=== PATIENT | male | born 1945 | race Caucasian/White ===

== ENCOUNTER 2016-06-10 21:25 | Emergency (ER) | payer OTHER, MEDICARE, MEDICAID ==
--- NOTE | 2016-06-10 22:02 | EKG REPORT ---
SEVERITY:- ABNORMAL ECG - SINUS RHYTHM FIRST DEGREE AV BLOCK LEFT BUNDLE BRANCH BLOCK : Confirmed by: Jerald Franklin 10-Jun-2016 22:01:14
--- NOTE | 2016-06-10 22:28 | ER Document Report ---
ED General - General Chief Complaint: Chest Pain Stated Complaint: CHEST PAIN Notes: Patient is a 70-year-old obese male who presents with complaint of pain with coughing or taking a deep breath. Pain is over the lower chest. No nausea. No vomiting. No trauma to the chest. Patient said he had similar pain many years ago after fall due to rib injury. He says he's had no trauma no reason to think that he has a rib injury this time. No fevers. No recent leg pain or leg swelling that is new. No history of DVT or PE. Patient unsure if he has a history of left bundle branch block and prior EKGs. Patient says pain is been ongoing since . TRAVEL OUTSIDE OF THE [place] IN LAST 30 DAYS: No - Related Data Allergies/Adverse Reactions: No Known Allergies Allergy (Verified 05/03/12 16:25) Past Medical History - General Information source: Patient - Social History Smoking Status: Unknown if Ever Smoked Frequency of alcohol use: None Drug Abuse: None Family History: Reviewed & Not Pertinent Patient has suicidal ideation: No Patient has homicidal ideation: No - Past Medical History Cardiac Medical History: Reports: Hx Hypercholesterolemia, Hx Hypertension Denies: Hx Coronary Artery Disease Pulmonary Medical History: Reports: Hx Pneumonia Neurological Medical History: Reports: Hx Migraine Endocrine Medical History: Reports: Hx Diabetes Mellitus Type 1, Hx Diabetes Mellitus Type 2 GI Medical History: Reports: Hx Diverticulitis Musculoskeltal Medical History: Reports Hx Arthritis Psychiatric Medical History: Reports: Hx Depression Past Surgical History: Reports: Hx Orthopedic Surgery - left leg, Hx Tonsillectomy - Immunizations Immunizations up to date: Yes Hx Diphtheria, Pertussis, Tetanus Vaccination: Yes Review of Systems - Review of Systems Notes: My Normal Review Basic REVIEW OF SYSTEMS: CONSTITUTIONAL : Denies fever, chills, or sweats. Denies recent illness. CARDIOVASCULAR: Pleuritic chest pain RESPIRATORY: Denies cough, cold, or chest congestion. Denies shortness of breath, difficulty breathing, or wheezing. GASTROINTESTINAL: Denies abdominal pain. Denies nausea, vomiting, or diarrhea. Denies constipation. Last BM: MUSCULOSKELETAL: Denies neck or back pain or joint pain or swelling. SKIN: Denies rash or skin lesions. NEUROLOGICAL: Denies altered mental status or loss of consciousness. Denies headache. Denies weakness or paralysis or loss of use of either side. Denies problems with gait or speech. Denies sensory or motor loss. ALL OTHER SYSTEMS REVIEWED AND NEGATIVE. Physical Exam - Vital signs Vitals: Temp Pulse Resp BP Pulse Ox 97.8 F 61 28 H 168/87 H 100 06/10/16 21:52 06/10/16 21:52 06/10/16 21:52 06/10/16 21:52 06/10/16 21:52 - Notes Notes: General Appearance: Well nourished, alert, cooperative, no acute distress, moderate obvious discomfort. Vitals: reviewed, See vital signs table. Head: no swelling or tenderness to the head Eyes: PERRL, EOMI, Conjuctiva clear Mouth: No decreasd moisture Throat: No tonsillar inflammation, No airway obstruction, No lymphadenopathy Neck: Supple, no neck tenderness, No thyromegaly Lungs: No wheezing, No rales, No rhonci, No accessory muscle use, good air exchange bilaterally. Chest wall: No reproducible tenderness to palpation of the chest wall. Heart: Normal rate, Regular rythm, No murmur, no rub Abdomen: Normal BS, soft, No rigidity, No abdominal tenderness, No guarding, no rebound, no abdominal masses, no organomegaly Extremities: strength 5/5 in all extremities, good pulses in all extremities, no swelling or tenderness in the extremities, no edema. Skin: warm, dry, appropriate color, no rash Neuro: speech clear, oriented x 3, normal affect, responds appropriately to questions. Course - Vital Signs Vital signs: Temp Pulse Resp BP Pulse Ox 98.1 F 61 21 H 155/82 H 94 06/11/16 03:01 06/10/16 21:52 06/11/16 03:01 06/11/16 03:01 06/11/16 03:01 - Laboratory Result Diagrams: 06/10/16 23:10 06/10/16 23:10 Laboratory results interpreted by me: 06/10/16 06/10/16 23:10 23:10 RBC 4.33 L Hgb 12.8 L Lymphocytes % 10.2 L Glucose 137 H - EKG Interpretation by Me Additional EKG results interpreted by me: 06/10/16 22:28 EKG is reviewed and interpreted by me. EKG shows sinus rhythm with rate of 61 bpm. She does have a left bundle branch block. No concerning ST segment changes in lieu of having a left bundle branch block. WI interval is prolonged. QRS duration is prolonged. QTc interval is within normal range. Old EKG available for comparison. - Transfer of Care Notes: 06/11/16 05:31 Patient has what appears be pleurisy. He does have some pleural effusions. This is not surprising being that he is very obese. I do not suspect cord ER disease being that the pain is only pleuritic. Also the patient's pain has been ongoing for almost 6 days constantly and he has a normal troponin. His EKG does show a left bundle branch block. It's unclear if this is old. At this time do not think this represents underlying NV. Being the pain since pain was replaced with palpation and was very pleuritic I did obtain a CT into the chest. Does not show evidence of PE. Patient used to be on Lasix in the past. He says he was [facility]. He says he is unsure why he was taken off of it. We'll place him baked back on Lasix. Hopefully this will help with pleural effusions. We'll have him follow closely with [facility]. Encouraged return to ER medially if his pain becomes constant and not pleuritic, he has fevers, worsening pain, difficulty breathing, or feels unwell. Patient currently has no tachypnea and no signs of any respiratory distress. He looks well. I feel he is safe to be discharged home. Patient agrees with plan and will be discharged home. Discharge - Discharge Clinical Impression: Pleurisy, Pleural effusion Condition: Good Disposition: HOME, SELF-CARE Additional Instructions: Please follow up within a week with your doctor at the [facility] for close reevaluation. Please return to the ER immediately if you have worsening pain, fevers, difficulty breathing, or feel unwell. Please inform your doctor we have started you back on furosemide (water pill). Please have them recheck your kidney function and potassium to make sure it is staying normal. Prescriptions: Furosemide [Lasix 40 mg Tablet] 40 mg PO QAM #30 tablet Ondansetron [Zofran Odt 4 mg Tablet] 1 tab PO Q4H PRN #15 tab.rapdis PRN Reason: For Nausea/Vomiting
[2016-06-10 23:27] LABS: ABSOLUTE EOSINOPHILS # (AUTO) 0.1 10^3/uL (0.0-0.6); ABSOLUTE LYMPHOCYTES (AUTO) 1.1 10^3/uL (0.5-4.7); ABSOLUTE MONOCYTES (AUTO) 1.1 10^3/uL (0.1-1.4); BASOPHILS % (AUTO) 0.3 % (0-2); HEMATOCRIT 38.3 % (37.9-51.0); HEMOGLOBIN 12.8 g/dL (13.5-17.0); HGB HCT DIFFERENCE 0.1; LYMPHOCYTES % (AUTO) 10.2 % (13-45); MEAN CORPUSCULAR HEMOGLOBIN 29.5 pg (27.0-33.4); MEAN CORPUSCULAR HGB CONC 33.4 g/dL (32.0-36.0); MEAN CORPUSCULAR VOLUME 88 fl (80-97); MONOCYTES % (AUTO) 10.6 % (3-13); RED BLOOD COUNT 4.33 10^6/uL (4.35-5.55); RED CELL DISTRIBUTION WIDTH 13.5 % (11.5-14.0); SEGMENTED NEUTROPHILS % (AUTO) 77.9 % (42-78); WHITE BLOOD COUNT 10.3 10^3/uL (4.0-10.5)
[2016-06-10 23:37] LABS: ALANINE AMINOTRANSFERASE 32 U/L (21-72); ALBUMIN 3.9 g/dL (3.5-5.0); ALKALINE PHOSPHATASE 63 U/L (38-126); ANION GAP 12 (5-19); ASPARTATE AMINO TRANSFERASE 22 U/L (17-59); BILIRUBIN,TOTAL 0.4 mg/dL (0.2-1.3); BLOOD UREA NITROGEN 13 mg/dL (7-20); CALCIUM 9.1 mg/dL (8.4-10.2); CARBON DIOXIDE 25 mmol/L (22-30); CHLORIDE 107 mmol/L (98-107); CREATINE KINASE 102 U/L (55-170); CREATININE RESULT 0.67 mg/dL (0.52-1.25); GLUCOSE 137 mg/dL (75-110); POTASSIUM 4.1 mmol/L (3.6-5.0); SODIUM 143.5 mmol/L (137-145); TOTAL PROTEIN 6.8 g/dL (6.3-8.2)
[2016-06-10 23:49] LABS: CREATINE KINASE MB 1.72 ng/mL (<4.55); TROPONIN I 0.03 ng/mL
[2016-06-11] MEDS ORDERED: ONDANSETRON HCL INJ/PF 4 MG/2 ML SDV IV ONE (01:10)
[2016-06-11] MEDS ORDERED: FUROSEMIDE INJ/PF 20 MG/2 ML SDV IV ONE (02:37)
[2016-06-11] MEDS ORDERED: ONDANSETRON ODT 4 MG TAB (6 TAB/DSPK) PO PRN (02:41)
[2016-06-11 03:07] VITALS: BP 155/82
== END 2016-06-11 03:14 | disposition home or self-care (01) ==
LOC: ER 21:25
DX: R09.1 Pleurisy (principal); J90 Pleural effusion, not elsewhere classified; R05 Cough; R07.9 Chest pain, unspecified
CPT/HCPCS: 93005; 99285; 96374; 96375; 36415; 82553; 82550; 85025; 80053; 84484; 71020; 71275; 93010; J1940; J2405

== ENCOUNTER 2016-06-18 12:24 | Emergency (ER) | payer OTHER, MEDICARE ==
--- NOTE | 2016-06-18 12:56 | ER Document Report ---
ED Medical Screen (RME) - General Stated Complaint: FOLLOWUP FROM CHEST PAIN Time seen by provider: 12:55 Mode of Arrival: Wheelchair Information source: Patient Notes: 70-year-old male complaining of right upper quadrant abdominal pain that radiates into the right thoracic back. Seen 06-10-16 recently [facility] ER and evaluated for chest pain. Does have nausea. CTA was negative. TRAVEL OUTSIDE OF THE [place] IN LAST 30 DAYS: No - Related Data Allergies/Adverse Reactions: No Known Allergies Allergy (Verified 06/18/16 12:52) Past Medical History - Past Medical History Cardiac Medical History: Reports: Hx Hypercholesterolemia, Hx Hypertension Denies: Hx Coronary Artery Disease Pulmonary Medical History: Reports: Hx Pneumonia Neurological Medical History: Reports: Hx Migraine Endocrine Medical History: Reports: Hx Diabetes Mellitus Type 1, Hx Diabetes Mellitus Type 2 GI Medical History: Reports: Hx Diverticulitis Musculoskeltal Medical History: Reports Hx Arthritis Psychiatric Medical History: Reports: Hx Depression Past Surgical History: Reports: Hx Orthopedic Surgery - left leg, Hx Tonsillectomy - Immunizations Immunizations up to date: Yes Hx Diphtheria, Pertussis, Tetanus Vaccination: Yes Physical Exam - Vital signs Vitals: Temp Pulse Resp BP Pulse Ox 97.4 F 63 22 H 162/85 H 100 06/18/16 12:29 06/18/16 12:29 06/18/16 12:29 06/18/16 12:29 06/18/16 12:29 Course - Vital Signs Vital signs: Temp Pulse Resp BP Pulse Ox 97.4 F 63 22 H 162/85 H 100 06/18/16 12:29 06/18/16 12:29 06/18/16 12:29 06/18/16 12:29 06/18/16 12:29
[2016-06-18 13:42] LABS: ABSOLUTE EOSINOPHILS # (AUTO) 0.1 10^3/uL (0.0-0.6); ABSOLUTE LYMPHOCYTES (AUTO) 1.1 10^3/uL (0.5-4.7); ABSOLUTE MONOCYTES (AUTO) 0.6 10^3/uL (0.1-1.4); ABSOLUTE NEUT (AUTO) 5.8 10^3/uL (1.7-8.2); BASOPHILS % (AUTO) 0.6 % (0-2); EOSINOPHILS % (AUTO) 0.8 % (0-6); HEMATOCRIT 41.7 % (37.9-51.0); HEMOGLOBIN 13.9 g/dL (13.5-17.0); LYMPHOCYTES % (AUTO) 14.8 % (13-45); MEAN CORPUSCULAR HEMOGLOBIN 29.3 pg (27.0-33.4); MEAN CORPUSCULAR HGB CONC 33.4 g/dL (32.0-36.0); MEAN CORPUSCULAR VOLUME 88 fl (80-97); MONOCYTES % (AUTO) 8.1 % (3-13); RED BLOOD COUNT 4.76 10^6/uL (4.35-5.55); RED CELL DISTRIBUTION WIDTH 13.5 % (11.5-14.0); SEGMENTED NEUTROPHILS % (AUTO) 75.7 % (42-78); WHITE BLOOD COUNT 7.6 10^3/uL (4.0-10.5)
[2016-06-18 14:02] LABS: ALANINE AMINOTRANSFERASE 20 U/L (21-72); ALBUMIN 4.4 g/dL (3.5-5.0); ALKALINE PHOSPHATASE 63 U/L (38-126); ANION GAP 14 (5-19); ASPARTATE AMINO TRANSFERASE 29 U/L (17-59); BILIRUBIN,TOTAL 0.6 mg/dL (0.2-1.3); BLOOD UREA NITROGEN 18 mg/dL (7-20); CALCIUM 9.8 mg/dL (8.4-10.2); CARBON DIOXIDE 28 mmol/L (22-30); CHLORIDE 99 mmol/L (98-107); CREATININE RESULT 0.77 mg/dL (0.52-1.25); GLUCOSE 196 mg/dL (75-110); LIPASE 15.2 U/L (23-300); POTASSIUM 4.2 mmol/L (3.6-5.0); SODIUM 141.3 mmol/L (137-145); TOTAL PROTEIN 7.2 g/dL (6.3-8.2)
--- NOTE | 2016-06-18 14:12 | ER Document Report ---
ED GI/ - General Chief Complaint: Upper Abdominal Pain Stated Complaint: FOLLOWUP FROM CHEST PAIN Mode of Arrival: Wheelchair Notes: The patient is a 70-year-old male who presents with 2 days of worsening right and left lower quadrant abdominal pain. He feels like the pain is stabbing and worse with movement. He is also having some nausea and a small amount of loose stools. He was seen in the emergency room last week with shortness of breath and chest pain and had a negative CTA. He denies fevers, urinary symptoms, vomiting, chest pain, shortness of breath, constipation or blood in stool. TRAVEL OUTSIDE OF THE [place] IN LAST 30 DAYS: No - Related Data Allergies/Adverse Reactions: No Known Allergies Allergy (Verified 06/18/16 12:52) Past Medical History - General Information source: Patient - Social History Smoking Status: Never Smoker Chew tobacco use (# tins/day): No Frequency of alcohol use: None Drug Abuse: None Family History: Reviewed & Not Pertinent Patient has suicidal ideation: No Patient has homicidal ideation: No - Past Medical History Cardiac Medical History: Reports: Hx Hypercholesterolemia, Hx Hypertension Denies: Hx Coronary Artery Disease Pulmonary Medical History: Reports: Hx Pneumonia Neurological Medical History: Reports: Hx Migraine Endocrine Medical History: Reports: Hx Diabetes Mellitus Type 1, Hx Diabetes Mellitus Type 2 GI Medical History: Reports: Hx Diverticulitis Musculoskeltal Medical History: Reports Hx Arthritis Psychiatric Medical History: Reports: Hx Depression Past Surgical History: Reports: Hx Orthopedic Surgery - left leg, Hx Tonsillectomy - Immunizations Immunizations up to date: Yes Hx Diphtheria, Pertussis, Tetanus Vaccination: Yes Review of Systems - Review of Systems Notes: REVIEW OF SYSTEMS: CONSTITUTIONAL: -fevers, -chills EENT: -eye pain, -difficulty swallowing, -nasal congestion CARDIOVASCULAR:-chest pain, -syncope. RESPIRATORY: -cough, -SOB GASTROINTESTINAL: +abdominal pain, +nausea, -vomiting, +diarrhea GENITOURINARY: -dysuria, -hematuria MUSCULOSKELETAL: -back pain, -neck pain SKIN: -rash or skin lesions. HEMATOLOGIC: -easy bruising or bleeding. LYMPHATIC: -swollen, enlarged glands. NEUROLOGICAL: -altered mental status or loss of consciousness, -headache, - neurologic symptoms PSYCHIATRIC: -anxiety, -depression. ALL OTHER SYSTEMS REVIEWED AND NEGATIVE. Physical Exam - Vital signs Vitals: Temp Pulse Resp BP Pulse Ox 97.4 F 63 22 H 162/85 H 100 06/18/16 12:29 06/18/16 12:29 06/18/16 12:29 06/18/16 12:29 06/18/16 12:29 - Notes Notes: PHYSICAL EXAMINATION: GENERAL: Well-appearing, well-nourished and in no acute distress. HEAD: Atraumatic, normocephalic. EYES: Pupils equal round and reactive to light, extraocular movements intact, sclera anicteric, conjunctiva are normal. ENT: nares patent, oropharynx clear without exudates. Moist mucous membranes. NECK: Normal range of motion, supple without lymphadenopathy LUNGS: Breath sounds clear to auscultation bilaterally and equal. No wheezes rales or rhonchi. HEART: Regular rate and rhythm without murmurs ABDOMEN: Mild tenderness over right lower quadrant and left lower quadrant. No rebound. Positive bowel sounds. EXTREMITIES: Normal range of motion, no pitting or edema. No cyanosis. NEUROLOGICAL: Cranial nerves grossly intact. Normal speech, normal gait. Normal sensory, motor, and reflex exams. PSYCH: Normal mood, normal affect. SKIN: Warm, Dry, normal turgor, no rashes or lesions noted. Course - Re-evaluation Re-evalutation: Patient has lower abdominal tenderness. Will check labs, urine and obtain CT abdomen and pelvis to assess for emergent causes of his abdominal pain. 06/18/16 15:05 CT does not show any acute findings. Labs are unremarkable. Patient said lower abdominal pain went away, but the pain returned to his right upper quadrant. Will obtain ultrasound to assess for stones not seen on CAT scan. 06/18/16 16:07 Ultrasound shows concern for cirrhosis. Do not suspect SBP at this time without fever or leukocytosis. Instructed patient to follow up with GI for further evaluation and treatment. Patient comfortable with plan and understands. - Vital Signs Vital signs: Temp Pulse Resp BP Pulse Ox 97.4 F 63 22 H 162/85 H 100 06/18/16 12:29 06/18/16 12:29 06/18/16 12:29 06/18/16 12:29 06/18/16 12:29 - Laboratory Result Diagrams: 06/18/16 13:17 06/18/16 13:17 Laboratory results interpreted by me: 01/10/17 13:17 Glucose 196 H ALT 20 L Lipase 15.2 L Discharge - Discharge Clinical Impression: Abdominal pain Qualifiers: Abdominal location: generalized Qualified Code(s): R10.84 - Generalized abdominal pain Cirrhosis Qualifiers: Hepatic cirrhosis type: unspecified hepatic cirrhosis Ascites presence: with ascites Qualified Code(s): K74.60 - Unspecified cirrhosis of liver Condition: Good Disposition: HOME, SELF-CARE Additional Instructions: Your CAT scan and labs do not show any evidence of emergent conditions that are causing your abdominal pain. However, your ultrasound shows concern for cirrhosis. You must follow-up with your primary care physician and a GI doctor for further evaluation and treatment. You may take your home Zofran to help with any nausea. Cirrhosis You may have cirrhosis of the liver. The liver tissue is replaced by scar tissue. Most often, this is caused by alcoholism or chronic hepatitis. There may be no symptoms in early cirrhosis. Later, patients develop jaundice, swelling, and fluid in the abdomen. There is no cure for cirrhosis. Only the symptoms can be treated. Edema and fluid in the abdomen can be treated with diuretics (water pills). If cirrhosis is severe, you'll be restricted to a low-protein diet. Don't drink any alcohol. When medicines are prescribed for you, be sure the doctor understands you have cirrhosis. Call the doctor if you become increasingly yellow, vomit repeatedly, begin to bruise or bleed easily, or have worsening abdominal pain or increasing abdominal size. ABDOMINAL PAIN: There are many causes of abdominal pain. Pain can mean a serious problem requiring surgery (such as appendicitis). It can also be an innocent problem that goes away on its own (such as a viral infection). Often, time must pass to determine the cause of pain. The physician does not feel that hospitalization is necessary, at present. Things may change within the next 24 hours. Call the doctor or come back for re- examination if any problems occur, such as: (1) Pain that becomes more severe, steady, or becomes concentrated in one specific area. Also, pain that is more severe with movement or coughing. (2) Vomiting that persists or becomes more frequent. (3) Blood in the vomitus, urine, or bowel movements. Blood in the stool may have a tarry or black appearance. (4) Shaking chills or fever greater than 100 degrees F. (5) The abdomen becomes more distended or swollen. (6) Bowel movements cease. (7) Failure to improve as expected. NORMAL EXAM AND WORKUP: At this time, your examination and workup show no significant abnormality. No significant abnormal physical findings are noted. All laboratory, EKG, and imaging (x-ray, CT scans, ultrasound) studies that were ordered show no significant abnormality. Although your examination and all studies that were ordered showed no significant abnormal finding, there are no examinations and no studies that are 100% accurate. There is always the possibility that some abnormality could exist and not be detected with physical examination or within the limits and capabilities of laboratory and other studies. You should return or follow up as you were instructed on your visit today for further evaluation if your symptoms do not resolve. PAIN MEDICATION INJECTION: You have received an injection of a pain medication. You should experience significant pain relief within 45 minutes. This drug is a narcotic - - it will impair your judgement, slow your reaction time and make you sleepy ( as well as relieve your pain). Narcotics also can cause nausea. You should not drive, work with machinery, or perform any task requiring mental alertness until all effects of the medication are gone -- six to eight hours. Do not take any alcohol, or sedatives, and do not take any other medication without checking with your physician. ANTINAUSEA MEDICATION: You have been given a medication to suppress nausea and vomiting. This type of medication can be given as a shot, pill, or suppository. It will usually last for many hours. Pills and shots usually last six to eight hours, suppositories last about 12 hours. For the typical illness, only one or two doses of the medication may be necessary. Mild lightheadedness may occur. This type of medicine can cause drowsiness. Do not drive or operate dangerous machinery while under its influence. Do not mix with alcohol. See your doctor at once if you have muscle spasms or tightness, or uncontrollable motions (particularly of the neck, mouth, or jaw). Persistent vomiting or severe lightheadedness should also be evaluated by the physician. FOLLOW-UP CARE: If you have been referred to a physician for follow-up care, call the physician s office for an appointment as you were instructed or within the next two days. If you experience worsening or a significant change in your symptoms, notify the physician immediately or return to the Emergency Department at any time for re-evaluation. FOLLOW-UP CARE: You should return for re-evaluation in 12 hours. This follow-up visit is important. If you are unable to return, or feel that the return visit is unnecessary, please call us. Prescriptions: Hydrocodone/Acetaminophen [[place] 5-325 mg Tablet] 1 tab PO Q6H PRN #10 tablet PRN Reason: Forms: Elevated Blood Pressure Referrals: JUDAH MELGAR MD [ACTIVE STAFF] - Follow up as needed
[2016-06-18] MEDS ORDERED: MORPHINE SULFATE 10 MG/ML INJ IV ONE (14:14)
[2016-06-18] MEDS ORDERED: ONDANSETRON HCL INJ/PF 4 MG/2 ML SDV IV ONE (14:14)
[2016-06-18 16:32] VITALS: BP 136/77
== END 2016-06-18 16:31 | disposition home or self-care (01) ==
LOC: ER 12:24
DX: K74.60 Unspecified cirrhosis of liver (principal); R18.8 Other ascites; R10.84 Generalized abdominal pain; R11.0 Nausea; I10 Essential (primary) hypertension; E11.9 Type 2 diabetes mellitus without complications
CPT/HCPCS: 99284; 96374; 96375; 36415; 83690; 85025; 80053; 76705; 74177; J2270; J2405

== ENCOUNTER 2017-07-25 19:53 | Inpatient (IN) | payer OTHER, MEDICARE ==
[2017-07-25] MEDS ORDERED: OXYCODONE-ACETAMINOPHEN 5-325 MG TABLET PO ONE (20:07)
--- NOTE | 2017-07-25 20:09 | ER Document Report ---
ED Extremity Problem, Lower - General Chief Complaint: Fall Stated Complaint: FALL,GROIN PAIN Time Seen by Provider: 07/25/17 20:02 Notes: Patient is a 71-year-old male comes emergency department for chief complaint of fall at home, he states he tripped on a shoe, went down on his left knee, reports pain in the left knee and also up in the left groin area. He denies back pain, he denies hitting his head, he denies any other locations of pain. He is not on a blood thinner. He does have neuropathy in the distal part of his legs. He takes hydrocodone for pain from pain management. TRAVEL OUTSIDE OF THE [place] IN LAST 30 DAYS: No - Related Data Allergies/Adverse Reactions: No Known Allergies Allergy (Verified 07/25/17 20:07) Past Medical History - General Information source: Patient - Social History Smoking Status: Former Smoker Drug Abuse: None Lives with: Family Family History: Reviewed & Not Pertinent - Past Medical History Cardiac Medical History: Reports: Hx Hypercholesterolemia, Hx Hypertension Denies: Hx Coronary Artery Disease Pulmonary Medical History: Reports: Hx Pneumonia Neurological Medical History: Reports: Hx Migraine Endocrine Medical History: Reports: Hx Diabetes Mellitus Type 2 GI Medical History: Reports: Hx Diverticulitis Musculoskeltal Medical History: Reports Hx Arthritis Psychiatric Medical History: Reports: Hx Depression Past Surgical History: Reports: Hx Orthopedic Surgery - left leg, Hx Tonsillectomy - Immunizations Immunizations up to date: Yes Hx Diphtheria, Pertussis, Tetanus Vaccination: Yes Review of Systems - Review of Systems Constitutional: No symptoms reported EENT: No symptoms reported Cardiovascular: No symptoms reported Respiratory: No symptoms reported Gastrointestinal: No symptoms reported Genitourinary: No symptoms reported Male Genitourinary: No symptoms reported Musculoskeletal: See HPI Skin: No symptoms reported Hematologic/Lymphatic: No symptoms reported Neurological/Psychological: No symptoms reported Physical Exam - Vital signs Vitals: Temp Pulse Resp BP Pulse Ox 98.0 F 56 L 20 134/58 H 95 07/25/17 20:04 07/25/17 20:04 07/25/17 20:04 07/25/17 20:04 07/25/17 20:04 Interpretation: Normal - General General appearance: Appears well, Alert - HEENT Head: Normocephalic, Atraumatic Eyes: Normal Pupils: PERRL - Respiratory Respiratory status: No respiratory distress Chest status: Nontender Breath sounds: Normal. No: Decreased air movement, Wheezing Chest palpation: Normal - Cardiovascular Rhythm: Regular Heart sounds: Normal auscultation Murmur: No - Abdominal Inspection: Normal Distension: No distension Bowel sounds: Normal Tenderness: Nontender Organomegaly: No organomegaly - Back Back: Normal, Nontender - Extremities General upper extremity: Normal inspection, Nontender, Normal color, Normal ROM , Normal temperature General lower extremity: Other - Patient is tender in the left groin is area, minimally along the left proximal femur, also tender generally over the left knee, range of motion the knee is intact, normal distal neurovascular exam, unremarkable extremity exam otherwise. - Neurological Neuro grossly intact: Yes Cognition: Normal Orientation: AAOx4 Mansi Coma Scale Eye Opening: Spontaneous Davilla Coma Scale Verbal: Oriented Davilla Coma Scale Motor: Obeys Commands Davilla Coma Scale Total: 15 Speech: Normal Motor strength normal: LUE, RUE, LLE, RLE Sensory: Normal - Psychological Associated symptoms: Normal affect, Normal mood - Skin Skin Temperature: Warm Skin Moisture: Dry Skin Color: Normal Course - Re-evaluation Re-evalutation: Patient with tenderness in the left groin and over the left knee after fall, no head injury, no neurological deficits, no other concerns. Vital signs unremarkable. 07/25/17 21:45 Patient with a left femoral neck intertrochanteric fracture, will require surgery. I called and spoke with Dr. Lozano, orthopedics retinal surgeon, he states that he will consult on the patient, to speak to hospitalist for admission based on his age and comorbidities. Preop workup completed, urinalysis unremarkable, chest x-ray unremarkable, patient does have leukocytosis but I am unsure of the cause of this as there is no apparent infectious source. Pepe was placed, patient provided with pain medication. Discussed with Dr. Aquino, internal medicine, patient will be admitted to telemetry full admission. Family and patient state understanding and agreement. - Vital Signs Vital signs: Temp Pulse Resp BP Pulse Ox 98.6 F 56 L 14 118/76 97 07/26/17 04:00 07/25/17 20:04 07/26/17 07:00 07/26/17 07:01 07/26/17 07:00 - Laboratory Result Diagrams: 07/25/17 21:58 07/26/17 01:36 Laboratory results interpreted by me: 02/16/18 02/16/18 02/16/18 21:58 21:58 22:58 WBC 18.1 H RBC 4.23 L Hgb 12.6 L Seg Neuts % (Manual) 87 H Lymphocytes % (Manual) 7 L Abs Neuts (Manual) 15.7 H BUN 27 H Glucose 199 H Urine Protein 30 H Urine Glucose (UA) 150 H Discharge - Discharge Clinical Impression: Fracture of femoral neck, left Qualifiers: Encounter type: initial encounter Fracture type: closed Qualified Code(s): S72.002A - Fracture of unspecified part of neck of left femur, initial encounter for closed fracture Fall Qualifiers: Encounter type: initial encounter Qualified Code(s): W19.XXXA - Unspecified fall, initial encounter Left knee pain Qualifiers: Chronicity: acute Qualified Code(s): M25.562 - Pain in left knee Condition: Stable Disposition: ADMITTED INPATIENT Admitting Provider: Hospitalist Unit Admitted: Telemetry
--- NOTE | 2017-07-25 21:00 | RADIOLOGY REPORT (SQ) ---
EXAM DESCRIPTION: HIP LEFT AP/LATERAL COMPLETED DATE/TIME: 07/25/2017 8:40 pm REASON FOR STUDY: fall, pain COMPARISON: None. NUMBER OF VIEWS: Two views. TECHNIQUE: AP pelvis and additional frog-leg view of the left hip. LIMITATIONS: None. FINDINGS: MINERALIZATION: Normal. LEFT HIP: Mildly displaced intertrochanteric femoral neck fracture. RIGHT HIP: No fracture or dislocation. No worrisome bone lesions. PUBIS AND ISCHIUM: No fracture. PELVIS: No fracture. SACRUM: No fracture or dislocation. No worrisome bone lesions. LOWER LUMBAR SPINE: No fracture or dislocation. No worrisome bone lesions. No significant disc disea se. SOFT TISSUES: No findings. OTHER: No other significant finding. IMPRESSION: LEFT INTERTROCHANTERIC FEMORAL NECK FRACTURE. TECHNICAL DOCUMENTATION: JOB ID: [id number] [employer]- All Rights Reserved
--- NOTE | 2017-07-25 21:01 | RADIOLOGY REPORT (SQ) ---
EXAM DESCRIPTION: KNEE LEFT 2 VIEWS COMPLETED DATE/TIME: 07/25/2017 8:40 pm REASON FOR STUDY: fall on knee, pain COMPARISON: None. NUMBER OF VIEWS: Two views. TECHNIQUE: AP and lateral radiographic images acquired of the left knee. LIMITATIONS: None. FINDINGS: MINERALIZATION: Normal. BONES: No acute fracture or dislocation. No worrisome bone lesions. JOINT: Moderate tricompartmental osteoarthritis most severely affecting the patellofemoral compartmen t. Small joint effusion. SOFT TISSUES: No soft tissue swelling. No radio-opaque foreign body. OTHER: No other significant finding. IMPRESSION: TRICOMPARTMENTAL OSTEOARTHRITIS WITH SMALL JOINT EFFUSION. NO ACUTE OSSEOUS ABNORMALITY . TECHNICAL DOCUMENTATION: JOB ID: [id number] [employer]- All Rights Reserved
[2017-07-25] MEDS ORDERED: ONDANSETRON HCL INJ/PF 4 MG/2 ML SDV IV ONE (21:45)
[2017-07-25] MEDS ORDERED: HYDROMORPHONE HCL INJ/PF 2 MG/ML AMPULE IV ONE ×2 (21:45→23:57)
[2017-07-25 22:38] LABS: HEMATOCRIT 38.3 % (37.9-51.0); HEMOGLOBIN 12.6 g/dL (13.5-17.0); INTERNATIONAL RATION (INR) 0.95; MEAN CORPUSCULAR HEMOGLOBIN 29.7 pg (27.0-33.4); MEAN CORPUSCULAR HGB CONC 32.8 g/dL (32.0-36.0); MEAN CORPUSCULAR VOLUME 91 fl (80-97); PLATELET COUNT 301 10^3/uL (150-450); PROTHROMBIN TIME 13.4 SEC (11.4-15.4); RED BLOOD COUNT 4.23 10^6/uL (4.35-5.55); RED CELL DISTRIBUTION WIDTH 13.1 % (11.5-14.0); WHITE BLOOD COUNT 18.1 10^3/uL (4.0-10.5)
[2017-07-25 22:44] LABS: ALANINE AMINOTRANSFERASE 24 U/L (21-72); ALBUMIN 4.5 g/dL (3.5-5.0); ALKALINE PHOSPHATASE 61 U/L (38-126); ANION GAP 11 (5-19); ASPARTATE AMINO TRANSFERASE 33 U/L (17-59); BILIRUBIN,DIRECT 0.2 mg/dL (0.0-0.4); BILIRUBIN,TOTAL 0.3 mg/dL (0.2-1.3); BLOOD UREA NITROGEN 27 mg/dL (7-20); CALCIUM 9.7 mg/dL (8.4-10.2); CARBON DIOXIDE 27 mmol/L (22-30); CHLORIDE 100 mmol/L (98-107); GLUCOSE 199 mg/dL (75-110); POTASSIUM 4.4 mmol/L (3.6-5.0); SODIUM 138.4 mmol/L (137-145); TOTAL PROTEIN 7.6 g/dL (6.3-8.2)
[2017-07-25 22:57] LABS: ABSOLUTE LYMPHOCYTES# (MANUAL) 1.3 10^3/uL (0.5-4.7); ABSOLUTE MONOCYTES # (MANUAL) 1.1 10^3/uL (0.1-1.4); ABSOLUTE NEUTROPHILS# (MANUAL) 15.7 10^3/uL (1.7-8.2); BASOPHILS % (MANUAL) 0 % (0-2); EOSINOPHILS % (MANUAL) 0 % (0-6); LYMPHOCYTES % (MANUAL) 7 % (13-45); MONOCYTES % (MANUAL) 6 % (3-13); SEGMENTED NEUTROPHILS % (MAN) 87 % (42-78); TOTAL CELLS COUNTED 100
[2017-07-25 22:58] LABS: PLATELET COMMENT ADEQUATE; RBC MORPHOLOGY COMMENT NORMO-CYTIC/CHROMIC
[2017-07-25 23:16] LABS: APPEARANCE,URINE CLEAR; BILIRUBIN,URINE NEGATIVE (NEGATIVE); COLOR,URINE YELLOW; GLUCOSE, URINE 150 mg/dL (NEGATIVE); KETONES,URINE NEGATIVE (NEGATIVE); LEUKOCYTE ESTERASE,URINE NEGATIVE (NEGATIVE); NITRITE,URINE NEGATIVE (NEGATIVE); PROTEIN,URINE 30 mg/dL (NEGATIVE); URINE SPECIFIC GRAVITY 1.023; UROBILINOGEN,URINE NEGATIVE mg/dL (<2.0)
--- NOTE | 2017-07-26 00:13 | RADIOLOGY REPORT (SQ) ---
EXAM DESCRIPTION: CHEST SINGLE VIEW CLINICAL HISTORY: 71 years Male, pre-op COMPARISON: 06-10-17 NUMBER OF VIEWS/TECHNIQUE: 1/AP LIMITATIONS: None. FINDINGS: Moderate lung volume. Clear parenchyma. Normal cardiac silhouette. No pneumothorax. No acute bone defect. IMPRESSION: No acute cardiopulmonary findings.
[2017-07-26] MEDS ORDERED: ONDANSETRON HCL INJ/PF 4 MG/2 ML SDV IV ONE (00:32)
[2017-07-26] MEDS ORDERED: IPRATROPIUM/ALBUTEROL 0.5-2.5 MG/3 ML AMPUL NEB PRN (00:54)
[2017-07-26] MEDS ORDERED: MAG HYDROX/AL HYDROX/SIMETH SUSP 30 ML UDCUP PO PRN (00:54)
[2017-07-26] MEDS ORDERED: HYDRALAZINE HCL INJ/PF 20 MG/1 ML SDV IV PRN (00:54)
[2017-07-26] MEDS ORDERED: DEXTROSE 40% GEL 15 GM TUBE PO PRN ×2 (00:54)
[2017-07-26] MEDS ORDERED: DEXTROSE 50%-WATER 25 GM/50 ML DISP.SYRIN IV PRN ×2 (00:54)
[2017-07-26] MEDS ORDERED: GLUCAGON,HUMAN RECOMB 1 MG INJ IM PRN (00:54)
[2017-07-26] MEDS ORDERED: MORPHINE SULFATE 10 MG/ML INJ IV PRN ×2 (00:54→14:09)
[2017-07-26] MEDS ORDERED: METOPROLOL SUCCINATE 50 MG TAB.SR.24H PO ONE (01:15)
[2017-07-26 02:05] LABS: ANION GAP 12 (5-19); BLOOD UREA NITROGEN 28 mg/dL (7-20); CALCIUM 9.7 mg/dL (8.4-10.2); CARBON DIOXIDE 22 mmol/L (22-30); CHLORIDE 103 mmol/L (98-107); GLUCOSE 201 mg/dL (75-110); POTASSIUM 4.7 mmol/L (3.6-5.0); SODIUM 136.8 mmol/L (137-145)
--- NOTE | 2017-07-26 05:03 | PDOC H&P ---
History of Present Illness Admission Date/PCP: 07/26/17 00:55 RADHA WHITE MD Patient complains of: Left-sided hip pain History of Present Illness: CATALINO MARTINEZ JR is a 71 year old male with a past medical history of diabetes, hypertension, irritable bowel syndrome, migraine headache, depression, neuropathy and old left bundle branch block. Patient presents after tripping on his slippers resulting in a fall to the floor resulting in excruciating pain to left hip. He denies striking his head or prior symptoms such as chest pain, palpitations, lightheadedness. He does admit to several falls in the past describing left knee sometimes gives out. He denies recent change in medications and is otherwise felt well. In the emergency room is found to have a left lower extremity shortened and externally rotated. Imaging of the hip reveals intertrochanteric femoral neck fracture. He receives symptomatic treatment and refer to the hospitalist for admission. Patient admits negative cardiac stress test 3 months ago. He denies recent fracture, complication with surgery. Past Medical History Cardiac Medical History: Reports: Hyperlipidema, Hypertension Denies: Coronary Artery Disease Pulmonary Medical History: Reports: Pneumonia Neurological Medical History: Reports: Migraine Endocrine Medical History: Reports: Diabetes Mellitus Type 1, Diabetes Mellitus Type 2 GI Medical History: Reports: Diverticulitis, Gastroesophageal Reflux Disease Musculoskeltal Medical History: Reports: Arthritis Psychiatric Medical History: Reports: Depression Past Surgical History Past Surgical History: Reports: Orthopedic Surgery - left leg, Tonsillectomy Social History Information Source: Patient Lives with: Alone Smoking Status: Never Smoker Frequency of Alcohol Use: None Drugs: None - Advance Directive Resuscitation Status: Full Code Family History Family History: CAD Parental Family History Reviewed: Yes Children Family History Reviewed: Yes Sibling(s) Family History Reviewed.: Yes Medication/Allergy Home Medications: Insulin Aspart Protam & Aspart [Novolog Mix 70-30 Vial] unit SQ 05/03/12 Insulin Glargine,Hum.rec.anlog [Lantus Insulin 100 Unit/mL] 70 unit SUBCUT QHS 05/03/12 Aspirin [Aspirin 325 mg Tablet] 325 mg PO DAILY 08/17/12 Hydrocodone Bit/Acetaminophen [Vicodin 5-500 mg Tablet] 1 - 2 tab PO ASDIR PRN # 15 tablet 08/17/12 Metformin HCl [Glucophage 1000 mg Tablet] 1,000 mg PO BID 08/17/12 Metoprolol Succinate [Toprol Xl 50 mg Tab.sr] 25 mg PO BID 08/17/12 Oxycodone HCl/Acetaminophen [Percocet 5-325 mg Tablet] 1 tab PO QID #30 tablet 05/08/13 Promethazine HCl [Phenergan 25 mg Tablet] 25 mg PO ASDIR PRN #20 tablet Furosemide [Lasix 40 mg Tablet] 40 mg PO QAM #30 tablet 06/11/16 Ondansetron [Zofran Odt 4 mg Tablet] 1 tab PO Q4H PRN #15 tab.rapdis 06/11/16 Hydrocodone/Acetaminophen [[place] 5-325 mg Tablet] 1 tab PO Q6H PRN #10 tablet Allergies/Adverse Reactions: No Known Allergies Allergy (Verified 07/25/17 20:07) Review of Systems Constitutional: ABSENT: chills, fever(s), headache(s), weight gain, weight loss Eyes: ABSENT: visual disturbances Ears: ABSENT: hearing changes Cardiovascular: ABSENT: chest pain, dyspnea on exertion, edema, orthropnea, palpitations Respiratory: ABSENT: cough, hemoptysis Gastrointestinal: ABSENT: abdominal pain, constipation, diarrhea, hematemesis, hematochezia, nausea, vomiting Genitourinary: ABSENT: dysuria, hematuria Musculoskeletal: ABSENT: joint swelling Integumentary: ABSENT: rash, wounds Neurological: ABSENT: abnormal gait, abnormal speech, confusion, dizziness, focal weakness, syncope Psychiatric: ABSENT: anxiety, depression, homidical ideation, suicidal ideation Endocrine: ABSENT: cold intolerance, heat intolerance, polydipsia, polyuria Hematologic/Lymphatic: ABSENT: easy bleeding, easy bruising Physical Exam Vital Signs: Temp Pulse Resp BP Pulse Ox 98.0 F 56 L 13 94/50 L 94 07/26/17 00:30 07/25/17 20:04 07/26/17 04:19 07/26/17 04:19 07/26/17 04:19 General appearance: PRESENT: cooperative, mild distress, morbidly obese Head exam: PRESENT: atraumatic, normocephalic Eye exam: PRESENT: conjunctiva pink, EOMI, PERRLA. ABSENT: scleral icterus Ear exam: PRESENT: normal external ear exam Mouth exam: PRESENT: moist, tongue midline Neck exam: ABSENT: carotid bruit, JVD, lymphadenopathy, thyromegaly Respiratory exam: PRESENT: clear to auscultation reynold. ABSENT: rales, rhonchi, wheezes Cardiovascular exam: PRESENT: RRR. ABSENT: diastolic murmur, rubs, systolic murmur Pulses: PRESENT: normal dorsalis pedis pul Vascular exam: PRESENT: normal capillary refill GI/Abdominal exam: PRESENT: normal bowel sounds, soft. ABSENT: distended, guarding, mass, organolmegaly, rebound, tenderness Rectal exam: PRESENT: deferred Extremities exam: PRESENT: other - Left leg shortened and externally rotated. Neurological exam: PRESENT: alert, awake, oriented to person, oriented to place , oriented to time, oriented to situation, CN II-XII grossly intact. ABSENT: motor sensory deficit Psychiatric exam: PRESENT: appropriate affect, normal mood. ABSENT: homicidal ideation, suicidal ideation Skin exam: PRESENT: dry, intact, warm. ABSENT: cyanosis, rash Results Laboratory Results: 07/26/17 01:36 07/26/17 01:36 Sodium 136.8 L Potassium 4.7 Chloride 103 Carbon Dioxide 22 Anion Gap 12 BUN 28 H Creatinine 0.86 Est GFR ( Amer) > 60 Est GFR (Non-Af Amer) > 60 Glucose 201 H Calcium 9.7 Impressions: Hip X-Ray 07/25/17 20:07 IMPRESSION: LEFT INTERTROCHANTERIC FEMORAL NECK FRACTURE. Knee X-Ray 07/25/17 20:07 IMPRESSION: TRICOMPARTMENTAL OSTEOARTHRITIS WITH SMALL JOINT EFFUSION. NO ACUTE OSSEOUS ABNORMALITY. Chest X-Ray 07/25/17 21:37 IMPRESSION: No acute cardiopulmonary findings. Assessment & Plan - Diagnosis (1) Fracture of femoral neck, left Qualifiers: Encounter type: initial encounter Fracture type: closed Qualified Code(s) : S72.002A - Fracture of unspecified part of neck of left femur, initial encounter for closed fracture Is this a current diagnosis for this admission?: Yes Plan: Mechanical fall, patient is cleared for surgery from my standpoint as he has had negative Cardiolite stress testing 3 months ago with a known old left bundle branch block. Orthopedic surgery consulted, symptomatic management. (2) Hypertension Is this a current diagnosis for this admission?: Yes Plan: Pain management and continuation of outpatient beta-sam. (3) Fall Qualifiers: Encounter type: initial encounter Qualified Code(s): W19.XXXA - Unspecified fall, initial encounter Is this a current diagnosis for this admission?: Yes Plan: Patient has had recurrent falls despite instructions to use a walker all complicated by diabetic neuropathy, deconditioning and muscular atrophy. Discharge planning consulted as he will likely require rehab. (4) Diabetes Is this a current diagnosis for this admission?: Yes Plan: Discontinuation of metformin, reduction of Lantus by half until eating, otherwise continue Humalog sliding scale. - Time Time Spent: 50 to 70 Minutes
[2017-07-26] MEDS ORDERED: FENTANYL CITRATE INJ/PF 100 MCG/2 ML AMPUL IV PRN ×4 (05:17→14:09)
[2017-07-26] MEDS: HEPARIN SOD (PORCINE) 5,000 UNIT/ML 1 ML SYRINGE SUBCUT SCH ×3 (05:42→21:39)
[2017-07-26 07:40] LABS: ANION GAP 10 (5-19); BLOOD UREA NITROGEN 29 mg/dL (7-20); CALCIUM 9.8 mg/dL (8.4-10.2); CARBON DIOXIDE 27 mmol/L (22-30); CHLORIDE 101 mmol/L (98-107); GLUCOSE 134 mg/dL (75-110); POTASSIUM 4.4 mmol/L (3.6-5.0); SODIUM 137.8 mmol/L (137-145)
[2017-07-26] MEDS ORDERED: SUCCINYLCHOLINE CHLORIDE INJ 200 MG/10 ML VIAL ONE (08:57)
[2017-07-26] MEDS ORDERED: ONDANSETRON HCL INJ/PF 4 MG/2 ML SDV ONE (08:57)
[2017-07-26] MEDS ORDERED: DEXAMETHASONE SOD PHOSPHATE INJ 4 MG/1 ML VIAL ONE (08:57)
[2017-07-26] MEDS ORDERED: GLYCOPYRROLATE INJ 0.4 MG/2 ML VIAL ONE (08:57)
[2017-07-26] MEDS: FUROSEMIDE 40 MG TABLET PO SCH (09:26)
[2017-07-26] MEDS: ASPIRIN 325 MG TABLET PO SCH (09:27)
[2017-07-26] MEDS: DOCUSATE SODIUM 100 MG CAPSULE PO SCH ×2 (09:27→18:58)
[2017-07-26 09:44] LABS: HEMATOCRIT 35.4 % (37.9-51.0); HEMOGLOBIN 11.6 g/dL (13.5-17.0); MEAN CORPUSCULAR HEMOGLOBIN 29.8 pg (27.0-33.4); MEAN CORPUSCULAR HGB CONC 32.8 g/dL (32.0-36.0); MEAN CORPUSCULAR VOLUME 91 fl (80-97); PLATELET COUNT 270 10^3/uL (150-450); RED CELL DISTRIBUTION WIDTH 13.1 % (11.5-14.0); WHITE BLOOD COUNT 11.1 10^3/uL (4.0-10.5)
--- NOTE | 2017-07-26 09:49 | EKG REPORT ---
SEVERITY:- ABNORMAL ECG - SINUS RHYTHM FIRST DEGREE AV BLOCK LEFT BUNDLE BRANCH BLOCK : Confirmed by: Jerald Franklin 26-Jul-2017 09:48:43
[2017-07-26] MEDS: OXYCODONE-ACETAMINOPHEN 5-325 MG TABLET PO PRN ×2 (10:43→15:00)
[2017-07-26] MEDS: METOPROLOL SUCCINATE 50 MG TAB.SR.24H PO SCH ×2 (10:44→19:03)
--- NOTE | 2017-07-26 11:11 | XCELERA REPORT ---
[address] [address] Transthoracic Echocardiogram Report Name: JUAN CATALINO Mir JR Age: 71 yrs Gender: Male : 1945 Patient Status: Inpatient Patient Location: [place] [address]^A Study Date: 07/26/2017 10:32 AM Height: 73 in Weight: 295 lb BSA: 2.5 m2 Procedure: A complete two-dimensional transthoracic echocardiogram was performed (2D, M-mode, spectral and color flow Doppler). The study was technically difficult with many images being suboptimal in quality. Reason For Study: LBBB, Preop, Heart murmur Ordering Physician: JERALD LAZCANO Performed By: Ginny Galarza Interpretation Summary LV EF is 55% Left ventricular systolic function is low normal. There is mild concentric left ventricular hypertrophy. The left ventricle is borderline dilated. Doppler measurements suggest pseudonormalized left ventricular relaxation, which is associated with grade II/IV or mild to moderate diastolic dysfunction Wall motion cannot be accurately commented on, but no definite regional wall motion abnormalities noted. The right ventricle is borderline dilated. Right ventricular function cannot be assessed due to poor image quality. The left atrium is mildly dilated. The right atrium is normal in size There is a trace amount of mitral regurgitation There is no mitral valve stenosis. There is no aortic valve stenosis No aortic regurgitation is present. There is a trace to mild amount of tricuspid regurgitation There is mild to moderate pulmonary hypertension by echo Right ventricular systolic pressure is estimated to be elevated at 40- 50mmHg. The aortic root is not well visualized. The inferior vena cava was not well visualized There is no pericardial effusion. MMode/2D Measurements & Calculations RVDd: 3.0 cm LVIDd: 5.8 cm FS: 29.3 % Ao root diam: 3.1 cm IVSd: 1.2 cm LVIDs: 4.1 cm EDV(Teich): 164.3 ml LVPWd: 1.2 cm ESV(Teich): 73.3 ml Ao root area: 7.4 cm2 EF(Teich): 55.4 % LA dimension: 4.0 cm Doppler Measurements & Calculations MV E max adrienne: MV P1/2t max adrienne: Ao V2 max: LV V1 max P.4 cm/sec 81.4 cm/sec 162.9 cm/sec 4.5 mmHg MV A max adrienne: MV P1/2t: 69.3 msec Ao max PG: LV V1 max: 59.2 cm/sec 10.6 mmHg 106.6 cm/sec MV E/A: 1.4 MVA(P1/2t): 3.2 cm2 MV dec slope: 344.0 cm/sec2 PA V2 max: TR max adrienne: 104.1 cm/sec 319.0 cm/sec PA max PG: TR max P.7 mmHg 4.3 mmHg Left Ventricle The left ventricle is borderline dilated. There is mild concentric left ventricular hypertrophy. Left ventricular systolic function is low normal. LV EF is 55%. Doppler measurements suggest pseudonormalized left ventricular relaxation, which is associated with grade II/IV or mild to moderate diastolic dysfunction. Wall motion cannot be accurately commented on, but no definite regional wall motion abnormalities noted. Right Ventricle The right ventricle is borderline dilated. There is normal right ventricular wall thickness. Right ventricular function cannot be assessed due to poor image quality. Atria The right atrium is normal in size. The left atrium is mildly dilated. Interarterial septum not well visualized and not well dopplered. Cannot comment on ASD/PFO presence. Mitral Valve The mitral valve is grossly normal. There is no mitral valve stenosis. There is a trace amount of mitral regurgitation. Aortic Valve The aortic valve is not well visualized secondary to technical limitations. The aortic valve opens well. There is no aortic valve stenosis. No aortic regurgitation is present. Tricuspid Valve The tricuspid valve is not well visualized, but is grossly normal. There is no tricuspid stenosis. There is a trace to mild amount of tricuspid regurgitation. There is mild to moderate pulmonary hypertension by echo. Right ventricular systolic pressure is estimated to be elevated at 40- 50mmHg. Pulmonic Valve The pulmonic valve is not well visualized. Great Vessels The aortic root is not well visualized. The inferior vena cava was not well visualized. Effusions There is no pericardial effusion. : JERALD LAZCANO > Jerald Lazcano
--- NOTE | 2017-07-26 11:21 | PDOC CONSULTATION ---
Consultation Consult Date: 07/26/17 Attending physician:: KELVIN ADKINS Consult reason:: Preop clearance History of Present Illness Admission Date/PCP: 07/26/17 00:55 RADHA WHITE MD Patient complains of: Left hip pain History of Present Illness: CATALINO MARTINEZ JR is a 71 year old male with a past medical history of diabetes, hypertension, irritable bowel syndrome, migraine headache, depression, neuropathy and old left bundle branch block. Patient presents after tripping on his slippers resulting in a fall to the floor resulting in excruciating pain to left hip. He denies striking his head or prior symptoms such as chest pain, palpitations, lightheadedness. He does admit to several falls in the past describing left knee sometimes gives out. He denies recent change in medications and is otherwise felt well. In the emergency room is found to have a left lower extremity shortened and externally rotated. Imaging of the hip reveals intertrochanteric femoral neck fracture. He receives symptomatic treatment and refer to the hospitalist for admission. This history was reviewed and confirmed. Patient denied any loss of consciousness. Patient claims some cardiac workup 3 months ago but these results are not known to him. Patient tells me that he was subsequently cleared for knee surgery after the stress test but he was told to lose 75 more pounds before they could attempt knee surgery. Past Medical History Cardiac Medical History: Reports: Hyperlipidema, Hypertension Denies: Coronary Artery Disease Pulmonary Medical History: Reports: Pneumonia Neurological Medical History: Reports: Migraine Endocrine Medical History: Reports: Diabetes Mellitus Type 1, Diabetes Mellitus Type 2 GI Medical History: Reports: Diverticulitis, Gastroesophageal Reflux Disease Musculoskeltal Medical History: Reports: Arthritis Psychiatric Medical History: Reports: Depression Past Surgical History Past Surgical History: Reports: Orthopedic Surgery - left leg, Tonsillectomy Social History Information Source: Patient Lives with: Family Smoking Status: Former Smoker Frequency of Alcohol Use: None Drugs: None - Advance Directive Resuscitation Status: Full Code Surrogate healthcare decision maker:: Patient sons at the surrogate decision-maker Family History Family History: Hypertension Parental Family History Reviewed: Yes Children Family History Reviewed: Yes Sibling(s) Family History Reviewed.: Yes Medication/Allergy Allergies/Adverse Reactions: No Known Allergies Allergy (Verified 07/25/17 20:07) Review of Systems Review of Systems: Please see history of present illness and past medical history as wall. Constitutional: No fever or chills reported. Head : No recent chronic headaches, recent head injury. Eyes: No recent eye pain, diplopia, redness, discharge, acute visual changes. Ears: No recent chronic ear pain, acute hearing loss, ear discharge. Oral cavity: No recent ulcerations, bleeding, oral cavity discomfort. Neck: No recent acute neck pain reported. Hematologic: No recent easy bruising or bleeding or hematologic malignancy reported. Lymphatic: No recent lymphatic malignancy, chronic lymphadenopathy reported yet Cardiovascular system review: See history of present illness. Respiratory system review: No recent chronic cough, hemoptysis, blood clots in the lungs reported. Shortness of breath on exertion Gastrointestinal system review: Negative for any recent acute or chronic abdominal pain, hematemesis, melena, recent change in bowel habits. Genitourinary system review: No recent acute or chronic hematuria, flank pain, UTI etc. reported. Skin system review: Negative for any recent abnormal bruising, no rash, no pruritus reported. Neurologic: No prior history of strokes, mini strokes, seizure disorder. Psychologic: No history of major psychosis or major depression reported. Musculoskeletal: Minor aches and pains reported. No acute joint swelling reported. Admitted with hip fracture. Endocrine: No recent polyuria, polydipsia, recent heat or cold intolerance. Physical Exam Vital Signs: Temp Pulse Resp BP Pulse Ox 97.6 F 56 L 19 142/78 H 95 07/26/17 10:30 07/25/17 20:04 07/26/17 10:04 07/26/17 10:04 07/26/17 10:04 Intake & Output 07/25/17 07/26/17 07/27/17 06:59 06:59 06:59 Output Total 100 Balance -100 Exam: GENERAL: well-nourished and in no acute distress. Alert and oriented x3 HEAD: Atraumatic, normocephalic. EYES: Pupils equal round and reactive to light, extraocular movements intact, sclera anicteric, conjunctiva are normal. ENT: TMs normal, nares patent, oropharynx clear without exudates. Moist mucous membranes. No oral ulcerations or bleeding gums noted NECK: supple without lymphadenopathy. Trachea is central. No cervical or axillary lymphadenopathy noted. Carotids are 2+, JVD WNL LUNGS: Respiration seems nonlabored, no significant accessory muscle action noted. Breath sounds clear to auscultation bilaterally and equal noted. No wheezes rales or rhonchi noted. No significant dullness noted on percussion. CHEST: Palpation of the chest wall shows no significant chest wall tenderness. No other significant abnormalities noted. 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 ABDOMEN: Soft, no significant tenderness appreciated, normoactive bowel sounds. No guarding, no rebound. No rigidity noted . No masses appreciated. EXTREMITIES: Pedal pulses are 1-2+, no calf tenderness noted. No clubbing or cyanosis.trace to 1+ pedal edema noted NEUROLOGICAL: Focused neurological exam showed no significant neurologic deficit. Normal speech, no focal weakness appreciated. PSYCH: Normal mood, normal affect. Judgment and insight within normal limits. SKIN: No significant ecchymosis, rash, ulcerations or signs of pruritus noted. MUSCULOSKELETAL EXAM: No significant joint swelling noted. Findings indicative of left hip fracture. Results Laboratory Results: 07/26/17 06:54 07/26/17 06:54 07/26/17 07/26/17 07/26/17 01:36 06:54 06:54 WBC 11.1 H RBC 3.90 L Hgb 11.6 L Hct 35.4 L MCV 91 MCH 29.8 MCHC 32.8 RDW 13.1 Plt Count 270 Sodium 136.8 L 137.8 Potassium 4.7 4.4 Chloride 103 101 Carbon Dioxide 22 27 Anion Gap 12 10 BUN 28 H 29 H Creatinine 0.86 0.97 Est GFR ( Amer) > 60 > 60 Est GFR (Non-Af Amer) > 60 > 60 Glucose 201 H 134 H Calcium 9.7 9.8 EKG Comments: Sinus rhythm with left bundle branch block pattern. Impressions: Hip X-Ray 07/25/17 20:07 IMPRESSION: LEFT INTERTROCHANTERIC FEMORAL NECK FRACTURE. Knee X-Ray 07/25/17 20:07 IMPRESSION: TRICOMPARTMENTAL OSTEOARTHRITIS WITH SMALL JOINT EFFUSION. NO ACUTE OSSEOUS ABNORMALITY. Chest X-Ray 07/25/17 21:37 IMPRESSION: No acute cardiopulmonary findings. Assessment & Plan - Diagnosis (1) Left bundle branch block Is this a current diagnosis for this admission?: Yes (2) Heart murmur Is this a current diagnosis for this admission?: Yes (3) Diabetes Qualifiers: Diabetes mellitus type: type 2 Diabetes mellitus complication status: with unspecified complications Diabetes mellitus jail insulin use: unspecified jail insulin use status Qualified Code(s): E11.8 - Type 2 diabetes mellitus with unspecified complications Is this a current diagnosis for this admission?: Yes (4) Fall Qualifiers: Encounter type: initial encounter Qualified Code(s): W19.XXXA - Unspecified fall, initial encounter Is this a current diagnosis for this admission?: Yes (5) Fracture of femoral neck, left Qualifiers: Encounter type: initial encounter Fracture type: closed Qualified Code(s) : S72.002A - Fracture of unspecified part of neck of left femur, initial encounter for closed fracture Is this a current diagnosis for this admission?: Yes (6) Hypertension Qualifiers: Hypertension type: essential hypertension Qualified Code(s): I10 - Essential (primary) hypertension Is this a current diagnosis for this admission?: Yes (7) Preoperative cardiovascular examination Is this a current diagnosis for this admission?: Yes - Notes Notes: Fall : patient's present with fall resulting in left hip fracture. Patient is noted to have left bundle branch block pattern. Recommend cardiac monitoring for the duration of hospitalization or at least the initial 48 hours for any cardiac dysrhythmia causing fall. Heart murmur: Patient noted to have ejection heart murmur. Will obtain a 2D echo in view of left bundle branch block pattern ejection murmur just to rule out any significant stenotic heart disease. 2D echo was in fact obtained and was negative for any significant aortic stenosis. Diabetes: Recommend good control of blood sugar. However should avoid any hypoglycemia and hyperglycemia. Patient being expertly managed by primary care M.D/hospitalist Hypertension: Blood pressure goal in this patient is 140/90 or less. This was discussed with the patient. Currently blood pressure under reasonable control. Better medication for this patient are CURT inhibitor/ARB/beta sam etc. Preop cardiovascular examination: Patient currently maintaining sinus rhythm. No ongoing angina, no clinical CHF. Patient therefore cleared with no contraindication for surgery being noted. Recommend DVT prophylaxis, pulmonary toilet, adequate pain control etc. - Time Time Spent: 30 to 50 Minutes - CODE STATUS was discussed, patient remains full code. Surrogate decision-maker unchanged. Multiple medical problems were addressed. More than 50% of the time spent coordinating care, discussing management plans with involved caregivers. Management plans discussed with involved personnels. Medical decision making was of moderate to high complexity , patient's has multiple comorbidities. Medications reviewed and adjusted accordingly: Yes
[2017-07-26 12:05] LABS: ANION GAP 10 (5-19); BLOOD UREA NITROGEN 27 mg/dL (7-20); CALCIUM 9.8 mg/dL (8.4-10.2); CARBON DIOXIDE 27 mmol/L (22-30); CHLORIDE 100 mmol/L (98-107); GLUCOSE 114 mg/dL (75-110); SODIUM 137.4 mmol/L (137-145)
[2017-07-26] MEDS ORDERED: FENTANYL CITRATE INJ/PF 100 MCG/2 ML AMPUL ONE (12:38)
[2017-07-26] MEDS ORDERED: PROPOFOL INJ 200 MG/20 ML VIAL IV ONE (12:39)
[2017-07-26] MEDS ORDERED: ACETAMINOPHEN 100 ML IV ONE ×2 (12:39→20:58)
[2017-07-26] MEDS ORDERED: MIDAZOLAM 2 MG/2 ML INJ ONE (12:39)
[2017-07-26] MEDS ORDERED: CEFAZOLIN INJ 1 GM VIAL ONE (12:47)
--- NOTE | 2017-07-26 13:10 | PDOC CONSULTATION ---
History of Present Illness Admission Date/PCP: 07/26/17 00:55 RADHA WHITE MD Patient complains of: Left Hip Pain History of Present Illness: CATALINO MARTINEZ JR is a 71 year old male who ambulates with a walker after sustaining injury to his left leg in the past. Also history of sciatica on the right which limits his ambulation without an assistive device. He was at home when he inadvertently sustained a fall in the bathroom onto his left hip. He was unable to get to a phone for 2 hours and was unable to ambulate. Patient had significant pain with motion. Denies numbness or tingling. Pain 5/10. Improved with fentanyl. Past Medical History Cardiac Medical History: Reports: Hyperlipidema, Hypertension Denies: Coronary Artery Disease Pulmonary Medical History: Reports: Pneumonia Neurological Medical History: Reports: Migraine Endocrine Medical History: Reports: Diabetes Mellitus Type 1, Diabetes Mellitus Type 2 GI Medical History: Reports: Diverticulitis, Gastroesophageal Reflux Disease Musculoskeltal Medical History: Reports: Arthritis Psychiatric Medical History: Reports: Depression Past Surgical History Past Surgical History: Reports: Orthopedic Surgery - left leg, Tonsillectomy Social History Lives with: Family Smoking Status: Former Smoker Frequency of Alcohol Use: None Drugs: None - Advance Directive Resuscitation Status: Full Code Family History Family History: Hypertension Parental Family History Reviewed: No Children Family History Reviewed: No Sibling(s) Family History Reviewed.: No Medication/Allergy Allergies/Adverse Reactions: No Known Allergies Allergy (Verified 07/25/17 20:07) Review of Systems Constitutional: ABSENT: chills, fever(s), headache(s), weight gain, weight loss Eyes: ABSENT: visual disturbances Ears: ABSENT: hearing changes Cardiovascular: ABSENT: chest pain, dyspnea on exertion, edema, orthropnea, palpitations Respiratory: ABSENT: cough, hemoptysis Gastrointestinal: ABSENT: abdominal pain, constipation, diarrhea, hematemesis, hematochezia, nausea, vomiting Genitourinary: ABSENT: dysuria, hematuria Musculoskeletal: PRESENT: as per HPI, joint swelling, other - Sciatica Integumentary: ABSENT: rash, wounds Neurological: PRESENT: frequent falls. ABSENT: abnormal gait, abnormal speech, confusion, dizziness, focal weakness, syncope Psychiatric: ABSENT: anxiety, depression, homidical ideation, suicidal ideation Endocrine: ABSENT: cold intolerance, heat intolerance, menstrual abnormalities, polydipsia, polyuria Hematologic/Lymphatic: ABSENT: easy bleeding, easy bruising, lymphadenopathy Physical Exam Vital Signs: Temp Pulse Resp BP Pulse Ox 97.6 F 56 L 19 142/78 H 95 07/26/17 10:30 07/25/17 20:04 07/26/17 10:04 07/26/17 10:04 07/26/17 10:04 Intake & Output 07/25/17 07/26/17 07/27/17 06:59 06:59 06:59 Output Total 100 Balance -100 General appearance: PRESENT: no acute distress, obese, well-developed, well- nourished Head exam: PRESENT: atraumatic, normocephalic Eye exam: PRESENT: conjunctiva pink, EOMI, PERRLA. ABSENT: scleral icterus Ear exam: PRESENT: normal external ear exam Mouth exam: PRESENT: moist, tongue midline Neck exam: PRESENT: full ROM. ABSENT: carotid bruit, JVD, lymphadenopathy, thyromegaly Respiratory exam: PRESENT: unlabored Cardiovascular exam: PRESENT: RRR. ABSENT: diastolic murmur, rubs, systolic murmur Pulses: PRESENT: normal dorsalis pedis pul, +2 pedal pulses bilateral Vascular exam: PRESENT: normal capillary refill GI/Abdominal exam: PRESENT: normal bowel sounds, soft. ABSENT: distended, guarding, mass, organolmegaly, rebound, tenderness Rectal exam: PRESENT: deferred Musculoskeletal exam: PRESENT: other - Left hip: Short/external rotated. Positive logroll. Intact plantar flexion/dorsiflexion. No calf tenderness. Neurological exam: PRESENT: alert, awake, oriented to person, oriented to place , oriented to time, oriented to situation, CN II-XII grossly intact. ABSENT: motor sensory deficit Psychiatric exam: PRESENT: appropriate affect, normal mood. ABSENT: homicidal ideation, suicidal ideation Skin exam: PRESENT: dry, intact, warm. ABSENT: cyanosis, rash Results Laboratory Results: 07/26/17 06:54 07/26/17 11:05 07/26/17 07/26/17 07/26/17 01:36 06:54 06:54 WBC 11.1 H RBC 3.90 L Hgb 11.6 L Hct 35.4 L MCV 91 MCH 29.8 MCHC 32.8 RDW 13.1 Plt Count 270 Sodium 136.8 L 137.8 Potassium 4.7 4.4 Chloride 103 101 Carbon Dioxide 22 27 Anion Gap 12 10 BUN 28 H 29 H Creatinine 0.86 0.97 Est GFR ( Amer) > 60 > 60 Est GFR (Non-Af Amer) > 60 > 60 Glucose 201 H 134 H Calcium 9.7 9.8 07/26/17 11:05 WBC RBC Hgb Hct MCV MCH MCHC RDW Plt Count Sodium 137.4 Potassium 4.0 Chloride 100 Carbon Dioxide 27 Anion Gap 10 BUN 27 H Creatinine 0.91 Est GFR ( Amer) > 60 Est GFR (Non-Af Amer) > 60 Glucose 114 H Calcium 9.8 Impressions: Hip X-Ray 07/25/17 20:07 IMPRESSION: LEFT INTERTROCHANTERIC FEMORAL NECK FRACTURE. Knee X-Ray 07/25/17 20:07 IMPRESSION: TRICOMPARTMENTAL OSTEOARTHRITIS WITH SMALL JOINT EFFUSION. NO ACUTE OSSEOUS ABNORMALITY. Chest X-Ray 07/25/17 21:37 IMPRESSION: No acute cardiopulmonary findings. Status: Image reviewed by me - I have reviewed patient's radiographs which demonstrate intertrochanteric left hip fracture. Assessment & Plan - Diagnosis (1) Fracture, intertrochanteric, left femur Qualifiers: Encounter type: initial encounter Fracture type: closed Fracture alignment: displaced Qualified Code(s): S72.142A - Displaced intertrochanteric fracture of left femur, initial encounter for closed fracture Is this a current diagnosis for this admission?: Yes Plan: Patient sustained a left intertrochanteric fracture. We discussed treatment options including operative versus nonoperative intervention. Given patient's age and amatory status decision was made to proceed with operative treatment. Patient was seen and evaluated by cardiology anesthesia and has found to be medically optimized for operative intervention. Risks and benefits of left cephalo-medullary nail had been explained to the patient he has verbalized understanding and consented for the procedure. All questions were answered. Risks include anesthetic complications, excessive bleeding, infection, injury to surrounding nerves, vessels and tendons, bruising, healing difficulties, scar formation, posttraumatic arthritis and any unforseen complication.
[2017-07-26] MEDS ORDERED: MEPERIDINE HCL/PF INJ 25 MG/1 ML DISP.SYRIN IV PRN (14:09)
[2017-07-26] MEDS ORDERED: PROMETHAZINE HCL INJ 25 MG/1 ML VIAL IV PRN ×2 (14:09)
[2017-07-26] MEDS ORDERED: DIPHENHYDRAMINE HCL 50 MG/ML VIAL IV PRN ×2 (14:09→14:58)
[2017-07-26] MEDS ORDERED: RINGERS SOLUTION,LACTATED 1,000 ML IV PRN (14:18)
--- NOTE | 2017-07-26 14:21 | Operative Report ---
Operative Report DATE OF SURGERY: 07/26/17 PREOPERATIVE DIAGNOSIS: Left intertrochanteric hip fracture POSTOPERATIVE DIAGNOSIS: Same OPERATION: Left cephalo-medullary nail intertrochanteric hip fracture SURGEON: GRETA HOWARD ANESTHESIA: GA COMPLICATIONS: None ESTIMATED BLOOD LOSS: 75 cc PROCEDURE: Indication for above procedure: 71-year-old male who sustained a fall at home he was unable to ambulate. Patient was down for 2 hours until he was able to reach communication. Patient was seen at the emergency room x-rays demonstrated intertrochanteric fracture. Patient was medically optimized for operative intervention at that point we discussed treatment options including operative versus nonoperative treatment. Risks and benefits were explained patient verbalized understanding consented for the procedure. Patient was seen and evaluated in the preoperative holding area. The LEFT lower extremity was initialized and marked. Patient received 2 g Ancef IV for bacterial prophylaxis. Patient was taken back to the operative room where transferred operative table. Patient was placed under spinal anesthesia. Once adequate anesthetized he was carefully placed onto the hip positioner the nonoperative lower extremity and bilateral upper extremities were carefully padded and the peroneal nerve was padded and on the nonoperative extremity. The operative extremity was placed in a traction along with adduction and internal rotation. A surgical team debriefing was performed ensuring all instrumentation was available, the surgical procedure was discussed with possible concerns reviewed. A timeout was done identifying correct patient, procedure and extremity everyone in attendance agree with this and verbalized no concerns. Reduction maneuver with the use of the hip traction table were done and C-arm fluoroscopy was used to confirm optimal reduction of the intertrochanteric fracture. Once this was confirmed the lower extremity was prepped with chlor prep and draped in a sterile fashion. At this point a small skin incision was made proximal to the greater trochanter. The guidewire was placed onto the tip of the trochanter advanced down to the level of the lesser trochanter. AP and lateral fluoroscopy was used to confirm appropriate placement of the guidewire. The skin incision was then extended and the underlying fascia opened up carefully to the tip of the greater trochanter. The entry reamer was then used and advanced to the level of the lesser trochanter. At this point Phuong short gamma nail was opened up and placed onto the aiming arm and advanced down the shaft of the femur. AP and lateral fluoroscopy was then used to confirm appropriate placement of the nail. Then turned my attention to the compression screw fixation in the femoral head. The trochars were advanced to the skin, a skin incision was made, careful dissection down to the fascia to the lateral femoral cortex was then partaken. The guidewire was then used and placed in the center center position with the tip apex distance less than 25 mm. Once this position was obtained the size of the compression screw was measured. AP and lateral fluoroscopy used to confirm appropriate placement of our guide wire. The step reamer was used to drill up through the femoral neck and head. I then carefully advanced the compression screw into position. AP and lateral fluoroscopy was done to confirm appropriate placement of the compression screw this was then locked into position proximally. The compression screw was then disengaged from its mounting device and the guidewire was removed. Lastly proceeded with locking of the nail distally. Using the aiming arm the trochars were advanced to the skin, a skin incision was made. Careful dissection done with a hemostat to the lateral cortex of the femur. I then drilled the near and far cortices. Measured the appropriate sized distal locking screw and secured it into position. At this point AP/lateral and oblique views of the proximal and distal aspect of the nail were taken confirming appropriate placement of the compression screw, distal locking screw and intramedullary nail. Once this was confirmed I proceeded with copious irrigation of the proximal and distal wounds. The deep tissues were closed with 0 Vicryl suture, subcutaneous tissues were closed with 3-0 Monocryl suture. The skin was closed a running 3-0 subcuticular Monocryl suture and reinforced with Dermabond & Steri-Strips. A dressing was placed. Sponge counts, instrument counts and needle counts were correct. Patient was then transferred from the operating room table to the operating room stretcher. The was no intraoperative complications patient tolerated procedure well was stable to PACU. Implants used: Phuong 11 x 180 mm 125 Short Gamma Nail with a 110 mm compression screw Postoperative plan: Patient will begin physical therapy on postop day #1 patient to receive heparin subcu daily for DVT prophylaxis
[2017-07-26] MEDS ORDERED: HYDROMORPHONE HCL INJ/PF 2 MG/ML AMPULE INJ ONE (14:40)
[2017-07-26] MEDS ORDERED: HYDROMORPHONE HCL INJ/PF 2 MG/ML AMPULE ONE (14:48)
[2017-07-26] MEDS ORDERED: OXYCODONE-ACETAMINOPHEN 5-325 MG TABLET ONE (14:48)
[2017-07-26] MEDS ORDERED: KETOROLAC TROMETHAMINE INJ/PF 30 MG/1 ML SDV ONE ×2 (14:48→15:13)
--- NOTE | 2017-07-26 14:53 | RADIOLOGY REPORT (SQ) ---
EXAM DESCRIPTION: HIP IN OPERATING RM; NO CHG FLUORO COMPLETED DATE/TIME: 07/26/2017 2:45 pm; 07/26/2017 2:47 pm REASON FOR STUDY: LEFT HIP NAILING COMPARISON: None. FLUOROSCOPY TIME: 2.3 minutes 5 images saved to PACS. TECHNIQUE: Intra-operative images acquired during surgical procedure to evaluate progress. NUMBER OF IMAGES: 5 images LIMITATIONS: None. FINDINGS: Fluoroscopic imaging demonstrates ORIF left femoral neck fracture without gross complicati on. IMPRESSION: IMAGE(S) OBTAINED DURING PROCEDURE. COMMENT: Quality ID 145: Final reports for procedures using fluoroscopy that document radiation exp osure indices, or exposure time and number of fluorographic images (if radiation exposure indices are not available) Please consult full operative report of the attending physician for description of the procedure. TECHNICAL DOCUMENTATION: JOB ID: [id number] [employer]- All Rights Reserved
--- NOTE | 2017-07-26 14:53 | RADIOLOGY REPORT (SQ) ---
EXAM DESCRIPTION: HIP IN OPERATING RM; NO CHG FLUORO COMPLETED DATE/TIME: 07/26/2017 2:45 pm; 07/26/2017 2:47 pm REASON FOR STUDY: LEFT HIP NAILING COMPARISON: None. FLUOROSCOPY TIME: 2.3 minutes 5 images saved to PACS. TECHNIQUE: Intra-operative images acquired during surgical procedure to evaluate progress. NUMBER OF IMAGES: 5 images LIMITATIONS: None. FINDINGS: Fluoroscopic imaging demonstrates ORIF left femoral neck fracture without gross complicati on. IMPRESSION: IMAGE(S) OBTAINED DURING PROCEDURE. COMMENT: Quality ID 145: Final reports for procedures using fluoroscopy that document radiation exp osure indices, or exposure time and number of fluorographic images (if radiation exposure indices are not available) Please consult full operative report of the attending physician for description of the procedure. TECHNICAL DOCUMENTATION: JOB ID: [id number] [employer]- All Rights Reserved
[2017-07-26] MEDS ORDERED: ONDANSETRON 4 MG TAB.RAPDIS PO PRN (14:58)
[2017-07-26] MEDS ORDERED: PROMETHAZINE HCL INJ 25 MG/1 ML VIAL ONE (15:13)
[2017-07-26] MEDS: CEFAZOLIN 2 GM/D5W RTU 2 GM/50 ML RTUPB IV SCH (18:56)
[2017-07-26] MEDS: PREGABALIN 75 MG CAPSULE PO SCH (19:02)
[2017-07-26] MEDS: OXYCODONE HCL IR 5 MG TABLET PO PRN (19:04)
--- NOTE | 2017-07-26 19:49 | Progress Note ---
Provider Note Provider Note: Mr. Zuluaga is a 71-year-old man with hypertension and diabetes along with obesity. He fell at home and fractured his left hip. He was admitted to the hospitalist service after midnight today. He has been seen by the orthopedic surgeon anesthesiologist and personnel arbitrator. The personnel arbitrator has made recommendations for perioperative care. I have continued the patient's metoprolol. Blood pressure is under reasonable control now. Patient has gone to the OR and had a left hip fracture repair, he has done well. I have spoken with his nurse postoperatively. Hospitalist will continue to manage patient's medical problems and appreciate the assistance of cardiology and orthopedic surgery. Patient is hemodynamically stable postoperatively.
[2017-07-26] MEDS: INSULIN GLARGINE,HUM.REC.ANLOG 300 UNIT/3 ML INSULN.PEN SUBCUT SCH (21:32)
[2017-07-26] MEDS: OXYCODONE HCL SR 10 MG TABLET PO SCH (21:32)
--- NOTE | 2017-07-26 22:04 | EKG REPORT ---
SEVERITY:- ABNORMAL ECG - SINUS RHYTHM ATRIAL PREMATURE COMPLEX FIRST DEGREE AV BLOCK LEFT BUNDLE BRANCH BLOCK : Confirmed by: Jerald Franklin 26-Jul-2017 22:04:08
[2017-07-27] MEDS: CEFAZOLIN 2 GM/D5W RTU 2 GM/50 ML RTUPB IV SCH ×4 (00:20→17:53)
[2017-07-27 01:10] LABS: ANION GAP 9 (5-19); BLOOD UREA NITROGEN 31 mg/dL (7-20); CALCIUM 8.9 mg/dL (8.4-10.2); CARBON DIOXIDE 27 mmol/L (22-30); CHLORIDE 99 mmol/L (98-107); GLUCOSE 218 mg/dL (75-110); POTASSIUM 4.7 mmol/L (3.6-5.0); SODIUM 135.4 mmol/L (137-145)
[2017-07-27] MEDS: HEPARIN SOD (PORCINE) 5,000 UNIT/ML 1 ML SYRINGE SUBCUT SCH ×3 (05:23→21:40)
[2017-07-27] MEDS: LANSOPRAZOLE 30 MG TAB.RAP.DR PO SCH (05:23)
[2017-07-27] MEDS: PREGABALIN 75 MG CAPSULE PO SCH ×2 (05:23→17:52)
[2017-07-27 06:02] LABS: ABSOLUTE EOSINOPHILS # (AUTO) 0.4 10^3/uL (0.0-0.6); ABSOLUTE MONOCYTES (AUTO) 1.2 10^3/uL (0.1-1.4); ABSOLUTE NEUT (AUTO) 6.7 10^3/uL (1.7-8.2); BASOPHILS % (AUTO) 0.5 % (0-2); EOSINOPHILS % (AUTO) 3.9 % (0-6); HEMATOCRIT 31.2 % (37.9-51.0); HEMOGLOBIN 10.5 g/dL (13.5-17.0); LYMPHOCYTES % (AUTO) 10.5 % (13-45); MEAN CORPUSCULAR HEMOGLOBIN 30.2 pg (27.0-33.4); MEAN CORPUSCULAR HGB CONC 33.5 g/dL (32.0-36.0); MEAN CORPUSCULAR VOLUME 90 fl (80-97); MONOCYTES % (AUTO) 12.8 % (3-13); PLATELET COUNT 213 10^3/uL (150-450); RED BLOOD COUNT 3.46 10^6/uL (4.35-5.55); RED CELL DISTRIBUTION WIDTH 12.8 % (11.5-14.0); SEGMENTED NEUTROPHILS % (AUTO) 72.3 % (42-78); TOTAL CELLS COUNTED % (AUTO) 100 %; WHITE BLOOD COUNT 9.3 10^3/uL (4.0-10.5)
[2017-07-27 06:33] LABS: ANION GAP 6 (5-19); BLOOD UREA NITROGEN 30 mg/dL (7-20); CALCIUM 9.2 mg/dL (8.4-10.2); CARBON DIOXIDE 29 mmol/L (22-30); CHLORIDE 101 mmol/L (98-107); GLUCOSE 133 mg/dL (75-110); POTASSIUM 4.8 mmol/L (3.6-5.0); SODIUM 135.8 mmol/L (137-145)
[2017-07-27] MEDS: FUROSEMIDE 40 MG TABLET PO SCH (08:34)
[2017-07-27] MEDS: DOCUSATE SODIUM 100 MG CAPSULE PO SCH ×2 (09:08→17:52)
[2017-07-27] MEDS: ASPIRIN 325 MG TABLET PO SCH (09:08)
[2017-07-27] MEDS: OXYCODONE HCL SR 10 MG TABLET PO SCH ×2 (09:09→21:40)
--- NOTE | 2017-07-27 09:32 | EKG REPORT ---
SEVERITY:- ABNORMAL ECG - SINUS RHYTHM FIRST DEGREE AV BLOCK LEFT BUNDLE BRANCH BLOCK : Confirmed by: Jerald Franklin 27-Jul-2017 09:31:36
[2017-07-27 10:24] LABS: ANION GAP 9 (5-19); BLOOD UREA NITROGEN 28 mg/dL (7-20); CALCIUM 9.3 mg/dL (8.4-10.2); CARBON DIOXIDE 29 mmol/L (22-30); CHLORIDE 100 mmol/L (98-107); GLUCOSE 124 mg/dL (75-110); POTASSIUM 4.3 mmol/L (3.6-5.0); SODIUM 137.9 mmol/L (137-145)
--- NOTE | 2017-07-27 11:48 | PDOC PROGRESS REPORT ---
Subjective Progress Note for:: 07/27/17 Subjective:: Patient had hip surgery yesterday. He has done well. Twelve-lead EKG shows no new changes. Reason For Visit: HIP FRACTURE,DIABETES Physical Exam Vital Signs: Temp Pulse Resp BP Pulse Ox 98.4 F 61 18 127/55 H 97 07/27/17 07:47 07/27/17 09:25 07/27/17 09:25 07/27/17 07:47 07/27/17 09:25 Intake & Output 07/26/17 07/27/17 07/28/17 06:59 06:59 06:59 Intake Total 4255 Output Total 100 2200 Balance -100 2055 Weight 152.9 kg Exam: GENERAL: well-nourished and in no acute distress. Alert and oriented x3 HEAD: Atraumatic, normocephalic. EYES: Pupils equal round and reactive to light, extraocular movements intact, sclera anicteric, conjunctiva are normal. ENT: TMs normal, nares patent, oropharynx clear without exudates. Moist mucous membranes. No oral ulcerations or bleeding gums noted NECK: supple without lymphadenopathy. Trachea is central. No cervical or axillary lymphadenopathy noted. Carotids are 2+, JVD WNL LUNGS: Respiration seems nonlabored, no significant accessory muscle action noted. Breath sounds clear to auscultation bilaterally and equal noted. No wheezes rales or rhonchi noted. No significant dullness noted on percussion. CHEST: Palpation of the chest wall shows no significant chest wall tenderness. No other significant abnormalities noted. 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 ABDOMEN: Soft, no significant tenderness appreciated, normoactive bowel sounds. No guarding, no rebound. No rigidity noted . No masses appreciated. EXTREMITIES: Pedal pulses are 1-2+, no calf tenderness noted. No clubbing or cyanosis.trace to 1+ pedal edema noted NEUROLOGICAL: Focused neurological exam showed no significant neurologic deficit. Normal speech, no focal weakness appreciated. PSYCH: Normal mood, normal affect. Judgment and insight within normal limits. SKIN: No significant ecchymosis, rash, ulcerations or signs of pruritus noted. MUSCULOSKELETAL EXAM: No significant joint swelling noted. Postsurgical changes noted left hip. Results Laboratory Results: 07/27/17 05:23 07/27/17 09:50 07/26/17 07/27/17 07/27/17 11:05 00:45 05:23 WBC 9.3 RBC 3.46 L Hgb 10.5 L Hct 31.2 L MCV 90 MCH 30.2 MCHC 33.5 RDW 12.8 Plt Count 213 Seg Neutrophils % 72.3 Lymphocytes % 10.5 L Monocytes % 12.8 Eosinophils % 3.9 Basophils % 0.5 Absolute Neutrophils 6.7 Absolute Lymphocytes 1.0 Absolute Monocytes 1.2 Absolute Eosinophils 0.4 Absolute Basophils 0.0 Sodium 137.4 135.4 L Potassium 4.0 4.7 Chloride 100 99 Carbon Dioxide 27 27 Anion Gap 10 9 BUN 27 H 31 H Creatinine 0.91 1.04 Est GFR ( Amer) > 60 > 60 Est GFR (Non-Af Amer) > 60 > 60 Glucose 114 H 218 H Calcium 9.8 8.9 07/27/17 07/27/17 05:23 09:50 WBC RBC Hgb Hct MCV MCH MCHC RDW Plt Count Seg Neutrophils % Lymphocytes % Monocytes % Eosinophils % Basophils % Absolute Neutrophils Absolute Lymphocytes Absolute Monocytes Absolute Eosinophils Absolute Basophils Sodium 135.8 L 137.9 Potassium 4.8 4.3 Chloride 101 100 Carbon Dioxide 29 29 Anion Gap 6 9 BUN 30 H 28 H Creatinine 1.00 0.94 Est GFR ( Amer) > 60 > 60 Est GFR (Non-Af Amer) > 60 > 60 Glucose 133 H 124 H Calcium 9.2 9.3 EKG Comments: Sinus rhythm with left bundle branch block pattern. Relatively unchanged from yesterday. Telemetry strips shows no significant cardiac dysrhythmias. Impressions: Knee X-Ray 07/25/17 20:07 IMPRESSION: TRICOMPARTMENTAL OSTEOARTHRITIS WITH SMALL JOINT EFFUSION. NO ACUTE OSSEOUS ABNORMALITY. Chest X-Ray 07/25/17 21:37 IMPRESSION: No acute cardiopulmonary findings. Fluoroscopy 07/26/17 00:00 IMPRESSION: IMAGE(S) OBTAINED DURING PROCEDURE. Hip X-Ray 07/26/17 00:00 IMPRESSION: IMAGE(S) OBTAINED DURING PROCEDURE. Assessment & Plan - Diagnosis (1) Left bundle branch block Is this a current diagnosis for this admission?: Yes (2) Heart murmur Is this a current diagnosis for this admission?: Yes (3) Diabetes Qualifiers: Diabetes mellitus type: type 2 Diabetes mellitus complication status: with unspecified complications Diabetes mellitus termination clerk insulin use: unspecified snf insulin use status Qualified Code(s): E11.8 - Type 2 diabetes mellitus with unspecified complications Is this a current diagnosis for this admission?: Yes (4) Fall Qualifiers: Encounter type: initial encounter Qualified Code(s): W19.XXXA - Unspecified fall, initial encounter Is this a current diagnosis for this admission?: Yes (5) Fracture of femoral neck, left Qualifiers: Encounter type: initial encounter Fracture type: closed Qualified Code(s) : S72.002A - Fracture of unspecified part of neck of left femur, initial encounter for closed fracture Is this a current diagnosis for this admission?: Yes (6) Hypertension Qualifiers: Hypertension type: essential hypertension Qualified Code(s): I10 - Essential (primary) hypertension Is this a current diagnosis for this admission?: Yes (7) Preoperative cardiovascular examination Is this a current diagnosis for this admission?: Yes - Notes Notes: Patient has done well postop. Twelve-lead EKG shows no significant changes. Will follow one more day and then sign off if patient continues to do well. 2D echocardiogram findings were reviewed. No significant valvular abnormalities noted. LVEF at lower limit of normal. - Time Time with patient: 15-25 minutes - CODE STATUS was discussed, patient remains full code. Surrogate decision-maker patient's son. Multiple medical problems were addressed. More than 50% of the time spent coordinating care, discussing management plans with involved caregivers. Management plans discussed with involved personnels. Medical decision making was of moderate to high complexity , patient's has multiple comorbidities. Medications reviewed and adjusted accordingly: Yes
[2017-07-27] MEDS: METOPROLOL SUCCINATE 50 MG TAB.SR.24H PO SCH ×2 (12:04→17:52)
[2017-07-27] MEDS: OXYCODONE HCL IR 5 MG TABLET PO PRN (13:07)
--- NOTE | 2017-07-27 14:01 | PDOC PROGRESS REPORT ---
Subjective Progress Note for:: 07/27/17 Subjective:: Patient lying in bed company. States pain has improved since surgery although he still continues to have very denies chest pain or shortness of breath. Reason For Visit: HIP FRACTURE,DIABETES Physical Exam Vital Signs: Temp Pulse Resp BP Pulse Ox 98.8 F 104 H 18 135/95 H 91 L 07/27/17 11:52 07/27/17 11:52 07/27/17 11:52 07/27/17 11:52 07/27/17 11:52 Intake & Output 07/26/17 07/27/17 07/28/17 06:59 06:59 06:59 Intake Total 4255 Output Total 100 2200 Balance -100 2055 Weight 152.9 kg Musculoskeletal exam: PRESENT: other - Left Hip: Dressing clean/dry/intact no erythema or drainage. Moderate thigh swelling no sign of compartment syndrome, no calf tenderness. Intact plantar flexion/dorsiflexion. No sensory deficits. Results Laboratory Results: 07/27/17 05:23 07/27/17 09:50 07/27/17 07/27/17 07/27/17 00:45 05:23 05:23 WBC 9.3 RBC 3.46 L Hgb 10.5 L Hct 31.2 L MCV 90 MCH 30.2 MCHC 33.5 RDW 12.8 Plt Count 213 Seg Neutrophils % 72.3 Lymphocytes % 10.5 L Monocytes % 12.8 Eosinophils % 3.9 Basophils % 0.5 Absolute Neutrophils 6.7 Absolute Lymphocytes 1.0 Absolute Monocytes 1.2 Absolute Eosinophils 0.4 Absolute Basophils 0.0 Sodium 135.4 L 135.8 L Potassium 4.7 4.8 Chloride 99 101 Carbon Dioxide 27 29 Anion Gap 9 6 BUN 31 H 30 H Creatinine 1.04 1.00 Est GFR ( Amer) > 60 > 60 Est GFR (Non-Af Amer) > 60 > 60 Glucose 218 H 133 H Calcium 8.9 9.2 07/27/17 09:50 WBC RBC Hgb Hct MCV MCH MCHC RDW Plt Count Seg Neutrophils % Lymphocytes % Monocytes % Eosinophils % Basophils % Absolute Neutrophils Absolute Lymphocytes Absolute Monocytes Absolute Eosinophils Absolute Basophils Sodium 137.9 Potassium 4.3 Chloride 100 Carbon Dioxide 29 Anion Gap 9 BUN 28 H Creatinine 0.94 Est GFR ( Amer) > 60 Est GFR (Non-Af Amer) > 60 Glucose 124 H Calcium 9.3 Impressions: Knee X-Ray 07/25/17 20:07 IMPRESSION: TRICOMPARTMENTAL OSTEOARTHRITIS WITH SMALL JOINT EFFUSION. NO ACUTE OSSEOUS ABNORMALITY. Chest X-Ray 07/25/17 21:37 IMPRESSION: No acute cardiopulmonary findings. Fluoroscopy 07/26/17 00:00 IMPRESSION: IMAGE(S) OBTAINED DURING PROCEDURE. Hip X-Ray 07/26/17 00:00 IMPRESSION: IMAGE(S) OBTAINED DURING PROCEDURE. Assessment & Plan - Diagnosis (1) Fracture, intertrochanteric, left femur Qualifiers: Encounter type: initial encounter Fracture type: closed Fracture alignment: displaced Qualified Code(s): S72.142A - Displaced intertrochanteric fracture of left femur, initial encounter for closed fracture Is this a current diagnosis for this admission?: Yes Plan: Status post cephalo-medullary nail left intertrochanteric fracture #1 physical therapy weightbearing as tolerated #2 pain control #3 heparin for DVT prophylaxis #4 discharge planning patient will require [facility] facility once bed available
[2017-07-27] MEDS: KETOROLAC TROMETHAMINE INJ/PF 30 MG/1 ML SDV IV PRN ×2 (14:31→21:39)
[2017-07-27 15:14] LABS: ANION GAP 10 (5-19); BLOOD UREA NITROGEN 28 mg/dL (7-20); CALCIUM 9.2 mg/dL (8.4-10.2); CARBON DIOXIDE 25 mmol/L (22-30); CHLORIDE 101 mmol/L (98-107); GLUCOSE 248 mg/dL (75-110); POTASSIUM 4.2 mmol/L (3.6-5.0); SODIUM 135.7 mmol/L (137-145)
--- NOTE | 2017-07-27 17:08 | PDOC PROGRESS REPORT ---
Subjective Progress Note for:: 07/27/17 Subjective:: Patient was able to work with physical therapy today. He is having significant pain after his hip fracture surgery but the pain meds he is using he states are sufficient. His appetite is improving. He is trying to drink water to stay hydrated. No chest pain or difficulty breathing. When he coughs hard he has some tightness bandlike around the lower part of his chest that resolves quickly. He will keep track of this and is continuing to use his incentive spirometer. No nausea or vomiting. Reason For Visit: HIP FRACTURE,DIABETES Physical Exam Vital Signs: Temp Pulse Resp BP Pulse Ox 97.5 F 88 18 118/68 92 07/27/17 15:40 07/27/17 15:40 07/27/17 15:40 07/27/17 15:40 07/27/17 15:40 Intake & Output 07/26/17 07/27/17 07/28/17 06:59 06:59 06:59 Intake Total 4255 Output Total 100 2200 Balance -100 2055 Weight 152.9 kg General appearance: PRESENT: no acute distress, cooperative Head exam: PRESENT: atraumatic, normocephalic Eye exam: PRESENT: EOMI Ear exam: PRESENT: normal external ear exam Respiratory exam: PRESENT: clear to auscultation reynold. ABSENT: rales, rhonchi, wheezes Cardiovascular exam: PRESENT: RRR Pulses: PRESENT: normal radial pulses GI/Abdominal exam: PRESENT: normal bowel sounds, soft. ABSENT: distended, guarding, tenderness Rectal exam: PRESENT: deferred Extremities exam: PRESENT: other - post left hip fracture repair without complication Musculoskeletal exam: PRESENT: other - see above Neurological exam: PRESENT: alert, awake, oriented to person, oriented to place , oriented to situation, CN II-XII grossly intact Psychiatric exam: PRESENT: appropriate affect. ABSENT: anxious Skin exam: PRESENT: dry, warm Results Laboratory Results: 07/27/17 05:23 07/27/17 14:22 07/27/17 07/27/17 07/27/17 00:45 05:23 05:23 WBC 9.3 RBC 3.46 L Hgb 10.5 L Hct 31.2 L MCV 90 MCH 30.2 MCHC 33.5 RDW 12.8 Plt Count 213 Seg Neutrophils % 72.3 Lymphocytes % 10.5 L Monocytes % 12.8 Eosinophils % 3.9 Basophils % 0.5 Absolute Neutrophils 6.7 Absolute Lymphocytes 1.0 Absolute Monocytes 1.2 Absolute Eosinophils 0.4 Absolute Basophils 0.0 Sodium 135.4 L 135.8 L Potassium 4.7 4.8 Chloride 99 101 Carbon Dioxide 27 29 Anion Gap 9 6 BUN 31 H 30 H Creatinine 1.04 1.00 Est GFR ( Amer) > 60 > 60 Est GFR (Non-Af Amer) > 60 > 60 Glucose 218 H 133 H Calcium 8.9 9.2 07/27/17 07/27/17 09:50 14:22 WBC RBC Hgb Hct MCV MCH MCHC RDW Plt Count Seg Neutrophils % Lymphocytes % Monocytes % Eosinophils % Basophils % Absolute Neutrophils Absolute Lymphocytes Absolute Monocytes Absolute Eosinophils Absolute Basophils Sodium 137.9 135.7 L Potassium 4.3 4.2 Chloride 100 101 Carbon Dioxide 29 25 Anion Gap 9 10 BUN 28 H 28 H Creatinine 0.94 0.93 Est GFR ( Amer) > 60 > 60 Est GFR (Non-Af Amer) > 60 > 60 Glucose 124 H 248 H Calcium 9.3 9.2 Impressions: Knee X-Ray 07/25/17 20:07 IMPRESSION: TRICOMPARTMENTAL OSTEOARTHRITIS WITH SMALL JOINT EFFUSION. NO ACUTE OSSEOUS ABNORMALITY. Chest X-Ray 07/25/17 21:37 IMPRESSION: No acute cardiopulmonary findings. Fluoroscopy 07/26/17 00:00 IMPRESSION: IMAGE(S) OBTAINED DURING PROCEDURE. Hip X-Ray 07/26/17 00:00 IMPRESSION: IMAGE(S) OBTAINED DURING PROCEDURE. 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 insulin use: unspecified chcf insulin use status Qualified Code(s): E11.8 - Type 2 diabetes mellitus with unspecified complications Is this a current diagnosis for this admission?: Yes Plan: COnt current diabaetes regimen and diabetic diet, titrate meds as needed (2) Fall Qualifiers: Encounter type: initial encounter Qualified Code(s): W19.XXXA - Unspecified fall, initial encounter Is this a current diagnosis for this admission?: Yes (3) Fracture of femoral neck, left Qualifiers: Encounter type: initial encounter Fracture type: closed Qualified Code(s) : S72.002A - Fracture of unspecified part of neck of left femur, initial encounter for closed fracture Is this a current diagnosis for this admission?: Yes Plan: Doing well postoperatively, has adequate pain control ordered, orthopedic surgery to continue care. (4) Hypertension Qualifiers: Hypertension type: essential hypertension Qualified Code(s): I10 - Essential (primary) hypertension Is this a current diagnosis for this admission?: Yes Plan: Fairly well-controlled, spikes with pain secondary to hip fracture, continue current hypertension medication regimen. - Time Time Spent with patient: 25-34 minutes Medications reviewed and adjusted accordingly: Yes Anticipated discharge: Acute Rehab - Inpatient Certification Medical Necessity: Significant Comorbidiites Make Outpatient Treatment Too Risky
[2017-07-27] MEDS: INSULIN LISPRO 100 UNIT/ML 3 ML VIAL SUBCUT PRN ×2 (17:58→21:39)
[2017-07-27 18:09] LABS: ANION GAP 9 (5-19); BLOOD UREA NITROGEN 30 mg/dL (7-20); CALCIUM 9.1 mg/dL (8.4-10.2); CARBON DIOXIDE 26 mmol/L (22-30); CHLORIDE 99 mmol/L (98-107); GLUCOSE 351 mg/dL (75-110); POTASSIUM 4.6 mmol/L (3.6-5.0)
[2017-07-27] MEDS: INSULIN GLARGINE,HUM.REC.ANLOG 300 UNIT/3 ML INSULN.PEN SUBCUT SCH (21:40)
[2017-07-27 22:16] LABS: ANION GAP 10 (5-19); BLOOD UREA NITROGEN 31 mg/dL (7-20); CALCIUM 8.9 mg/dL (8.4-10.2); CARBON DIOXIDE 24 mmol/L (22-30); CHLORIDE 101 mmol/L (98-107); GLUCOSE 212 mg/dL (75-110); POTASSIUM 4.3 mmol/L (3.6-5.0); SODIUM 134.8 mmol/L (137-145)
[2017-07-28] MEDS: CEFAZOLIN 2 GM/D5W RTU 2 GM/50 ML RTUPB IV SCH ×5 (00:27→23:54)
[2017-07-28 02:04] LABS: ANION GAP 8 (5-19); BLOOD UREA NITROGEN 34 mg/dL (7-20); CARBON DIOXIDE 27 mmol/L (22-30); CHLORIDE 102 mmol/L (98-107); GLUCOSE 143 mg/dL (75-110); POTASSIUM 4.3 mmol/L (3.6-5.0); SODIUM 137.1 mmol/L (137-145)
[2017-07-28] MEDS: LANSOPRAZOLE 30 MG TAB.RAP.DR PO SCH (05:45)
[2017-07-28] MEDS: PREGABALIN 75 MG CAPSULE PO SCH ×2 (05:45→17:06)
[2017-07-28] MEDS: HEPARIN SOD (PORCINE) 5,000 UNIT/ML 1 ML SYRINGE SUBCUT SCH ×3 (05:45→23:53)
[2017-07-28 06:53] LABS: ABSOLUTE BASOPHILS # (AUTO) 0.1 10^3/uL (0.0-0.2); ABSOLUTE EOSINOPHILS # (AUTO) 0.6 10^3/uL (0.0-0.6); ABSOLUTE LYMPHOCYTES (AUTO) 1.6 10^3/uL (0.5-4.7); ABSOLUTE MONOCYTES (AUTO) 1.3 10^3/uL (0.1-1.4); ABSOLUTE NEUT (AUTO) 5.3 10^3/uL (1.7-8.2); BASOPHILS % (AUTO) 0.7 % (0-2); HEMATOCRIT 31.3 % (37.9-51.0); HEMOGLOBIN 10.6 g/dL (13.5-17.0); LYMPHOCYTES % (AUTO) 17.7 % (13-45); MEAN CORPUSCULAR HEMOGLOBIN 30.4 pg (27.0-33.4); MEAN CORPUSCULAR VOLUME 90 fl (80-97); MONOCYTES % (AUTO) 14.9 % (3-13); PLATELET COUNT 211 10^3/uL (150-450); RED CELL DISTRIBUTION WIDTH 13.1 % (11.5-14.0); SEGMENTED NEUTROPHILS % (AUTO) 59.7 % (42-78); TOTAL CELLS COUNTED % (AUTO) 100 %; WHITE BLOOD COUNT 8.8 10^3/uL (4.0-10.5)
[2017-07-28 07:21] LABS: ANION GAP 8 (5-19); BLOOD UREA NITROGEN 33 mg/dL (7-20); CALCIUM 9.2 mg/dL (8.4-10.2); CARBON DIOXIDE 27 mmol/L (22-30); CHLORIDE 102 mmol/L (98-107); GLUCOSE 126 mg/dL (75-110); POTASSIUM 4.3 mmol/L (3.6-5.0); SODIUM 136.9 mmol/L (137-145)
--- NOTE | 2017-07-28 07:53 | PDOC PROGRESS REPORT ---
Subjective Progress Note for:: 07/28/17 Subjective:: Patient lying in bed comfortably. States pain has improved since surgery although he still continues to have pain especially with physical therapy. Denies chest pain or shortness of breath. Reason For Visit: HIP FRACTURE,DIABETES Physical Exam Vital Signs: Temp Pulse Resp BP Pulse Ox 98.7 F 67 20 125/62 95 07/28/17 00:07 07/28/17 07:00 07/28/17 00:07 07/28/17 00:07 07/28/17 00:07 Intake & Output 07/27/17 07/28/17 07/29/17 06:59 06:59 06:59 Intake Total 4255 3010 Output Total 2200 1925 Balance 2054 1085 Weight 152.9 kg 153.8 kg Musculoskeletal exam: PRESENT: other - Left hip: Dressing clean/dry/intact no erythema or drainage. Minimal thigh swelling. No calf tenderness. Intact plantar flexion/dorsiflexion Results Laboratory Results: 07/28/17 05:39 07/28/17 05:39 07/27/17 07/27/17 07/27/17 09:50 14:22 17:40 WBC RBC Hgb Hct MCV MCH MCHC RDW Plt Count Seg Neutrophils % Lymphocytes % Monocytes % Eosinophils % Basophils % Absolute Neutrophils Absolute Lymphocytes Absolute Monocytes Absolute Eosinophils Absolute Basophils Sodium 137.9 135.7 L 134.0 L Potassium 4.3 4.2 4.6 Chloride 100 101 99 Carbon Dioxide 29 25 26 Anion Gap 9 10 9 BUN 28 H 28 H 30 H Creatinine 0.94 0.93 1.08 Est GFR ( Amer) > 60 > 60 > 60 Est GFR (Non-Af Amer) > 60 > 60 > 60 Glucose 124 H 248 H 351 H Calcium 9.3 9.2 9.1 07/27/17 07/28/17 07/28/17 21:45 01:38 05:39 WBC 8.8 RBC 3.50 L Hgb 10.6 L Hct 31.3 L MCV 90 MCH 30.4 MCHC 34.0 RDW 13.1 Plt Count 211 Seg Neutrophils % 59.7 Lymphocytes % 17.7 Monocytes % 14.9 H Eosinophils % 7.0 H Basophils % 0.7 Absolute Neutrophils 5.3 Absolute Lymphocytes 1.6 Absolute Monocytes 1.3 Absolute Eosinophils 0.6 Absolute Basophils 0.1 Sodium 134.8 L 137.1 Potassium 4.3 4.3 Chloride 101 102 Carbon Dioxide 24 27 Anion Gap 10 8 BUN 31 H 34 H Creatinine 1.05 1.04 Est GFR ( Amer) > 60 > 60 Est GFR (Non-Af Amer) > 60 > 60 Glucose 212 H 143 H Calcium 8.9 9.0 07/28/17 05:39 WBC RBC Hgb Hct MCV MCH MCHC RDW Plt Count Seg Neutrophils % Lymphocytes % Monocytes % Eosinophils % Basophils % Absolute Neutrophils Absolute Lymphocytes Absolute Monocytes Absolute Eosinophils Absolute Basophils Sodium 136.9 L Potassium 4.3 Chloride 102 Carbon Dioxide 27 Anion Gap 8 BUN 33 H Creatinine 0.97 Est GFR ( Amer) > 60 Est GFR (Non-Af Amer) > 60 Glucose 126 H Calcium 9.2 Impressions: Knee X-Ray 07/25/17 20:07 IMPRESSION: TRICOMPARTMENTAL OSTEOARTHRITIS WITH SMALL JOINT EFFUSION. NO ACUTE OSSEOUS ABNORMALITY. Chest X-Ray 07/25/17 21:37 IMPRESSION: No acute cardiopulmonary findings. Fluoroscopy 07/26/17 00:00 IMPRESSION: IMAGE(S) OBTAINED DURING PROCEDURE. Hip X-Ray 07/26/17 00:00 IMPRESSION: IMAGE(S) OBTAINED DURING PROCEDURE. Assessment & Plan - Diagnosis (1) Fracture, intertrochanteric, left femur Qualifiers: Encounter type: initial encounter Fracture type: closed Fracture alignment: displaced Qualified Code(s): S72.142A - Displaced intertrochanteric fracture of left femur, initial encounter for closed fracture Is this a current diagnosis for this admission?: Yes Plan: Status post cephalo-medullary nail left intertrochanteric fracture #1 physical therapy weightbearing as tolerated #2 pain control #3 heparin for DVT prophylaxis #4 discharge planning patient will require half-way facility once bed available
[2017-07-28] MEDS: FUROSEMIDE 40 MG TABLET PO SCH (08:01)
[2017-07-28] MEDS: ASPIRIN 325 MG TABLET PO SCH (09:07)
[2017-07-28] MEDS: METOPROLOL SUCCINATE 50 MG TAB.SR.24H PO SCH (09:07)
[2017-07-28] MEDS: OXYCODONE HCL SR 10 MG TABLET PO SCH (09:07)
[2017-07-28] MEDS: DOCUSATE SODIUM 100 MG CAPSULE PO SCH ×2 (09:07→17:07)
[2017-07-28 10:44] LABS: ANION GAP 9 (5-19); BLOOD UREA NITROGEN 31 mg/dL (7-20); CALCIUM 9.4 mg/dL (8.4-10.2); CARBON DIOXIDE 27 mmol/L (22-30); CHLORIDE 102 mmol/L (98-107); GLUCOSE 150 mg/dL (75-110); POTASSIUM 4.4 mmol/L (3.6-5.0); SODIUM 137.7 mmol/L (137-145)
--- NOTE | 2017-07-28 12:17 | PDOC PROGRESS REPORT ---
Subjective Progress Note for:: 07/28/17 Subjective:: Patient had hip surgery day before yesterday. He has done well. Yesterday's twelve-lead EKG shows no new changes. Patient currently without any cardiac related symptoms Reason For Visit: HIP FRACTURE,DIABETES Physical Exam Vital Signs: Temp Pulse Resp BP Pulse Ox 98.0 F 73 18 137/70 H 97 07/28/17 07:48 07/28/17 07:48 07/28/17 07:48 07/28/17 07:48 07/28/17 07:48 Intake & Output 07/27/17 07/28/17 07/29/17 06:59 06:59 06:59 Intake Total 4255 3010 Output Total 2200 1925 Balance 2054 1085 Weight 152.9 kg 153.8 kg Exam: GENERAL: well-nourished and in no acute distress. Alert and oriented x3 HEAD: Atraumatic, normocephalic. EYES: Pupils equal round and reactive to light, extraocular movements intact, sclera anicteric, conjunctiva are normal. ENT: TMs normal, nares patent, oropharynx clear without exudates. Moist mucous membranes. No oral ulcerations or bleeding gums noted NECK: supple without lymphadenopathy. Trachea is central. No cervical or axillary lymphadenopathy noted. Carotids are 2+, JVD WNL LUNGS: Respiration seems nonlabored, no significant accessory muscle action noted. Breath sounds clear to auscultation bilaterally and equal noted. No wheezes rales or rhonchi noted. No significant dullness noted on percussion. CHEST: Palpation of the chest wall shows no significant chest wall tenderness. No other significant abnormalities noted. 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 ABDOMEN: Soft, no significant tenderness appreciated, normoactive bowel sounds. No guarding, no rebound. No rigidity noted . No masses appreciated. EXTREMITIES: Pedal pulses are 1-2+, no calf tenderness noted. No clubbing or cyanosis.trace to 1+ pedal edema noted NEUROLOGICAL: Focused neurological exam showed no significant neurologic deficit. Normal speech, no focal weakness appreciated. PSYCH: Normal mood, normal affect. Judgment and insight within normal limits. SKIN: No significant ecchymosis, rash, ulcerations or signs of pruritus noted. MUSCULOSKELETAL EXAM: No significant joint swelling noted. Postsurgical changes left hip noted Results Laboratory Results: 07/28/17 05:39 07/28/17 09:40 07/27/17 07/27/17 07/27/17 14:22 17:40 21:45 WBC RBC Hgb Hct MCV MCH MCHC RDW Plt Count Seg Neutrophils % Lymphocytes % Monocytes % Eosinophils % Basophils % Absolute Neutrophils Absolute Lymphocytes Absolute Monocytes Absolute Eosinophils Absolute Basophils Sodium 135.7 L 134.0 L 134.8 L Potassium 4.2 4.6 4.3 Chloride 101 99 101 Carbon Dioxide 25 26 24 Anion Gap 10 9 10 BUN 28 H 30 H 31 H Creatinine 0.93 1.08 1.05 Est GFR ( Amer) > 60 > 60 > 60 Est GFR (Non-Af Amer) > 60 > 60 > 60 Glucose 248 H 351 H 212 H Calcium 9.2 9.1 8.9 07/28/17 07/28/17 07/28/17 01:38 05:39 05:39 WBC 8.8 RBC 3.50 L Hgb 10.6 L Hct 31.3 L MCV 90 MCH 30.4 MCHC 34.0 RDW 13.1 Plt Count 211 Seg Neutrophils % 59.7 Lymphocytes % 17.7 Monocytes % 14.9 H Eosinophils % 7.0 H Basophils % 0.7 Absolute Neutrophils 5.3 Absolute Lymphocytes 1.6 Absolute Monocytes 1.3 Absolute Eosinophils 0.6 Absolute Basophils 0.1 Sodium 137.1 136.9 L Potassium 4.3 4.3 Chloride 102 102 Carbon Dioxide 27 27 Anion Gap 8 8 BUN 34 H 33 H Creatinine 1.04 0.97 Est GFR ( Amer) > 60 > 60 Est GFR (Non-Af Amer) > 60 > 60 Glucose 143 H 126 H Calcium 9.0 9.2 07/28/17 09:40 WBC RBC Hgb Hct MCV MCH MCHC RDW Plt Count Seg Neutrophils % Lymphocytes % Monocytes % Eosinophils % Basophils % Absolute Neutrophils Absolute Lymphocytes Absolute Monocytes Absolute Eosinophils Absolute Basophils Sodium 137.7 Potassium 4.4 Chloride 102 Carbon Dioxide 27 Anion Gap 9 BUN 31 H Creatinine 0.87 Est GFR ( Amer) > 60 Est GFR (Non-Af Amer) > 60 Glucose 150 H Calcium 9.4 Impressions: Knee X-Ray 07/25/17 20:07 IMPRESSION: TRICOMPARTMENTAL OSTEOARTHRITIS WITH SMALL JOINT EFFUSION. NO ACUTE OSSEOUS ABNORMALITY. Chest X-Ray 07/25/17 21:37 IMPRESSION: No acute cardiopulmonary findings. Fluoroscopy 07/26/17 00:00 IMPRESSION: IMAGE(S) OBTAINED DURING PROCEDURE. Hip X-Ray 07/26/17 00:00 IMPRESSION: IMAGE(S) OBTAINED DURING PROCEDURE. 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 contact center engineer insulin use status Qualified Code(s): E11.8 - Type 2 diabetes mellitus with unspecified complications Is this a current diagnosis for this admission?: Yes (4) Fall Qualifiers: Encounter type: initial encounter Qualified Code(s): W19.XXXA - Unspecified fall, initial encounter Is this a current diagnosis for this admission?: Yes (5) Fracture of femoral neck, left Qualifiers: Encounter type: initial encounter Fracture type: closed Qualified Code(s) : S72.002A - Fracture of unspecified part of neck of left femur, initial encounter for closed fracture Is this a current diagnosis for this admission?: Yes (6) Hypertension Qualifiers: Hypertension type: essential hypertension Qualified Code(s): I10 - Essential (primary) hypertension Is this a current diagnosis for this admission?: Yes (7) Preoperative cardiovascular examination Is this a current diagnosis for this admission?: Yes - Notes Notes: Patient has remained well from cardiac standpoint without any significant complaints of chest pain. Rhythm strips had been noted to be stable. EKG noted to be stable. At this point will sign off. Please reconsult if needed. - Time Time with patient: 15-25 minutes Medications reviewed and adjusted accordingly: Yes
[2017-07-28] MEDS ORDERED: MAG HYDROX/AL HYDROX/SIMETH SUSP 30 ML UDCUP PO PRN (12:30)
[2017-07-28] MEDS ORDERED: ONDANSETRON 4 MG TAB.RAPDIS PO PRN (12:30)
[2017-07-28] MEDS: OXYCODONE HCL IR 5 MG TABLET PO PRN (16:24)
[2017-07-28] MEDS: INSULIN LISPRO 100 UNIT/ML 3 ML VIAL SUBCUT PRN ×2 (17:11→23:53)
--- NOTE | 2017-07-28 18:20 | PDOC PROGRESS REPORT ---
Subjective Progress Note for:: 07/28/17 Subjective:: This is a follow-up visit for left hip fracture. The patient states that he followed up with close therapy and walked with him today. He is not excited about going to pulmonary. Reason For Visit: HIP FRACTURE,DIABETES Physical Exam Vital Signs: Temp Pulse Resp BP Pulse Ox 98.8 F 69 16 106/65 97 07/28/17 15:41 07/28/17 15:41 07/28/17 15:41 07/28/17 15:41 07/28/17 15:41 Intake & Output 07/27/17 07/28/17 07/29/17 06:59 06:59 06:59 Intake Total 4255 3010 562 Output Total 2200 1925 Balance 2054 1085 562 Weight 152.9 kg 153.8 kg GENERAL: This is a well-developed and nourished appearing white male resting in bed currently in no acute distress. HEART: Regular rate and rhythm. No murmurs, rubs or gallops. LUNGS: Clear to auscultation bilaterally with equal rise and fall of the chest. ABDOMEN: Soft, nontender, nondistended with normoactive bowel sounds EXTREMETIES: No clubbing, cyanosis or edema. 2+ peripheral pulses bilaterally. NEURO: Awake, alert and oriented 3. Cranial nerves II through XII are grossly intact. Results Laboratory Results: 07/28/17 05:39 07/28/17 09:40 07/27/17 07/27/17 07/28/17 17:40 21:45 01:38 WBC RBC Hgb Hct MCV MCH MCHC RDW Plt Count Seg Neutrophils % Lymphocytes % Monocytes % Eosinophils % Basophils % Absolute Neutrophils Absolute Lymphocytes Absolute Monocytes Absolute Eosinophils Absolute Basophils Sodium 134.0 L 134.8 L 137.1 Potassium 4.6 4.3 4.3 Chloride 99 101 102 Carbon Dioxide 26 24 27 Anion Gap 9 10 8 BUN 30 H 31 H 34 H Creatinine 1.08 1.05 1.04 Est GFR ( Amer) > 60 > 60 > 60 Est GFR (Non-Af Amer) > 60 > 60 > 60 Glucose 351 H 212 H 143 H Calcium 9.1 8.9 9.0 07/28/17 07/28/17 07/28/17 05:39 05:39 09:40 WBC 8.8 RBC 3.50 L Hgb 10.6 L Hct 31.3 L MCV 90 MCH 30.4 MCHC 34.0 RDW 13.1 Plt Count 211 Seg Neutrophils % 59.7 Lymphocytes % 17.7 Monocytes % 14.9 H Eosinophils % 7.0 H Basophils % 0.7 Absolute Neutrophils 5.3 Absolute Lymphocytes 1.6 Absolute Monocytes 1.3 Absolute Eosinophils 0.6 Absolute Basophils 0.1 Sodium 136.9 L 137.7 Potassium 4.3 4.4 Chloride 102 102 Carbon Dioxide 27 27 Anion Gap 8 9 BUN 33 H 31 H Creatinine 0.97 0.87 Est GFR ( Amer) > 60 > 60 Est GFR (Non-Af Amer) > 60 > 60 Glucose 126 H 150 H Calcium 9.2 9.4 Impressions: Knee X-Ray 07/25/17 20:07 IMPRESSION: TRICOMPARTMENTAL OSTEOARTHRITIS WITH SMALL JOINT EFFUSION. NO ACUTE OSSEOUS ABNORMALITY. Chest X-Ray 07/25/17 21:37 IMPRESSION: No acute cardiopulmonary findings. Fluoroscopy 07/26/17 00:00 IMPRESSION: IMAGE(S) OBTAINED DURING PROCEDURE. Hip X-Ray 07/26/17 00:00 IMPRESSION: IMAGE(S) OBTAINED DURING PROCEDURE. Assessment & Plan - Diagnosis (1) Diabetes Qualifiers: Diabetes mellitus type: type 2 Diabetes mellitus complication status: with unspecified complications Diabetes mellitus intermediate designer insulin use: unspecified retirement insulin use status Qualified Code(s): E11.8 - Type 2 diabetes mellitus with unspecified complications Is this a current diagnosis for this admission?: Yes Plan: Continue sliding-scale insulin. (2) Fracture of femoral neck, left Qualifiers: Encounter type: initial encounter Fracture type: closed Qualified Code(s) : S72.002A - Fracture of unspecified part of neck of left femur, initial encounter for closed fracture Is this a current diagnosis for this admission?: Yes Plan: Status post surgery (3) Hypertension Qualifiers: Hypertension type: essential hypertension Qualified Code(s): I10 - Essential (primary) hypertension Is this a current diagnosis for this admission?: Yes Plan: Will begin metoprolol 25 mg p.o. twice daily. Continue amlodipine. Continue as needed hydralazine. - Time Time Spent with patient: 15-24 minutes
[2017-07-28] MEDS ORDERED: ACETAMINOPHEN 325 MG TABLET PO PRN (18:21)
[2017-07-28] MEDS: INSULIN GLARGINE,HUM.REC.ANLOG 300 UNIT/3 ML INSULN.PEN SUBCUT SCH (23:53)
[2017-07-28] MEDS: METOPROLOL SUCCINATE 25 MG TAB.SR.24H PO SCH (23:53)
[2017-07-29] MEDS: KETOROLAC TROMETHAMINE INJ/PF 30 MG/1 ML SDV IV PRN (03:43)
[2017-07-29 05:29] LABS: ABSOLUTE BASOPHILS # (AUTO) 0.1 10^3/uL (0.0-0.2); ABSOLUTE EOSINOPHILS # (AUTO) 0.5 10^3/uL (0.0-0.6); ABSOLUTE MONOCYTES (AUTO) 1.1 10^3/uL (0.1-1.4); ABSOLUTE NEUT (AUTO) 5.2 10^3/uL (1.7-8.2); BASOPHILS % (AUTO) 0.7 % (0-2); EOSINOPHILS % (AUTO) 6.8 % (0-6); HEMATOCRIT 31.5 % (37.9-51.0); HEMOGLOBIN 10.5 g/dL (13.5-17.0); MEAN CORPUSCULAR HEMOGLOBIN 30.3 pg (27.0-33.4); MEAN CORPUSCULAR HGB CONC 33.4 g/dL (32.0-36.0); MEAN CORPUSCULAR VOLUME 91 fl (80-97); MONOCYTES % (AUTO) 14.2 % (3-13); PLATELET COUNT 204 10^3/uL (150-450); RED BLOOD COUNT 3.47 10^6/uL (4.35-5.55); RED CELL DISTRIBUTION WIDTH 13.4 % (11.5-14.0); SEGMENTED NEUTROPHILS % (AUTO) 65.3 % (42-78); TOTAL CELLS COUNTED % (AUTO) 100 %; WHITE BLOOD COUNT 7.9 10^3/uL (4.0-10.5)
[2017-07-29 05:50] LABS: ANION GAP 9 (5-19); BLOOD UREA NITROGEN 29 mg/dL (7-20); CALCIUM 8.7 mg/dL (8.4-10.2); CARBON DIOXIDE 29 mmol/L (22-30); CHLORIDE 100 mmol/L (98-107); GLUCOSE 188 mg/dL (75-110); POTASSIUM 4.3 mmol/L (3.6-5.0); SODIUM 137.8 mmol/L (137-145)
[2017-07-29] MEDS: LANSOPRAZOLE 30 MG TAB.RAP.DR PO SCH (06:42)
[2017-07-29] MEDS: HEPARIN SOD (PORCINE) 5,000 UNIT/ML 1 ML SYRINGE SUBCUT SCH ×3 (06:42→22:57)
[2017-07-29] MEDS: CEFAZOLIN 2 GM/D5W RTU 2 GM/50 ML RTUPB IV SCH ×3 (06:42→17:29)
[2017-07-29] MEDS: PREGABALIN 75 MG CAPSULE PO SCH ×2 (06:42→17:29)
[2017-07-29] MEDS: INSULIN LISPRO 100 UNIT/ML 3 ML VIAL SUBCUT PRN ×4 (07:55→22:57)
[2017-07-29] MEDS: FUROSEMIDE 40 MG TABLET PO SCH (07:55)
--- NOTE | 2017-07-29 09:19 | PDOC PROGRESS REPORT ---
Subjective Progress Note for:: 07/29/17 Subjective:: Patient lying in bed comfortably. States pain has improved since surgery although he still continues to have pain especially with physical therapy. Denies chest pain or shortness of breath. Reason For Visit: HIP FRACTURE,DIABETES Physical Exam Vital Signs: Temp Pulse Resp BP Pulse Ox 98.0 F 66 18 128/73 H 97 07/29/17 04:00 07/29/17 04:00 07/29/17 04:00 07/29/17 04:00 07/29/17 04:00 Intake & Output 07/28/17 07/29/17 07/30/17 06:59 06:59 06:59 Intake Total 3010 1402 Output Total 1925 650 Balance 1085 752 Weight 153.8 kg 151.2 kg Musculoskeletal exam: PRESENT: other - Left hip: Dressing clean/dry/intact. Moderate thigh swelling. No calf tenderness. No evidence of limb length inequality. Intact plantar flexion/dorsiflexion. Results Laboratory Results: 07/29/17 04:24 07/29/17 04:24 07/28/17 07/29/17 07/29/17 09:40 04:24 04:24 WBC 7.9 RBC 3.47 L Hgb 10.5 L Hct 31.5 L MCV 91 MCH 30.3 MCHC 33.4 RDW 13.4 Plt Count 204 Seg Neutrophils % 65.3 Lymphocytes % 13.0 Monocytes % 14.2 H Eosinophils % 6.8 H Basophils % 0.7 Absolute Neutrophils 5.2 Absolute Lymphocytes 1.0 Absolute Monocytes 1.1 Absolute Eosinophils 0.5 Absolute Basophils 0.1 Sodium 137.7 137.8 Potassium 4.4 4.3 Chloride 102 100 Carbon Dioxide 27 29 Anion Gap 9 9 BUN 31 H 29 H Creatinine 0.87 0.83 Est GFR ( Amer) > 60 > 60 Est GFR (Non-Af Amer) > 60 > 60 Glucose 150 H 188 H Calcium 9.4 8.7 Magnesium 2.1 Impressions: Knee X-Ray 07/25/17 20:07 IMPRESSION: TRICOMPARTMENTAL OSTEOARTHRITIS WITH SMALL JOINT EFFUSION. NO ACUTE OSSEOUS ABNORMALITY. Chest X-Ray 07/25/17 21:37 IMPRESSION: No acute cardiopulmonary findings. Fluoroscopy 07/26/17 00:00 IMPRESSION: IMAGE(S) OBTAINED DURING PROCEDURE. Hip X-Ray 07/26/17 00:00 IMPRESSION: IMAGE(S) OBTAINED DURING PROCEDURE. Assessment & Plan - Diagnosis (1) Fracture, intertrochanteric, left femur Qualifiers: Encounter type: initial encounter Fracture type: closed Fracture alignment: displaced Qualified Code(s): S72.142A - Displaced intertrochanteric fracture of left femur, initial encounter for closed fracture Is this a current diagnosis for this admission?: Yes Plan: Status post cephalo-medullary nail left intertrochanteric fracture #1 physical therapy weightbearing as tolerated #2 pain control #3 heparin for DVT prophylaxis #4 discharge planning patient will require snf facility once bed available
[2017-07-29] MEDS: DOCUSATE SODIUM 100 MG CAPSULE PO SCH ×2 (10:40→17:29)
[2017-07-29] MEDS: ASPIRIN 325 MG TABLET PO SCH (10:40)
[2017-07-29] MEDS: METOPROLOL SUCCINATE 25 MG TAB.SR.24H PO SCH ×2 (10:41→22:58)
[2017-07-29] MEDS: OXYCODONE HCL IR 5 MG TABLET PO PRN ×2 (14:52→22:58)
--- NOTE | 2017-07-29 15:41 | PDOC PROGRESS REPORT ---
Subjective Progress Note for:: 07/29/17 Subjective:: Pt states that he is doing ok. Reason For Visit: HIP FRACTURE,DIABETES Physical Exam Vital Signs: Temp Pulse Resp BP Pulse Ox 98.2 F 63 18 138/58 H 96 07/29/17 07:35 07/29/17 07:35 07/29/17 07:35 07/29/17 07:35 07/29/17 07:35 Intake & Output 07/28/17 07/29/17 07/30/17 06:59 06:59 06:59 Intake Total 3010 1402 Output Total 1925 650 Balance 1085 752 Weight 153.8 kg 151.2 kg General appearance: PRESENT: no acute distress, well-developed, well-nourished Head exam: PRESENT: atraumatic, normocephalic Eye exam: PRESENT: conjunctiva pink, EOMI. ABSENT: scleral icterus Ear exam: PRESENT: normal external ear exam Mouth exam: PRESENT: moist, tongue midline Neck exam: ABSENT: carotid bruit, JVD, lymphadenopathy, thyromegaly Respiratory exam: PRESENT: clear to auscultation reynold. ABSENT: rales, rhonchi, wheezes Cardiovascular exam: PRESENT: RRR. ABSENT: diastolic murmur, rubs, systolic murmur Pulses: PRESENT: normal dorsalis pedis pul Vascular exam: PRESENT: normal capillary refill GI/Abdominal exam: PRESENT: normal bowel sounds, soft. ABSENT: distended, guarding, mass, organolmegaly, rebound, tenderness Rectal exam: PRESENT: deferred Extremities exam: PRESENT: other - left hip with dressing in place.. ABSENT: calf tenderness, clubbing, pedal edema Neurological exam: PRESENT: alert, awake, oriented to person, oriented to place , oriented to time, oriented to situation, CN II-XII grossly intact. ABSENT: motor sensory deficit Psychiatric exam: PRESENT: appropriate affect, normal mood. ABSENT: homicidal ideation, suicidal ideation Skin exam: PRESENT: other - Left hip with dressing in place. Results Laboratory Results: 07/29/17 04:24 07/29/17 04:24 07/29/17 07/29/17 04:24 04:24 WBC 7.9 RBC 3.47 L Hgb 10.5 L Hct 31.5 L MCV 91 MCH 30.3 MCHC 33.4 RDW 13.4 Plt Count 204 Seg Neutrophils % 65.3 Lymphocytes % 13.0 Monocytes % 14.2 H Eosinophils % 6.8 H Basophils % 0.7 Absolute Neutrophils 5.2 Absolute Lymphocytes 1.0 Absolute Monocytes 1.1 Absolute Eosinophils 0.5 Absolute Basophils 0.1 Sodium 137.8 Potassium 4.3 Chloride 100 Carbon Dioxide 29 Anion Gap 9 BUN 29 H Creatinine 0.83 Est GFR ( Amer) > 60 Est GFR (Non-Af Amer) > 60 Glucose 188 H Calcium 8.7 Magnesium 2.1 Impressions: Knee X-Ray 07/25/17 20:07 IMPRESSION: TRICOMPARTMENTAL OSTEOARTHRITIS WITH SMALL JOINT EFFUSION. NO ACUTE OSSEOUS ABNORMALITY. Chest X-Ray 07/25/17 21:37 IMPRESSION: No acute cardiopulmonary findings. Fluoroscopy 07/26/17 00:00 IMPRESSION: IMAGE(S) OBTAINED DURING PROCEDURE. Hip X-Ray 07/26/17 00:00 IMPRESSION: IMAGE(S) OBTAINED DURING PROCEDURE. Assessment & Plan - Diagnosis (1) Diabetes Qualifiers: Diabetes mellitus type: type 2 Diabetes mellitus complication status: with unspecified complications Diabetes mellitus animal behaviorist insulin use: unspecified halfway insulin use status Qualified Code(s): E11.8 - Type 2 diabetes mellitus with unspecified complications Is this a current diagnosis for this admission?: Yes Plan: Will continue current treatment. (2) Fall Qualifiers: Encounter type: initial encounter Qualified Code(s): W19.XXXA - Unspecified fall, initial encounter Is this a current diagnosis for this admission?: Yes Plan: PT/OT evaluation and treatment. (3) Fracture, intertrochanteric, left femur Qualifiers: Encounter type: initial encounter Fracture type: closed Fracture alignment: displaced Qualified Code(s): S72.142A - Displaced intertrochanteric fracture of left femur, initial encounter for closed fracture Is this a current diagnosis for this admission?: Yes (4) Hypertension Qualifiers: Hypertension type: essential hypertension Qualified Code(s): I10 - Essential (primary) hypertension Is this a current diagnosis for this admission?: Yes Plan: Will continue home medications. (5) Leukocytosis Is this a current diagnosis for this admission?: Yes Plan: Secondary to Stress response: Resolved. - Time Time Spent with patient: 15-24 minutes
[2017-07-29] MEDS: INSULIN GLARGINE,HUM.REC.ANLOG 300 UNIT/3 ML INSULN.PEN SUBCUT SCH (22:57)
[2017-07-30] MEDS: CEFAZOLIN 2 GM/D5W RTU 2 GM/50 ML RTUPB IV SCH ×3 (03:16→14:06)
[2017-07-30] MEDS: PREGABALIN 75 MG CAPSULE PO SCH ×2 (06:10→17:14)
[2017-07-30] MEDS: LANSOPRAZOLE 30 MG TAB.RAP.DR PO SCH (06:10)
[2017-07-30] MEDS: HEPARIN SOD (PORCINE) 5,000 UNIT/ML 1 ML SYRINGE SUBCUT SCH ×2 (06:10→14:06)
[2017-07-30] MEDS: INSULIN LISPRO 100 UNIT/ML 3 ML VIAL SUBCUT PRN ×2 (08:35→17:13)
[2017-07-30] MEDS: FUROSEMIDE 40 MG TABLET PO SCH (08:35)
[2017-07-30] MEDS: DOCUSATE SODIUM 100 MG CAPSULE PO SCH ×2 (09:07→17:14)
[2017-07-30] MEDS: OXYCODONE HCL IR 5 MG TABLET PO PRN ×2 (09:07→17:13)
[2017-07-30] MEDS: METOPROLOL SUCCINATE 25 MG TAB.SR.24H PO SCH (09:07)
[2017-07-30] MEDS: ASPIRIN 325 MG TABLET PO SCH (09:07)
--- NOTE | 2017-07-30 12:24 | PDOC DISCHARGE SUMMARY ---
General - Admit/Disc Date/PCP Admission Date/Primary Care Provider: 07/26/17 00:55 RADHA WHITE MD Discharge Date: 07/30/17 - Discharge Diagnosis (1) Fracture, intertrochanteric, left femur Is this a current diagnosis for this admission?: Yes Summary: Patient was admitted after falling at home resulting in left hip fracture. Patient status post repair. (2) Diabetes Is this a current diagnosis for this admission?: Yes Summary: Continue patient on current insulin regimen. (3) Fall Is this a current diagnosis for this admission?: Yes Summary: Patient will go to rehab and work with physical therapy. (4) Hypertension Is this a current diagnosis for this admission?: Yes Summary: We will continue current treatment plan. (5) Leukocytosis Is this a current diagnosis for this admission?: Yes Summary: Secondary to stress response. - Additional Information Resuscitation Status: Full Code Discharge Diet: Cardiac Discharge Activity: Supervised Activity Prescriptions: Butalb/Acetaminophen/Caffeine [Fioricet (50-325-40 mg) Tablet] 2 tab PO DAILYP PRN #5 each MDD 6 TABS/DAY PRN Reason: For Headache Dicyclomine HCl [Bentyl 20 mg Tablet] 20 mg PO QID #5 tablet Oxycodone HCl [Oxy-Ir 5 mg Tablet] 5 mg PO Q6HP PRN #5 tablet PRN Reason: Home Medications: Acidoph/L.bulg/Bif.b/S.thermop [Bacid Caplet] 1 each PO BID 07/28/17 Diclofenac Sodium [Voltaren] 75 mg PO BIDP PRN 07/28/17 Finasteride [Proscar 5 mg Tablet] 5 mg PO DAILY 07/28/17 Gabapentin [Neurontin] 900 mg PO Q12 07/28/17 Lisinopril [Prinivil 40 mg Tablet] 40 mg PO DAILY 07/28/17 Multivitamin [Multiple Vitamins] 1 each PO DAILY 07/28/17 Omeprazole 40 mg PO Q6AM 07/28/17 Sertraline HCl [Zoloft] 200 mg PO QHS 07/28/17 Simvastatin [Zocor 40 mg Tablet] 40 mg PO QHS 07/28/17 Acetaminophen [Tylenol 325 mg Tablet] 650 mg PO Q4HP PRN tablet 07/30/17 Aspirin [Aspirin 325 mg Tablet] 325 mg PO DAILY tablet 07/30/17 Butalb/Acetaminophen/Caffeine [Fioricet (50-325-40 mg) Tablet] 2 tab PO DAILYP PRN #5 each MDD 6 TABS/DAY 07/30/17 Dicyclomine HCl [Bentyl 20 mg Tablet] 20 mg PO QID #5 tablet 07/30/17 Furosemide [Lasix 40 mg Tablet] 40 mg PO QAM tablet 07/30/17 Insulin Glargine,Hum.rec.anlog [Lantus Insulin 100 Unit/mL] 35 unit SUBCUT QHS insuln.pen 07/30/17 Insulin Lispro [Humalog Insulin (Lispro) 100 unit/mL] 0 - 12 unit SUBCUT Q6HP PRN unit 07/30/17 Ipratropium/Albuterol Sulfate [Duoneb 3 ml Ampul] 3 ml NEB RTQ6HP PRN vial.neb 07/30/17 Metoprolol Succinate [Toprol Xl 25 mg Tab.sr] 25 mg PO Q12 tab.sr.24h 07/30/17 Ondansetron [Zofran Odt 4 mg Tablet] 4 mg PO Q6HP PRN tab.rapdis 07/30/17 Oxycodone HCl [Oxy-Ir 5 mg Tablet] 5 mg PO Q6HP PRN #5 tablet 07/30/17 History of Present Illness Patient complains of: Fall History of Present Illness: CATALINO MARTINEZ JR is a 71 year old male resents after falling at home. Patient was found to have a left femoral fracture. Hospital Course Hospital Course: Patient is 71-year-old gentleman that presented from home after falling. Patient was found to have a left femoral fracture. Patient underwent repair. Patient has had issues with pain since surgery and therefore requiring pain medication. Patient is going to rehab to help with strengthening. Patient's blood sugars have been under better control with current regimen. Patient's blood pressure medicines were adjusted and patient's blood pressure has been within acceptable range. Physical Exam Vital Signs: Temp Pulse Resp BP Pulse Ox 98.0 F 70 21 H 139/59 H 96 07/30/17 07:51 07/30/17 07:51 07/30/17 07:51 07/30/17 07:51 07/30/17 09:48 Intake & Output 07/29/17 07/30/17 07/31/17 06:59 06:59 06:59 Intake Total 1402 2022 Output Total 650 1550 Balance 752 472 Weight 151.2 kg 154.6 kg General appearance: PRESENT: no acute distress, well-developed, well-nourished Head exam: PRESENT: atraumatic, normocephalic Eye exam: PRESENT: conjunctiva pink, EOMI. ABSENT: scleral icterus Ear exam: PRESENT: normal external ear exam Mouth exam: PRESENT: moist, tongue midline Neck exam: ABSENT: carotid bruit, JVD, lymphadenopathy, thyromegaly Respiratory exam: PRESENT: clear to auscultation reynold. ABSENT: rales, rhonchi, wheezes Pulses: PRESENT: normal dorsalis pedis pul Vascular exam: PRESENT: normal capillary refill GI/Abdominal exam: PRESENT: normal bowel sounds, soft. ABSENT: distended, guarding, mass, organolmegaly, rebound, tenderness Rectal exam: PRESENT: deferred Extremities exam: PRESENT: other - Left hip dressing in place. Musculoskeletal exam: PRESENT: other - left hip dressing in place Neurological exam: PRESENT: alert, awake, oriented to person, oriented to place , oriented to time, oriented to situation, CN II-XII grossly intact. ABSENT: motor sensory deficit Psychiatric exam: PRESENT: appropriate affect, normal mood. ABSENT: homicidal ideation, suicidal ideation Skin exam: PRESENT: dry, intact, warm, other - left hip dressing in place. ABSENT: cyanosis, rash Results Laboratory Results: 07/29/17 04:24 07/29/17 04:24 Impressions: Knee X-Ray 07/25/17 20:07 IMPRESSION: TRICOMPARTMENTAL OSTEOARTHRITIS WITH SMALL JOINT EFFUSION. NO ACUTE OSSEOUS ABNORMALITY. Chest X-Ray 07/25/17 21:37 IMPRESSION: No acute cardiopulmonary findings. Fluoroscopy 07/26/17 00:00 IMPRESSION: IMAGE(S) OBTAINED DURING PROCEDURE. Hip X-Ray 07/26/17 00:00 IMPRESSION: IMAGE(S) OBTAINED DURING PROCEDURE. Qualifiers - * PATEINT BEING DISCHARGED WITH ANY OF THE FOLLOWING DIAGNOSIS?: No Plan Time Spent: Greater than 30 Minutes
[2017-07-30 16:44] VITALS: BP 132/67
== END 2017-07-30 18:40 | DRG 481 ==
LOC: ER 19:53 → EH 07-26 00:55 → 4N 07-26 16:22
PROVIDERS: ADMIT Internal Medicine; ATTEND Internal Medicine
PROC: 0QS736Z Reposition Left Upper Femur with Intramedullary Internal Fixation Device, Percutaneous Approach (ICD-10-PCS; principal; 2017-07-26 13:00)
DX: S72.142A Displaced intertrochanteric fracture of left femur, initial encounter for closed fracture (principal); Z68.42 Body mass index [BMI] 45.0-49.9, adult; I10 Essential (primary) hypertension; E11.40 Type 2 diabetes mellitus with diabetic neuropathy, unspecified; E66.01 Morbid (severe) obesity due to excess calories; I44.7 Left bundle-branch block, unspecified; R01.1 Cardiac murmur, unspecified; Z79.84 Long term (current) use of oral hypoglycemic drugs; E78.00 Pure hypercholesterolemia, unspecified; G43.909 Migraine, unspecified, not intractable, without status migrainosus; Z87.891 Personal history of nicotine dependence; D72.829 Elevated white blood cell count, unspecified; Z79.4 Long term (current) use of insulin; Z79.899 Other long term (current) drug therapy; M54.31 Sciatica, right side; W01.0XXA Fall on same level from slipping, tripping and stumbling without subsequent striking against object, initial encounter; Y92.002 Bathroom of unspecified non-institutional (private) residence as the place of occurrence of the external cause; K21.9 Gastro-esophageal reflux disease without esophagitis; M19.90 Unspecified osteoarthritis, unspecified site; F32.9 Major depressive disorder, single episode, unspecified
CPT/HCPCS: 01230; 36415; 51702; 71045; 80048; 80053; 81001; 82962; 83735; 85025; 85027; 85610; 85730; 93005; 93010; 93306; 94799; 96374; 96375; 96376; 99285; C1713; G8978-GP; G8979-GP; G8987-GO; G8988-GO; J0131; J0330; J0690; J1100; J1170; J1644; J1815; J1885; J2250; J2405; J2550; J2704; J3010; J3490; J7120

== ENCOUNTER → 2018-01-13 | Outpatient (CLI) | payer OTHER ==
--- NOTE | 2018-01-14 10:08 | RADIOLOGY REPORT (SQ) ---
EXAM DESCRIPTION: MRI LT LOWER JOINT WITHOUT COMPLETED DATE/TIME: 01/13/2018 8:17 pm REASON FOR STUDY: LEFT KNEE PAIN M25.562 PAIN IN LEFT KNEE COMPARISON: None. TECHNIQUE: Leftknee images acquired and stored on PACS. Multiplanar images include fat sensitive se quences as T1, water sensitive sequences as FST2 or STIR, cartilage sensitive sequences as FSPD, and gradient echo sequences. LIMITATIONS: None. FINDINGS: JOINT AND BURSAE: No effusion. No significant Hirsch's cyst. BONE CORTEX AND MARROW: No alteration of signal to suggest marrow replacement. No worrisome bone lesi ons. No occult fracture. ACL: Torn, best shown on sagittal T1 images 14 through 17. PCL: Intact. MCL: Intact. No periligamentous edema or fluid. LCL: Intact. No periligamentous edema or fluid. MEDIAL MENISCUS: Diffuse horizontal tear throughout the mid body and posterior horn medial meniscus. No parameniscal cyst. LATERAL MENISCUS: No tears. No abnormal signal. MEDIAL COMPARTMENT: Mild chondromalacia. No bone bruises or reactive marrow edema. No osteophytes. LATERAL COMPARTMENT: Cartilage preserved. No bone bruises or reactive marrow edema. No osteophytes. PATELLA: High-grade medial patellar facet, moderate lateral patellar facet chondromalacia. No subchon dral cysts. Medial and lateral retinacula intact. EXTENSOR MECHANISM: Intact. Quadriceps and patella tendons normal. SOFT TISSUES: Adjacent muscles and subcutaneous tissues normal. Normal flow void in popliteal artery and vein. OTHER: No other significant finding. IMPRESSION: Torn ACL, diffuse horizontal tear medial meniscus. Significant chondromalacia patella TECHNICAL DOCUMENTATION: JOB ID: [id number] [employer] All Rights Reserved Reading location - IP/workstation name: [email or web address]
== END ==
LOC: RAD 18:35
PROVIDERS: ATTEND Family Medicine
DX: M25.562 Pain in left knee (principal); M22.42 Chondromalacia patellae, left knee; S83.242A Other tear of medial meniscus, current injury, left knee, initial encounter; X58.XXXA Exposure to other specified factors, initial encounter

== ENCOUNTER 2018-04-02 13:04 | Emergency (ER) | payer OTHER, MEDICARE ==
[2018-04-02] MEDS ORDERED: NORMAL SALINE 1000 ML 1,000 ML IV ONE (14:11)
--- NOTE | 2018-04-02 14:19 | ER Document Report ---
ED Medical Screen (RME) - General Chief Complaint: Hip Pain Stated Complaint: LEFT HIP PAIN Time Seen by Provider: 04/02/18 14:09 TRAVEL OUTSIDE OF THE [place] IN LAST 30 DAYS: No - HPI Notes: 04/02/18 14:17 Patient coming in with concerns of left hip pain left knee pain has a history of hip replacement. Patient found to be hypotensive upon triage made yellow however is currently now only being evaluated. Patient states his not having any symptoms no lightheadedness no dizziness no chest pain no abdominal pain no bleeding no dark stools. Patient states he is on blood pressure medication to take 2 of the blood pressure medications this morning and is supposed to take another blood pressure medication this afternoon. Patient again is otherwise asymptomatic from his hypotension - Related Data Allergies/Adverse Reactions: No Known Allergies Allergy (Verified 07/25/17 20:07) Past Medical History - Social History Frequency of alcohol use: None Drug Abuse: None - Past Medical History Cardiac Medical History: Reports: Hx Hypercholesterolemia, Hx Hypertension Denies: Hx Coronary Artery Disease Pulmonary Medical History: Reports: Hx Pneumonia Neurological Medical History: Reports: Hx Migraine Endocrine Medical History: Reports: Hx Diabetes Mellitus Type 1, Hx Diabetes Mellitus Type 2 Renal/ Medical History: Denies: Hx Peritoneal Dialysis GI Medical History: Reports: Hx Diverticulitis, Hx Gastroesophageal Reflux Disease Musculoskeltal Medical History: Reports Hx Arthritis Psychiatric Medical History: Reports: Hx Depression Past Surgical History: Reports: Hx Orthopedic Surgery - left leg, Hx Tonsillectomy - Immunizations Immunizations up to date: Yes Hx Diphtheria, Pertussis, Tetanus Vaccination: Yes History of Influenza Vaccine for 03/2017 - 08/2017 Season: Yes Review of Systems - Review of Systems Constitutional: Other - Hip pain hypotension Physical Exam - Vital signs Vitals: Temp Pulse Resp BP Pulse Ox 98.3 F 50 L 16 83/42 L 92 04/02/18 13:33 04/02/18 13:33 04/02/18 13:33 04/02/18 13:33 04/02/18 13:33 Interpretation: Hypotensive - General General appearance: Appears well In distress: None - Respiratory Respiratory status: No respiratory distress Chest status: Nontender Breath sounds: Normal Chest palpation: Normal - Cardiovascular Rhythm: Regular Heart sounds: Normal auscultation Course - Re-evaluation Re-evalutation: 04/02/18 14:18 Notified charge nurse the patient's vital signs currently cleaning her room laboratory studies will be drawn for the patient's unexplained hypotension at this time a bag of fluid will be also obtained. We will get x-rays for further evaluation the patient's hip pain. - Vital Signs Vital signs: Temp Pulse Resp BP Pulse Ox 98.3 F 50 L 16 83/42 L 92 04/02/18 13:33 04/02/18 13:33 04/02/18 13:33 04/02/18 13:33 04/02/18 13:33 Doctor's Discharge - Discharge Referrals: KAISER HARRISON MD [Primary Care Provider] - Follow up as needed
[2018-04-02 15:04] LABS: VENOUS BLOOD BASE EXCESS 1.4 mmol/L; VENOUS BLOOD HCO3 28.4 mmol/L (20-32); VENOUS BLOOD PCO2 54.4 mmHg (35-63); VENOUS BLOOD PH 7.34 (7.30-7.42)
--- NOTE | 2018-04-02 15:08 | ER Document Report ---
ED Hip Pain/Injury - General Chief Complaint: Hip Pain Stated Complaint: LEFT HIP PAIN Time Seen by Provider: 04/02/18 14:09 Mode of Arrival: Wheelchair Information source: Patient Notes: Patient states that one week ago he slipped getting out of his vehicle and fell on his left hip. Patient states since that fall he has had persistent left hip and left knee pain. Patient states he feels as though his knee is going to give out on him. Patient does ambulate for short distances in his home with a walker and otherwise uses a wheelchair to get around at home. Patient denies any recent illness cough cold symptoms, chest pain or nausea or vomiting. Patient did present hypotensive in triage although denies having any symptoms with his low blood pressure. Patient denies any changes in his medications and has been compliant with taking his antihypertensive medications. TRAVEL OUTSIDE OF THE [place] IN LAST 30 DAYS: No - HPI Patient complains to provider of: Hip Occurred: Last week Quality of pain: Achy Pain Level: 3 Skin Color: Normal - Related Data Allergies/Adverse Reactions: No Known Allergies Allergy (Verified 07/25/17 20:07) Past Medical History - General Information source: Patient - Social History Smoking Status: Never Smoker Frequency of alcohol use: None Drug Abuse: None Occupation: None Lives with: Alone Family History: Hypertension Patient has suicidal ideation: No Patient has homicidal ideation: No - Past Medical History Cardiac Medical History: Reports: Hx Hypercholesterolemia, Hx Hypertension Denies: Hx Coronary Artery Disease Pulmonary Medical History: Reports: Hx Pneumonia Neurological Medical History: Reports: Hx Migraine Endocrine Medical History: Reports: Hx Diabetes Mellitus Type 1, Hx Diabetes Mellitus Type 2 Renal/ Medical History: Denies: Hx Peritoneal Dialysis GI Medical History: Reports: Hx Diverticulitis, Hx Gastroesophageal Reflux Disease Musculoskeletal Medical History: Reports Hx Arthritis Psychiatric Medical History: Reports: Hx Depression Past Surgical History: Reports: Hx Orthopedic Surgery - left leg, Hx Tonsillectomy - Immunizations Immunizations up to date: Yes Hx Diphtheria, Pertussis, Tetanus Vaccination: Yes Review of Systems - Review of Systems Constitutional: No symptoms reported. denies: Chills, Fever, Recent illness EENT: No symptoms reported Cardiovascular: No symptoms reported. denies: Chest pain, Palpitations, Syncope , Dizziness, Lightheaded Respiratory: No symptoms reported. denies: Cough, Short of breath Gastrointestinal: No symptoms reported. denies: Abdominal pain, Nausea, Vomiting Genitourinary: No symptoms reported Male Genitourinary: No symptoms reported Musculoskeletal: Joint pain - Left hip, left knee. denies: Back pain Skin: No symptoms reported Hematologic/Lymphatic: No symptoms reported Neurological/Psychological: No symptoms reported. denies: Weakness, Lost consciousness, Headaches Physical Exam - Vital signs Vitals: Temp Pulse Resp BP Pulse Ox 98.3 F 50 L 16 83/42 L 92 04/02/18 13:33 04/02/18 13:33 04/02/18 13:33 04/02/18 13:33 04/02/18 13:33 - General General appearance: Appears well, Alert In distress: None - HEENT Head: Normocephalic, Atraumatic Eyes: Normal Conjunctiva: Normal Nasal: Normal Mouth/Lips: Normal Mucous membranes: Normal Neck: Normal, Supple. No: Lymphadenopathy - Respiratory Respiratory status: No respiratory distress Chest status: Nontender Breath sounds: Normal. No: Rales, Rhonchi, Stridor, Wheezing Chest palpation: Normal - Cardiovascular Rhythm: Bradycardia Heart sounds: S1 appreciated, S2 appreciated - Abdominal Inspection: Morbidly Obese Distension: No distension Bowel sounds: Normal Tenderness: Nontender - Back Back: Normal, Nontender. No: CVA tenderness - Extremities General upper extremity: Normal inspection, Normal ROM General lower extremity: Tender - left hip tenderness over lateral aspect of left hip, Normal color. No: Edema Hip: Tender - Left lateral hip tenderness, Pain with ROM. No: Abrasion, Dislocation, Instability, Laceration Thigh: Normal, Nontender Knee: Tender - Generalized left knee joint tenderness, no obvious effusion, Pain with ROM. No: Deformity, Dislocation, Joint effusion, Laxity with valgus stress, Laxity with varus stress - Neurological Neuro grossly intact: Yes Cognition: Normal Mansi Coma Scale Eye Opening: Spontaneous Mansi Coma Scale Verbal: Oriented Mansi Coma Scale Motor: Obeys Commands Mansi Coma Scale Total: 15 - Psychological Associated symptoms: Normal affect, Normal mood - Skin Skin Temperature: Warm Skin Moisture: Dry Skin Color: Normal Course - Re-evaluation Re-evalutation: 04/02/18 18:10 Patient's laboratory tests reviewed, no concern for sepsis at this time. Patient primary complaint for coming to the emergency department was knee pain after a fall. X-rays were reviewed and no acute fracture was identified. Patient's left knee will be immobilized and patient will be encouraged to follow -up with his orthopedic doctor for further evaluation. Manual blood pressure reviewed, patient without any hypotension. Patient states that he has difficulty ambulating because he is fearful that his left knee will give out on him. Patient does have a walker at home and states that he is able to use the walker for short distances and also has a wheelchair at home. Offered patient a knee immobilizer. Consulted with Dr. Camejo regarding patient disposition. Recommends having patient not take any of his blood pressure medications tonight as his blood pressure has been slightly hypotensive, and having patient call his primary doctor tomorrow to address which medications to resume and at what dose. Dr. Camejo to bedside for examination. Agrees with discharge plan of care at this time. - Vital Signs Vital signs: Temp Pulse Resp BP Pulse Ox 97.9 F 54 L 18 117/80 99 04/02/18 19:41 04/02/18 19:41 04/02/18 19:41 04/02/18 19:41 04/02/18 19:41 - Laboratory Result Diagrams: 04/02/18 14:42 04/02/18 14:42 Laboratory results interpreted by me: 04/02/18 04/02/18 14:42 14:42 RBC 4.28 L Hgb 13.1 L Potassium 5.2 H BUN 28 H Creatinine 1.74 H Est GFR ( Amer) 47 L Est GFR (Non-Af Amer) 39 L Glucose 115 H ALT 15 L Labs- Entire Visit 04/02/18 04/02/18 04/02/18 14:42 14:42 14:42 WBC 9.1 RBC 4.28 L Hgb 13.1 L Hct 39.0 MCV 91 MCH 30.5 MCHC 33.5 RDW 12.7 Plt Count 330 Seg Neutrophils % 65.2 Lymphocytes % 21.0 Monocytes % 11.3 Eosinophils % 2.1 Basophils % 0.4 Absolute Neutrophils 5.9 Absolute Lymphocytes 1.9 Absolute Monocytes 1.0 Absolute Eosinophils 0.2 Absolute Basophils 0.0 VBG pH 7.34 VBG pCO2 54.4 VBG HCO3 28.4 VBG Base Excess 1.4 Sodium Potassium Chloride Carbon Dioxide Anion Gap BUN Creatinine Est GFR ( Amer) Est GFR (Non-Af Amer) Glucose Lactic Acid Calcium Total Bilirubin Direct Bilirubin Neonat Total Bilirubin Neonat Direct Bilirubin Neonat Indirect Bili AST ALT Alkaline Phosphatase Troponin I < 0.012 Total Protein Albumin Blood Type Antibody Screen 04/02/18 04/02/18 04/02/18 14:42 14:42 14:42 WBC RBC Hgb Hct MCV MCH MCHC RDW Plt Count Seg Neutrophils % Lymphocytes % Monocytes % Eosinophils % Basophils % Absolute Neutrophils Absolute Lymphocytes Absolute Monocytes Absolute Eosinophils Absolute Basophils VBG pH VBG pCO2 VBG HCO3 VBG Base Excess Sodium 143.4 Potassium 5.2 H Chloride 102 Carbon Dioxide 29 Anion Gap 12 BUN 28 H Creatinine 1.74 H Est GFR ( Amer) 47 L Est GFR (Non-Af Amer) 39 L Glucose 115 H Lactic Acid 2.1 Calcium 9.7 Total Bilirubin 0.4 Direct Bilirubin 0.2 Neonat Total Bilirubin Not Reportable Neonat Direct Bilirubin Not Reportable Neonat Indirect Bili Not Reportable AST 26 ALT 15 L Alkaline Phosphatase 79 Troponin I Total Protein 8.2 Albumin 4.3 Blood Type A POSITIVE Antibody Screen NEGATIVE 04/02/18 18:30 WBC RBC Hgb Hct MCV MCH MCHC RDW Plt Count Seg Neutrophils % Lymphocytes % Monocytes % Eosinophils % Basophils % Absolute Neutrophils Absolute Lymphocytes Absolute Monocytes Absolute Eosinophils Absolute Basophils VBG pH VBG pCO2 VBG HCO3 VBG Base Excess Sodium Potassium Chloride Carbon Dioxide Anion Gap BUN Creatinine Est GFR ( Amer) Est GFR (Non-Af Amer) Glucose Lactic Acid 0.7 Calcium Total Bilirubin Direct Bilirubin Neonat Total Bilirubin Neonat Direct Bilirubin Neonat Indirect Bili AST ALT Alkaline Phosphatase Troponin I Total Protein Albumin Blood Type Antibody Screen - Diagnostic Test Radiology reviewed: Image reviewed, Reports reviewed Procedures - Immobilization Left Knee Pre-Proc Neuro Vasc Exam: Normal Immobilizer type: Knee immobilizer Performed by: PCT Post-Proc Neuro Vasc Exam: Normal Alignment checked and good: Yes Discharge - Discharge Clinical Impression: Abnormal renal function test, Blood pressure decreased, Left hip pain Left knee pain Qualifiers: Chronicity: unspecified Qualified Code(s): M25.562 - Pain in left knee Condition: Stable Disposition: HOME, SELF-CARE Instructions: Kidney Function Abnormality ([facility]), Knee Immobilizing Splint ([facility]) Additional Instructions: Return immediately for any new or worsening symptoms, lightheadedness, dizziness , chest pain, or any concerning symptoms Your blood pressure was low today. You should not take your blood pressure medication tonight. Call your primary doctor first thing in the morning to discuss your blood pressure medication regimen, so that they can tell you what medications you should continue and at what dose you should continue them. Your renal function test was abnormal today. It is important that you stay well -hydrated and drink plenty of fluids at home. Your primary doctor will need to recheck your renal function test in the next two days. Discussed this with them tomorrow when you call them about your blood pressure medications. Always check your blood pressure before you take your medicine. Follow-up with your orthopedic surgeon for recheck for your persistent left hip and left knee pain. Use your walker that you have at home to help with ambulation and to prevent any falls in the future. Referrals: KAISER HARRISON MD [Primary Care Provider] - Follow up tomorrow GRETA HOWARD DO [ACTIVE STAFF] - Follow up in 3-5 days
[2018-04-02 15:09] LABS: ABSOLUTE EOSINOPHILS # (AUTO) 0.2 10^3/uL (0.0-0.6); ABSOLUTE LYMPHOCYTES (AUTO) 1.9 10^3/uL (0.5-4.7); ABSOLUTE NEUT (AUTO) 5.9 10^3/uL (1.7-8.2); BASOPHILS % (AUTO) 0.4 % (0-2); EOSINOPHILS % (AUTO) 2.1 % (0-6); HEMOGLOBIN 13.1 g/dL (13.5-17.0); MEAN CORPUSCULAR HEMOGLOBIN 30.5 pg (27.0-33.4); MEAN CORPUSCULAR HGB CONC 33.5 g/dL (32.0-36.0); MEAN CORPUSCULAR VOLUME 91 fl (80-97); MONOCYTES % (AUTO) 11.3 % (3-13); PLATELET COUNT 330 10^3/uL (150-450); RED BLOOD COUNT 4.28 10^6/uL (4.35-5.55); RED CELL DISTRIBUTION WIDTH 12.7 % (11.5-14.0); SEGMENTED NEUTROPHILS % (AUTO) 65.2 % (42-78); TOTAL CELLS COUNTED % (AUTO) 100 %; WHITE BLOOD COUNT 9.1 10^3/uL (4.0-10.5)
[2018-04-02 15:49] LABS: ALANINE AMINOTRANSFERASE 15 U/L (21-72); ALBUMIN 4.3 g/dL (3.5-5.0); ALKALINE PHOSPHATASE 79 U/L (38-126); ANION GAP 12 (5-19); ASPARTATE AMINO TRANSFERASE 26 U/L (17-59); BILIRUBIN,DIRECT 0.2 mg/dL (0.0-0.4); BILIRUBIN,TOTAL 0.4 mg/dL (0.2-1.3); BLOOD UREA NITROGEN 28 mg/dL (7-20); CALCIUM 9.7 mg/dL (8.4-10.2); CARBON DIOXIDE 29 mmol/L (22-30); CHLORIDE 102 mmol/L (98-107); GLUCOSE 115 mg/dL (75-110); POTASSIUM 5.2 mmol/L (3.6-5.0); SODIUM 143.4 mmol/L (137-145); TOTAL PROTEIN 8.2 g/dL (6.3-8.2)
--- NOTE | 2018-04-02 16:08 | RADIOLOGY REPORT (SQ) ---
EXAM DESCRIPTION: CHEST SINGLE VIEW COMPLETED DATE/TIME: 04/02/2018 3:49 pm REASON FOR STUDY: hypotension COMPARISON: June 2016 EXAM PARAMETERS: NUMBER OF VIEWS: One view. TECHNIQUE: Single frontal radiographic view of the chest acquired. RADIATION DOSE: NA LIMITATIONS: Study is limited somewhat due to the patient's body habitus. Patient has made a shallow inspiration. FINDINGS: LUNGS AND PLEURA: No opacities, masses or pneumothorax. No pleural effusion. MEDIASTINUM AND HILAR STRUCTURES: No masses. Contour normal. HEART AND VASCULAR STRUCTURES: Cardiac silhouette is enlarged. BONES: No acute findings. HARDWARE: Overlying monitoring electrodes are identified. OTHER: No other significant finding. IMPRESSION: NO ACUTE RADIOGRAPHIC FINDING IN THE CHEST. TECHNICAL DOCUMENTATION: JOB ID: [id number] [employer]- All Rights Reserved Reading location - IP/workstation name: [email or web address]
--- NOTE | 2018-04-02 16:08 | RADIOLOGY REPORT (SQ) ---
EXAM DESCRIPTION: KNEE LEFT 3 VIEWS COMPLETED DATE/TIME: 04/02/2018 3:49 pm REASON FOR STUDY: fall pain COMPARISON: None. NUMBER OF VIEWS: Three views. TECHNIQUE: AP, lateral, and sunrise patella radiographic images acquired of the left knee. LIMITATIONS: None. FINDINGS: MINERALIZATION: Osteopenic BONES: No acute fracture or dislocation. No worrisome bone lesions. JOINT: No joint effusion. Moderate patellofemoral and medial compartment joint space narrowing. SOFT TISSUES: No soft tissue swelling. No radio-opaque foreign body. OTHER: No other significant finding. IMPRESSION: No acute fracture or malalignment TECHNICAL DOCUMENTATION: JOB ID: [id number] [employer]- All Rights Reserved Reading location - IP/workstation name: [email or web address]
--- NOTE | 2018-04-02 16:10 | RADIOLOGY REPORT (SQ) ---
EXAM DESCRIPTION: HIP LEFT AP/LATERAL COMPLETED DATE/TIME: 04/02/2018 3:49 pm REASON FOR STUDY: fall pain injury, left hip pain COMPARISON: 07/25/2017, 07/26/2017 NUMBER OF VIEWS: Two views. TECHNIQUE: AP pelvis and additional frog-leg view of the left hip. LIMITATIONS: Large patient FINDINGS: MINERALIZATION: Osteopenic LEFT HIP: No fracture or dislocation. No worrisome bone lesions. Old left proximal femoral intramed ullary nail and lag screw. Old healed intertrochanteric left hip fracture. Minimal heterotopic ossi fication along the posterior aspect of the femoral neck. RIGHT HIP: No fracture or dislocation. No worrisome bone lesions. PUBIS AND ISCHIUM: No fracture. PELVIS: No fracture. SACRUM: No fracture or dislocation. No worrisome bone lesions. LOWER LUMBAR SPINE: No fracture or dislocation. No worrisome bone lesions. No significant disc disea se. SOFT TISSUES: No findings. OTHER: No other significant finding. IMPRESSION: Old left proximal femoral intramedullary nail and lag screw. Old healed intertrochanter ic left hip fracture. No acute findings. TECHNICAL DOCUMENTATION: JOB ID: [id number] [employer]- All Rights Reserved Reading location - IP/workstation name: [email or web address]
[2018-04-02] MEDS ORDERED: NORMAL SALINE 1000 ML 1,000 ML IV PRN (16:26)
[2018-04-02] MEDS ORDERED: NORMAL SALINE 500 ML IV ONE (16:37)
[2018-04-02 19:42] VITALS: BP 117/80
--- NOTE | 2018-04-02 21:49 | EKG REPORT ---
SEVERITY:- ABNORMAL ECG - SINUS RHYTHM CAN NOT R/O A FIB, REC REPEAT EKG FIRST DEGREE AV BLOCK LEFT BUNDLE BRANCH BLOCK INFERIOR Q WAVES, POSSIBLY DUE TO LBBB : Confirmed by: Jerald Franklin 02-Apr-2018 21:49:28
== END 2018-04-02 19:41 | disposition home or self-care (01) ==
LOC: ER 13:04
DX: M25.552 Pain in left hip (principal); I10 Essential (primary) hypertension; E78.00 Pure hypercholesterolemia, unspecified; E11.9 Type 2 diabetes mellitus without complications; K21.9 Gastro-esophageal reflux disease without esophagitis; M19.90 Unspecified osteoarthritis, unspecified site; F32.9 Major depressive disorder, single episode, unspecified; I95.9 Hypotension, unspecified; Z87.19 Personal history of other diseases of the digestive system
CPT/HCPCS: 93005; 99284; 96360; 96361; 86900; 86901; 36415; 86850; 85025; 80053; 84484; 82803; 83605; 71045; 73502; 73562; 93010; L1830; J7030; J7040

== ENCOUNTER 2019-02-18 23:17 | Inpatient (IN) | payer OTHER, MEDICARE, MEDICAID ==
--- NOTE | 2019-02-18 23:54 | RADIOLOGY REPORT (SQ) ---
EXAM DESCRIPTION: XR CHEST 1 VIEW COMPLETED DATE/TME: 02/18/2019 23:23 CLINICAL HISTORY: 73 years, Male, sepsis COMPARISON: Prior study from 06/10/2016 NUMBER OF VIEWS: One TECHNIQUE: Single frontal view of the chest was obtained. LIMITATIONS: None. FINDINGS: Cardiopericardial silhouette is enlarged. Mediastinal contours are stable, with tortuosity of the thoracic aorta. Mild bilateral perihilar opacity with vascular indistinctness is noted. No pleural effusion or pneumothorax. IMPRESSION: Findings suggest mild pulmonary edema. Stable cardiomegaly. copyright 2010 [employer]- All Rights Reserved
[2019-02-19] MEDS ORDERED: NORMAL SALINE 1000 ML 1,000 ML IV ONE ×2 (00:11→15:00)
[2019-02-19 00:13] LABS: ABSOLUTE LYMPHOCYTES (AUTO) 0.7 10^3/uL (0.5-4.7); ABSOLUTE MONOCYTES (AUTO) 1.4 10^3/uL (0.1-1.4); ABSOLUTE NEUT (AUTO) 10.5 10^3/uL (1.7-8.2); BASOPHILS % (AUTO) 0.3 % (0-2); HEMATOCRIT 38.8 % (37.9-51.0); HEMOGLOBIN 12.7 g/dL (13.5-17.0); LYMPHOCYTES % (AUTO) 5.5 % (13-45); MEAN CORPUSCULAR HEMOGLOBIN 29.3 pg (27.0-33.4); MEAN CORPUSCULAR HGB CONC 32.6 g/dL (32.0-36.0); MEAN CORPUSCULAR VOLUME 90 fl (80-97); MONOCYTES % (AUTO) 11.3 % (3-13); PLATELET COUNT 276 10^3/uL (150-450); RED BLOOD COUNT 4.31 10^6/uL (4.35-5.55); RED CELL DISTRIBUTION WIDTH 13.7 % (11.5-14.0); SEGMENTED NEUTROPHILS % (AUTO) 82.9 % (42-78); TOTAL CELLS COUNTED % (AUTO) 100 %; WHITE BLOOD COUNT 12.6 10^3/uL (4.0-10.5)
[2019-02-19 00:16] LABS: VENOUS BLOOD BASE EXCESS -1.5 mmol/L; VENOUS BLOOD HCO3 21.9 mmol/L (20-32); VENOUS BLOOD PCO2 33.4 mmHg (35-63); VENOUS BLOOD PH 7.43 (7.30-7.42)
[2019-02-19 00:20] LABS: INTERNATIONAL RATION (INR) 1.19; PROTHROMBIN TIME 15.2 SEC (11.4-15.4)
--- NOTE | 2019-02-19 00:21 | ER Document Report ---
ED General - General Chief Complaint: Low Blood Sugar Stated Complaint: SICK Time Seen by Provider: 02/19/19 00:09 Primary Care Provider: KAISER HARRISON MD [Primary Care Provider] - Follow up as needed TRAVEL OUTSIDE OF THE [place] IN LAST 30 DAYS: No - HPI Notes: Patient is a 73-year-old male presents emergency department for evaluation. He currently lives alone. Evidently he fell out of bed at some point. It is estimated that he was on the ground for approximately 15 hours. His 85-year-old friend found him, and was unable to get him back into the bed. Family members were called, then EMS. A lift assist was given, but the patient declined transport to the hospital. Patient's son found him to be continually confused, unable to recognize his sons, and convinced him to present to the emergency department for further evaluation. The patient has a long history of medication noncompliance. The patient states he believes he fell out of bed, but does not remember the details around it. He is unsure as to whether or not he lost consciousness. He states he was laying on his right side for some time. He denies any fevers. No current pain at this time. Evidently he was found to be hypoglycemic. He was given dextrose. His blood sugar improved, but then worsen ed again. He was given more dextrose by EMS. - Related Data Allergies/Adverse Reactions: No Known Allergies Allergy (Verified 07/25/17 20:07) Past Medical History - General Information source: Patient, Relative - Social History Smoking Status: Never Smoker Lives with: Alone Family History: Reviewed & Not Pertinent, Hypertension - Past Medical History Cardiac Medical History: Reports: Hx Congestive Heart Failure - Mildly diminished LVEF, mild to moderate diastolic dysfunction, Hx Hypercholesterolemia, Hx Hypertension Denies: Hx Coronary Artery Disease Pulmonary Medical History: Reports: Hx Pneumonia Neurological Medical History: Reports: Hx Migraine Endocrine Medical History: Reports: Hx Diabetes Mellitus Type 2 Renal/ Medical History: Denies: Hx Peritoneal Dialysis GI Medical History: Reports: Hx Diverticulitis, Hx Gastroesophageal Reflux Disease Musculoskeletal Medical History: Reports Hx Arthritis Psychiatric Medical History: Reports: Hx Depression Past Surgical History: Reports: Hx Orthopedic Surgery - left leg, Hx Tonsillectomy - Immunizations Immunizations up to date: Yes Hx Diphtheria, Pertussis, Tetanus Vaccination: Yes Review of Systems - Review of Systems Constitutional: See HPI EENT: No symptoms reported Cardiovascular: No symptoms reported Respiratory: No symptoms reported Gastrointestinal: No symptoms reported Genitourinary: No symptoms reported Physical Exam - Vital signs Vitals: Temp Resp BP Pulse Ox 98.3 F 22 H 154/120 H 96 02/18/19 23:25 02/18/19 23:25 02/18/19 23:25 02/18/19 23:25 - Notes Notes: Vital signs reviewed, please refer to chart. Head is normocephalic. He does have a small abrasion over the left zygoma consistent with trauma from a fall. Pupils equal round, reactive to light. Neck is supple without meningismus. Heart is regular rate and rhythm. Lungs are clear to auscultation bilaterally. Abdomen is soft, nontender, normoactive bowel sounds throughout. Extremities without cyanosis, clubbing. Posterior calves are nontender. Peripheral pulses are equal. Skin is warm and dry. Patient is awake, alert, disoriented to time. He is oriented to person and place. Cranial nerves II - XII are grossly intact without focal neurological deficits. Strength is plus 4 out of 5 bilateral upper and lower extremities. Sensation is intact. Reflexes symmetrical. Intact [id number], rapid alternating movements, [id number]. Course - Re-evaluation Re-evalutation: 02/19/19 03:06 Patient presented to the emergency department for evaluation. Evidently he was on the ground for some time. He was acting confused per family members. EMS found him to be hypoglycemic. He did require 2 A of dextrose for resolution. Patient was tachycardic here. Based on this I ordered IV fluids and a septic work-up. Laboratory investigations revealed a leukocytosis as well as continued tachycardia. His urinalysis failed to reveal any signs of infection. Chest x- ray in fact showed some pulmonary edema but no focal infiltrate. Blood cultures still pending. I am concerned about the possibility of an underlying sepsis in the 73-year-old gentleman with multiple medical issues. Given this information I did cover him with IV cefepime. He had been given IV fluids initially, but he does have a history of congestive heart failure with mildly diminished LVEF and mild to moderate diastolic dysfunction. Given that as well as the presence of pulmonary edema, decision was made to withhold any further fluids. My suspicion is that the pulmonary edema secondary to increased heart rate. The patient fell last night before bed, before taking his medications. He is supposed to be on metoprolol 50 mg daily. He did not take that medicine. He was administered 1 dose of that here. Initial troponin came back at 0.18. The patient denied any chest pain in the last 48 hours, but states he may have had pain "a few days ago." He cannot describe it for me in any way. He cannot describe the circumstances surrounding this pain in any way. Repeat troponin is ordered and pending at this time, will continue to monitor. 02/19/19 03:30 Repeat troponin is coming down at this time. My suspicion is that this patient's abnormalities are secondary to being on the floor for several hours, not taking his regular medications. He is not a reliable historian, I am unsure as to when and what insulins he took. He was repeatedly hypoglycemic earlier. His heart rate is still in the 130s. His cultures are still pending. His troponin is coming down. He is being treated for possible sepsis. My suspicion is that control of his heart rate will improve his pulmonary edema. Awaiting contact from medicine for admission. 02/19/19 03:[address] Aquino, he will admit the patient for further care. - Vital Signs Vital signs: Temp Pulse Resp BP Pulse Ox 98.3 F 19 123/107 H 96 02/18/19 23:25 02/19/19 02:00 02/19/19 02:00 02/19/19 02:00 - Laboratory Result Diagrams: 02/19/19 00:00 02/19/19 00:00 Laboratory results interpreted by me: 02/19/19 02/19/19 02/19/19 00:00 00:00 00:00 WBC 12.6 H RBC 4.31 L Hgb 12.7 L Lymph % (Auto) 5.5 L Absolute Neuts (auto) 10.5 H Seg Neutrophils % 82.9 H VBG pH 7.43 H VBG pCO2 33.4 L BUN 29 H Creatine Kinase Urine Protein Urine Ketones Urine Ascorbic Acid 02/19/19 02/19/19 00:00 01:55 WBC RBC Hgb Lymph % (Auto) Absolute Neuts (auto) Seg Neutrophils % VBG pH VBG pCO2 BUN Creatine Kinase 364 H Urine Protein 100 H Urine Ketones 80 H Urine Ascorbic Acid 20 H - Diagnostic Test Radiology reviewed: Reports reviewed - EKG Interpretation by Me Additional EKG results interpreted by me: 02/19/19 00:25 Sinus tachycardia with a rate of 132 bpm. Left axis deviation, left bundle branch block. With the exception of rate, no significant change in compared to prior study Discharge - Discharge Clinical Impression: Hypoglycemia, SIRS (systemic inflammatory response syndrome), Tachycardia Condition: Stable Disposition: ADMITTED INPATIENT Admitting Provider: Miles (Hospitalist) Unit Admitted: Telemetry Referrals: KAISER HARRISON MD [Primary Care Provider] - Follow up as needed
[2019-02-19 00:25] LABS: ALBUMIN 4.1 g/dL (3.5-5.0); ALKALINE PHOSPHATASE 75 U/L (38-126); ANION GAP 11 (5-19); ASPARTATE AMINO TRANSFERASE 39 U/L (17-59); BILIRUBIN,DIRECT 0.1 mg/dL (0.0-0.4); BILIRUBIN,TOTAL 0.5 mg/dL (0.2-1.3); BLOOD UREA NITROGEN 29 mg/dL (7-20); CALCIUM 9.9 mg/dL (8.4-10.2); CARBON DIOXIDE 25 mmol/L (22-30); CHLORIDE 105 mmol/L (98-107); GLUCOSE 91 mg/dL (75-110); TOTAL PROTEIN 7.4 g/dL (6.3-8.2)
[2019-02-19 00:43] LABS: CREATINE KINASE MB 3.17 ng/mL (<4.55)
[2019-02-19 00:51] LABS: TROPONIN I 0.18 ng/mL
--- NOTE | 2019-02-19 01:04 | RADIOLOGY REPORT (SQ) ---
CLINICAL HISTORY: fall out of bed, altered mental status COMPARISON: None. TECHNIQUE: CT MAXILLOFACIAL WITHOUT IV CONTRAST on 02/19/2019 12:12 AM CDT This exam was performed according to our departmental dose-optimization program, which includes automated exposure control, adjustment of the mA and/or kV according to patient size and/or use of iterative reconstruction technique. FINDINGS: There is no acute fracture. Left maxillary sinus is opacified. There is mild thickening of the left frontal sinus. Orbits and globes are unremarkable. Mastoid air cells are clear. Temporomandibular joints are intact. There are no significant soft tissue abnormalities. IMPRESSION: No post-traumatic findings.
--- NOTE | 2019-02-19 01:04 | RADIOLOGY REPORT (SQ) ---
CLINICAL HISTORY: fall out of bed, altered mental status COMPARISON: None. TECHNIQUE: CT HEAD WITHOUT IV CONTRAST on 02/19/2019 12:13 AM CDT This exam was performed according to our departmental dose-optimization program, which includes automated exposure control, adjustment of the mA and/or kV according to patient size and/or use of iterative reconstruction technique. FINDINGS: There is no acute hemorrhage, mass effect or midline shift. Cuenca-white differentiation is preserved. There is no hydrocephalus. There is no significant volume loss for age. There are mild patchy hypodensities within the periventricular and subcortical white matter, consistent with microangiopathic ischemic changes. The calvarium is intact. Orbits and globes are unremarkable. The left maxillary sinus is opacified. There is mild thickening of the left frontal sinus. Mastoid air cells are clear. IMPRESSION: No acute intracranial findings.
--- NOTE | 2019-02-19 01:06 | RADIOLOGY REPORT (SQ) ---
CLINICAL HISTORY: fall out of bed, altered mental status COMPARISON: None. TECHNIQUE: CT CERVICAL SPINE WITHOUT IV CONTRAST on 02/19/2019 12:12 AM CDT This exam was performed according to our departmental dose-optimization program, which includes automated exposure control, adjustment of the mA and/or kV according to patient size and/or use of iterative reconstruction technique. FINDINGS: There is no acute fracture. There is mild leftward curvature of the cervical spine. Disc spaces are maintained. Vertebral body heights are preserved. Soft tissues are unremarkable. IMPRESSION: No acute fracture or subluxation.
[2019-02-19 02:34] LABS: APPEARANCE,URINE CLEAR; BILIRUBIN,URINE NEGATIVE (NEGATIVE); GLUCOSE, URINE NEGATIVE (NEGATIVE); KETONES,URINE 80 mg/dL (NEGATIVE); LEUKOCYTE ESTERASE,URINE NEGATIVE (NEGATIVE); NITRITE,URINE NEGATIVE (NEGATIVE); PROTEIN,URINE 100 mg/dL (NEGATIVE); URINE SPECIFIC GRAVITY 1.029; UROBILINOGEN,URINE NEGATIVE mg/dL (<2.0)
[2019-02-19 02:41] LABS: ADD MANUAL MICROSCOPIC YES; COLOR,URINE YELLOW
[2019-02-19 02:42] LABS: AMORPHOUS SEDIMENT,UR TRACE; BACTERIA,URINE TRACE /HPF; WBC,URINE 0-1 /HPF
[2019-02-19] MEDS ORDERED: CEFEPIME 1 GM/D5W RTU 1 GM/50 ML RTUPB IV ONE (02:46)
[2019-02-19] MEDS ORDERED: METOPROLOL SUCCINATE 50 MG TAB.SR.24H PO ONE (02:59)
[2019-02-19] MEDS ORDERED: DEXTROSE 50%-WATER 25 GM/50 ML DISP.SYRIN IV PRN ×2 (03:53)
[2019-02-19] MEDS ORDERED: GLUCAGON,HUMAN RECOMB 1 MG INJ IM PRN (03:53)
[2019-02-19] MEDS ORDERED: DEXTROSE 40% GEL 15 GM TUBE PO PRN ×2 (03:53)
[2019-02-19] MEDS ORDERED: DEXTROSE 5%-1/2 NORMAL SALINE 1,000 ML IV ONE (03:54)
[2019-02-19] MEDS ORDERED: MAGNESIUM HYDROXIDE SUSP 30 ML UDCUP PO PRN (03:55)
[2019-02-19] MEDS ORDERED: MAG HYDROX/AL HYDROX/SIMETH SUSP 30 ML UDCUP PO PRN (03:55)
[2019-02-19] MEDS ORDERED: ACETAMINOPHEN 325 MG TABLET PO PRN (03:55)
[2019-02-19] MEDS ORDERED: IPRATROPIUM/ALBUTEROL 0.5-2.5 MG/3 ML AMPUL NEB PRN (03:55)
[2019-02-19 04:25] LABS: ANION GAP 10 (5-19); BLOOD UREA NITROGEN 30 mg/dL (7-20); CALCIUM 8.8 mg/dL (8.4-10.2); CARBON DIOXIDE 24 mmol/L (22-30); CHLORIDE 108 mmol/L (98-107); CREATINE KINASE 318 U/L (55-170); GLUCOSE 82 mg/dL (75-110)
[2019-02-19 04:26] LABS: PHOSPHORUS 3.1 mg/dL (2.5-4.5)
[2019-02-19 04:32] LABS: URINE AMPHETAMINES SCREEN NEGATIVE; URINE BARBITURATES SCREEN UNCONFIRMED POSITIVE; URINE BENZODIAZEPINES SCREEN NEGATIVE; URINE COCAINE SCREEN NEGATIVE; URINE MARIJUANA (THC) SCREEN NEGATIVE; URINE METHADONE SCREEN NEGATIVE; URINE PHENCYCLIDINE SCREEN NEGATIVE
--- NOTE | 2019-02-19 06:18 | PDOC H&P ---
History of Present Illness Admission Date/PCP: 02/19/19 04:06 KAISER HARRISON MD Patient complains of: Altered mental status History of Present Illness: CATALINO MARTINEZ JR is a 73 year old male with a past medical history of diabetes, hypertension, irritable bowel syndrome, migraine headache, depression, neuropathy, moderate diastolic heart failure, old left bundle branch block, generalized debility and falls. He presents after an estimated 15 hours of falling out of bed. He was discovered altered with multiple complaints. EMS was called where he was assisted to the bed and initially refused hospital evaluation. Patient was unable to identify family members at which point he is found to have hypoglycemia. He receives dextrose and transferred to the emerg ency department for evaluation where he again has hypoglycemia and is placed on dextrose IV. He is also found to have elevated troponin and complaints of pain to his left hip and right knee. He is referred to the hospitalist for admission. His mental status is returned to baseline and he denies recent change in medication regiment but is unclear of his recent diet or access to food given his debilitated state. Past Medical History Cardiac Medical History: Reports: Congestive Heart Failure - Mildly diminished LVEF, mild to moderate diastolic dysfunction, Hyperlipidema, Hypertension Denies: Coronary Artery Disease Pulmonary Medical History: Reports: Pneumonia Neurological Medical History: Reports: Migraine Endocrine Medical History: Reports: Diabetes Mellitus Type 2 GI Medical History: Reports: Diverticulitis, Gastroesophageal Reflux Disease Musculoskeltal Medical History: Reports: Arthritis Psychiatric Medical History: Reports: Depression Past Surgical History Past Surgical History: Reports: Orthopedic Surgery - left leg, Tonsillectomy Social History Lives with: Alone Smoking Status: Never Smoker Frequency of Alcohol Use: None Drugs: None - Advance Directive Resuscitation Status: Full Code Family History Family History: Hypertension Parental Family History Reviewed: Yes Children Family History Reviewed: Yes Sibling(s) Family History Reviewed.: Yes Medication/Allergy Home Medications: Acidoph/L.bulg/Bif.b/S.thermop [Bacid Caplet] 1 each PO BID 07/28/17 Diclofenac Sodium [Voltaren] 75 mg PO BIDP PRN 07/28/17 Finasteride [Proscar 5 mg Tablet] 5 mg PO DAILY 07/28/17 Gabapentin [Neurontin] 900 mg PO Q12 07/28/17 Lisinopril [Prinivil 40 mg Tablet] 40 mg PO DAILY 07/28/17 Multivitamin [Multiple Vitamins] 1 each PO DAILY 07/28/17 Omeprazole 40 mg PO Q6AM 07/28/17 Sertraline HCl [Zoloft] 200 mg PO QHS 07/28/17 Simvastatin [Zocor 40 mg Tablet] 40 mg PO QHS 07/28/17 Acetaminophen [Tylenol 325 mg Tablet] 650 mg PO Q4HP PRN tablet 07/30/17 Aspirin [Aspirin 325 mg Tablet] 325 mg PO BID #1 pkg 07/30/17 Aspirin [Aspirin 325 mg Tablet] 325 mg PO DAILY tablet 07/30/17 Butalb/Acetaminophen/Caffeine [Fioricet (50-325-40 mg) Tablet] 2 tab PO DAILYP PRN #5 each MDD 6 TABS/DAY 07/30/17 Dicyclomine HCl [Bentyl 20 mg Tablet] 20 mg PO QID #5 tablet 07/30/17 Furosemide [Lasix 40 mg Tablet] 40 mg PO QAM tablet 07/30/17 Insulin Glargine,Hum.rec.anlog [Lantus Insulin 100 Unit/mL Insulin Pen] 35 unit SUBCUT QHS insuln.pen 07/30/17 Insulin Lispro [Humalog Insulin (Lispro) 100 unit/mL] 0 - 12 unit SUBCUT Q6HP PRN unit 07/30/17 Ipratropium/Albuterol Sulfate [Duoneb 3 ml Ampul] 3 ml NEB RTQ6HP PRN vial.neb 07/30/17 Metoprolol Succinate [Toprol Xl 25 mg Tab.sr] 25 mg PO Q12 tab.sr.24h 07/30/17 Ondansetron [Zofran Odt 4 mg Tablet] 4 mg PO Q6HP PRN tab.rapdis 07/30/17 Oxycodone HCl [Oxy-Ir 5 mg Tablet] 5 mg PO Q6HP PRN #5 tablet 07/30/17 Allergies/Adverse Reactions: No Known Allergies Allergy (Verified 07/25/17 20:07) Review of Systems Constitutional: PRESENT: as per HPI, fatigue, weakness. ABSENT: chills, fever(s), headache(s), weight gain, weight loss Eyes: ABSENT: visual disturbances Ears: ABSENT: hearing changes Cardiovascular: ABSENT: chest pain, dyspnea on exertion, edema, orthropnea, palpitations Respiratory: ABSENT: cough, hemoptysis Gastrointestinal: ABSENT: abdominal pain, constipation, diarrhea, hematemesis, hematochezia, nausea, vomiting Genitourinary: ABSENT: dysuria, hematuria Musculoskeletal: PRESENT: as per HPI, muscle weakness. ABSENT: joint swelling Integumentary: ABSENT: rash, wounds Neurological: ABSENT: abnormal gait, abnormal speech, confusion, dizziness, focal weakness, syncope Psychiatric: ABSENT: anxiety, depression, homidical ideation, suicidal ideation Endocrine: ABSENT: cold intolerance, heat intolerance, polydipsia, polyuria Hematologic/Lymphatic: ABSENT: easy bleeding, easy bruising Physical Exam Vital Signs: Temp Pulse Resp BP Pulse Ox 98.8 F 115 H 16 145/97 H 94 02/19/19 04:00 02/19/19 05:12 02/19/19 05:12 02/19/19 04:00 02/19/19 05:12 Intake & Output 02/17/19 02/18/19 02/19/19 11:59 11:59 11:59 Intake Total 1050 Balance 1050 General appearance: PRESENT: cooperative, disheveled, mild distress, morbidly obese, well-developed Head exam: PRESENT: atraumatic, normocephalic Eye exam: PRESENT: conjunctiva pink, EOMI, PERRLA. ABSENT: scleral icterus Ear exam: PRESENT: normal external ear exam Mouth exam: PRESENT: dry mucosa, tongue midline Neck exam: ABSENT: carotid bruit, JVD, lymphadenopathy, thyromegaly Respiratory exam: PRESENT: clear to auscultation reynold, crackles, prolonged expiratory phas. ABSENT: rales, rhonchi, wheezes Cardiovascular exam: PRESENT: tachycardia. ABSENT: diastolic murmur, rubs, systolic murmur Pulses: PRESENT: normal dorsalis pedis pul Vascular exam: PRESENT: normal capillary refill GI/Abdominal exam: PRESENT: normal bowel sounds, soft. ABSENT: distended, guarding, mass, organolmegaly, rebound, tenderness Rectal exam: PRESENT: deferred Extremities exam: PRESENT: tenderness - Right knee and left hip pain. ABSENT: full ROM Neurological exam: PRESENT: alert, awake, oriented to person, oriented to place, oriented to time, oriented to situation, CN II-XII grossly intact. ABSENT: pb r sensory deficit Psychiatric exam: PRESENT: appropriate affect, normal mood. ABSENT: homicidal ideation, suicidal ideation Skin exam: PRESENT: dry, intact, warm. ABSENT: cyanosis, rash Results Laboratory Results: 02/19/19 00:00 02/19/19 02:39 02/19/19 02/19/19 02/19/19 00:00 00:00 00:00 WBC 12.6 H RBC 4.31 L Hgb 12.7 L Hct 38.8 MCV 90 MCH 29.3 MCHC 32.6 RDW 13.7 Plt Count 276 Seg Neutrophils % 82.9 H VBG pH VBG pCO2 VBG HCO3 VBG Base Excess Sodium 140.9 Potassium 4.0 Chloride 105 Carbon Dioxide 25 Anion Gap 11 BUN 29 H Creatinine 0.79 Est GFR ( Amer) > 60 Glucose 91 Lactic Acid 1.1 Calcium 9.9 Phosphorus Magnesium Total Bilirubin 0.5 AST 39 Alkaline Phosphatase 75 Total Protein 7.4 Albumin 4.1 TSH Urine Color Urine Appearance Urine pH Ur Specific [place] Urine Protein Urine Glucose (UA) Urine Ketones Urine Blood Urine Nitrite Ur Leukocyte Esterase 02/19/19 02/19/19 02/19/19 00:00 01:55 02:39 WBC RBC Hgb Hct MCV MCH MCHC RDW Plt Count Seg Neutrophils % VBG pH 7.43 H VBG pCO2 33.4 L VBG HCO3 21.9 VBG Base Excess -1.5 Sodium Potassium Chloride Carbon Dioxide Anion Gap BUN Creatinine Est GFR ( Amer) Glucose Lactic Acid Calcium Phosphorus Magnesium Total Bilirubin AST Alkaline Phosphatase Total Protein Albumin TSH 1.29 Urine Color YELLOW Urine Appearance CLEAR Urine pH 6.0 Ur Specific [place] 1.029 Urine Protein 100 H Urine Glucose (UA) NEGATIVE Urine Ketones 80 H Urine Blood NEGATIVE Urine Nitrite NEGATIVE Ur Leukocyte Esterase NEGATIVE 02/19/19 02/19/19 02/19/19 02:39 02:39 02:39 WBC RBC Hgb Hct MCV MCH MCHC RDW Plt Count Seg Neutrophils % VBG pH VBG pCO2 VBG HCO3 VBG Base Excess Sodium 141.6 Potassium 4.0 Chloride 108 H Carbon Dioxide 24 Anion Gap 10 BUN 30 H Creatinine 0.73 Est GFR ( Amer) > 60 Glucose 82 Lactic Acid Calcium 8.8 Phosphorus 3.1 Magnesium 2.0 Total Bilirubin AST Alkaline Phosphatase Total Protein Albumin TSH Cancelled Urine Color Urine Appearance Urine pH Ur Specific [place] Urine Protein Urine Glucose (UA) Urine Ketones Urine Blood Urine Nitrite Ur Leukocyte Esterase 02/19/19 02/19/19 02/19/19 00:00 00:00 02:39 Creatine Kinase 364 H CK-MB (CK-2) 3.17 Troponin I 0.180 0.165 NT-Pro-B Natriuret Pep 02/19/19 02/19/19 02:39 04:40 Creatine Kinase 318 H CK-MB (CK-2) Troponin I NT-Pro-B Natriuret Pep 7590 H Impressions: Chest X-Ray 02/18/19 23:23 IMPRESSION: Findings suggest mild pulmonary edema. Stable cardiomegaly. copyright 2010 [employer]- All Rights Reserved Cervical Spine CT 02/19/19 00:12 IMPRESSION: No acute fracture or subluxation. Facial Bones CT 02/19/19 00:12 IMPRESSION: No post-traumatic findings. Head CT 02/19/19 00:13 IMPRESSION: No acute intracranial findings. Assessment and Plan - Diagnosis (1) Elevated troponin Is this a current diagnosis for this admission?: Yes Plan: Likely troponin leak secondary to hypoglycemia. Follow-up serial cardiac enzymes (2) Hypoglycemia Is this a current diagnosis for this admission?: Yes Plan: Complicated by polypharmacy and poor access to food. D5 saline ordered, Accu- Cheks and hypoglycemic protocol. Follow-up A1c, hold hypoglycemics mechanical planner consult for home health (3) Left hip pain Is this a current diagnosis for this admission?: Yes Plan: Short and externally rotated follow-up imaging. Symptom medic management (4) Right knee pain Is this a current diagnosis for this admission?: Yes Plan: Follow-up imaging, symptomatic management (5) Tachycardia Is this a current diagnosis for this admission?: Yes Plan: Secondary to #1. Observe on telemetry. Serial cardiac enzymes (6) Diabetes Qualifiers: Diabetes mellitus type: type 2 Diabetes mellitus traffic rate computer insulin use: unspecified traffic rate computer insulin use status Diabetes mellitus complication status: with unspecified complications Is this a current diagnosis for this admission?: Yes Plan: Follow-up A1c, hypoglycemic protocol initiated. Hopefully will no longer justify hypoglycemics (7) Fall Qualifiers: Encounter type: initial encounter Qualified Code(s): W19.XXXA - Unspecified fall, initial encounter Is this a current diagnosis for this admission?: Yes Plan: Physical therapy evaluation
[2019-02-19] MEDS: HEPARIN SOD (PORCINE) 5,000 UNIT/ML 1 ML VIAL SUBCUT SCH ×3 (06:22→22:01)
--- NOTE | 2019-02-19 07:58 | RADIOLOGY REPORT (SQ) ---
EXAM DESCRIPTION: XR HIP 2 OR MORE VIEWS COMPLETED DATE/TME: 02/19/2019 00:00 CLINICAL HISTORY: 73 years Male, left hip pain COMPARISON: 07/25/17, 07/26/17. Findings: Intramedullary jose and screw fixation of the left proximal femur. No evidence of metal fracture or loosening. Fracture/fragmentation at the left femoral neck partially imaged consistent with radiographs from July 2017. Comparison with more recent prior radiographs can increase sensitivity specificity for possibility of reinjury. Bones, joints, and soft tissues of the LEFT XR HIP 2 OR MORE VIEWS appear otherwise unremarkable. IMPRESSION: No acute findings.
--- NOTE | 2019-02-19 08:02 | RADIOLOGY REPORT (SQ) ---
EXAM DESCRIPTION: XR KNEE 3 VIEWS COMPLETED DATE/TME: 02/19/2019 00:00 CLINICAL HISTORY: 73 years, Male, right knee pain COMPARISON: 07/25/2017 NUMBER OF VIEWS: Three TECHNIQUE: Two views of the left knee. LIMITATIONS: None. FINDINGS: No acute fracture or dislocation. There is tricompartmental joint space narrowing, worse along the patellofemoral joint. There is subchondral sclerosis along the medial compartment. The bones are demineralized. No significant joint effusion. IMPRESSION: No acute fracture or dislocation. copyright 2010 [employer]- All Rights Reserved
[2019-02-19] MEDS: IPRATROPIUM/ALBUTEROL 0.5-2.5 MG/3 ML AMPUL NEB SCH ×2 (08:06→20:21)
[2019-02-19 10:39] LABS: CREATINE KINASE MB 2.7 ng/mL (<4.55); TROPONIN I 0.159 ng/mL
[2019-02-19] MEDS ORDERED: FUROSEMIDE 40 MG TABLET PO ONE (11:00)
[2019-02-19] MEDS ORDERED: (PENDING PHARMACY ID) (Alendronate Sodium [Alendronate Sodium] 70 MG) PO SCH (13:30)
[2019-02-19 15:29] LABS: CREATINE KINASE MB 2.85 ng/mL (<4.55); TROPONIN I 0.15 ng/mL
[2019-02-19] MEDS: CITALOPRAM HYDROBROMIDE 20 MG TABLET PO SCH (15:42)
[2019-02-19] MEDS: LEVOTHYROXINE SODIUM 0.025 MG TABLET PO SCH (15:43)
[2019-02-19] MEDS: PANTOPRAZOLE SODIUM 40 MG TABLET.DR PO SCH (15:43)
[2019-02-19] MEDS: ASPIRIN 81 MG TABLET, ENT COATED PO SCH (15:43)
[2019-02-19] MEDS: METOPROLOL SUCCINATE 25 MG TAB.SR.24H PO SCH ×2 (15:48→21:57)
--- NOTE | 2019-02-19 18:17 | PDOC PROGRESS REPORT ---
Subjective Progress Note for:: 02/19/19 Subjective:: CATALINO MARTINEZ JR is a 73 year old male with a past medical history of diabetes, hypertension, irritable bowel syndrome, migraine headache, depression, neuropathy, moderate diastolic heart failure, old left bundle branch block, generalized debility and falls who was admitted early this morning by the cloth dyeing range tender for elevated troponin, hypoglycemia, and multiple falls. The patient was seen on afternoon rounds while still in the emergency department. He was found resting in bed comfortably on room air. The patient is noted to be A&Ox4, though with frequent odd statements. It is unclear whether or not the patient is attempting to make jokes over is slightly confused and confabulating as when you ask him direct questions he does respond appropriately. The patient states that he continues to feel fatigue and weakness. He is concerned about his home medications been reconciled appropriately and continued. He denies fever, chills, chest pain, palpitations, dyspnea, cough, abdominal pain, nausea vomiting or diarrhea at this time. He denies bed. He has no other questions or concerns at this time. Nursing reports persistent hypertension and continued tachycardia; HR 110-130 while at rest Reason For Visit: AMS,NSTEMI,HYPOGLYCEMIA Physical Exam Vital Signs: Temp Pulse Resp BP Pulse Ox 98.3 F 114 H 18 172/75 H 97 02/19/19 17:01 02/19/19 08:06 02/19/19 17:01 02/19/19 17:01 02/19/19 17:01 Intake & Output 02/18/19 02/19/19 02/20/19 06:59 06:59 06:59 Intake Total 1050 1999 Balance 1050 1999 Weight 142.8 kg General appearance: PRESENT: no acute distress, cooperative, disheveled, morbidly obese, well-developed, well-nourished Head exam: PRESENT: atraumatic, normocephalic Eye exam: PRESENT: conjunctiva pink, EOMI, PERRLA. ABSENT: scleral icterus Ear exam: PRESENT: normal external ear exam Mouth exam: PRESENT: moist, tongue midline Neck exam: ABSENT: carotid bruit, JVD, lymphadenopathy, thyromegaly Respiratory exam: PRESENT: clear to auscultation reynold, symmetrical, unlabored. ABSENT: rales, rhonchi, wheezes Cardiovascular exam: PRESENT: RRR, +S1, +S2, tachycardia. ABSENT: diastolic murmur, rubs, systolic murmur Pulses: PRESENT: normal dorsalis pedis pul Vascular exam: PRESENT: normal capillary refill GI/Abdominal exam: PRESENT: normal bowel sounds, soft. ABSENT: distended, guarding, mass, organolmegaly, rebound, tenderness Rectal exam: PRESENT: deferred Extremities exam: PRESENT: full ROM. ABSENT: calf tenderness, clubbing, pedal edema Neurological exam: PRESENT: alert, awake, oriented to person, oriented to place, oriented to time, oriented to situation, CN II-XII grossly intact. ABSENT: motor sensory deficit Psychiatric exam: PRESENT: appropriate affect, normal mood. ABSENT: homicidal ideation, suicidal ideation Skin exam: PRESENT: dry, intact, warm. ABSENT: cyanosis, rash Results Laboratory Results: 02/19/19 00:00 02/19/19 02:39 02/19/19 02/19/19 02/19/19 00:00 00:00 00:00 WBC 12.6 H RBC 4.31 L Hgb 12.7 L Hct 38.8 MCV 90 MCH 29.3 MCHC 32.6 RDW 13.7 Plt Count 276 Seg Neutrophils % 82.9 H VBG pH VBG pCO2 VBG HCO3 VBG Base Excess Sodium 140.9 Potassium 4.0 Chloride 105 Carbon Dioxide 25 Anion Gap 11 BUN 29 H Creatinine 0.79 Est GFR ( Amer) > 60 Glucose 91 Lactic Acid 1.1 Calcium 9.9 Phosphorus Magnesium Total Bilirubin 0.5 AST 39 Alkaline Phosphatase 75 Total Protein 7.4 Albumin 4.1 TSH Urine Color Urine Appearance Urine pH Ur Specific [place] Urine Protein Urine Glucose (UA) Urine Ketones Urine Blood Urine Nitrite Ur Leukocyte Esterase 02/19/19 02/19/19 02/19/19 00:00 01:55 02:39 WBC RBC Hgb Hct MCV MCH MCHC RDW Plt Count Seg Neutrophils % VBG pH 7.43 H VBG pCO2 33.4 L VBG HCO3 21.9 VBG Base Excess -1.5 Sodium Potassium Chloride Carbon Dioxide Anion Gap BUN Creatinine Est GFR ( Amer) Glucose Lactic Acid Calcium Phosphorus Magnesium Total Bilirubin AST Alkaline Phosphatase Total Protein Albumin TSH 1.29 Urine Color YELLOW Urine Appearance CLEAR Urine pH 6.0 Ur Specific [place] 1.029 Urine Protein 100 H Urine Glucose (UA) NEGATIVE Urine Ketones 80 H Urine Blood NEGATIVE Urine Nitrite NEGATIVE Ur Leukocyte Esterase NEGATIVE 02/19/19 02/19/19 02/19/19 02:39 02:39 02:39 WBC RBC Hgb Hct MCV MCH MCHC RDW Plt Count Seg Neutrophils % VBG pH VBG pCO2 VBG HCO3 VBG Base Excess Sodium 141.6 Potassium 4.0 Chloride 108 H Carbon Dioxide 24 Anion Gap 10 BUN 30 H Creatinine 0.73 Est GFR ( Amer) > 60 Glucose 82 Lactic Acid Calcium 8.8 Phosphorus 3.1 Magnesium 2.0 Total Bilirubin AST Alkaline Phosphatase Total Protein Albumin TSH Cancelled Urine Color Urine Appearance Urine pH Ur Specific [place] Urine Protein Urine Glucose (UA) Urine Ketones Urine Blood Urine Nitrite Ur Leukocyte Esterase 02/19/19 02/19/19 02/19/19 00:00 00:00 02:39 Creatine Kinase 364 H CK-MB (CK-2) 3.17 Troponin I 0.180 0.165 NT-Pro-B Natriuret Pep 02/19/19 02/19/19 02/19/19 02:39 04:40 09:07 Creatine Kinase 318 H CK-MB (CK-2) 2.70 Troponin I 0.159 NT-Pro-B Natriuret Pep 7590 H 02/19/19 02/19/19 14:26 14:26 Creatine Kinase 254 H CK-MB (CK-2) 2.85 Troponin I 0.150 NT-Pro-B Natriuret Pep Impressions: Chest X-Ray 02/18/19 23:23 IMPRESSION: Findings suggest mild pulmonary edema. Stable cardiomegaly. copyright 2010 [employer]- All Rights Reserved Hip X-Ray 02/19/19 00:00 IMPRESSION: No acute findings. Knee X-Ray 02/19/19 00:00 IMPRESSION: No acute fracture or dislocation. copyright 2010 [employer]- All Rights Reserved Cervical Spine CT 02/19/19 00:12 IMPRESSION: No acute fracture or subluxation. Facial Bones CT 02/19/19 00:12 IMPRESSION: No post-traumatic findings. Head CT 02/19/19 00:13 IMPRESSION: No acute intracranial findings. Assessment and Plan - Diagnosis (1) Elevated troponin Is this a current diagnosis for this admission?: Yes Plan: Likely troponin leak secondary to hypoglycemia. Troponin has trended down; 0.180-> 0.150 Continues to have tachycardia on telemetry. Patient denies chest pain. The patient will be admitted to the medical floor on continuous cardiac telemetry. We will continue daily aspirin and statin therapy. Antihypertensives as below. (2) Hypoglycemia Is this a current diagnosis for this admission?: Yes Plan: Resolved; blood sugars now consistently trending up. Complicated by polypharmacy and poor access to food. A1c is 5.8% Patient was initially treated with D5NS IVF. Currently holding home dose metformin. We will continue Accu-Cheks before meals and at bedtime with Humalog for sliding scale insulin and hypoglycemia protocol in place. quill fixer is consulted. (3) Tachycardia Is this a current diagnosis for this admission?: Yes Plan: Secondary to #1; may also be related to medication noncompliance Troponins are trending down. EKG pending. TSH is nml. Start Toprol XL 25 mg BID; will adjust as BP allows. Continue IVF. Continue to monitor on telemetry. (4) Left hip pain Is this a current diagnosis for this admission?: Yes Plan: Imaging is benign Analgesics as needed. Physical therapy consulted. (5) Right knee pain Is this a current diagnosis for this admission?: Yes Plan: Imaging is benign Analgesics as needed. Physical therapy consulted. (6) Diabetes Qualifiers: Diabetes mellitus type: type 2 Diabetes mellitus retirement insulin use: unspecified retirement insulin use status Diabetes mellitus complication status: with unspecified complications Is this a current diagnosis for this admission?: Yes Plan: A1C 5.8% Holding metformin. Accu-Cheks before meals and at bedtime with Humalog for sliding scale coverage. Hypoglycemia protocol in place. Consistent carb/cardiac diet. Registered dietitian consulted. (7) Fall Qualifiers: Encounter type: initial encounter Qualified Code(s): W19.XXXA - Unspecified fall, initial encounter Is this a current diagnosis for this admission?: Yes Plan: PT/OT consultations. Fall precautions. Discharge planning consulted. - Time Time Spent with patient: 25-34 minutes Medications reviewed and adjusted accordingly: Yes Anticipated discharge: Home with Homehealth - vs SNF Within: within 48 hours
[2019-02-19] MEDS: DICYCLOMINE HCL 20 MG TABLET PO SCH ×2 (19:32→22:01)
[2019-02-19] MEDS: LACTOBACILLUS ACIDOPHILUS 250 MG TAB PO SCH (19:32)
[2019-02-19] MEDS: GABAPENTIN 300 MG CAPSULE PO SCH (21:58)
[2019-02-19] MEDS: INSULIN LISPRO 100 UNIT/ML 3 ML VIAL SUBCUT SCH (21:58)
[2019-02-19] MEDS: ATORVASTATIN CALCIUM 40 MG TABLET PO SCH (21:58)
--- NOTE | 2019-02-19 23:03 | EKG REPORT ---
SEVERITY:- ABNORMAL ECG - ATRIAL FIBRILLATION LEFT BUNDLE BRANCH BLOCK : Confirmed by: Mirela Dave MD 19-Feb-2019 23:02:53
[2019-02-19 23:08] LABS: CREATINE KINASE MB 2.25 ng/mL (<4.55)
[2019-02-19 23:17] LABS: TROPONIN I 0.146 ng/mL
[2019-02-20] MEDS: LEVOTHYROXINE SODIUM 0.025 MG TABLET PO SCH (05:19)
[2019-02-20] MEDS: PANTOPRAZOLE SODIUM 40 MG TABLET.DR PO SCH (05:19)
[2019-02-20] MEDS: HEPARIN SOD (PORCINE) 5,000 UNIT/ML 1 ML VIAL SUBCUT SCH ×3 (05:20→22:39)
[2019-02-20] MEDS: GABAPENTIN 300 MG CAPSULE PO SCH ×3 (05:20→22:36)
[2019-02-20 05:56] LABS: ABSOLUTE EOSINOPHILS # (AUTO) 0.2 10^3/uL (0.0-0.6); ABSOLUTE LYMPHOCYTES (AUTO) 1.5 10^3/uL (0.5-4.7); ABSOLUTE MONOCYTES (AUTO) 1.2 10^3/uL (0.1-1.4); ABSOLUTE NEUT (AUTO) 5.3 10^3/uL (1.7-8.2); BASOPHILS % (AUTO) 0.5 % (0-2); EOSINOPHILS % (AUTO) 2.1 % (0-6); HEMATOCRIT 36.6 % (37.9-51.0); HEMOGLOBIN 12.2 g/dL (13.5-17.0); LYMPHOCYTES % (AUTO) 18.2 % (13-45); MEAN CORPUSCULAR HEMOGLOBIN 29.7 pg (27.0-33.4); MEAN CORPUSCULAR HGB CONC 33.4 g/dL (32.0-36.0); MEAN CORPUSCULAR VOLUME 89 fl (80-97); PLATELET COUNT 224 10^3/uL (150-450); RED BLOOD COUNT 4.11 10^6/uL (4.35-5.55); RED CELL DISTRIBUTION WIDTH 13.7 % (11.5-14.0); SEGMENTED NEUTROPHILS % (AUTO) 64.2 % (42-78); TOTAL CELLS COUNTED % (AUTO) 100 %; WHITE BLOOD COUNT 8.3 10^3/uL (4.0-10.5)
[2019-02-20 05:59] LABS: ANION GAP 7 (5-19); BLOOD UREA NITROGEN 27 mg/dL (7-20); CALCIUM 8.7 mg/dL (8.4-10.2); CARBON DIOXIDE 26 mmol/L (22-30); CHLORIDE 105 mmol/L (98-107); GLUCOSE 138 mg/dL (75-110); POTASSIUM 3.9 mmol/L (3.6-5.0)
[2019-02-20] MEDS: INSULIN LISPRO 100 UNIT/ML 3 ML VIAL SUBCUT SCH ×4 (08:07→22:38)
[2019-02-20] MEDS: IPRATROPIUM/ALBUTEROL 0.5-2.5 MG/3 ML AMPUL NEB SCH ×2 (08:13→21:43)
[2019-02-20] MEDS: ASPIRIN 81 MG TABLET, ENT COATED PO SCH (09:55)
[2019-02-20] MEDS: FINASTERIDE 5 MG TABLET PO SCH (09:55)
[2019-02-20] MEDS: CITALOPRAM HYDROBROMIDE 20 MG TABLET PO SCH (09:55)
[2019-02-20] MEDS: CHOLECALCIFEROL (D3) 400 UNIT TABLET PO SCH (09:55)
[2019-02-20] MEDS: MULTIVITAMIN TABLET PO SCH (09:55)
[2019-02-20] MEDS: METOPROLOL SUCCINATE 25 MG TAB.SR.24H PO SCH ×2 (09:55→22:37)
[2019-02-20] MEDS: LACTOBACILLUS ACIDOPHILUS 250 MG TAB PO SCH ×2 (09:56→17:15)
[2019-02-20] MEDS ORDERED: (PENDING PHARMACY ID) (Citalopram Hydrobromide [Celexa 40 Mg Tablet] 1 TAB) PO SCH (10:00)
[2019-02-20] MEDS: FLUTICASONE NASAL SPRAY 50 MCG/SPRY 120 SPRAY/16 GM NASL SCH (10:35)
[2019-02-20] MEDS: DICYCLOMINE HCL 20 MG TABLET PO SCH ×4 (12:02→22:40)
[2019-02-20] MEDS: NORMAL SALINE 1000 ML 1,000 ML IV PRN ×2 (14:38→22:47)
--- NOTE | 2019-02-20 19:03 | PDOC PROGRESS REPORT ---
Subjective Progress Note for:: 02/20/19 Subjective:: CATALINO MARTINEZ JR is a 73 year old male with a past medical history of diabetes, hypertension, irritable bowel syndrome, migraine headache, depression, neuropathy, moderate diastolic heart failure, old left bundle branch block, generalized debility and falls who was admitted early this morning by the sales and leasing consultant for elevated troponin, hypoglycemia, and multiple falls. The patient was seen on morning rounds. He was found resting in bed comfortably on room air. The patient is noted to be A&Ox4, conversational and socially appropriate. Per nursing, he does continue to make odd statements/jokes; believe this to be a personality quirk and not confusion. Patient reports he is feeling well today. He was pleased to stand with physical therapy today; however, has noted increased right knee pain since. He believes that his right knee gave out on him at home causing his initial fall. He denies fever, chills, chest pain, palpitations, dyspnea, cough, abdominal pain, nausea vomiting or diarrhea at this time. He denies bed. He has no other questions or concerns at this time. Nursing has no concerns. Reason For Visit: AMS,NSTEMI,HYPOGLYCEMIA Physical Exam Vital Signs: Temp Pulse Resp BP Pulse Ox 97.7 F 77 20 120/76 99 02/20/19 12:21 02/20/19 14:00 02/20/19 12:21 02/20/19 12:21 02/20/19 12:21 Intake & Output 02/19/19 02/20/19 02/21/19 06:59 06:59 06:59 Intake Total 1050 2700 236 Output Total 620 Balance 1050 2080 236 Weight 139.7 kg General appearance: PRESENT: no acute distress, cooperative, disheveled, morbidly obese, well-developed, well-nourished Head exam: PRESENT: atraumatic, normocephalic Eye exam: PRESENT: conjunctiva pink, EOMI, PERRLA. ABSENT: scleral icterus Ear exam: PRESENT: normal external ear exam Mouth exam: PRESENT: moist, tongue midline Neck exam: ABSENT: carotid bruit, JVD, lymphadenopathy, thyromegaly Respiratory exam: PRESENT: clear to auscultation reynold, symmetrical, unlabored. ABSENT: rales, rhonchi, wheezes Cardiovascular exam: PRESENT: RRR, +S1, +S2. ABSENT: diastolic murmur, rubs, systolic murmur Pulses: PRESENT: normal dorsalis pedis pul Vascular exam: PRESENT: normal capillary refill GI/Abdominal exam: PRESENT: normal bowel sounds, soft. ABSENT: distended, guarding, mass, organolmegaly, rebound, tenderness Rectal exam: PRESENT: deferred Extremities exam: PRESENT: full ROM. ABSENT: calf tenderness, clubbing, pedal edema Neurological exam: PRESENT: alert, awake, oriented to person, oriented to place, oriented to time, oriented to situation, CN II-XII grossly intact. ABSENT: motor sensory deficit Psychiatric exam: PRESENT: appropriate affect, normal mood. ABSENT: homicidal ideation, suicidal ideation Skin exam: PRESENT: dry, intact, warm. ABSENT: cyanosis, rash Results Laboratory Results: 02/20/19 05:31 02/20/19 05:31 02/20/19 02/20/19 05:31 05:31 WBC 8.3 RBC 4.11 L Hgb 12.2 L Hct 36.6 L MCV 89 MCH 29.7 MCHC 33.4 RDW 13.7 Plt Count 224 Seg Neutrophils % 64.2 Sodium 138.3 Potassium 3.9 Chloride 105 Carbon Dioxide 26 Anion Gap 7 BUN 27 H Creatinine 0.91 Est GFR ( Amer) > 60 Glucose 138 H Calcium 8.7 02/19/19 02/19/19 02/19/19 00:00 00:00 02:39 Creatine Kinase 364 H CK-MB (CK-2) 3.17 Troponin I 0.180 0.165 NT-Pro-B Natriuret Pep 02/19/19 02/19/19 02/19/19 02:39 04:40 09:07 Creatine Kinase 318 H CK-MB (CK-2) 2.70 Troponin I 0.159 NT-Pro-B Natriuret Pep 7590 H 02/19/19 02/19/19 02/19/19 14:26 14:26 22:28 Creatine Kinase 254 H 218 H CK-MB (CK-2) 2.85 Troponin I 0.150 NT-Pro-B Natriuret Pep 02/19/19 22:28 Creatine Kinase CK-MB (CK-2) 2.25 Troponin I 0.146 NT-Pro-B Natriuret Pep Impressions: Chest X-Ray 02/18/19 23:23 IMPRESSION: Findings suggest mild pulmonary edema. Stable cardiomegaly. copyright 2010 [employer]- All Rights Reserved Hip X-Ray 02/19/19 00:00 IMPRESSION: No acute findings. Knee X-Ray 02/19/19 00:00 IMPRESSION: No acute fracture or dislocation. copyright 2010 [employer]- All Rights Reserved Cervical Spine CT 02/19/19 00:12 IMPRESSION: No acute fracture or subluxation. Facial Bones CT 02/19/19 00:12 IMPRESSION: No post-traumatic findings. Head CT 02/19/19 00:13 IMPRESSION: No acute intracranial findings. Assessment and Plan - Diagnosis (1) Elevated troponin Is this a current diagnosis for this admission?: Yes Plan: Likely troponin leak secondary to hypoglycemia. Troponin has trended down; 0.180-> 0.146 Continues to have tachycardia on telemetry. Patient denies chest pain. The patient will be admitted to the medical floor on continuous cardiac telemetry. We will continue daily aspirin and statin therapy. Will obtain echocardiogram and discuss with cardiology possible stress testing Friday Antihypertensives as below. (2) Hypoglycemia Is this a current diagnosis for this admission?: Yes Plan: Resolved; blood sugars now consistently trending up. Complicated by polypharmacy and poor access to food. A1c is 5.8% Patient was initially treated with D5NS IVF. Currently holding home dose metformin. We will continue Accu-Cheks before meals and at bedtime with Humalog for sliding scale insulin and hypoglycemia protocol in place. pharmaceutical plant operator is consulted. Recommend discontinuing home metformin at discharge; patient his age can be allowed goal A1C of <8.5% when at risk for hypoglycemia. (3) Tachycardia Is this a current diagnosis for this admission?: Yes Plan: Resolved. Secondary to #1; may also be related to medication noncompliance Troponins are trending down. EKG shows LBBB (chronic) TSH is nml. Continue Toprol XL 25 mg BID; will adjust as BP allows. Continue IVF. Continue to monitor on telemetry. (4) Left hip pain Is this a current diagnosis for this admission?: Yes Plan: Imaging is benign Analgesics as needed. Physical therapy consulted. (5) Right knee pain Is this a current diagnosis for this admission?: Yes Plan: Imaging benign Analgesics as needed. Physical therapy consulted. (6) Diabetes Qualifiers: Diabetes mellitus type: type 2 Diabetes mellitus halfway insulin use: unspecified halfway insulin use status Diabetes mellitus complication status: with unspecified complications Is this a current diagnosis for this admission?: Yes Plan: A1C 5.8% Holding metformin; recommend discontinuing at discharge. Patient his age can be allowed goal A1C of <8.5% when at risk for hypoglycemia. Accu-Cheks before meals and at bedtime with Humalog for sliding scale coverage. Hypoglycemia protocol in place. Consistent carb/cardiac diet. Registered dietitian consulted. (7) Fall Qualifiers: Encounter type: initial encounter Qualified Code(s): W19.XXXA - Unspecified fall, initial encounter Is this a current diagnosis for this admission?: Yes Plan: PT/OT consultations. Fall precautions. Discharge planning consulted. - Time Time Spent with patient: 25-34 minutes Medications reviewed and adjusted accordingly: Yes Anticipated discharge: SNF
[2019-02-20] MEDS: ATORVASTATIN CALCIUM 40 MG TABLET PO SCH (22:36)
[2019-02-21] MEDS: GABAPENTIN 300 MG CAPSULE PO SCH ×3 (05:57→22:07)
[2019-02-21] MEDS: HEPARIN SOD (PORCINE) 5,000 UNIT/ML 1 ML VIAL SUBCUT SCH ×3 (05:57→22:04)
[2019-02-21] MEDS: LEVOTHYROXINE SODIUM 0.025 MG TABLET PO SCH (05:58)
[2019-02-21] MEDS: PANTOPRAZOLE SODIUM 40 MG TABLET.DR PO SCH (05:58)
[2019-02-21 06:11] LABS: ANION GAP 7 (5-19); BLOOD UREA NITROGEN 23 mg/dL (7-20); CALCIUM 8.4 mg/dL (8.4-10.2); CARBON DIOXIDE 25 mmol/L (22-30); CHLORIDE 106 mmol/L (98-107); GLUCOSE 155 mg/dL (75-110); POTASSIUM 3.8 mmol/L (3.6-5.0)
[2019-02-21] MEDS: NORMAL SALINE 1000 ML 1,000 ML IV PRN ×2 (07:57→08:47)
[2019-02-21] MEDS: IPRATROPIUM/ALBUTEROL 0.5-2.5 MG/3 ML AMPUL NEB SCH ×2 (08:19→19:52)
[2019-02-21] MEDS: INSULIN LISPRO 100 UNIT/ML 3 ML VIAL SUBCUT SCH ×4 (08:46→22:07)
[2019-02-21] MEDS: DICYCLOMINE HCL 20 MG TABLET PO SCH ×4 (11:16→22:06)
[2019-02-21] MEDS: LACTOBACILLUS ACIDOPHILUS 250 MG TAB PO SCH ×2 (11:16→17:16)
[2019-02-21] MEDS: CHOLECALCIFEROL (D3) 400 UNIT TABLET PO SCH (11:16)
[2019-02-21] MEDS: CITALOPRAM HYDROBROMIDE 20 MG TABLET PO SCH (11:16)
[2019-02-21] MEDS: ASPIRIN 81 MG TABLET, ENT COATED PO SCH (11:16)
[2019-02-21] MEDS: MULTIVITAMIN TABLET PO SCH (11:16)
[2019-02-21] MEDS: FLUTICASONE NASAL SPRAY 50 MCG/SPRY 120 SPRAY/16 GM NASL SCH (11:17)
[2019-02-21] MEDS: FINASTERIDE 5 MG TABLET PO SCH (11:17)
[2019-02-21] MEDS: METOPROLOL SUCCINATE 25 MG TAB.SR.24H PO SCH ×2 (11:17→22:05)
--- NOTE | 2019-02-21 15:09 | PDOC PROGRESS REPORT ---
Subjective Progress Note for:: 02/21/19 Subjective:: CATALINO MARTINEZ JR is a 73 year old male with a past medical history of diabetes, hypertension, irritable bowel syndrome, migraine headache, depression, neuropathy, moderate diastolic heart failure, old left bundle branch block, generalized debility and falls who was admitted early this morning by the airport electrician for elevated troponin, hypoglycemia, and multiple falls. The patient was seen on morning rounds. He was found resting in bed comfortably on room air. He is sleeping soundly and does not wake when I say his name or gently shake his shoulder. Per nursing, was awake earlier during nebulizer treatment. He appears comfortable and is not noted to be in any acute distress. He has no other questions or concerns at this time. Nursing has no concerns. Reason For Visit: AMS,NSTEMI,HYPOGLYCEMIA Physical Exam Vital Signs: Temp Pulse Resp BP Pulse Ox 97.9 F 63 22 H 135/97 H 96 02/21/19 11:00 02/21/19 11:00 02/21/19 11:00 02/21/19 11:00 02/21/19 11:00 Intake & Output 02/20/19 02/21/19 02/22/19 06:59 06:59 06:59 Intake Total 2700 2476 104 Output Total 620 700 Balance 2080 1776 104 Weight 139.7 kg 134.3 kg General appearance: PRESENT: no acute distress, obese, well-developed, well- nourished Head exam: PRESENT: atraumatic, normocephalic Ear exam: PRESENT: normal external ear exam Mouth exam: PRESENT: moist, tongue midline Respiratory exam: PRESENT: clear to auscultation reynold, symmetrical, unlabored. ABSENT: rales, rhonchi, wheezes Cardiovascular exam: PRESENT: RRR, +S1, +S2. ABSENT: diastolic murmur, rubs, systolic murmur Pulses: PRESENT: normal dorsalis pedis pul Vascular exam: PRESENT: normal capillary refill GI/Abdominal exam: PRESENT: normal bowel sounds, other - rotund Rectal exam: PRESENT: deferred Extremities exam: PRESENT: full ROM. ABSENT: calf tenderness, clubbing, pedal edema Neurological exam: PRESENT: CN II-XII grossly intact, other - Sleeping soundly Skin exam: PRESENT: dry, intact, warm. ABSENT: cyanosis, rash Results Laboratory Results: 02/20/19 05:31 02/21/19 04:55 02/21/19 04:55 Sodium 137.5 Potassium 3.8 Chloride 106 Carbon Dioxide 25 Anion Gap 7 BUN 23 H Creatinine 0.74 Est GFR ( Amer) > 60 Glucose 155 H Calcium 8.4 02/19/19 01:55 Clean Catch Midstream Urine Culture - Final Mixed Urogenital Swati 02/19/19 02/19/19 02/19/19 00:00 00:00 02:39 Creatine Kinase 364 H CK-MB (CK-2) 3.17 Troponin I 0.180 0.165 NT-Pro-B Natriuret Pep 02/19/19 02/19/19 02/19/19 02:39 04:40 09:07 Creatine Kinase 318 H CK-MB (CK-2) 2.70 Troponin I 0.159 NT-Pro-B Natriuret Pep 7590 H 02/19/19 02/19/19 02/19/19 14:26 14:26 22:28 Creatine Kinase 254 H 218 H CK-MB (CK-2) 2.85 Troponin I 0.150 NT-Pro-B Natriuret Pep 02/19/19 22:28 Creatine Kinase CK-MB (CK-2) 2.25 Troponin I 0.146 NT-Pro-B Natriuret Pep Impressions: Chest X-Ray 02/18/19 23:23 IMPRESSION: Findings suggest mild pulmonary edema. Stable cardiomegaly. copyright 2010 [employer]- All Rights Reserved Hip X-Ray 02/19/19 00:00 IMPRESSION: No acute findings. Knee X-Ray 02/19/19 00:00 IMPRESSION: No acute fracture or dislocation. copyright 2010 [employer]- All Rights Reserved Cervical Spine CT 02/19/19 00:12 IMPRESSION: No acute fracture or subluxation. Facial Bones CT 02/19/19 00:12 IMPRESSION: No post-traumatic findings. Head CT 02/19/19 00:13 IMPRESSION: No acute intracranial findings. Assessment and Plan - Diagnosis (1) Elevated troponin Is this a current diagnosis for this admission?: Yes Plan: Likely troponin leak secondary to hypoglycemia. Troponin has trended down; 0.180-> 0.146 Continues to have tachycardia on telemetry. Patient denies chest pain. The patient will be admitted to the medical floor on continuous cardiac telemetry. We will continue daily aspirin and statin therapy. Will obtain echocardiogram Stress test. Antihypertensives as below. (2) Hypoglycemia Is this a current diagnosis for this admission?: Yes Plan: Resolved; blood sugars now consistently trending up. Complicated by polypharmacy and poor access to food. A1c is 5.8% Patient was initially treated with D5NS IVF. Currently holding home dose metformin. We will continue Accu-Cheks before meals and at bedtime with Humalog for sliding scale insulin and hypoglycemia protocol in place. bilingual teacher aide is consulted. Recommend discontinuing home metformin at discharge; patient his age can be allowed goal A1C of <8.5% when at risk for hypoglycemia. (3) Tachycardia Is this a current diagnosis for this admission?: Yes Plan: Resolved. Secondary to #1; may also be related to medication noncompliance Troponins are trending down. EKG shows LBBB (chronic) TSH is nml. Continue Toprol XL 25 mg BID; will adjust as BP allows. Continue IVF. Continue to monitor on telemetry. (4) Left hip pain Is this a current diagnosis for this admission?: Yes Plan: Imaging is benign Analgesics as needed. Physical therapy consulted. (5) Right knee pain Is this a current diagnosis for this admission?: Yes Plan: Imaging benign Analgesics as needed. Physical therapy consulted. (6) Diabetes Qualifiers: Diabetes mellitus type: type 2 Diabetes mellitus rodent exterminator insulin use: unspecified nursing home insulin use status Diabetes mellitus complication status: with unspecified complications Is this a current diagnosis for this admission?: Yes Plan: A1C 5.8% Holding metformin; recommend discontinuing at discharge. Patient his age can be allowed goal A1C of <8.5% when at risk for hypoglycemia. Accu-Cheks before meals and at bedtime with Humalog for sliding scale coverage. Hypoglycemia protocol in place. Consistent carb/cardiac diet. Registered dietitian consulted. (7) Fall Qualifiers: Encounter type: initial encounter Qualified Code(s): W19.XXXA - Unspecified fall, initial encounter Is this a current diagnosis for this admission?: Yes Plan: PT/OT consultations. Fall precautions. Discharge planning consulted. (8) ELIANA (obstructive sleep apnea) Is this a current diagnosis for this admission?: Yes Plan: Breathing pattern while sleeping today reveals likely ELIANA. Patient does not have home O2 or CPAP. Will obtain overnight pulse oximetry. - Time Time Spent with patient: 15-24 minutes Medications reviewed and adjusted accordingly: Yes Anticipated discharge: SNF Within: within 24 hours - Possible discharge tomorrow if stress test is negative and placement can be arranged.
[2019-02-21] MEDS: ATORVASTATIN CALCIUM 40 MG TABLET PO SCH (22:05)
[2019-02-22 05:10] LABS: ANION GAP 6 (5-19); BLOOD UREA NITROGEN 18 mg/dL (7-20); CALCIUM 8.5 mg/dL (8.4-10.2); CARBON DIOXIDE 26 mmol/L (22-30); CHLORIDE 106 mmol/L (98-107); GLUCOSE 153 mg/dL (75-110); POTASSIUM 3.9 mmol/L (3.6-5.0)
[2019-02-22] MEDS: LEVOTHYROXINE SODIUM 0.025 MG TABLET PO SCH (06:02)
[2019-02-22] MEDS: GABAPENTIN 300 MG CAPSULE PO SCH ×3 (06:02→22:17)
[2019-02-22] MEDS: PANTOPRAZOLE SODIUM 40 MG TABLET.DR PO SCH (06:02)
[2019-02-22] MEDS: HEPARIN SOD (PORCINE) 5,000 UNIT/ML 1 ML VIAL SUBCUT SCH ×3 (06:02→22:18)
[2019-02-22] MEDS: INSULIN LISPRO 100 UNIT/ML 3 ML VIAL SUBCUT SCH ×4 (07:30→22:19)
[2019-02-22] MEDS: NORMAL SALINE 1000 ML 1,000 ML IV PRN (08:01)
[2019-02-22] MEDS: IPRATROPIUM/ALBUTEROL 0.5-2.5 MG/3 ML AMPUL NEB SCH ×2 (09:32→19:51)
[2019-02-22] MEDS ORDERED: DILTIAZEM HCL INJ 25 MG/5 ML VIAL IV ONE (10:53)
[2019-02-22] MEDS ORDERED: METOPROLOL TARTRATE PF/INJ 5 MG/5 ML SDV IV ONE (11:05)
[2019-02-22] MEDS: DICYCLOMINE HCL 20 MG TABLET PO SCH ×3 (11:09→22:18)
[2019-02-22] MEDS: METOPROLOL SUCCINATE 25 MG TAB.SR.24H PO SCH (11:09)
[2019-02-22] MEDS: LACTOBACILLUS ACIDOPHILUS 250 MG TAB PO SCH ×2 (11:25→17:26)
[2019-02-22] MEDS: CITALOPRAM HYDROBROMIDE 20 MG TABLET PO SCH (11:26)
[2019-02-22] MEDS: MULTIVITAMIN TABLET PO SCH (11:26)
[2019-02-22] MEDS: FINASTERIDE 5 MG TABLET PO SCH (11:26)
[2019-02-22] MEDS: CHOLECALCIFEROL (D3) 400 UNIT TABLET PO SCH (11:26)
[2019-02-22] MEDS: ASPIRIN 81 MG TABLET, ENT COATED PO SCH (11:26)
[2019-02-22] MEDS: FLUTICASONE NASAL SPRAY 50 MCG/SPRY 120 SPRAY/16 GM NASL SCH (11:27)
[2019-02-22] MEDS: METOPROLOL SUCCINATE 50 MG TAB.SR.24H PO SCH ×2 (12:09→22:18)
[2019-02-22] MEDS ORDERED: DILTIAZEM HCL 30 MG TABLET PO SCH (14:00)
--- NOTE | 2019-02-22 18:20 | PDOC PROGRESS REPORT ---
Subjective Progress Note for:: 02/22/19 Subjective:: CATALINO MARTINEZ JR is a 73 year old male with a past medical history of diabetes, hypertension, irritable bowel syndrome, migraine headache, depression, neuropathy, moderate diastolic heart failure, old left bundle branch block, generalized debility and falls who was admitted early this morning by the music professionals for elevated troponin, hypoglycemia, and multiple falls. The patient was seen on morning rounds. He was found resting in bed comfortably on room air. He reports that he is feeling well today. He does report some right shoulder pain, though states this is not worse than his usual aches and pains and relates it to sleeping in the hospital bed. Otherwise, he denies fever, chills, chest pain, palpitations, dyspnea, orthopnea, abdominal pain, nausea vomiting and diarrhea. He has no questions or concerns at this time. Nursing has no concerns. Reason For Visit: AMS,NSTEMI,HYPOGLYCEMIA Physical Exam Vital Signs: Temp Pulse Resp BP Pulse Ox 98.2 F 93 24 H 149/82 H 99 02/22/19 16:14 02/22/19 16:14 02/22/19 16:14 02/22/19 16:14 02/22/19 16:14 Pulse Oximeter Nocturnal Start: 02/21/19 15:05 Freq: RTQ4 Status: Complete Protocol: Document 02/22/19 09:25 PMU (Rec: 02/22/19 09:39 PMU [id number]) Nocturnal Pulse Oximetry Equipment Usage Equipment Standby Continuous SpO2 Machine # 13 Intake & Output 02/21/19 02/22/19 02/23/19 06:59 06:59 06:59 Intake Total 2476 2080 200 Output Total 700 1100 400 Balance 1776 980 -200 Weight 134.3 kg 136.6 kg General appearance: PRESENT: no acute distress, cooperative, obese, well- developed, well-nourished Head exam: PRESENT: atraumatic, normocephalic Eye exam: PRESENT: conjunctiva pink, EOMI, PERRLA. ABSENT: scleral icterus Ear exam: PRESENT: normal external ear exam Mouth exam: PRESENT: moist, tongue midline Teeth exam: PRESENT: poor dentation Neck exam: ABSENT: carotid bruit, JVD, lymphadenopathy, thyromegaly Respiratory exam: PRESENT: clear to auscultation reynold, decreased breath sounds - Secondary to body habitus and position, symmetrical, unlabored. ABSENT: rales, rhonchi, wheezes Cardiovascular exam: PRESENT: irregular rhythm, tachycardia. ABSENT: diastolic murmur, rubs, systolic murmur Pulses: PRESENT: normal dorsalis pedis pul Vascular exam: PRESENT: normal capillary refill GI/Abdominal exam: PRESENT: normal bowel sounds, soft, other - Rotund. ABSENT: distended, guarding, mass, organolmegaly, rebound, tenderness Rectal exam: PRESENT: deferred Extremities exam: PRESENT: full ROM. ABSENT: calf tenderness, clubbing, pedal edema Neurological exam: PRESENT: alert, awake, oriented to person, oriented to place, oriented to time, oriented to situation, CN II-XII grossly intact. ABSENT: motor sensory deficit Psychiatric exam: PRESENT: appropriate affect, normal mood. ABSENT: homicidal ideation, suicidal ideation Skin exam: PRESENT: dry, intact, warm. ABSENT: cyanosis, rash Results Laboratory Results: 02/20/19 05:31 02/22/19 03:31 02/22/19 03:31 Sodium 138.2 Potassium 3.9 Chloride 106 Carbon Dioxide 26 Anion Gap 6 BUN 18 Creatinine 0.73 Est GFR ( Amer) > 60 Glucose 153 H Calcium 8.5 02/19/19 02/19/19 02/19/19 00:00 00:00 02:39 Creatine Kinase 364 H CK-MB (CK-2) 3.17 Troponin I 0.180 0.165 NT-Pro-B Natriuret Pep 02/19/19 02/19/19 02/19/19 02:39 04:40 09:07 Creatine Kinase 318 H CK-MB (CK-2) 2.70 Troponin I 0.159 NT-Pro-B Natriuret Pep 7590 H 02/19/19 02/19/19 02/19/19 14:26 14:26 22:28 Creatine Kinase 254 H 218 H CK-MB (CK-2) 2.85 Troponin I 0.150 NT-Pro-B Natriuret Pep 02/19/19 22:28 Creatine Kinase CK-MB (CK-2) 2.25 Troponin I 0.146 NT-Pro-B Natriuret Pep Impressions: Chest X-Ray 02/18/19 23:23 IMPRESSION: Findings suggest mild pulmonary edema. Stable cardiomegaly. copyright 2011 [employer]- All Rights Reserved Hip X-Ray 02/19/19 00:00 IMPRESSION: No acute findings. Knee X-Ray 02/19/19 00:00 IMPRESSION: No acute fracture or dislocation. copyright 2010 [employer]- All Rights Reserved Cervical Spine CT 02/19/19 00:12 IMPRESSION: No acute fracture or subluxation. Facial Bones CT 02/19/19 00:12 IMPRESSION: No post-traumatic findings. Head CT 02/19/19 00:13 IMPRESSION: No acute intracranial findings. Assessment and Plan - Diagnosis (1) Atrial fibrillation with RVR Is this a current diagnosis for this admission?: Yes Plan: Patient was to have nuclear stress test today, however, received call from appliance tester reporting that the patient was currently in atrial fibrillation with left bundle branch block and rapid ventricular rate. The patient was provided IV Lopressor 5 mg x 1 with appropriate response. Patient's home dose Toprol was increased to 50 mg twice daily. We will continue to monitor on continuous cardiac telemetry. Chads vas score 4 points; 4.8 annual stroke risk. We will need to discuss with the patient chronic anticoagulation prior to discharge. (2) Elevated troponin Is this a current diagnosis for this admission?: Yes Plan: Likely troponin leak secondary to hypoglycemia. Troponin has trended down; 0.180-> 0.146 Continues to have tachycardia on telemetry. Patient denies chest pain. Echocardiogram pending. Stress test pending. The patient will be admitted to the medical floor on continuous cardiac telemetry. We will continue daily aspirin and statin therapy. Antihypertensives as below. (3) CHF (congestive heart failure) Qualifiers: Heart failure type: combined systolic and diastolic Heart failure chronicity: chronic Qualified Code(s): I50.42 - Chronic combined systolic (congestive) and diastolic (congestive) heart failure Is this a current diagnosis for this admission?: Yes Plan: Chest x-ray reveals cardiomegaly with pulmonary edema. Preliminary echocardiogram shows ejection fraction suggests reduced ejection fraction. Continue daily aspirin and statin therapy. Currently on metoprolol. Blood pressures to allow for addition of low-dose lisinopril; will start 5 mg daily.. We will discuss chronic anticoagulation prior to discharge. (4) Hypoglycemia Is this a current diagnosis for this admission?: Yes Plan: Resolved; blood sugars now consistently trending up. Complicated by polypharmacy and poor access to food. A1c is 5.8% Patient was initially treated with D5NS IVF. Currently holding home dose metformin. We will continue Accu-Cheks before meals and at bedtime with Humalog for sliding scale insulin and hypoglycemia protocol in place. squilgeer is consulted. Recommend discontinuing home metformin at discharge; patient his age can be allowed goal A1C of <8.5% when at risk for hypoglycemia. (5) Left hip pain Is this a current diagnosis for this admission?: Yes Plan: Imaging is benign Analgesics as needed. Physical therapy consulted. (6) Right knee pain Is this a current diagnosis for this admission?: Yes Plan: Imaging benign Analgesics as needed. Physical therapy consulted. (7) Diabetes Qualifiers: Diabetes mellitus type: type 2 Diabetes mellitus nursing home insulin use: unspecified joint terminal attack controller insulin use status Diabetes mellitus complication status: with unspecified complications Is this a current diagnosis for this admission?: Yes Plan: A1C 5.8% Holding metformin; recommend discontinuing at discharge. Patient his age can be allowed goal A1C of <8.5% when at risk for hypoglycemia. Accu-Cheks before meals and at bedtime with Humalog for sliding scale coverage. Hypoglycemia protocol in place. Consistent carb/cardiac diet. Registered dietitian consulted. (8) Fall Qualifiers: Encounter type: initial encounter Qualified Code(s): W19.XXXA - Unspecified fall, initial encounter Is this a current diagnosis for this admission?: Yes Plan: PT/OT consultations. Fall precautions. Discharge planning consulted. (9) ELIANA (obstructive sleep apnea) Is this a current diagnosis for this admission?: Yes Plan: Breathing pattern while sleeping today reveals likely ELIANA. Patient does not have home O2 or CPAP. Overnight pulse oximetry study shows multiple desaturation events; lowest 77%, on average lasting 30 seconds. We will ask discharge planning to arrange for home O2. Patient will still benefit from outpatient sleep study to evaluate for need for CPAP. (10) Tachycardia Is this a current diagnosis for this admission?: Yes Plan: Resolved. Secondary to #1; may also be related to medication noncompliance Troponins are trending down. EKG shows LBBB (chronic) TSH is nml. - Time Time Spent with patient: 25-34 minutes Medications reviewed and adjusted accordingly: Yes Anticipated discharge: SNF Within: within 48 hours - Pending stress test and echo results.
--- NOTE | 2019-02-22 19:54 | XCELERA REPORT ---
[address] [address] Transthoracic Echocardiogram Report Name: JUAN BRUNOCATALINO JR Age: 73 yrs Gender: Male : 1945 Patient Status: Inpatient Patient Location: [facility]^A Study Date: 02/22/2019 03:10 PM Height: 73 in Weight: 307 lb BSA: 2.6 m2 Procedure: A two-dimensional transthoracic echocardiogram with color flow and Doppler was performed. The study was technically limited with all images being suboptimal in quality. Reason For Study: CHF History: CHF. Ordering Physician: KWAKU BROWN Performed By: Caron Degroot Interpretation Summary The left ventricle is mildly to moderately dilated. There is mild concentric left ventricular hypertrophy. LV EF is 35% Left ventricular systolic function is moderately reduced. There is moderate global hypokinesis of the left ventricle. There is no thrombus. No ASD , VSD , or PFO seen. The right ventricle is mild to moderately dilated. The right ventricular systolic function is mild to moderately reduced. The right atrium is mild to moderately dilated. The left atrium is moderately dilated. There is no evidence of mitral valve prolapse. There is no vegetation seen on the mitral valve. There is no mitral valve stenosis. There is a mild to moderate amount of mitral regurgitation There is no aortic valvular vegetation. There is aortic sclerosis without aortic stenosis. There is no LVOT obstruction. No aortic regurgitation is present. There is no tricuspid stenosis. There is a mild to moderate amount of tricuspid regurgitation There is servere pulmonary hypertension by echo RVSP is 64 to 69 mm of Hg , with RA mean of 15 to 20. There is no pulmonic valvular stenosis. There is a trace amount of pulmonic regurgitation The aortic root is normal size. The inferior vena cava appeared dilated and decreased < 50% with respiration (RAP 15-20 mmHg) There is no pericardial effusion. MMode/2D Measurements & Calculations RVDd: 4.0 cm LVIDd: 6.1 cm FS: 17.6 % Ao root diam: 3.2 cm IVSd: 1.2 cm LVIDs: 5.1 cm EDV(Teich): 190.0 ml Ao root area: 7.8 cm2 LVPWd: 1.2 cm ESV(Teich): 121.8 ml LA dimension: 4.8 cm EF(Teich): 35.9 % Doppler Measurements & Calculations MV E max adrienne: MV P1/2t max adrienne: Ao V2 max: LV V1 max P.7 cm/sec 97.7 cm/sec 109.5 cm/sec 3.6 mmHg MV P1/2t: 34.7 msec Ao max PG: LV V1 max: MVA(P1/2t): 6.3 cm2 4.8 mmHg 94.8 cm/sec MV dec slope: 824.1 cm/sec2 MV dec time: 0.12 sec PA V2 max: PI end-d adrienne: TR max adrienne: MV P1/2t-pr_phl: 76.0 cm/sec 209.0 cm/sec 348.8 cm/sec 34.7 msec PA max PG: TR max P.3 mmHg 48.7 mmHg Left Ventricle The left ventricle is mildly to moderately dilated. There is mild concentric left ventricular hypertrophy. LV EF is 35%. Left ventricular systolic function is moderately reduced. LV diastolic function could not be adequately assessed due to atrial fibrilation. There is moderate global hypokinesis of the left ventricle. There is no thrombus. No ASD , VSD , or PFO seen. Right Ventricle The right ventricle is mild to moderately dilated. The right ventricular systolic function is mild to moderately reduced. Atria The right atrium is mild to moderately dilated. The left atrium is moderately dilated. Mitral Valve There is mild mitral annular calcification. There is no evidence of mitral valve prolapse. There is no vegetation seen on the mitral valve. There is no mitral valve stenosis. There is a mild to moderate amount of mitral regurgitation. Aortic Valve There is no aortic valvular vegetation. There is aortic sclerosis without aortic stenosis. There is no LVOT obstruction. No aortic regurgitation is present. Tricuspid Valve There is no tricuspid stenosis. There is a mild to moderate amount of tricuspid regurgitation. There is servere pulmonary hypertension by echo. RVSP is 64 to 69 mm of Hg , with RA mean of 15 to 20. Pulmonic Valve There is no pulmonic valvular stenosis. There is a trace amount of pulmonic regurgitation. Great Vessels The aortic root is normal size. The inferior vena cava appeared dilated and decreased < 50% with respiration (RAP 15-20 mmHg). Effusions There is no pericardial effusion. : KWAKU BROWN Lakshmi
[2019-02-22] MEDS ORDERED: METOPROLOL SUCCINATE 50 MG TAB.SR.24H PO SCH (22:00)
[2019-02-22] MEDS: ATORVASTATIN CALCIUM 40 MG TABLET PO SCH (22:17)
[2019-02-23 05:08] LABS: HEMATOCRIT 34.9 % (37.9-51.0); HEMOGLOBIN 11.5 g/dL (13.5-17.0); MEAN CORPUSCULAR HEMOGLOBIN 29.8 pg (27.0-33.4); MEAN CORPUSCULAR HGB CONC 33.1 g/dL (32.0-36.0); MEAN CORPUSCULAR VOLUME 90 fl (80-97); PLATELET COUNT 223 10^3/uL (150-450); RED BLOOD COUNT 3.87 10^6/uL (4.35-5.55); RED CELL DISTRIBUTION WIDTH 13.8 % (11.5-14.0); WHITE BLOOD COUNT 8.6 10^3/uL (4.0-10.5)
[2019-02-23 05:34] LABS: ANION GAP 6 (5-19); BLOOD UREA NITROGEN 21 mg/dL (7-20); CALCIUM 8.8 mg/dL (8.4-10.2); CARBON DIOXIDE 26 mmol/L (22-30); CHLORIDE 107 mmol/L (98-107); GLUCOSE 194 mg/dL (75-110); POTASSIUM 3.8 mmol/L (3.6-5.0)
[2019-02-23] MEDS: GABAPENTIN 300 MG CAPSULE PO SCH ×3 (05:57→21:56)
[2019-02-23] MEDS: PANTOPRAZOLE SODIUM 40 MG TABLET.DR PO SCH (05:57)
[2019-02-23] MEDS: LEVOTHYROXINE SODIUM 0.025 MG TABLET PO SCH (05:57)
[2019-02-23] MEDS: HEPARIN SOD (PORCINE) 5,000 UNIT/ML 1 ML VIAL SUBCUT SCH (05:58)
[2019-02-23] MEDS: IPRATROPIUM/ALBUTEROL 0.5-2.5 MG/3 ML AMPUL NEB SCH ×2 (07:52→19:39)
[2019-02-23] MEDS: DICYCLOMINE HCL 20 MG TABLET PO SCH ×4 (08:07→21:58)
[2019-02-23] MEDS: INSULIN LISPRO 100 UNIT/ML 3 ML VIAL SUBCUT SCH ×4 (08:07→21:54)
[2019-02-23] MEDS: CHOLECALCIFEROL (D3) 400 UNIT TABLET PO SCH (09:23)
[2019-02-23] MEDS: LACTOBACILLUS ACIDOPHILUS 250 MG TAB PO SCH ×2 (09:23→17:14)
[2019-02-23] MEDS: MULTIVITAMIN TABLET PO SCH (09:23)
[2019-02-23] MEDS: ASPIRIN 81 MG TABLET, ENT COATED PO SCH (09:24)
[2019-02-23] MEDS: CITALOPRAM HYDROBROMIDE 20 MG TABLET PO SCH (09:24)
[2019-02-23] MEDS: LISINOPRIL 5 MG TABLET PO SCH (09:25)
[2019-02-23] MEDS: FLUTICASONE NASAL SPRAY 50 MCG/SPRY 120 SPRAY/16 GM NASL SCH (09:25)
[2019-02-23] MEDS: FINASTERIDE 5 MG TABLET PO SCH (09:25)
[2019-02-23] MEDS: METOPROLOL SUCCINATE 50 MG TAB.SR.24H PO SCH ×2 (09:25→21:56)
--- NOTE | 2019-02-23 13:35 | PDOC PROGRESS REPORT ---
Subjective Progress Note for:: 02/23/19 Subjective:: Patient was seen and examined. He says he is feeling better. He was sitting in chair comfortably without oxygen. He has done the rest portion of the stress test today. Echocardiogram shows EF of 35%. Is currently in A. fib with normal rate. Reason For Visit: AMS,NSTEMI,HYPOGLYCEMIA Physical Exam Vital Signs: Temp Pulse Resp BP Pulse Ox 97.9 F 121 H 20 114/73 95 02/23/19 11:17 02/23/19 11:17 02/23/19 11:17 02/23/19 11:17 02/23/19 11:17 Pulse Oximeter Nocturnal Start: 02/21/19 15:05 Freq: RTQ4 Status: Complete Protocol: Document 02/22/19 09:25 PMU (Rec: 02/22/19 09:39 PMU [id number]) Nocturnal Pulse Oximetry Equipment Usage Equipment Standby Continuous SpO2 Machine # 13 Intake & Output 02/22/19 02/23/19 02/24/19 06:59 06:59 06:59 Intake Total 2080 1464 600 Output Total 1100 800 Balance 980 664 600 Weight 301 lb 2.423 oz 311 lb 8.211 oz Exam: Patient is no acute distress Alert oriented to time place person No anxiety or depression Head: atraumatic normocephalic Pupils: are equal reactive Neck: is supple and trachea is central no lymphadenopathy No pharyngeal erythema or exudates Heart: A. fib, no murmurs, no edema Lungs: clear no distress Abdomen: nontender nondistended Neurological exam: unremarkable Musculoskeletal: No joint swelling or effusion chronic lower back pain and tenderness No suicidal or homicidal ideation Results Laboratory Results: 02/23/19 03:44 02/23/19 03:44 02/23/19 02/23/19 03:44 03:44 WBC 8.6 RBC 3.87 L Hgb 11.5 L Hct 34.9 L MCV 90 MCH 29.8 MCHC 33.1 RDW 13.8 Plt Count 223 Sodium 139.1 Potassium 3.8 Chloride 107 Carbon Dioxide 26 Anion Gap 6 BUN 21 H Creatinine 0.90 Est GFR ( Amer) > 60 Glucose 194 H Calcium 8.8 02/19/19 02/19/19 02/19/19 00:00 00:00 02:39 Creatine Kinase 364 H CK-MB (CK-2) 3.17 Troponin I 0.180 0.165 NT-Pro-B Natriuret Pep 02/19/19 02/19/19 02/19/19 02:39 04:40 09:07 Creatine Kinase 318 H CK-MB (CK-2) 2.70 Troponin I 0.159 NT-Pro-B Natriuret Pep 7590 H 02/19/19 02/19/19 02/19/19 14:26 14:26 22:28 Creatine Kinase 254 H 218 H CK-MB (CK-2) 2.85 Troponin I 0.150 NT-Pro-B Natriuret Pep 02/19/19 02/23/19 22:28 03:44 Creatine Kinase CK-MB (CK-2) 2.25 Troponin I 0.146 NT-Pro-B Natriuret Pep 5670 H Impressions: Chest X-Ray 02/18/19 23:23 IMPRESSION: Findings suggest mild pulmonary edema. Stable cardiomegaly. copyright 2010 [employer]- All Rights Reserved Hip X-Ray 02/19/19 00:00 IMPRESSION: No acute findings. Knee X-Ray 02/19/19 00:00 IMPRESSION: No acute fracture or dislocation. copyright 2010 [employer]- All Rights Reserved Cervical Spine CT 02/19/19 00:12 IMPRESSION: No acute fracture or subluxation. Facial Bones CT 02/19/19 00:12 IMPRESSION: No post-traumatic findings. Head CT 02/19/19 00:13 IMPRESSION: No acute intracranial findings. 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 Complicated by polypharmacy and poor access to food. A1c is 5.8% Patient was initially treated with D5NS IVF. Continue to hold home dose metformin. We will continue Accu-Cheks before meals and at bedtime with Humalog for sliding scale insulin and hypoglycemia protocol in place. chisel trimmer is consulted. (5) Left hip pain Is this a current diagnosis for this admission?: Yes Plan: Imaging is benign Analgesics as needed. Physical therapy consulted. (6) ELIANA (obstructive sleep apnea) Is this a current diagnosis for this admission?: Yes Plan: Breathing pattern while sleeping today reveals likely ELIANA. Patient does not have home O2 or CPAP. Overnight pulse oximetry study shows multiple desaturation events; lowest 77%, on average lasting 30 seconds. We will ask discharge planning to arrange for home O2. Patient will still benefit from outpatient sleep study to evaluate for need for CPAP. (7) Right knee pain Is this a current diagnosis for this admission?: Yes Plan: Imaging benign Analgesics as needed. Physical therapy consulted. (8) Diabetes Qualifiers: Diabetes mellitus type: type 2 Diabetes mellitus long-term insulin use: unspecified watermaster insulin use status Diabetes mellitus complication status: with unspecified complications Is this a current diagnosis for this admission?: Yes Plan: A1C 5.8% Holding metformin; recommend discontinuing at discharge. Patient his age can be allowed goal A1C of <8.5% when at risk for hypoglycemia. Accu-Cheks before meals and at bedtime with Humalog for sliding scale coverage. Hypoglycemia protocol in place. Consistent carb/cardiac diet. Registered dietitian consulted. (9) Fall Qualifiers: Encounter type: initial encounter Qualified Code(s): W19.XXXA - Unspecified fall, initial encounter Is this a current diagnosis for this admission?: Yes Plan: PT/OT consultations. Fall precautions. Discharge planning consulted.
[2019-02-23] MEDS: APIXABAN 5 MG TABLET PO SCH (17:14)
[2019-02-23] MEDS: ATORVASTATIN CALCIUM 40 MG TABLET PO SCH (21:56)
[2019-02-24] MEDS: GABAPENTIN 300 MG CAPSULE PO SCH ×2 (05:43→13:39)
[2019-02-24] MEDS: LEVOTHYROXINE SODIUM 0.025 MG TABLET PO SCH (05:43)
[2019-02-24] MEDS: PANTOPRAZOLE SODIUM 40 MG TABLET.DR PO SCH (05:43)
[2019-02-24] MEDS: IPRATROPIUM/ALBUTEROL 0.5-2.5 MG/3 ML AMPUL NEB SCH (08:32)
[2019-02-24] MEDS: DICYCLOMINE HCL 20 MG TABLET PO SCH ×2 (08:49→11:33)
[2019-02-24] MEDS: INSULIN LISPRO 100 UNIT/ML 3 ML VIAL SUBCUT SCH ×2 (08:49→12:49)
[2019-02-24] MEDS ORDERED: REGADENOSON INJ 0.4 MG/5 ML DISP.SYRIN IV ONE (11:26)
[2019-02-24] MEDS: ASPIRIN 81 MG TABLET, ENT COATED PO SCH (11:30)
[2019-02-24] MEDS: FINASTERIDE 5 MG TABLET PO SCH (11:30)
[2019-02-24] MEDS: MULTIVITAMIN TABLET PO SCH (11:31)
[2019-02-24] MEDS: APIXABAN 5 MG TABLET PO SCH (11:31)
[2019-02-24] MEDS: METOPROLOL SUCCINATE 50 MG TAB.SR.24H PO SCH (11:31)
[2019-02-24] MEDS: LACTOBACILLUS ACIDOPHILUS 250 MG TAB PO SCH (11:31)
[2019-02-24] MEDS: CITALOPRAM HYDROBROMIDE 20 MG TABLET PO SCH (11:31)
[2019-02-24] MEDS: CHOLECALCIFEROL (D3) 400 UNIT TABLET PO SCH (11:31)
[2019-02-24] MEDS: FLUTICASONE NASAL SPRAY 50 MCG/SPRY 120 SPRAY/16 GM NASL SCH (11:32)
[2019-02-24] MEDS: LISINOPRIL 5 MG TABLET PO SCH (11:33)
--- NOTE | 2019-02-24 12:44 | PDOC DISCHARGE SUMMARY ---
General - Admit/Disc Date/PCP Admission Date/Primary Care Provider: 02/19/19 04:06 KAISER HARRISON MD Discharge Date: 02/24/19 - Discharge Diagnosis (1) Atrial fibrillation with RVR Is this a current diagnosis for this admission?: Yes (2) CHF (congestive heart failure) Is this a current diagnosis for this admission?: Yes (3) Elevated troponin Is this a current diagnosis for this admission?: Yes (4) Hypoglycemia Is this a current diagnosis for this admission?: Yes (5) Left hip pain Is this a current diagnosis for this admission?: Yes (6) ELIANA (obstructive sleep apnea) Is this a current diagnosis for this admission?: Yes (7) Right knee pain Is this a current diagnosis for this admission?: Yes (8) Diabetes Is this a current diagnosis for this admission?: Yes (9) Fall Is this a current diagnosis for this admission?: Yes - Additional Information Resuscitation Status: Full Code Discharge Diet: As Tolerated Discharge Activity: Activity As Tolerated Home Medications: Acidoph/L.bulg/Bif.b/S.thermop [Bacid Caplet] 1 each PO BID 07/28/17 Gabapentin [Neurontin] 600 mg PO TID 07/28/17 Multivitamin [Multiple Vitamins] 1 each PO DAILY 07/28/17 Omeprazole 40 mg PO Q6AM 07/28/17 Dicyclomine HCl [Bentyl 20 mg Tablet] 20 mg PO QID #5 tablet 07/30/17 Alendronate Sodium 70 mg PO Q7D 02/19/19 Aspirin [Ecotrin 81 mg EC Tablet] 81 mg PO DAILY 02/19/19 Atorvastatin Calcium [Lipitor 40 mg Tablet] 20 mg PO QHS 02/19/19 Cholecalciferol (Vitamin D3) [Vitamin D3 400 Unit Tablet] 800 unit PO DAILY 02/19/19 Citalopram Hydrobromide [Celexa 40 mg Tablet] 1 tab PO DAILY 02/19/19 Colchicine [Colchicine 0.6 mg Tablet] 0.6 mg PO ASDIR PRN 02/19/19 Finasteride [Proscar 5 mg Tablet] 5 mg PO DAILY 02/19/19 Fluticasone Propionate [Flonase Nasal Bethel 50 Mcg/Bethel 16 gm] 2 sprays NASL DAILYP PRN 02/19/19 Levothyroxine Sodium [Synthroid 0.025 mg Tablet] 25 mcg PO DAILY 02/19/19 Metformin HCl [Metformin HCl ER] 1,000 mg PO BID 02/19/19 Nitroglycerin [Nitrostat 0.4 mg (1/150 Gr) Tabs 25/Bottle] 1 tab SL Q5MP PRN 02/19/19 Acetaminophen [Tylenol 325 mg Tablet] 650 mg PO Q4HP PRN tablet 02/24/19 Apixaban [Eliquis 5 mg Tablet] 5 mg PO BID tablet 02/24/19 Ipratropium/Albuterol Sulfate [Duoneb 3 ml Ampul] 3 ml NEB ECG33FE PRN vial.neb 02/24/19 Isosorbide Mononitrate [Imdur 30 mg Tablet.er] 30 mg PO DAILY tab.er.24h 02/24/19 Lisinopril [Prinivil 5 mg Tablet] 5 mg PO DAILY tablet 02/24/19 Metoprolol Succinate [Toprol Xl 50 mg Tab.sr] 50 mg PO Q12 tab.sr.24h 02/24/19 History of Present Illness History of Present Illness: CATALINO MARTINEZ JR is a 73 year old male with a past medical history of diabetes, hypertension, irritable bowel syndrome, migraine headache, depression, neuropathy, moderate diastolic heart failure, old left bundle branch block, generalized debility and falls. He presents after an estimated 15 hours of falling out of bed. He was discovered altered with multiple complaints. EMS was called where he was assisted to the bed and initially refused hospital evaluation. Patient was unable to identify family members at which point he is found to have hypoglycemia. He receives dextrose and transferred to the emergency department for evaluation where he again has hypoglycemia and is placed on dextrose IV. He is also found to have elevated troponin and complaints of pain to his left hip and right knee. He is referred to the hospitalist for admission. His mental status is returned to baseline and he denies recent change in medication regiment but is unclear of his recent diet or access to food given his debilitated state. Hospital Course Hospital Course: (1) Atrial fibrillation with RVR Currently rate controlled Continue metoprolol and Cardizem Patient was started on Eliquis (2) CHF (congestive heart failure) EF 35% down from 55% July 2017 Continue current medications Appears stable and compensated at the moment (3) Elevated troponin Mild elevation Trended down Stress test was done. Abnormal as per Dr. Dave. Official report is pending. Dr. Samuel recommends maximal medical therapy and recommend starting nitrate. We will start M. Quentin. (4) Hypoglycemia Resolved; blood sugars now consistently trending up. Complicated by polypharmacy and poor access to food. A1c is 5.8% Patient was initially treated with D5NS IVF. Continue to hold home dose metformin. We will continue Accu-Cheks before meals and at bedtime with Humalog for sliding scale insulin and hypoglycemia protocol in place. hobbing machine operator is consulted. (5) Left hip pain Is this a current diagnosis for this admission?: Yes Plan: Imaging is benign Analgesics as needed. Physical therapy consulted. (6) ELIANA (obstructive sleep apnea) Is this a current diagnosis for this admission?: Yes Plan: Breathing pattern while sleeping today reveals likely ELIANA. Patient does not have home O2 or CPAP. Overnight pulse oximetry study shows multiple desaturation events; lowest 77%, on average lasting 30 seconds. We will ask discharge planning to arrange for home O2. Patient will still benefit from outpatient sleep study to evaluate for need for CPAP. (7) Right knee pain Is this a current diagnosis for this admission?: Yes Plan: Imaging benign Analgesics as needed. Physical therapy consulted. (8) Diabetes Qualifiers: Diabetes mellitus type: type 2 Diabetes mellitus terminal system operator insulin use: unspecified halfway insulin use status Diabetes mellitus complication status: with unspecified complications Is this a current diagnosis for this admission?: Yes Plan: A1C 5.8% Received Accu-Cheks before meals and at bedtime with Humalog for sliding scale coverage. Hypoglycemia protocol in place. Consistent carb/cardiac diet. Registered dietitian consulted. Glucose levels in the 200s now. Will restart metformin on discharge. (9) Fall PT/OT consultations. Fall precautions. Will be going to SNF Physical Exam Vital Signs: Temp Pulse Resp BP Pulse Ox 97.5 F 56 L 18 126/78 H 94 02/24/19 09:25 02/24/19 09:25 02/24/19 08:30 02/24/19 09:25 02/24/19 09:25 Pulse Oximeter Nocturnal Start: 02/21/19 15:05 Freq: RTQ4 Status: Complete Protocol: Document 02/22/19 09:25 PMU (Rec: 02/22/19 09:39 PMU [id number]) Nocturnal Pulse Oximetry Equipment Usage Equipment Standby Continuous SpO2 Machine # 13 Intake & Output 02/23/19 02/24/19 02/25/19 06:59 06:59 06:59 Intake Total 1464 960 Output Total 800 800 Balance 664 160 Weight 311 lb 8.211 oz 309 lb 1.409 oz Exam: Patient is no acute distress Alert oriented to time place person No anxiety or depression Head: atraumatic normocephalic Pupils: are equal reactive Neck: is supple and trachea is central no lymphadenopathy No pharyngeal erythema or exudates Heart: A. fib, no murmurs, no edema Lungs: clear no distress Abdomen: nontender nondistended Neurological exam: unremarkable Musculoskeletal: No joint swelling or effusion chronic lower back pain and tenderness No suicidal or homicidal ideation Results Laboratory Results: 02/23/19 03:44 02/23/19 03:44 02/18/19 01:41 Blood Blood Culture - Final NO GROWTH IN 5 DAYS 02/19/19 02/19/19 02/19/19 00:00 00:00 02:39 Creatine Kinase 364 H CK-MB (CK-2) 3.17 Troponin I 0.180 0.165 NT-Pro-B Natriuret Pep 02/19/19 02/19/19 02/19/19 02:39 04:40 09:07 Creatine Kinase 318 H CK-MB (CK-2) 2.70 Troponin I 0.159 NT-Pro-B Natriuret Pep 7590 H 02/19/19 02/19/19 02/19/19 14:26 14:26 22:28 Creatine Kinase 254 H 218 H CK-MB (CK-2) 2.85 Troponin I 0.150 NT-Pro-B Natriuret Pep 02/19/19 02/23/19 22:28 03:44 Creatine Kinase CK-MB (CK-2) 2.25 Troponin I 0.146 NT-Pro-B Natriuret Pep 5670 H Impressions: Chest X-Ray 02/18/19 23:23 IMPRESSION: Findings suggest mild pulmonary edema. Stable cardiomegaly. copyright 2010 [employer]- All Rights Reserved Hip X-Ray 02/19/19 00:00 IMPRESSION: No acute findings. Knee X-Ray 02/19/19 00:00 IMPRESSION: No acute fracture or dislocation. copyright 2010 [employer]- All Rights Reserved Cervical Spine CT 02/19/19 00:12 IMPRESSION: No acute fracture or subluxation. Facial Bones CT 02/19/19 00:12 IMPRESSION: No post-traumatic findings. Head CT 02/19/19 00:13 IMPRESSION: No acute intracranial findings. Qualifiers - * PATIENT BEING DISCHARGED WITH ANY OF THE FOLLOWING DIAGNOSIS: No Acute Heart Failure - Is this a Heart Failure Patient?: No Plan Time Spent: Greater than 30 Minutes - 35 minutes
[2019-02-24 15:06] VITALS: BP 135/89
--- NOTE | 2019-02-24 22:58 | DRAGON STRESS TEST REPORT ---
2-day intravenous Lexiscan Cardiolite stress test using single photon emmision computerized tomography. Date of resting procedure: 02/23/2019. Date of stress test procedure: 02/24/2019. The stress portion of the procedure was done on the next day since the patient had atrial fibrillation with rapid ventricular response on the day of resting scanning. Ordering Provider: Ms. Stacey Olivier, nurse, practitioner, sound physician group. Patient's status: In Patient Indication: Patient with cardiomyopathy with moderately reduced LV ejection fraction, and atrial fibrillation. Hence need for assessing presence of coronary artery disease.. Coronary risk factors: Resting EKG: Atrial fibrillation with left bundle branch block type of IVCD atrial fibrillation with rate being well controlled. Stress EKG: No changes of ischemia. The patient had no chest pain or discomfort, and there were no ventricular arrhythmia seen on the monitor. Reason for termination: Protocol. Conclusions: Normal EKG and hemodynamic response to IV Lexiscan. Nuclear data: At rest, on 02/23/2019 the patient was given 15.6 point millicuries of technetium 99m sestamibi injected intravenously. As per protocol rest gated SPECT images were obtained. Subsequently, on 02/24/2019, the patient was given intravenous Lexiscan at a dose of 0.4 mg in 5 mL intravenously, followed by flush with normal saline. Subsequently on 02/24/2019, the stress dose of 46.0 millicuries of technetium 99m sestamibi was injected intravenously. As per protocol stress gated images were obtained. Nuclear interpretation: Review of images showed that there is a perfusion defect in both rest and stress images involving the inferior inferior wall and the apical septum with minimal reversibility on the rest images compared to the stress images. These areas had decreased motion contraction and thickening by gated study. The rest of the myocardial segments all segments of the myocardium had normal perfusion at rest, and normal perfusion post stress with IV Lexiscan. The rest of the segments of the myocardium had normal thickening by gated study. The left ventricle was dilated with globally decreased motion and contraction consistent with ischemic cardia myopathy. T. I D. ratio was normal at 1.01. There is no transient ischemic dilatation of the left ventricle. Computer read rest, and stress left ventricular ejection fraction were 20 %, and 24 %, respectively. Visually both the stress and rest ejection fractions were normal, and greater than 55%. Conclusion: 1. There is scintigraphic evidence of Lexiscan induced myocardial infarction/scar involving the apical septum, and inferior wall with minimal possible ischemia in these areas.. 2. . 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 Recommendations: Check echo for LV ejection fraction correlation. Aggressive risk factor modification, and treating the underlying co- morbidities. MTDD
[2019-02-25] MEDS ORDERED: ISOSORBIDE MONONITRATE 30 MG TAB.ER.24H PO SCH (10:00)
== END 2019-02-24 15:18 | DRG 309 ==
LOC: ER 23:17 → EH 02-19 04:06 → 4S 02-19 20:04
PROVIDERS: ADMIT Internal Medicine; ATTEND Internal Medicine
DX: I48.91 Unspecified atrial fibrillation (principal); I50.42 Chronic combined systolic (congestive) and diastolic (congestive) heart failure; E11.649 Type 2 diabetes mellitus with hypoglycemia without coma; G47.33 Obstructive sleep apnea (adult) (pediatric); F32.9 Major depressive disorder, single episode, unspecified; E11.40 Type 2 diabetes mellitus with diabetic neuropathy, unspecified; K58.9 Irritable bowel syndrome, unspecified; R29.6 Repeated falls; E78.5 Hyperlipidemia, unspecified; I11.0 Hypertensive heart disease with heart failure; E66.01 Morbid (severe) obesity due to excess calories; Z60.2 Problems related to living alone; W06.XXXA Fall from bed, initial encounter; K21.9 Gastro-esophageal reflux disease without esophagitis; E78.00 Pure hypercholesterolemia, unspecified; S00.81XA Abrasion of other part of head, initial encounter; M25.561 Pain in right knee; M25.552 Pain in left hip; R74.8 Abnormal levels of other serum enzymes; Z79.84 Long term (current) use of oral hypoglycemic drugs; Z79.82 Long term (current) use of aspirin; Z79.899 Other long term (current) drug therapy; Z79.4 Long term (current) use of insulin; Z79.891 Long term (current) use of opiate analgesic; Z91.14 Patient's other noncompliance with medication regimen
CPT/HCPCS: 36415; 70450; 70486; 71045; 72125; 78452; 80048; 80053; 80307; 81001; 82550; 82553; 82803; 82962; 83036; 83605; 83735; 83880; 84100; 84443; 84484; 85025; 85027; 85610; 87040; 87075; 87077; 87086; 87186; 93005; 93010; 93017; 93306; 94640; 94762; 96361; 96365; 99285; A9500; J0692; J1644; J1815; J2785; J3490; J7030; J7620; Q9969

== ENCOUNTER 2019-07-14 09:24 | Day surgery (SDC) | payer OTHER, MEDICARE, MEDICAID ==
[~2019-07-14 09:24] MED LIST: KETOROLAC TROMETHAMINE 0.45% 4 DROP/0.4 ML DROPERETTE OD PRN
[2019-07-14] MEDS ORDERED: MIDAZOLAM 2 MG/2 ML INJ ONE (09:25)
[2019-07-14] MEDS ORDERED: ONDANSETRON HCL INJ/PF 4 MG/2 ML SDV ONE (09:25)
[2019-07-14] MEDS ORDERED: FENTANYL CITRATE INJ/PF 100 MCG/2 ML AMPUL ONE (09:26)
[2019-07-14] MEDS: TROPICAMIDE 1% OPH SOLN 15 ML OD PRN ×3 (09:51→10:11)
[2019-07-14] MEDS: CYCLOPENTOLATE 0.2%/PHENYLEPHRINE 1% OPH SOLN 2 ML OD PRN ×3 (09:51→10:11)
[2019-07-14] MEDS: BESIFLOXACIN HCL 0.6% OPH SUSP 5 ML BOTTLE OD PRN ×4 (09:51→10:51)
[2019-07-14] MEDS: TETRACAINE HCL 0.5% OPH SOLN 4 ML OD PRN ×4 (09:52→10:24)
[2019-07-14] MEDS: LIDOCAINE 1%/PHENYLEPHRINE 1.5% 1 ML VIAL ONE ×2 (10:36)
[2019-07-14] MEDS: CHONDR SU A NA/HYALUR INTRAOC KIT (SURGICARE) ONE ×2 (10:36)
[2019-07-14] MEDS: EPINEPHRINE INJ/PF 1 MG/1 ML AMPULE ONE ×2 (10:36)
[2019-07-14] MEDS: DORZOLAMIDE HCL 2%/TIMOLOL MALEAT 0.5% OPH SOLN 10 ML OD PRN ×2 (10:51)
[2019-07-14] MEDS ORDERED: LIDOCAINE 2% INJ-PF (100 MG/5 ML) SYRINGE ONE (11:04)
--- NOTE | 2019-07-14 15:41 | Operative Report ---
Operative Report-[facility] Operative Report: DATE OF SURGERY: July 14, 2019 PREOPERATIVE DIAGNOSIS: NUCLEAR CATARACT, RIGHT EYE. POSTOPERATIVE DIAGNOSIS: NUCLEAR CATARACT, RIGHT EYE. PROCEDURE PERFORMED: PHACOEMULSIFICATION WITH POSTERIOR CHAMBER INTRAOCULAR LENS IMPLANT, RIGHT EYE. SURGEON: Ugo Quintero, MEDICATIONS AND ANESTHESIA: Versed: IV Versed Tetracaine drops: 1 to 2 drops given as needed COMPLICATION: None INDICATIONS FOR SURGERY: Medical necessity: Best corrected visual acuity worse than 20/40 secondary to cataracts with impairment of ability to carry out needs or desired activities, blurred vision, visual distortion, reduced contrast sensitivity and/or glare with association functional impairment and supporting documentation/testing, and cataracts causing symptomatic impairment of visual functions not corrected with tolerable changes in glasses or contact lenses interfering with activities of daily life. PROCEDURE: Consent: The risks, benefits and alternatives of this procedures was discussed with the patient. The patient read and signed the consent forms, was identified and was seated in the exam chair. IOL: MX 60 E IOL Diopters: 15.0 Phacoemulsification with posterior chamber intraocular lens implant: The face was prepped with 5% povidone iodine solution, and a few drops of 5% povidone iodine solution was instilled into the inferior fornix. A non-fenestrated drape was placed over the eye and the lids were parted with the speculum. A paracentesis was made with a 15 degree blade, and 1% lidocaine MPF followed by viscoelastic was injected into the anterior chamber. A 2.4 mm metal micro- keratome was used to create a temporal clear corneal incision. A circular anterior capsulorrhexis was created, followed by hydro-dissection and hydro- delineation. The phacoemulsification hand piece was inserted and the nucleus was removed with the Phaco chop technique. The irrigation-aspiration hand piece was used to remove the residual cortex, and vacuum the posterior capsule. The capsular bag was inflated and viscoelastic and the above-mentioned IOL was injected into the eye with care to insert both leaning and trailing haptics in the capsular bag. The irrigation/aspiration hand piece was reinserted to remove residual viscoelastic from the capsular bag and anterior chamber. The corneal incision was hydrated, and anterior chamber was inflated with sterile BSS via the paracentesis site, and found to be watertight. During the case a ring was used to expand the pupil, making a complex case. Postop medication: 1 drop of prednisolone into operative by followed by 1 drop of Cosopt into operative eye followed by 1 drop of Besivance intraoperative by other:
== END 2019-07-14 11:44 | disposition home or self-care (01) ==
LOC: SC 09:24
PROVIDERS: ATTEND Ophthalmology
DX: H25.11 Age-related nuclear cataract, right eye (principal); E11.9 Type 2 diabetes mellitus without complications; I11.9 Hypertensive heart disease without heart failure; E07.9 Disorder of thyroid, unspecified; Z79.82 Long term (current) use of aspirin; Z79.899 Other long term (current) drug therapy; Z79.84 Long term (current) use of oral hypoglycemic drugs; J44.9 Chronic obstructive pulmonary disease, unspecified; Z79.01 Long term (current) use of anticoagulants; I25.2 Old myocardial infarction; Z79.4 Long term (current) use of insulin; Z95.0 Presence of cardiac pacemaker
CPT/HCPCS: 82962; 66984; V2632; J2250; J3490 ×2; J0171; J2001; J2405; J2370; 142; J3010

== ENCOUNTER 2019-07-28 08:32 | Day surgery (SDC) | payer MEDICARE, MEDICAID ==
[~2019-07-28 08:32] MED LIST changes: +CHONDR SU A NA/HYALUR INTRAOC KIT (SURGICARE) ONE; +DORZOLAMIDE HCL 2%/TIMOLOL MALEAT 0.5% OPH SOLN 10 ML OS PRN; +EPINEPHRINE INJ/PF 1 MG/1 ML AMPULE ONE; -KETOROLAC TROMETHAMINE 0.45% 4 DROP/0.4 ML DROPERETTE OD PRN; +KETOROLAC TROMETHAMINE 0.45% 4 DROP/0.4 ML DROPERETTE OS PRN; +LIDOCAINE 1%/PHENYLEPHRINE 1.5% 1 ML VIAL ONE
[2019-07-28] MEDS: CYCLOPENTOLATE 0.2%/PHENYLEPHRINE 1% OPH SOLN 2 ML OS PRN ×3 (08:50→09:10)
[2019-07-28] MEDS: BESIFLOXACIN HCL 0.6% OPH SUSP 5 ML BOTTLE OS PRN ×3 (08:50→09:42)
[2019-07-28] MEDS: TROPICAMIDE 1% OPH SOLN 15 ML OS PRN ×3 (08:50→09:10)
[2019-07-28] MEDS: TETRACAINE HCL 0.5% OPH SOLN 4 ML OS PRN ×3 (08:51→09:17)
[2019-07-28] MEDS ORDERED: MIDAZOLAM 2 MG/2 ML INJ ONE (09:00)
--- NOTE | 2019-07-28 14:20 | Operative Report ---
Operative Report-[facility] Operative Report: DATE OF SURGERY: 2019 PREOPERATIVE DIAGNOSIS: NUCLEAR CATARACT, LEFT EYE. POSTOPERATIVE DIAGNOSIS: NUCLEAR CATARACT, LEFT EYE. PROCEDURE PERFORMED: PHACOEMULSIFICATION WITH POSTERIOR CHAMBER INTRAOCULAR LENS IMPLANT, LEFT EYE. SURGEON: Ugo Quintero DO MEDICATIONS AND ANESTHESIA: Versed: IV Versed Tetracaine drops: 1 to 2 drops given as needed COMPLICATION: None INDICATIONS FOR SURGERY: Medical necessity: Best corrected visual acuity worse than 20/40 secondary to cataracts with impairment of ability to carry out needs or desired activities, blurred vision, visual distortion, reduced contrast sensitivity and/or glare with association functional impairment and supporting documentation/testing, and cataracts causing symptomatic impairment of visual functions not corrected with tolerable changes in glasses or contact lenses interfering with activities of daily life. PROCEDURE: Consent: The risks, benefits and alternatives of this procedures was discussed with the patient. The patient read and signed the consent forms, was identified and was seated in the exam chair. IOL: MX 60 E 16.0 IOL Diopters: Phacoemulsification with posterior chamber intraocular lens implant: The face was prepped with 5% povidone iodine solution, and a few drops of 5% povidone iodine solution was instilled into the inferior fornix. A non-fenestrated drape was placed over the eye and the lids were parted with the speculum. A paracentesis was made with a 15 degree blade, and 1% lidocaine MPF followed by viscoelastic was injected into the anterior chamber. A 2.4 mm metal micro- keratome was used to create a temporal clear corneal incision. A circular anterior capsulorrhexis was created, followed by hydro-dissection and hydro- delineation. The phacoemulsification hand piece was inserted and the nucleus was removed with the Phaco chop technique. The irrigation-aspiration hand piece was used to remove the residual cortex, and vacuum the posterior capsule. The capsular bag was inflated and viscoelastic and the above-mentioned IOL was injected into the eye with care to insert both leaning and trailing haptics in the capsular bag. The irrigation/aspiration hand piece was reinserted to remove residual viscoelastic from the capsular bag and anterior chamber. The corneal incision was hydrated, and anterior chamber was inflated with sterile BSS via the paracentesis site, and found to be watertight. Postop medication:1 drop of prednisolone into operative by followed by 1 drop of Cosopt into operative eye followed by 1 drop of Besivance intraoperative by Other:
== END 2019-07-28 10:20 | disposition home or self-care (01) ==
LOC: SC 08:32
PROVIDERS: ATTEND Ophthalmology
DX: H25.12 Age-related nuclear cataract, left eye (principal); E11.9 Type 2 diabetes mellitus without complications; I10 Essential (primary) hypertension; E07.9 Disorder of thyroid, unspecified; Z79.82 Long term (current) use of aspirin; Z79.84 Long term (current) use of oral hypoglycemic drugs; Z98.41 Cataract extraction status, right eye; J44.9 Chronic obstructive pulmonary disease, unspecified; Z79.01 Long term (current) use of anticoagulants; Z79.4 Long term (current) use of insulin
CPT/HCPCS: 66984; 82962; 00142; V2632; J2250; J3490 ×2; A9270; J0171; J2370; 142

== ENCOUNTER 2019-09-13 13:42 | Inpatient (IN) | payer MEDICARE, MEDICAID ==
--- NOTE | 2019-09-13 14:09 | EKG REPORT ---
SEVERITY:- ABNORMAL ECG - WIDE COMPLEX TACHYCARDIA VENTRICULAR PREMATURE COMPLEX LEFT BUNDLE BRANCH BLOCK : Confirmed by: Mirela Dave MD 13-Sep-2019 14:09:15
[2019-09-13 14:16] LABS: ABSOLUTE BASOPHILS # (AUTO) 0.1 10^3/uL (0.0-0.2); ABSOLUTE LYMPHOCYTES (AUTO) 0.9 10^3/uL (0.5-4.7); ABSOLUTE MONOCYTES (AUTO) 1.4 10^3/uL (0.1-1.4); ABSOLUTE NEUT (AUTO) 8.5 10^3/uL (1.7-8.2); BASOPHILS % (AUTO) 0.8 % (0-2); EOSINOPHILS % (AUTO) 0.3 % (0-6); HEMATOCRIT 31.7 % (37.9-51.0); HEMOGLOBIN 10.8 g/dL (13.5-17.0); LYMPHOCYTES % (AUTO) 7.8 % (13-45); MEAN CORPUSCULAR HEMOGLOBIN 29.3 pg (27.0-33.4); MEAN CORPUSCULAR VOLUME 86 fl (80-97); MONOCYTES % (AUTO) 13.2 % (3-13); PLATELET COUNT 414 10^3/uL (150-450); RED BLOOD COUNT 3.67 10^6/uL (4.35-5.55); RED CELL DISTRIBUTION WIDTH 14.1 % (11.5-14.0); SEGMENTED NEUTROPHILS % (AUTO) 77.9 % (42-78); TOTAL CELLS COUNTED % (AUTO) 100 %
[2019-09-13 14:38] LABS: ALBUMIN 3.5 g/dL (3.5-5.0); ALKALINE PHOSPHATASE 259 U/L (38-126); ANION GAP 10 (5-19); ASPARTATE AMINO TRANSFERASE 81 U/L (17-59); BILIRUBIN,DIRECT 0.3 mg/dL (0.0-0.4); BILIRUBIN,TOTAL 0.9 mg/dL (0.2-1.3); BLOOD UREA NITROGEN 28 mg/dL (7-20); CALCIUM 8.8 mg/dL (8.4-10.2); CARBON DIOXIDE 24 mmol/L (22-30); CHLORIDE 100 mmol/L (98-107); GLUCOSE 218 mg/dL (75-110); TOTAL PROTEIN 8.1 g/dL (6.3-8.2)
[2019-09-13] MEDS ORDERED: DILTIAZEM HCL INJ 25 MG/5 ML VIAL IV ONE ×2 (15:24→16:04)
[2019-09-13] MEDS ORDERED: NORMAL SALINE 500 ML IV ONE (15:31)
--- NOTE | 2019-09-13 17:05 | ER Document Report ---
ED General - General Chief Complaint: Abdominal Pain Stated Complaint: ABDOMINAL PAIN Primary Care Provider: KAISER HARRISON MD [Primary Care Provider] - Follow up as needed Mode of Arrival: Ambulatory Information source: Patient TRAVEL OUTSIDE OF THE [place] IN LAST 30 DAYS: No - HPI Notes: This patient is presenting with approximately 5 days of intermittent severe left lower quadrant pain. The pain is not worsened with movement and has no other relieving or exacerbating factors. It is constant but waxing and waning. It started 5 days ago and has been present ever since. The patient's had some intermittent nausea but no significant vomiting. He denies fevers at this point. He states that he has had no melena or hematochezia. Last bowel movem ent was 3 days ago and was loose. States that he has not been able to eat for about 3 days. He also states that he had a episode of chest pain that was fairly severe yesterday that resolved with 3 nitroglycerin tablets. He has had no pain since then. The pain was typical for his anginal symptoms. He had some sort of scan 3 days ago ordered by his [facility] facility but he is unaware of the results at this point. - Related Data Allergies/Adverse Reactions: No Known Allergies Allergy (Verified 07/21/19 15:24) Past Medical History - Social History Smoking Status: Unknown if Ever Smoked Frequency of alcohol use: None Drug Abuse: None Family History: Reviewed & Not Pertinent, Hypertension Patient has suicidal ideation: No Patient has homicidal ideation: No - Past Medical History Cardiac Medical History: Reports: Hx Congestive Heart Failure - Mildly diminished LVEF, mild to moderate diastolic dysfunction, Hx Heart Attack, Hx Hypercholesterolemia, Hx Hypertension Denies: Hx Coronary Artery Disease Pulmonary Medical History: Reports: Hx Pneumonia Denies: Hx Asthma Neurological Medical History: Reports: Hx Migraine. Denies: Hx Cerebrovascular Accident, Hx Seizures Endocrine Medical History: Reports: Hx Diabetes Mellitus Type 2 Renal/ Medical History: Denies: Hx Peritoneal Dialysis GI Medical History: Reports: Hx Diverticulitis, Hx Gastroesophageal Reflux Disease. Denies: Hx Hepatitis, Hx Hiatal Hernia, Hx Ulcer Musculoskeletal Medical History: Reports Hx Arthritis Psychiatric Medical History: Reports: Hx Depression Infectious Medical History: Denies: Hx Hepatitis Past Surgical History: Reports: Hx Open Heart Surgery, Hx Orthopedic Surgery - left leg, Hx Tonsillectomy. Denies: Hx Pacemaker - Immunizations Immunizations up to date: Yes Hx Diphtheria, Pertussis, Tetanus Vaccination: Yes Hx Pneumococcal Vaccination: 03/09/17 Review of Systems - Review of Systems Constitutional: See HPI EENT: No symptoms reported Cardiovascular: See HPI Respiratory: No symptoms reported Gastrointestinal: See HPI Genitourinary: No symptoms reported Male Genitourinary: No symptoms reported Physical Exam - Vital signs Vitals: Resp 17 09/13/19 13:48 - General General appearance: Alert In distress: None - HEENT Head: Normocephalic, Atraumatic Eyes: Normal Pupils: PERRL - Respiratory Respiratory status: No respiratory distress - Cardiovascular Rhythm: Regular, Irregularly irregular, Tachycardia Heart sounds: Normal auscultation Murmur: No - Abdominal Distension: No distension Bowel sounds: Normal Tenderness: Nontender, Tender - LLQ Tenderness, no rebound Organomegaly: No organomegaly - Back Back: Normal, Nontender - Extremities General upper extremity: Normal inspection, Nontender, Normal color, Normal ROM, Normal temperature General lower extremity: Normal inspection, Nontender, Normal color, Normal ROM, Normal temperature, Normal weight bearing. No: David's sign Course - Re-evaluation Re-evalutation: 09/13/19 18:47 Patient's atrial fibrillation did not respond well to Cardizem. There was a brief response to Lopressor but he quickly returned to a rate of the 130s. At this point we opted to start a Cardizem drip. This is new onset A. fib and will need to be rate controlled further evaluated for treatment by cardiology. Etiology of the patient's left lower quadrant pain is unclear at this point CT scan did not show any significant diverticulitis or diverticular abscess. He did have diverticulosis and it is conceivable that he has an early diverticulitis. Of note was the large reading liver mass consistent with possible hepatocellular carcinoma. The patient is aware of this finding based on a previous scan earlier this week. We will admit the patient for treatment of his atrial fibrillation. - Vital Signs Vital signs: Temp Pulse Resp BP Pulse Ox 98.4 F 18 118/58 L 98 09/13/19 18:15 09/13/19 14:01 09/13/19 17:43 09/13/19 17:43 - Laboratory Result Diagrams: 09/13/19 13:54 09/13/19 13:54 Laboratory results interpreted by me: 09/13/19 09/13/19 13:54 13:54 WBC 11.0 H RBC 3.67 L Hgb 10.8 L Hct 31.7 L RDW 14.1 H Lymph % (Auto) 7.8 L Edmunds % (Auto) 13.2 H Absolute Neuts (auto) 8.5 H Sodium 133.5 L BUN 28 H Glucose 218 H AST 81 H Alkaline Phosphatase 259 H Discharge - Discharge Clinical Impression: Atrial fibrillation with RVR, LLQ abdominal pain, Liver malignancy Condition: Fair Disposition: ADMITTED INPATIENT Admitting Provider: Thee (Hospitalist) Unit Admitted: IMCU Referrals: KAISER HARRISON MD [Primary Care Provider] - Follow up as needed
[2019-09-13] MEDS ORDERED: METOPROLOL TARTRATE PF/INJ 5 MG/5 ML SDV IV ONE (17:13)
[2019-09-13] MEDS ORDERED: DILTIAZEM HCL/D5W 125 MG/125 ML RTUINJ IV PRN (18:23)
--- NOTE | 2019-09-13 18:30 | RADIOLOGY REPORT (SQ) ---
EXAM DESCRIPTION: RadLex: CT ABDOMEN PELVIS WITH IV CONTRAST CLINICAL HISTORY: 73 years Male; LLQ abd pain; TECHNIQUE: CT of the abdomen and pelvis using intravenous contrast. Oral contrast was administered. All CT scans at this facility use dose modulation, iterative reconstruction, and/or weight based dosing when appropriate to reduce radiation dose to as low as reasonably achievable. COMPARISON: CT 06/18/2016 FINDINGS: Abdomen: Stomach: No significant distention or surrounding edema. Liver: Large irregular heterogeneous mass spanning segments 4 and 8, measuring 12.2 cm LR by 10.2 cm AP by 12.1 cm SI. Lesion is exophytic, extending inferiorly into the karo hepatis, abutting the gallbladder and gastroduodenal junction. This is new since prior exam. At least 5 additional less well-defined hypoenhancing masses in the left lobe are less than 2 cm diameter each. Gallbladder:Nondistended Pancreas: Moderate fatty atrophy. No focal lesion or acute edema. Spleen:Within normal limits Right kidney:No hydronephrosis. No focal lesion. Left kidney:No hydronephrosis. No focal lesion. Adrenal glands:Within normal limits Vascular structures:Within normal limits Pelvis: Small bowel:No significant distention. Appendix:Within normal limits Colon: Multiple diverticula. No colonic distention. No acute pericolonic edema. No free intraperitoneal fluid or air. Bones: No suspicious lytic or blastic lesions. Previous internal fixation of the proximal left femur is partially visualized. No acute bone findings. Bladder: Unremarkable. No pelvic mass or adenopathy. IMPRESSION: 1. Large 12 cm hepatic mass, new since 2017. Multiple smaller hepatic lesions. Differential diagnosis includes primary hepatocellular carcinoma versus metastatic disease. 2. Colonic diverticulosis but no CT evidence for acute diverticulitis.
[2019-09-13] MEDS ORDERED: MAGNESIUM HYDROXIDE SUSP 30 ML UDCUP PO PRN (19:40)
[2019-09-13] MEDS ORDERED: MAG HYDROX/AL HYDROX/SIMETH SUSP 30 ML UDCUP PO PRN (19:40)
[2019-09-13] MEDS ORDERED: ONDANSETRON HCL INJ/PF 4 MG/2 ML SDV IV PRN (19:40)
[2019-09-13] MEDS ORDERED: LEVALBUTEROL HCL NEB 0.63 MG/3 ML AMPUL NEB PRN (19:40)
[2019-09-13] MEDS ORDERED: MELATONIN 5 MG TABLET PO PRN (19:47)
[2019-09-13] MEDS ORDERED: NITROGLYCERIN 0.4 MG/TAB 25 TAB/BOTTLE SL PRN (19:47)
[2019-09-13] MEDS ORDERED: LORAZEPAM INJ 2 MG/1 ML VIAL IV PRN (19:47)
[2019-09-13] MEDS ORDERED: METOPROLOL TARTRATE PF/INJ 5 MG/5 ML SDV IV PRN (19:47)
[2019-09-13] MEDS ORDERED: MORPHINE SULFATE 10 MG/ML INJ IV PRN ×3 (19:47)
[2019-09-13] MEDS ORDERED: INSULIN REG, HUMAN 100 UNIT/ML 3 ML VIAL (PYX) SUBCUT PRN (19:47)
[2019-09-13] MEDS ORDERED: DEXTROSE 40% GEL 15 GM TUBE PO PRN ×2 (19:48)
[2019-09-13] MEDS ORDERED: DEXTROSE 50%-WATER 25 GM/50 ML DISP.SYRIN IV PRN ×2 (19:48)
[2019-09-13] MEDS ORDERED: GLUCAGON,HUMAN RECOMB 1 MG INJ IM PRN (19:48)
[2019-09-13] MEDS: DILTIAZEM HCL/D5W 125 MG/125 ML RTUINJ IV PRN (20:33)
[2019-09-13 21:22] LABS: CREATINE KINASE MB 0.97 ng/mL (<4.55); TROPONIN I 0.016 ng/mL
[2019-09-13] MEDS: ATORVASTATIN CALCIUM 40 MG TABLET PO SCH (22:31)
[2019-09-13] MEDS: METOCLOPRAMIDE HCL 10 MG TABLET PO SCH (22:31)
[2019-09-13] MEDS: APIXABAN 5 MG TABLET PO SCH (22:31)
[2019-09-13] MEDS: FAMOTIDINE 20 MG TABLET PO SCH (22:31)
--- NOTE | 2019-09-14 02:04 | PDOC H&P ---
History of Present Illness Admission Date/PCP: 09/13/2019 19:12 KAISER HARRISON MD Patient complains of: Abdominal pain History of Present Illness: CATALINO GRUBER JR is a 73 year old male who presented to the emergency room with a 5-day history of left lower quadrant abdominal pain. He admitted to constant waxing and waning pain in his left lower abdomen beginning 5 days ago. The pain is a cramping pressure without radiation and ranges from mild to severe as it waxes and wanes. He admits the associated symptoms of anorexia, nausea without vomiting and he had 1 loose stool 3 days ago. He is being evaluated for a hepatic mass by his primary care provider. He denies other associated or a ccompanying signs and symptoms. He admits prior similar episodes with diverticulitis. He has not identified any aggravating or ameliorating factors for his abdominal pain. In the emergency room he was found to have an unremarkable abdominal evaluation however he was noted to be in atrial fibrilla tion with a rapid ventricular response and was subsequently treated with a diltiazem infusion and admitted to the hospital for further evaluation and treatment. Past Medical History Cardiac Medical History: Reports: Atrial Fibrillation - Paroxysmal, Congestive Heart Failure - Mildly diminished LVEF, mild to moderate diastolic dysfunction, Coronary Artery Disease - With stable angina relieved by nitroglycerin, Myocardial Infarction, Hyperlipidema, Hypertension Denies: DVT, Peripheral Vascular Disease, Pulmonary Embolism Pulmonary Medical History: Reports: Chronic Obstructive Pulmonary Disease (COPD), Pneumonia, Sleep Apnea Denies: Asthma EENT Medical History: Reports: Cataracts, Ears - Hearing aids Neurological Medical History: Reports: Migraine, Other - Diabetic peripheral neuropathy Denies: Hemorrhagic CVA, Ischemic CVA, Seizures Endocrine Medical History: Reports: Diabetes Mellitus Type 2, Hypothyroidism, Obesity Denies: Diabetes Mellitus Type 1, Hyperthyroidism Renal/ Medical History: Reports: Other - Benign prostatic hyperplasia Denies: Chronic Kidney Disease, Nephrolithiasis Malignancy Medical History: Reports: Other - Liver mass noted by primary care provider in process of evaluation GI Medical History: Reports: Diverticulitis, Gastroesophageal Reflux Disease Denies: Cirrhosis, Crohn's Disease, Hepatitis, Hiatal Hernia, Peptic Ulcer Disease, Ulcerative Colitis Musculoskeltal Medical History: Reports: Arthritis, Other - Osteoporosis Denies: Gout Skin Medical History: Denies: Eczema, Psoriasis Psychiatric Medical History: Reports: Depression, Tobacco Dependency Denies: Alcohol Dependency, Substance Abuse Traumatic Medical History: Reports: None Hematology: Denies: Anemia, Bleeding Tendencies Infectious Medical History: Reports: None Past Surgical History Past Surgical History: Reports: Orthopedic Surgery - left leg, Tonsillectomy, Other - Bilateral cataracts Social History Information Source: Patient Lives with: [facility] Smoking Status: Former Smoker Electronic Cigarette use?: No Frequency of Alcohol Use: Occasional Hx Recreational Drug Use: No Drugs: None Hx Prescription Drug Abuse: No - Advance Directive Resuscitation Status: Full Code Surrogate healthcare decision maker:: Simone Gruber Family History Family History: Hypertension. denies: CAD, DM, Malignancy Parental Family History Reviewed: Yes Children Family History Reviewed: No Sibling(s) Family History Reviewed.: Yes Medication/Allergy Home Medications: Gabapentin [Neurontin] 600 mg PO TID 07/28/17 L.acidoph/L.bulg/B.bif/S.therm [Bacid Caplet] 1 each PO BID 07/28/17 Multivitamin [Multiple Vitamins] 1 each PO DAILY 07/28/17 Dicyclomine HCl [Bentyl 20 mg Tablet] 20 mg PO QID #5 tablet 07/30/17 Alendronate Sodium 70 mg PO MO@1000 02/19/19 Aspirin [Ecotrin 81 mg EC Tablet] 81 mg PO DAILY 02/19/19 Atorvastatin Calcium [Lipitor 40 mg Tablet] 20 mg PO QHS 02/19/19 Cholecalciferol (Vitamin D3) [Vitamin D3 400 Unit Tablet] 800 unit PO DAILY 02/19/19 Citalopram Hydrobromide [Celexa 40 mg Tablet] 20 mg PO DAILY 02/19/19 Finasteride [Proscar 5 mg Tablet] 5 mg PO DAILY 02/19/19 Levothyroxine Sodium [Synthroid 0.025 mg Tablet] 25 mcg PO DAILY 02/19/19 Metformin HCl [Metformin HCl ER] 1,000 mg PO BID 02/19/19 Nitroglycerin [Nitrostat 0.4 mg (1/150 Gr) Tabs 25/Bottle] 1 tab SL Q5MP PRN 02/19/19 Apixaban [Eliquis 5 mg Tablet] 5 mg PO BID tablet 02/24/19 Isosorbide Mononitrate [Imdur 30 mg Tablet.er] 30 mg PO DAILY tab.er.24h 02/24/19 Dexlansoprazole [Dexilant 60 mg Capsule] 60 mg PO BID 07/08/19 Furosemide [Lasix 40 mg Tablet] 60 mg PO QAM 07/08/19 Insulin Aspart [Novolog] 3 unit SQ QAM 07/08/19 Insulin Glargine,Hum.rec.anlog [Lantus (Pyxis) Insulin 100 Unit/1 ml 10 ml] 12 unit SUBCUT DAILY 07/08/19 Potassium Chloride 20 meq PO DAILY 07/08/19 Acetaminophen [Tylenol 325 mg Tablet] 650 mg PO Q4HP PRN 09/13/19 Calcium Carbonate [Calcium] 600 mg PO BID 09/13/19 Insulin Aspart [Novolog Insulin (Aspart) 100 unit/mL] 5 units SQ MEALS 09/13/19 Ipratropium/Albuterol Sulfate [Duoneb 3 ml Ampul] 3 ml NEB Q6HP PRN 09/13/19 Lidocaine HCl/Menthol [Aflexeryl-Lc 4%-1% Patch] 1 applic TP QAM 09/13/19 Lisinopril [Prinivil 5 mg Tablet] 5 mg PO BID 09/13/19 Loperamide HCl [Loperamide] 2 mg PO ASDIR PRN MDD 8MG 09/13/19 Menthol [Biofreeze] 1 applic TP Q4HP PRN 09/13/19 Metoprolol Succinate [Toprol Xl 50 mg Tab.sr] 100 mg PO DAILY 09/13/19 Witch Debi [Preparation H] 1 pad TP ASDIR PRN 09/13/19 Allergies/Adverse Reactions: No Known Allergies Allergy (Verified 07/21/19 15:24) Review of Systems Constitutional: PRESENT: as per HPI, anorexia. ABSENT: chills, fever(s) Eyes: ABSENT: visual disturbances, other - Eye pain Ears: ABSENT: hearing changes, other - Ear pain Nose, Mouth, and Throat: ABSENT: headache(s), sore throat Cardiovascular: PRESENT: chest pain - Occasional angina relieved by nitroglycerin. ABSENT: palpitations Respiratory: ABSENT: cough, dyspnea Gastrointestinal: PRESENT: as per HPI, abdominal pain, diarrhea, nausea. ABSENT: constipation, hematochezia, melena, vomiting Genitourinary: ABSENT: dysuria, hematuria Musculoskeletal: ABSENT: back pain, joint swelling, muscle weakness Integumentary: ABSENT: pruritus, rash Neurological: ABSENT: confusion, convulsions, focal weakness, memory loss, syncope Psychiatric: ABSENT: anxiety, depression Endocrine: ABSENT: cold intolerance, heat intolerance, polydipsia, polyphagia, polyuria Hematologic/Lymphatic: ABSENT: easy bleeding, easy bruising Allergic/Immunologic: ABSENT: seasonal rhinorrhea Physical Exam Vital Signs: Temp Pulse Resp BP Pulse Ox 98.4 F 18 118/58 L 98 09/13/19 18:15 09/13/19 14:01 09/13/19 17:43 09/13/19 17:43 Intake & Output 09/11/19 09/12/19 09/13/19 23:59 23:59 23:59 Intake Total 500 Balance 500 Weight 132.903 kg General appearance: PRESENT: no acute distress, cooperative Head exam: PRESENT: atraumatic, normocephalic Eye exam: ABSENT: conjunctival injection, scleral icterus Ear exam: PRESENT: normal external ear exam. ABSENT: bleeding, drainage Mouth exam: PRESENT: dry mucosa, neck supple Neck exam: ABSENT: JVD, thyromegaly, tracheal deviation Respiratory exam: PRESENT: clear to auscultation reynold, symmetrical, unlabored Cardiovascular exam: PRESENT: irregular rhythm - Irregularly irregular rate and rhythm, tachycardia. ABSENT: clicks, gallop, rubs Pulses: PRESENT: normal radial pulses, normal dorsalis pedis pul Vascular exam: PRESENT: normal capillary refill. ABSENT: pallor GI/Abdominal exam: PRESENT: normal bowel sounds, soft, tenderness - Moderate tenderness palpation in the left lower quadrant without localization Rectal exam: PRESENT: deferred Extremities exam: ABSENT: joint swelling, pedal edema Musculoskeletal exam: ABSENT: deformity, dislocation Neurological exam: PRESENT: alert, oriented to person, oriented to place, oriented to time, oriented to situation, CN II-XII grossly intact. ABSENT: motor sensory deficit Psychiatric exam: PRESENT: appropriate affect, normal mood Skin exam: PRESENT: dry, intact, warm. ABSENT: jaundice, rash, urticaria Results Laboratory Results: 09/13/19 13:54 09/13/19 13:54 09/13/19 09/13/19 13:54 13:54 WBC 11.0 H RBC 3.67 L Hgb 10.8 L Hct 31.7 L MCV 86 MCH 29.3 MCHC 34.0 RDW 14.1 H Plt Count 414 Seg Neutrophils % 77.9 Sodium 133.5 L Potassium 5.0 Chloride 100 Carbon Dioxide 24 Anion Gap 10 BUN 28 H Creatinine 1.03 Est GFR ( Amer) > 60 Glucose 218 H Calcium 8.8 Total Bilirubin 0.9 AST 81 H Alkaline Phosphatase 259 H Total Protein 8.1 Albumin 3.5 Lipase 27.6 09/13/19 13:54 Troponin I 0.019 Impressions: Abdomen/Pelvis CT 09/13/19 00:00 IMPRESSION: 1. Large 12 cm hepatic mass, new since 2017. Multiple smaller hepatic lesions. Differential diagnosis includes primary hepatocellular carcinoma versus metastatic disease. 2. Colonic diverticulosis but no CT evidence for acute diverticulitis. Assessment and Plan - Diagnosis (1) Atrial fibrillation with RVR Is this a current diagnosis for this admission?: Yes (2) Coronary artery disease with stable angina pectoris Qualifiers: Coronary Disease-Associated Artery/Lesion type: [place] artery [place] vs. transplanted heart: [place] heart Qualified Code(s): I25.118 - Atherosclerotic heart disease of [place] coronary artery with other forms of angina pectoris Is this a current diagnosis for this admission?: Yes (3) CHF (congestive heart failure) Qualifiers: Heart failure type: combined systolic and diastolic Heart failure chronicity: chronic Qualified Code(s): I50.42 - Chronic combined systolic (congestive) and diastolic (congestive) heart failure Is this a current diagnosis for this admission?: Yes (4) Hypertension Qualifiers: Hypertension type: essential hypertension Qualified Code(s): I10 - Essential (primary) hypertension Is this a current diagnosis for this admission?: Yes (5) ELIANA (obstructive sleep apnea) Is this a current diagnosis for this admission?: Yes (6) Diabetes mellitus type 2 in obese Is this a current diagnosis for this admission?: Yes (7) Morbid obesity Is this a current diagnosis for this admission?: Yes (8) Benign prostatic hyperplasia Qualifiers: Lower urinary tract symptom presence: unspecified whether lower urinary tract symptoms present Qualified Code(s): N40.0 - Benign prostatic hyperplasia without lower urinary tract symptoms Is this a current diagnosis for this admission?: Yes (9) Diabetic peripheral neuropathy associated with type 2 diabetes mellitus Is this a current diagnosis for this admission?: Yes (10) Osteoporosis Qualifiers: Osteoporosis type: unspecified Presence of current pathological fracture: unspecified Qualified Code(s): M81.0 - Age-related osteoporosis without current pathological fracture Is this a current diagnosis for this admission?: Yes (11) Hypothyroidism Qualifiers: Hypothyroidism type: unspecified Qualified Code(s): E03.9 - Hypothyroidism, unspecified Is this a current diagnosis for this admission?: Yes - Plan Summary Summary: Patient will be admitted to the [facility] where he will receive routine supportive and symptomatic cares. He will initially be continued on a diltiazem infusion until he can be converted to oral therapy. Serial cardiac enzymes will be obtained. A surgical consultation with Dr. Hillman will be obtained and a cardiology consultation with Dr. Samuel will be obtained. He will use morphine sulfate 2 to 4 mg IV every 2 hours as needed for control of pain. He will use Ativan 1 mg IV every 4 hours as needed for anxiety or restlessness. CBCs, metabolic profiles and magnesium levels will be obtained as appropriate. Patient will be on a diabetic and cardiac restricted diet. Before meals and at bedtime Accu-Cheks will be performed with sliding scale insulin for hyperglycemia and a hypoglycemic protocol in place. Patient's routine medications for his chronic medical conditions will be continued, if appro priate, after his medication list has been verified and reconciled. - Time Time Spent with patient: 15-24 minutes Medications reviewed and adjusted accordingly: Yes Anticipated discharge: Other - Assisted living - Inpatient Certification Based on my medical assessment, after consideration of the patient's comorbidities, presenting symptoms, or acuity I expect that the services needed warrant INPATIENT care.: Yes I certify that my determination is in accordance with my understanding of Medicare's requirements for reasonable and necessary INPATIENT services [42 CFR 412.3e].: Yes Medical Necessity: Significant Comorbidiites Make Outpatient Treatment Too Risky, Need Close Monitoring Due to Risk of Patient Decompensation, Need For Continuous Telemetry Monitoring, Risk of Complication if Not Cared For in Hospital
[2019-09-14 02:33] LABS: CREATINE KINASE MB 0.85 ng/mL (<4.55); TROPONIN I 0.018 ng/mL
[2019-09-14] MEDS: LEVOTHYROXINE SODIUM 0.025 MG TABLET PO SCH (05:43)
[2019-09-14] MEDS: GABAPENTIN 300 MG CAPSULE PO SCH ×3 (05:43→21:11)
--- NOTE | 2019-09-14 06:41 | PDOC CONSULTATION ---
Consultation Consult Date: 09/14/19 Attending physician:: andreas pal Provider Consulted: ZACHARY SCOTT Consult reason:: Left lower quadrant pain History of Present Illness Admission Date/PCP: 09/13/19 19:58 KAISER HARRISON MD History of Present Illness: CATALINO MARTINEZ JR is a 73 year old white male presents to the emergency department via ground rescue complaining of a 5 to 7-day history of abdominal pain, left lower quadrant, change in stool habits with some diarrhea. Patient admits to history of diverticulitis, never hospitalized. No previous abdominal surgery. Last colonoscopy 13 years ago, reportedly remarkable except for diverticulosis. Patient admitted to the hospitalist service found to be in atrial fibrillation is now on Cardizem drip. Patient has no evidence of sepsis. CT scan of the abdomen and pelvis with IV and oral contrast showed multiple hepatic lesions, and mild pericolonic stranding around the sigmoid colon. Surgery was consulted to rule out diverticulitis. Patient has a history of large right hepatic lobe lesion extending into the po rta hepatis, suspicious for malignancy. [facility] No records available. Patient is a poor historian. Past Medical History Cardiac Medical History: Reports: Atrial Fibrillation - Paroxysmal, Congestive Heart Failure - Mildly diminished LVEF, mild to moderate diastolic dysfunction, Coronary Artery Disease - With stable angina relieved by nitroglycerin, Myocardial Infarction, Hyperlipidema, Hypertension Denies: DVT, Peripheral Vascular Disease, Pulmonary Embolism Pulmonary Medical History: Reports: Chronic Obstructive Pulmonary Disease (COPD), Pneumonia, Sleep Apnea Denies: Asthma EENT Medical History: Reports: Cataracts, Ears - Hearing aids Neurological Medical History: Reports: Migraine, Other - Diabetic peripheral neuropathy Denies: Hemorrhagic CVA, Ischemic CVA, Seizures Endocrine Medical History: Reports: Diabetes Mellitus Type 2, Hypothyroidism, Obesity Denies: Diabetes Mellitus Type 1, Hyperthyroidism Renal/ Medical History: Reports: Other - Benign prostatic hyperplasia Denies: Chronic Kidney Disease, Nephrolithiasis Malignancy Medical History: Reports: None, Other - Liver mass noted by primary care provider in process of evaluation GI Medical History: Reports: Diverticulitis, Gastroesophageal Reflux Disease Denies: Cirrhosis, Crohn's Disease, Hepatitis, Hiatal Hernia, Peptic Ulcer Disease, Ulcerative Colitis Musculoskeltal Medical History: Reports: Arthritis, Other - Osteoporosis Denies: Gout Skin Medical History: Denies: Eczema, Psoriasis Psychiatric Medical History: Reports: Depression, Tobacco Dependency Denies: Alcohol Dependency, Substance Abuse Traumatic Medical History: Reports: None Hematology: Denies: Anemia, Sickle Cell Disease, Bleeding Tendencies Infectious Medical History: Reports: None Past Surgical History Past Surgical History: Reports: Orthopedic Surgery - left leg, Tonsillectomy, Other - Bilateral cataracts Denies: Pacemaker Social History Lives with: Shelter Smoking Status: Former Smoker Electronic Cigarette use?: No Frequency of Alcohol Use: Occasional Hx Recreational Drug Use: No Drugs: None Hx Prescription Drug Abuse: No - Advance Directive Resuscitation Status: Full Code Family History Family History: None, Hypertension. denies: CAD, DM, Malignancy Parental Family History Reviewed: No Children Family History Reviewed: No Sibling(s) Family History Reviewed.: No Medication/Allergy Home Medications: Gabapentin [Neurontin] 600 mg PO TID 07/28/17 L.acidoph/L.bulg/B.bif/S.therm [Bacid Caplet] 1 each PO BID 07/28/17 Multivitamin [Multiple Vitamins] 1 each PO DAILY 07/28/17 Dicyclomine HCl [Bentyl 20 mg Tablet] 20 mg PO QID #5 tablet 07/30/17 Alendronate Sodium 70 mg PO MO@1000 02/19/19 Aspirin [Ecotrin 81 mg EC Tablet] 81 mg PO DAILY 02/19/19 Atorvastatin Calcium [Lipitor 40 mg Tablet] 20 mg PO QHS 02/19/19 Cholecalciferol (Vitamin D3) [Vitamin D3 400 Unit Tablet] 800 unit PO DAILY 02/19/19 Citalopram Hydrobromide [Celexa 40 mg Tablet] 20 mg PO DAILY 02/19/19 Finasteride [Proscar 5 mg Tablet] 5 mg PO DAILY 02/19/19 Levothyroxine Sodium [Synthroid 0.025 mg Tablet] 25 mcg PO DAILY 02/19/19 Metformin HCl [Metformin HCl ER] 1,000 mg PO BID 02/19/19 Nitroglycerin [Nitrostat 0.4 mg (1/150 Gr) Tabs 25/Bottle] 1 tab SL Q5MP PRN 02/19/19 Apixaban [Eliquis 5 mg Tablet] 5 mg PO BID tablet 02/24/19 Isosorbide Mononitrate [Imdur 30 mg Tablet.er] 30 mg PO DAILY tab.er.24h 09/18/19 Dexlansoprazole [Dexilant 60 mg Capsule] 60 mg PO BID 07/08/19 Furosemide [Lasix 40 mg Tablet] 60 mg PO QAM 07/08/19 Insulin Aspart [Novolog] 3 unit SQ QAM 07/08/19 Insulin Glargine,Hum.rec.anlog [Lantus (Pyxis) Insulin 100 Unit/1 ml 10 ml] 12 unit SUBCUT DAILY 07/08/19 Potassium Chloride 20 meq PO DAILY 07/08/19 Acetaminophen [Tylenol 325 mg Tablet] 650 mg PO Q4HP PRN 09/13/19 Calcium Carbonate [Calcium] 600 mg PO BID 09/13/19 Insulin Aspart [Novolog Insulin (Aspart) 100 unit/mL] 5 units SQ MEALS 09/13/19 Ipratropium/Albuterol Sulfate [Duoneb 3 ml Ampul] 3 ml NEB Q6HP PRN 09/13/19 Lidocaine HCl/Menthol [Aflexeryl-Lc 4%-1% Patch] 1 applic TP QAM 09/13/19 Lisinopril [Prinivil 5 mg Tablet] 5 mg PO BID 09/13/19 Loperamide HCl [Loperamide] 2 mg PO ASDIR PRN MDD 8MG 09/13/19 Menthol [Biofreeze] 1 applic TP Q4HP PRN 09/13/19 Metoprolol Succinate [Toprol Xl 50 mg Tab.sr] 100 mg PO DAILY 09/13/19 Witch Debi [Preparation H] 1 pad TP ASDIR PRN 09/13/19 Allergies/Adverse Reactions: No Known Allergies Allergy (Verified 07/21/19 15:24) Review of Systems Constitutional: PRESENT: as per HPI Eyes: ABSENT: visual disturbances Ears: ABSENT: hearing changes Respiratory: PRESENT: other - Chronic shortness of breath Gastrointestinal: PRESENT: other - Last colonoscopy 13 years ago, no evidence of malignancy; solving right hepatic mass suspicious for malignancy Integumentary: PRESENT: pruritus Physical Exam Vital Signs: Temp Pulse Resp BP Pulse Ox 99.0 F 84 20 92/77 L 96 09/14/19 03:35 09/14/19 06:23 09/14/19 03:35 09/14/19 06:23 09/14/19 03:35 Intake & Output 04/05/20 04/06/20 04/07/20 06:59 06:59 06:59 Intake Total 509 Output Total 0 Balance 509 Weight 132.903 kg General appearance: PRESENT: no acute distress Head exam: PRESENT: normocephalic Eye exam: PRESENT: EOMI Mouth exam: PRESENT: dry mucosa Neck exam: PRESENT: other - Moves, no obvious bony deformities Respiratory exam: PRESENT: other - Decreased breath sounds bilaterally Cardiovascular exam: PRESENT: irregular rhythm, other - Rapid irregular rhythm GI/Abdominal exam: PRESENT: other - Abdomen is soft, small umbilical hernia, reducible; left lower quadrant tenderness to deep palpation, mild guarding no rigidity. Rectal exam: PRESENT: deferred Extremities exam: PRESENT: +2 edema Neurological exam: PRESENT: oriented to person, oriented to place, oriented to time, oriented to situation Psychiatric exam: PRESENT: appropriate affect Results Laboratory Results: 09/13/19 13:54 09/13/19 13:54 09/13/19 09/13/19 13:54 13:54 WBC 11.0 H RBC 3.67 L Hgb 10.8 L Hct 31.7 L MCV 86 MCH 29.3 MCHC 34.0 RDW 14.1 H Plt Count 414 Seg Neutrophils % 77.9 Sodium 133.5 L Potassium 5.0 Chloride 100 Carbon Dioxide 24 Anion Gap 10 BUN 28 H Creatinine 1.03 Est GFR ( Amer) > 60 Glucose 218 H Calcium 8.8 Total Bilirubin 0.9 AST 81 H Alkaline Phosphatase 259 H Total Protein 8.1 Albumin 3.5 Lipase 27.6 09/13/19 09/13/19 09/13/19 13:54 20:21 20:21 Creatine Kinase 116 CK-MB (CK-2) 0.97 Troponin I 0.019 0.016 09/14/19 09/14/19 01:37 01:37 Creatine Kinase 83 CK-MB (CK-2) 0.85 Troponin I 0.018 Impressions: Abdomen/Pelvis CT 09/13/19 00:00 IMPRESSION: 1. Large 12 cm hepatic mass, new since 2017. Multiple smaller hepatic lesions. Differential diagnosis includes primary hepatocellular carcinoma versus metastatic disease. 2. Colonic diverticulosis but no CT evidence for acute diverticulitis. Assessment & Plan - Diagnosis (1) Diverticulitis Is this a current diagnosis for this admission?: Yes Plan: Impression: Low-grade diverticulitis without complication based on clinical history physical examination mild leukocytosis, and a CT scan showing mild pericolonic sigmoid Stranding, with narrowed; no evidence of perforation abscess phlegmon or free air. Patient does not have peritonitis and does not require operative intervention or drainage;last colonoscopy 13 years ago Recommendations: 1. Clear liquids, bowel rest 2. Strict, high-fiber diet, stool softeners 3. Intravenous antibiotics; Flagyl and Levaquin would be sufficient; duration 24 to 48 hours then switch to p.o. antibiotics 4. Patient deserves interval colonoscopy after the COVID basis, unless he deteriorates clinically, then a more urgent endoscopic evaluation would be appropriate 5. We will follow with you; the above discussed with Dr. Pal, hospitalist. (2) Liver mass Is this a current diagnosis for this admission?: Yes Plan: Impression: New, expanding heterogeneous mass involving large portion of the right liver, extending into the karo hepatis, highly suspicious for malignancy Recommendations: 1. Patient needs a liver biopsy; this could be arranged through interventional radiology, likely after the COVID basis as this lesion has been here for some p eriod of time. 2. This was discussed with the hospitalist this morning. (3) Diabetes mellitus type 2 in obese Is this a current diagnosis for this admission?: Yes (4) Morbid obesity Is this a current diagnosis for this admission?: Yes (5) Atrial fibrillation with RVR Is this a current diagnosis for this admission?: Yes (6) Dehydration Is this a current diagnosis for this admission?: Yes - Time Time Spent: 50 to 70 Minutes Smoking Cessation Education: over 10 minutes Medications reviewed and adjusted accordingly: Yes Anticipated discharge: Home
[2019-09-14] MEDS ORDERED: PROMETHAZINE HCL INJ 25 MG/1 ML VIAL IV PRN (07:21)
[2019-09-14 08:03] LABS: APPEARANCE,URINE CLEAR; BILIRUBIN,URINE NEGATIVE (NEGATIVE); COLOR,URINE YELLOW; GLUCOSE, URINE NEGATIVE (NEGATIVE); KETONES,URINE 20 mg/dL (NEGATIVE); PROTEIN,URINE 30 mg/dL (NEGATIVE); URINE SPECIFIC GRAVITY 1.054; UROBILINOGEN,URINE NEGATIVE mg/dL (<2.0)
[2019-09-14 08:22] LABS: HEMATOCRIT 28.1 % (37.9-51.0); HEMOGLOBIN 9.5 g/dL (13.5-17.0); MEAN CORPUSCULAR HEMOGLOBIN 28.8 pg (27.0-33.4); MEAN CORPUSCULAR HGB CONC 33.7 g/dL (32.0-36.0); MEAN CORPUSCULAR VOLUME 85 fl (80-97); PLATELET COUNT 331 10^3/uL (150-450); RED BLOOD COUNT 3.29 10^6/uL (4.35-5.55); RED CELL DISTRIBUTION WIDTH 14.1 % (11.5-14.0); WHITE BLOOD COUNT 8.3 10^3/uL (4.0-10.5)
[2019-09-14 08:34] LABS: ANION GAP 7 (5-19); BLOOD UREA NITROGEN 23 mg/dL (7-20); CALCIUM 8.2 mg/dL (8.4-10.2); CARBON DIOXIDE 25 mmol/L (22-30); CHLORIDE 100 mmol/L (98-107); CHOLESTEROL 123.19 mg/dL (0-200); GLUCOSE 189 mg/dL (75-110); POTASSIUM 4.6 mmol/L (3.6-5.0); TRIGLYCERIDES 88 mg/dL (<150)
[2019-09-14 08:44] LABS: CREATINE KINASE MB 0.71 ng/mL (<4.55); TROPONIN I 0.017 ng/mL
[2019-09-14 08:45] LABS: DIRECT LDL 82 mg/dL (<100)
[2019-09-14] MEDS: METOPROLOL SUCCINATE 50 MG TAB.SR.24H PO SCH ×2 (09:14→21:11)
[2019-09-14] MEDS: ISOSORBIDE MONONITRATE 30 MG TAB.ER.24H PO SCH (09:14)
[2019-09-14] MEDS: LISINOPRIL 5 MG TABLET PO SCH (09:14)
[2019-09-14] MEDS: FINASTERIDE 5 MG TABLET PO SCH (09:14)
[2019-09-14] MEDS: METOCLOPRAMIDE HCL 10 MG TABLET PO SCH ×4 (09:14→21:11)
[2019-09-14] MEDS: APIXABAN 5 MG TABLET PO SCH ×2 (09:14→17:10)
[2019-09-14] MEDS: FAMOTIDINE 20 MG TABLET PO SCH ×2 (09:14→21:11)
[2019-09-14] MEDS: ASPIRIN 81 MG TABLET, ENT COATED PO SCH (09:15)
[2019-09-14] MEDS: INSULIN GLARGINE,HUM.REC.ANLOG 1,000 UNIT/10 ML VIAL SUBCUT SCH (09:15)
[2019-09-14] MEDS: DOCUSATE SODIUM 100 MG CAPSULE PO SCH ×2 (09:15→17:10)
[2019-09-14] MEDS: LACTOBACILLUS ACIDOPHILUS 250 MG TAB PO SCH ×2 (09:15→17:10)
[2019-09-14] MEDS: INSULIN REG, HUMAN 100 UNIT/ML 3 ML VIAL (PYX) SUBCUT SCH ×4 (09:15→21:14)
[2019-09-14] MEDS: DILTIAZEM HCL/D5W 125 MG/125 ML RTUINJ IV PRN (09:21)
[2019-09-14] MEDS ORDERED: METOPROLOL SUCCINATE 50 MG TAB.SR.24H PO SCH (10:00)
[2019-09-14] MEDS ORDERED: LEVOFLOXACIN 750 MG/D5W RTU 750 MG/150 ML RTUPB IV SCH (10:00)
[2019-09-14] MEDS ORDERED: DIGOXIN INJ 0.5 MG/2 ML AMPULE ONE (11:04)
[2019-09-14] MEDS ORDERED: DIGOXIN INJ 0.5 MG/2 ML AMPULE IV ONE (11:30)
--- NOTE | 2019-09-14 11:45 | PDOC PROGRESS REPORT ---
Subjective Progress Note for:: 09/14/19 Subjective:: 73-year-old male admitted with sigmoid diverticulitis. The patient reports that his pain has resolved today. He is tolerating a diet. He denies chest pain, shortness of breath, fevers, chills, headache, dizziness, orthostasis, blurry vision, nausea, vomiting. Reason For Visit: PAROXYSMAL ATRIAL FIBRILLATION WIT RAPID VENTRICUL Physical Exam Vital Signs: Temp Pulse Resp BP Pulse Ox 99.0 F 133 H 20 111/46 L 96 09/14/19 03:35 09/14/19 08:00 09/14/19 03:35 09/14/19 08:00 09/14/19 03:35 Intake & Output 09/13/19 09/14/19 09/15/19 06:59 06:59 06:59 Intake Total 509 64 Output Total 0 Balance 509 64 Weight 135.9 kg General appearance: PRESENT: no acute distress, obese Eye exam: PRESENT: EOMI, PERRLA. ABSENT: scleral icterus Mouth exam: PRESENT: moist, neck supple Neck exam: ABSENT: meningismus, tenderness, thyromegaly, tracheal deviation Respiratory exam: PRESENT: unlabored. ABSENT: tachypnea, wheezes Cardiovascular exam: PRESENT: tachycardia Vascular exam: PRESENT: normal capillary refill GI/Abdominal exam: PRESENT: soft. ABSENT: rigid, tenderness Rectal exam: PRESENT: deferred Extremities exam: ABSENT: clubbing Musculoskeletal exam: ABSENT: deformity Neurological exam: PRESENT: alert, awake, oriented to person, oriented to place, oriented to time, oriented to situation, CN II-XII grossly intact Psychiatric exam: ABSENT: agitated, anxious, depressed Focused psych exam: ABSENT: delusional Skin exam: ABSENT: cyanosis, erythema, jaundice Results Laboratory Results: 09/14/19 07:30 09/14/19 07:30 09/13/19 09/13/19 09/14/19 13:54 13:54 07:30 WBC 11.0 H 8.3 RBC 3.67 L 3.29 L Hgb 10.8 L 9.5 L Hct 31.7 L 28.1 L MCV 86 85 MCH 29.3 28.8 MCHC 34.0 33.7 RDW 14.1 H 14.1 H Plt Count 414 331 Seg Neutrophils % 77.9 Sodium 133.5 L Potassium 5.0 Chloride 100 Carbon Dioxide 24 Anion Gap 10 BUN 28 H Creatinine 1.03 Est GFR ( Amer) > 60 Glucose 218 H Calcium 8.8 Magnesium Total Bilirubin 0.9 AST 81 H Alkaline Phosphatase 259 H Total Protein 8.1 Albumin 3.5 Triglycerides Cholesterol LDL Cholesterol Direct VLDL Cholesterol HDL Cholesterol Lipase 27.6 TSH Urine Color Urine Appearance Urine pH Ur Specific [place] Urine Protein Urine Glucose (UA) Urine Ketones Urine Blood Urine RBC (Auto) 09/14/19 09/14/19 09/14/19 07:30 07:30 07:45 WBC RBC Hgb Hct MCV MCH MCHC RDW Plt Count Seg Neutrophils % Sodium 132.0 L Potassium 4.6 Chloride 100 Carbon Dioxide 25 Anion Gap 7 BUN 23 H Creatinine 0.93 Est GFR ( Amer) > 60 Glucose 189 H Calcium 8.2 L Magnesium 2.0 Total Bilirubin AST Alkaline Phosphatase Total Protein Albumin Triglycerides 88 Cholesterol 123.19 LDL Cholesterol Direct 82 VLDL Cholesterol 18.0 HDL Cholesterol 25 L Lipase TSH 1.45 Urine Color YELLOW Urine Appearance CLEAR Urine pH 6.0 Ur Specific [place] 1.054 Urine Protein 30 H Urine Glucose (UA) NEGATIVE Urine Ketones 20 H Urine Blood SMALL H Urine RBC (Auto) 1 09/13/19 09/13/19 09/13/19 13:54 20:21 20:21 Creatine Kinase 116 CK-MB (CK-2) 0.97 Troponin I 0.019 0.016 09/14/19 09/14/19 09/14/19 01:37 01:37 07:30 Creatine Kinase 83 97 CK-MB (CK-2) 0.85 Troponin I 0.018 09/14/19 07:30 Creatine Kinase CK-MB (CK-2) 0.71 Troponin I 0.017 Impressions: Abdomen/Pelvis CT 09/13/19 00:00 IMPRESSION: 1. Large 12 cm hepatic mass, new since 2017. Multiple smaller hepatic lesions. Differential diagnosis includes primary hepatocellular carcinoma versus metastatic disease. 2. Colonic diverticulosis but no CT evidence for acute diverticulitis. Assessment & Plan - Diagnosis (1) Diverticulitis Is this a current diagnosis for this admission?: Yes - Plan Summary Plan Summary: This is a 73-year-old male with uncomplicated diverticulitis. His abdominal pain has resolved. His white count is normal today. Continue Levaquin and Flagyl for 7 to 10-day course. Okay to transition to p.o. antibiotics when medical team deems fit. The patient is currently tolerating a diet. I have encouraged ambulation. At home, he should increase his fiber intake (recommend a fiber supplement twice daily). The patient currently has other medical issues at play. His diverticulitis appears to be uncomplicated and subacute. Surgery will sign off at this time. Please renotify with any questions or concerns.
[2019-09-14] MEDS: METRONIDAZOLE 500 MG/NS RTU 500 MG/100 ML RTUPB IV SCH ×3 (12:05→23:23)
--- NOTE | 2019-09-14 17:02 | PDOC CONSULTATION ---
Consultation-Blank Consultation: CARDIOLOGY CONSULTATION by Dr. Mirela Johnston on 09/14/2019. Patient seen at 12:30 PM on 09/14/2019. 60 minutes spent on this patient more than 50% of time spent direct patient care. REASON FOR CONSULTATION: Patient admitted with abdominal pain and noted to be in atrial fibrillation with rapid ventricular response. CONSULT REQUESTING PHYSICIAN: Dr. Santy Mitchell, [facility]. HISTORY OF PRESENT ILLNESS: Patient well known to me who follows up in the office. Patient is a 75-year-old male with known history of coronary artery disease, prior history of [place], history of cardiomyopathy, history of chronic atrial fibrillation with left bundle branch block pattern, and hypertension and diabetes mellitus and hypothyroidism and history of sleep apnea on CPAP admitted with 5 days history of abdominal pain and diagnosed as having diverticulitis. The patient is being treated medically for this. The patient states his abdominal pain is much improved, but when he had the abdominal pain prior to being admitted to the hospital and in the emergency room in the hospital he was having palpitations and was found to be in atrial fibrillation with rapid ventricular response. Of note the patient is got chronic atrial fibrillation and is on Eliquis for this. At present is on a Cardizem drip and also oral beta-blockers. He said that he had some episodes of chest pain and discomfort which is short-lived and did not sound anginal. He has shortness of breath. In spite of his cardiomyopathy he has no PND orthopnea. He is trace leg edema. There is no bleeding on Eliquis. There is no TIA CVA symptoms. With the patient being on beta-sam and Cardizem drip his heart rate is much improved. He also has a history of ventricular tachycardia in the past, with no recurrence. At present his abdominal pain is much improved and he has mild discomfort in the left lower quadrant, and he has no nausea or vomiting. There is no history of fever. Past Medical History Cardiac Medical History: Reports: Atrial Fibrillation - Paroxysmal, Congestive Heart Failure - Mildly diminished LVEF, mild to moderate diastolic dysfunction, Coronary Artery Disease - With stable angina relieved by nitroglycerin, Myocardial Infarction, Hyperlipidema, Hypertension Denies: DVT, Peripheral Vascular Disease, Pulmonary Embolism Pulmonary Medical History: Reports: Chronic Obstructive Pulmonary Disease (COPD), Pneumonia, Sleep Apnea Denies: Asthma EENT Medical History: Reports: Cataracts, Ears - Hearing aids Neurological Medical History: Reports: Migraine, Other - Diabetic peripheral neuropathy Denies: Hemorrhagic CVA, Ischemic CVA, Seizures Endocrine Medical History: Reports: Diabetes Mellitus Type 2, Hypothyroidism, Obesity Denies: Diabetes Mellitus Type 1, Hyperthyroidism Renal/ Medical History: Reports: Other - Benign prostatic hyperplasia Denies: Chronic Kidney Disease, Nephrolithiasis Malignancy Medical History: Reports: Other - Liver mass noted by primary care provider in process of evaluation GI Medical History: Reports: Diverticulitis, Gastroesophageal Reflux Disease Denies: Cirrhosis, Crohn's Disease, Hepatitis, Hiatal Hernia, Peptic Ulcer Disease, Ulcerative Colitis Musculoskeltal Medical History: Reports: Arthritis, Other - Osteoporosis Denies: Gout Skin Medical History: Denies: Eczema, Psoriasis Psychiatric Medical History: Reports: Depression, Tobacco Dependency Denies: Alcohol Dependency, Substance Abuse Traumatic Medical History: Reports: None Hematology: Denies: Anemia, Bleeding Tendencies Infectious Medical History: Reports: None Past Surgical History Past Surgical History: Reports: Orthopedic Surgery - left leg, Tonsillectomy, Other - Bilateral cataracts Social History Information Source: Patient Lives with: [facility] Smoking Status: Former Smoker Electronic Cigarette use?: No Frequency of Alcohol Use: Occasional Hx Recreational Drug Use: No Drugs: None Hx Prescription Drug Abuse: No - Advance Directive Resuscitation Status: Full Code Surrogate healthcare decision maker:: Simone Gruber Family History Family History: Hypertension. denies: CAD, DM, Malignancy Parental Family History Reviewed: Yes Children Family History Reviewed: No Sibling(s) Family History Reviewed.: Yes Medication/Allergy Home Medications: Gabapentin [Neurontin] 600 mg PO TID 07/28/17 L.acidoph/L.bulg/B.bif/S.therm [Bacid Caplet] 1 each PO BID 07/28/17 Multivitamin [Multiple Vitamins] 1 each PO DAILY 07/28/17 Dicyclomine HCl [Bentyl 20 mg Tablet] 20 mg PO QID #5 tablet 07/30/17 Alendronate Sodium 70 mg PO MO@1000 02/19/19 Aspirin [Ecotrin 81 mg EC Tablet] 81 mg PO DAILY 02/19/19 Atorvastatin Calcium [Lipitor 40 mg Tablet] 20 mg PO QHS 02/19/19 Cholecalciferol (Vitamin D3) [Vitamin D3 400 Unit Tablet] 800 unit PO DAILY 02/19/19 Citalopram Hydrobromide [Celexa 40 mg Tablet] 20 mg PO DAILY 02/19/19 Finasteride [Proscar 5 mg Tablet] 5 mg PO DAILY 02/19/19 Levothyroxine Sodium [Synthroid 0.025 mg Tablet] 25 mcg PO DAILY 02/19/19 Metformin HCl [Metformin HCl ER] 1,000 mg PO BID 02/19/19 Nitroglycerin [Nitrostat 0.4 mg (1/150 Gr) Tabs 25/Bottle] 1 tab SL Q5MP PRN 02/19/19 Apixaban [Eliquis 5 mg Tablet] 5 mg PO BID tablet 02/24/19 Isosorbide Mononitrate [Imdur 30 mg Tablet.er] 30 mg PO DAILY tab.er.24h 02/24/19 Dexlansoprazole [Dexilant 60 mg Capsule] 60 mg PO BID 07/08/19 Furosemide [Lasix 40 mg Tablet] 60 mg PO QAM 07/08/19 Insulin Aspart [Novolog] 3 unit SQ QAM 07/08/19 Insulin Glargine,Hum.rec.anlog [Lantus (Pyxis) Insulin 100 Unit/1 ml 10 ml] 12 unit SUBCUT DAILY 07/08/19 Potassium Chloride 20 meq PO DAILY 07/08/19 Acetaminophen [Tylenol 325 mg Tablet] 650 mg PO Q4HP PRN 09/13/19 Calcium Carbonate [Calcium] 600 mg PO BID 09/13/19 Insulin Aspart [Novolog Insulin (Aspart) 100 unit/mL] 5 units SQ MEALS 09/13/19 Ipratropium/Albuterol Sulfate [Duoneb 3 ml Ampul] 3 ml NEB Q6HP PRN 09/13/19 Lidocaine HCl/Menthol [Aflexeryl-Lc 4%-1% Patch] 1 applic TP QAM 09/13/19 Lisinopril [Prinivil 5 mg Tablet] 5 mg PO BID 09/13/19 Loperamide HCl [Loperamide] 2 mg PO ASDIR PRN MDD 8MG 09/13/19 Menthol [Biofreeze] 1 applic TP Q4HP PRN 09/13/19 Metoprolol Succinate [Toprol Xl 50 mg Tab.sr] 100 mg PO DAILY 09/13/19 Witch Debi [Preparation H] 1 pad TP ASDIR PRN 09/13/19 Allergies/Adverse Reactions: No Known Allergies Allergy (Verified 07/21/19 15:24) Current Medications Generic Name Dose Route Start Last Admin Trade Name Freq PRN Reason Stop Dose Admin Acetaminophen 650 mg 09/13/19 19:47 Tylenol 325 Mg Tablet PO 10/13/19 19:46 Q4HP PRN For headache, pain or fever Al Hydrox/Mg Hydrox/Simethicone 30 ml 09/13/19 19:40 Maalox Plus Susp 30 Udcup PO 10/13/19 19:39 Q6HP PRN HEARTBURN Apixaban 5 mg 09/13/19 21:00 09/14/19 17:10 Eliquis 5 Mg Tablet PO 10/13/19 20:59 5 mg BID CLAUDIA Administration Aspirin 81 mg 09/14/19 10:00 09/14/19 09:15 Ecotrin 81 Mg Ec Tablet PO 10/14/19 09:59 81 mg DAILY CLAUDIA Administration Atorvastatin Calcium 40 mg 09/13/19 22:00 09/14/19 21:12 Lipitor 40 Mg Tablet PO 10/13/19 21:59 40 mg QHS CLAUDIA Administration Dextrose 12.5 gm 09/13/19 19:48 Dextrose Inj 50% Syringe (25 Gm/50 Ml) IV 10/13/19 19:47 PRN PRN FOR BG 50-69 IN ALERT PATIENT Protocol Dextrose 25 gm 09/13/19 19:48 Dextrose Inj 50% Syringe (25 Gm/50 Ml) IV 10/13/19 19:47 PRN PRN PER PROTOCOL Protocol Docusate Sodium 100 mg 09/14/19 10:00 09/14/19 17:10 Colace 100 Mg Capsule PO 10/14/19 09:59 100 mg BID CLAUDIA Administration Famotidine 20 mg 09/13/19 22:00 09/14/19 21:11 Pepcid 20 Mg Tablet PO 10/13/19 21:59 20 mg Q12 CLAUDIA Administration Finasteride 5 mg 09/14/19 10:00 09/14/19 09:14 Proscar 5 Mg Tablet PO 10/14/19 09:59 5 mg DAILY CLAUDIA Administration Gabapentin 600 mg 09/14/19 06:00 09/14/19 21:11 Neurontin 300 Mg Capsule PO 10/14/19 05:59 600 mg Q8 CLAUDIA Administration Glucagon 1 mg 09/13/19 19:48 Glucagen Inj 1 Mg Vial IM 10/13/19 19:47 PRN PRN Evaluate for BG < 70 Protocol Glucose 15 gm 09/13/19 19:48 Glutose 40% Gel 15 Gm Tube PO 10/13/19 19:47 PRN PRN FOR BG 50-69 IN ALERT PATIENT Protocol Glucose 30 gm 09/13/19 19:48 Glutose 40% Gel 15 Gm Tube PO 10/13/19 19:47 PRN PRN FOR BG < 50 IN ALERT PATIENT Protocol Diltiazem HCl 125 mg in 125 mls @ 0 mls/hr 09/13/19 19:40 09/14/19 21:18 Cardizem Rtu Inj 125 Mg-D5w 125 Ml Premix IV 10/13/19 19:39 0 mls/hr CONTINUOUS PRN 0 mls/hr THIS MED IS NOT "PRN" Titration Protocol Titrate Levofloxacin/Dextrose 750 mg in 150 mls @ 100 mls/hr 09/14/19 10:00 09/14/19 13:02 Levaquin Rtu 750 Mg/D5w 150 Ml Premix IV 09/21/19 09:59 Infused DAILY CLAUDIA Infusion Metronidazole 500 mg in 100 mls @ 100 mls/hr 09/14/19 12:00 09/14/19 19:00 Flagyl Rtu 500 Mg/Ns 100ml Premix IV 09/21/19 11:59 Infused Q6 CLAUDIA Infusion Insulin Glargine 12 unit 09/14/19 10:00 09/14/19 09:15 Lantus Insulin 100 Unit/1 Ml 10 Ml SUBCUT 10/14/19 09:59 12 unit DAILY CLAUDIA Administration Insulin Human Regular 0 - 15 unit 09/14/19 08:00 09/14/19 21:14 Humulin R (Pyxis) Insulin 100 Unit/Ml 3ml SUBCUT 10/13/19 19:46 3 unit ACHS CLAUDIA Administration Protocol Isosorbide Mononitrate 30 mg 09/14/19 10:00 09/14/19 09:14 Imdur 30 Mg Tablet.Er PO 10/14/19 09:59 30 mg DAILY CLAUDIA Administration Lactobacillus Acidophilus 250 mg 09/14/19 10:00 09/14/19 17:10 Bacid 250 Mg Tablet PO 10/14/19 09:59 250 mg BID CLAUDIA Administration Levalbuterol HCl 0.63 mg 09/13/19 19:40 Xopenex Neb 0.63 Mg/3 Ml Ampul NEB 10/13/19 19:39 RTQ2HP PRN SHORTNESS OF BREATH Levothyroxine Sodium 0.025 mg 09/14/19 06:00 09/14/19 05:43 Synthroid 0.025 Mg Tablet PO 10/14/19 05:59 0.025 mg Q6AM CLAUDIA Administration Lisinopril 5 mg 09/14/19 10:00 09/14/19 09:14 Prinivil 5 Mg Tablet PO 10/14/19 09:59 Not Given DAILY CLAUDIA Lorazepam 1 mg 09/13/19 19:47 Ativan Inj 2 Mg/1 Ml Vial IV 09/20/19 19:46 Q4HP PRN ANXIETY/AGITATION Magnesium Hydroxide 30 ml 09/13/19 19:40 Milk Of Magnesia 30 Ml Udcup PO 10/13/19 19:39 HSP PRN FOR CONSTIPATION Melatonin 5 mg 09/13/19 19:47 Melatonin 5 Mg Tablet PO 10/13/19 19:46 HSP PRN SLEEP OR INSOMNIA Metoclopramide HCl 10 mg 09/13/19 22:00 09/14/19 21:11 Reglan 10 Mg Tablet PO 10/13/19 21:59 10 mg ACHS CLAUDIA Administration Metoprolol Succinate 75 mg 09/14/19 09:00 09/14/19 21:11 Toprol Xl 50 Mg Tab.Sr PO 10/14/19 08:59 75 mg Q12 CLAUDIA Administration Metoprolol Tartrate 5 mg 09/13/19 19:47 Lopressor Inj/Pf 5 Mg/5 Ml Sdv IV 10/13/19 19:46 Q4HP PRN Give For Sbp > 160 / Dbp > 100 Morphine Sulfate 2 mg 09/13/19 19:47 Morphine 10 Mg/Ml Inj IV 09/20/19 19:46 Q2HP PRN FOR PAIN SCALE 1-2 Morphine Sulfate 3 mg 09/13/19 19:47 09/13/19 22:31 Morphine 10 Mg/Ml Inj IV 09/20/19 19:46 3 mg Q2HP PRN Administration FOR PAIN SCALE 3-4 Morphine Sulfate 4 mg 09/13/19 19:47 Morphine 10 Mg/Ml Inj IV 09/20/19 19:46 Q2HP PRN PAIN SCALE OF 5 Nitroglycerin 1 tab 09/13/19 19:47 Nitrostat 0.4 Mg (1/150 Gr) Tabs 25/Bottle SL 10/13/19 19:46 Q5MP PRN FOR CHEST PAIN Promethazine HCl 12.5 mg 09/14/19 07:21 Phenergan Inj 25 Mg/1 Ml Vial IV 10/14/19 07:20 Q4HP PRN UNRESOLVED NAUSEA/VOMITING Sodium Chloride 2.5 ml 09/13/19 22:00 09/14/19 16:45 Saline Flush 2.5 Ml Monoject Prefil Syrin IV 10/13/19 21:59 Not Given Q8 CLAUDIA Discontinued Medications Generic Name Dose Route Start Last Admin Trade Name Freq PRN Reason Stop Dose Admin Digoxin Confirm 09/14/19 11:04 09/14/19 12:14 Lanoxin Inj 0.5 Mg/2 Ml Ampule Administered 09/14/19 11:05 Not Given Dose 0.5 mg .ROUTE .STK-MED ONE Digoxin 0.25 mg 09/14/19 11:30 09/14/19 11:05 Lanoxin Inj 0.5 Mg/2 Ml Ampule IV 09/14/19 11:31 0.25 mg NOW ONE Administration Diltiazem HCl 10 mg 09/13/19 15:24 09/13/19 16:21 Cardizem Inj 25 Mg/5 Ml Vial IV 09/13/19 15:25 10 mg NOW ONE Administration Diltiazem HCl 10 mg 09/13/19 16:04 09/13/19 16:47 Cardizem Inj 25 Mg/5 Ml Vial IV 09/13/19 16:05 10 mg NOW ONE Administration Sodium Chloride 500 mls @ 0 mls/hr 09/13/19 15:31 09/13/19 16:47 Nacl 0.9% 500 Ml Iv Soln IV 09/13/19 15:32 Infused NOW ONE Infusion Wide Open Diltiazem HCl 125 mg in 125 mls @ 0 mls/hr 09/13/19 18:23 09/13/19 20:27 Cardizem Rtu Inj 125 Mg-D5w 125 Ml Premix IV 10/13/19 18:22 Infused CONTINUOUS PRN Titration THIS MED IS NOT "PRN" Protocol Titrate Insulin Human Regular 0 - 15 unit 09/13/19 19:47 Humulin R (Pyxis) Insulin 100 Unit/Ml 3ml SUBCUT 10/13/19 19:46 ACHSP PRN PER PROTOCOL Protocol Metoprolol Succinate 50 mg 09/14/19 10:00 Toprol Xl 50 Mg Tab.Sr PO 10/14/19 09:59 DAILY CLAUDIA Metoprolol Tartrate 5 mg 09/13/19 17:13 09/13/19 17:40 Lopressor Inj/Pf 5 Mg/5 Ml Sdv IV 09/13/19 17:14 5 mg NOW ONE Administration Ondansetron HCl 4 mg 09/13/19 19:40 Zofran Inj/Pf 4 Mg/2 Ml Sdv IV 10/13/19 19:39 Q4HP PRN FOR NAUSEA/VOMITING Review of Systems Constitutional: PRESENT: as per HPI, anorexia. ABSENT: chills, fever(s) Eyes: ABSENT: visual disturbances, other - Eye pain Ears: ABSENT: hearing changes, other - Ear pain Nose, Mouth, and Throat: ABSENT: headache(s), sore throat Cardiovascular: PRESENT: chest pain - Occasional angina relieved by nitroglycerin. ABSENT: palpitations Respiratory: ABSENT: cough, dyspnea Gastrointestinal: PRESENT: as per HPI, abdominal pain, diarrhea, nausea. ABSENT: constipation, hematochezia, melena, vomiting Genitourinary: ABSENT: dysuria, hematuria Musculoskeletal: ABSENT: back pain, joint swelling, muscle weakness Integumentary: ABSENT: pruritus, rash Neurological: ABSENT: confusion, convulsions, focal weakness, memory loss, syncope Psychiatric: ABSENT: anxiety, depression Endocrine: ABSENT: cold intolerance, heat intolerance, polydipsia, polyphagia, polyuria Hematologic/Lymphatic: ABSENT: easy bleeding, easy bruising Allergic/Immunologic: ABSENT: seasonal rhinorrhea PHYSICAL EXAMINATION: The patient is morbidly obese at present in no acute distress. His heart rate is much improved. Selected Entries 09/14/19 09/14/19 09/14/19 11:00 11:58 12:00 Temperature 98.2 F Temperature Axillary Source Pulse Rate 60 Respiratory 18 Rate Blood Pressure 107/62 97/77 L O2 Sat by Pulse 99 Oximetry Oxygen Delivery Room Air Method HEAD: Is atraumatic normocephalic. EYES: Pupils are equal round regular reactive to light light and accommodation. Extraocular movements are normal. There is no conjunctival pallor. There is no scleral icterus. EARS: Tympanic membranes are intact. External auditory canals are clear. NOSE: There is no deviated nasal septum. There is no inflammation of the nasal mucous membrane. MOUTH: Mucous membranes of mouth are moist. Tongue is moist. There is no ulcers. There is no bleeding from the gums. THROAT: There is no redness of the oropharynx. There is no exudates. SKIN: There is no skin rashes. There is no petechia or ecchymosis. There is no skin lesions. NECK: Is supple. There is no JVD. Carotids are equal there is no bruit there is no lymphadenopathy. There is no goiter. There is no accessory muscle respiration use. Trachea central. LUNGS: Show slightly diminished air entry prolonged expiration without any rhonchi rales or wheezing. HEART: S1-S2 is heard. S1 is of variable intensity. There is no S3 gallop. There is no S4 gallop. There is systolic murmur left sternal border and the apex there is no rub. ABDOMEN: Is obese. There is mild discomfort in the lower quadrant. There is no rebound guarding or rigidity. There is no hepatosplenomegaly. Bowel sounds are well heard. EXTREMITIES: Femorals are deep. There is no femoral bruits. Leg pulses are diminished. THERE IS TRACE PEDAL EDEMA BILATERALLY. THERE IS NO DVT OR CELLULITIS.. There is no calf tenderness. CLINICAL TEAM LEAD: The patient is conscious awake alert oriented x3 with no focal deficit. PSYCHIATRIC:. Patient judgment ins ight intact his affect is normal. The patient had a Lexiscan Cardiolite stress test on : This showed scar in the inferior wall and apical septum with minimal reversible ischemia. 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 The patient's echocardiogram done in February 2019 showed mild to moderate left atrial enlargement/dilatation, with mild concentric left ventricle hypertrophy and with moderately reduced LV ejection fraction of 35%. There was severe pulmonary hypertension with right ventricular systolic pressure of 64 to 69 m mHg. Labs- Entire Visit 09/13/19 09/13/19 09/13/19 13:54 13:54 13:54 WBC 11.0 H RBC 3.67 L Hgb 10.8 L Hct 31.7 L MCV 86 MCH 29.3 MCHC 34.0 RDW 14.1 H Plt Count 414 Lymph % (Auto) 7.8 L [place] % (Auto) 13.2 H Eos % (Auto) 0.3 Baso % (Auto) 0.8 Absolute Neuts (auto) 8.5 H Absolute Lymphs (auto) 0.9 Absolute Monos (auto) 1.4 Absolute Eos (auto) 0.0 Absolute Basos (auto) 0.1 Seg Neutrophils % 77.9 Sodium 133.5 L Potassium 5.0 Chloride 100 Carbon Dioxide 24 Anion Gap 10 BUN 28 H Creatinine 1.03 Est GFR ( Amer) > 60 Est GFR (MDRD) Non-Af > 60 Glucose 218 H POC Glucose Hemoglobin A1c % Calcium 8.8 Magnesium Total Bilirubin 0.9 Direct Bilirubin 0.3 Neonat Total Bilirubin Not Reportable Neonat Direct Bilirubin Not Reportable Neonat Indirect Bili Not Reportable AST 81 H ALT 27 Alkaline Phosphatase 259 H Creatine Kinase CK-MB (CK-2) Troponin I 0.019 Total Protein 8.1 Albumin 3.5 Triglycerides Cholesterol LDL Cholesterol Direct VLDL Cholesterol HDL Cholesterol Lipase 27.6 TSH Urine Color Urine Appearance Urine pH Ur Specific [place] Urine Protein Urine Glucose (UA) Urine Ketones Urine Blood Urine Nitrite (Reflex) Urine Bilirubin Urine Urobilinogen Leukocyte Esterase Rfl Urine RBC (Auto) Urine WBC (Reflex) Urine Mucus (Auto) Urine Ascorbic Acid 09/13/19 09/13/19 09/14/19 20:21 20:21 01:37 WBC RBC Hgb Hct MCV MCH MCHC RDW Plt Count Lymph % (Auto) [place] % (Auto) Eos % (Auto) Baso % (Auto) Absolute Neuts (auto) Absolute Lymphs (auto) Absolute Monos (auto) Absolute Eos (auto) Absolute Basos (auto) Seg Neutrophils % Sodium Potassium Chloride Carbon Dioxide Anion Gap BUN Creatinine Est GFR ( Amer) Est GFR (MDRD) Non-Af Glucose POC Glucose Hemoglobin A1c % Calcium Magnesium Total Bilirubin Direct Bilirubin Neonat Total Bilirubin Neonat Direct Bilirubin Neonat Indirect Bili AST ALT Alkaline Phosphatase Creatine Kinase 116 83 CK-MB (CK-2) 0.97 Troponin I 0.016 Total Protein Albumin Triglycerides Cholesterol LDL Cholesterol Direct VLDL Cholesterol HDL Cholesterol Lipase TSH Urine Color Urine Appearance Urine pH Ur Specific [place] Urine Protein Urine Glucose (UA) Urine Ketones Urine Blood Urine Nitrite (Reflex) Urine Bilirubin Urine Urobilinogen Leukocyte Esterase Rfl Urine RBC (Auto) Urine WBC (Reflex) Urine Mucus (Auto) Urine Ascorbic Acid 09/14/19 09/14/19 09/14/19 01:37 07:30 07:30 WBC 8.3 RBC 3.29 L Hgb 9.5 L Hct 28.1 L MCV 85 MCH 28.8 MCHC 33.7 RDW 14.1 H Plt Count 331 Lymph % (Auto) [place] % (Auto) Eos % (Auto) Baso % (Auto) Absolute Neuts (auto) Absolute Lymphs (auto) Absolute Monos (auto) Absolute Eos (auto) Absolute Basos (auto) Seg Neutrophils % Sodium 132.0 L Potassium 4.6 Chloride 100 Carbon Dioxide 25 Anion Gap 7 BUN 23 H Creatinine 0.93 Est GFR ( Amer) > 60 Est GFR (MDRD) Non-Af > 60 Glucose 189 H POC Glucose Hemoglobin A1c % Calcium 8.2 L Magnesium 2.0 Total Bilirubin Direct Bilirubin Neonat Total Bilirubin Neonat Direct Bilirubin Neonat Indirect Bili AST ALT Alkaline Phosphatase Creatine Kinase CK-MB (CK-2) 0.85 Troponin I 0.018 Total Protein Albumin Triglycerides 88 Cholesterol 123.19 LDL Cholesterol Direct 82 VLDL Cholesterol 18.0 HDL Cholesterol 25 L Lipase TSH Urine Color Urine Appearance Urine pH Ur Specific [place] Urine Protein Urine Glucose (UA) Urine Ketones Urine Blood Urine Nitrite (Reflex) Urine Bilirubin Urine Urobilinogen Leukocyte Esterase Rfl Urine RBC (Auto) Urine WBC (Reflex) Urine Mucus (Auto) Urine Ascorbic Acid 09/14/19 09/14/19 09/14/19 07:30 07:30 07:30 WBC RBC Hgb Hct MCV MCH MCHC RDW Plt Count Lymph % (Auto) [place] % (Auto) Eos % (Auto) Baso % (Auto) Absolute Neuts (auto) Absolute Lymphs (auto) Absolute Monos (auto) Absolute Eos (auto) Absolute Basos (auto) Seg Neutrophils % Sodium Potassium Chloride Carbon Dioxide Anion Gap BUN Creatinine Est GFR ( Amer) Est GFR (MDRD) Non-Af Glucose POC Glucose Hemoglobin A1c % 7.0 H Calcium Magnesium Total Bilirubin Direct Bilirubin Neonat Total Bilirubin Neonat Direct Bilirubin Neonat Indirect Bili AST ALT Alkaline Phosphatase Creatine Kinase 97 CK-MB (CK-2) Troponin I Total Protein Albumin Triglycerides Cholesterol LDL Cholesterol Direct VLDL Cholesterol HDL Cholesterol Lipase TSH 1.45 Urine Color Urine Appearance Urine pH Ur Specific [place] Urine Protein Urine Glucose (UA) Urine Ketones Urine Blood Urine Nitrite (Reflex) Urine Bilirubin Urine Urobilinogen Leukocyte Esterase Rfl Urine RBC (Auto) Urine WBC (Reflex) Urine Mucus (Auto) Urine Ascorbic Acid 09/14/19 09/14/19 09/14/19 07:30 07:45 08:27 WBC RBC Hgb Hct MCV MCH MCHC RDW Plt Count Lymph % (Auto) [place] % (Auto) Eos % (Auto) Baso % (Auto) Absolute Neuts (auto) Absolute Lymphs (auto) Absolute Monos (auto) Absolute Eos (auto) Absolute Basos (auto) Seg Neutrophils % Sodium Potassium Chloride Carbon Dioxide Anion Gap BUN Creatinine Est GFR ( Amer) Est GFR (MDRD) Non-Af Glucose POC Glucose 213 H Hemoglobin A1c % Calcium Magnesium Total Bilirubin Direct Bilirubin Neonat Total Bilirubin Neonat Direct Bilirubin Neonat Indirect Bili AST ALT Alkaline Phosphatase Creatine Kinase CK-MB (CK-2) 0.71 Troponin I 0.017 Total Protein Albumin Triglycerides Cholesterol LDL Cholesterol Direct VLDL Cholesterol HDL Cholesterol Lipase TSH Urine Color YELLOW Urine Appearance CLEAR Urine pH 6.0 Ur Specific [place] 1.054 Urine Protein 30 H Urine Glucose (UA) NEGATIVE Urine Ketones 20 H Urine Blood SMALL H Urine Nitrite (Reflex) NEGATIVE Urine Bilirubin NEGATIVE Urine Urobilinogen NEGATIVE Leukocyte Esterase Rfl NEGATIVE Urine RBC (Auto) 1 Urine WBC (Reflex) 2 Urine Mucus (Auto) OCC Urine Ascorbic Acid NEGATIVE 09/14/19 09/14/19 09/14/19 11:57 16:51 21:03 WBC RBC Hgb Hct MCV MCH MCHC RDW Plt Count Lymph % (Auto) [place] % (Auto) Eos % (Auto) Baso % (Auto) Absolute Neuts (auto) Absolute Lymphs (auto) Absolute Monos (auto) Absolute Eos (auto) Absolute Basos (auto) Seg Neutrophils % Sodium Potassium Chloride Carbon Dioxide Anion Gap BUN Creatinine Est GFR ( Amer) Est GFR (MDRD) Non-Af Glucose POC Glucose 215 H 208 H 189 H Hemoglobin A1c % Calcium Magnesium Total Bilirubin Direct Bilirubin Neonat Total Bilirubin Neonat Direct Bilirubin Neonat Indirect Bili AST ALT Alkaline Phosphatase Creatine Kinase CK-MB (CK-2) Troponin I Total Protein Albumin Triglycerides Cholesterol LDL Cholesterol Direct VLDL Cholesterol HDL Cholesterol Lipase TSH Urine Color Urine Appearance Urine pH Ur Specific [place] Urine Protein Urine Glucose (UA) Urine Ketones Urine Blood Urine Nitrite (Reflex) Urine Bilirubin Urine Urobilinogen Leukocyte Esterase Rfl Urine RBC (Auto) Urine WBC (Reflex) Urine Mucus (Auto) Urine Ascorbic Acid Abdomen/Pelvis CT 09/13/19 00:00 IMPRESSION: 1. Large 12 cm hepatic mass, new since 2017. Multiple smaller hepatic lesions. Differential diagnosis includes primary hepatocellular carcinoma versus metastatic disease. 2. Colonic diverticulosis but no CT evidence for acute diverticulitis. EKG #1: Irregular wide-complex tachycardia. EKG #2: ATRIAL FIBRILLATION, with rapid ventricular response, left bundle branch block pattern. IMPRESSION/RECOMMENDATION: 1. Atrial fibrillation with rapid response: Continue patient on beta-sam increase as tolerated. Will give 1 dose of digoxin. We will wean the patient off the Cardizem drip. Continue Eliquis. 2. Abdominal pain most likely secondary to diverticulitis: Patient being managed conservatively. 3. Hepatic mass: Differential diagnosis includes primary hepatocellular carcinoma versus metastatic disease. 4. Coronary artery disease: History of [place] and history of stable angina. 5. Cardiomyopathy with moderately reduced ejection fraction. Continue beta- sam in the form of Toprol-XL extended release and CURT inhibitor. 6. Severe pulmonary hypertension: This is probably secondary to a diagnosis of COPD and sleep apnea. 7. Diabetes mellitus type 2 insulin-dependent: Continue antidiabetic medication and and Accu-Cheks as per protocol. 8. Hypothyroidism: Continue thyroid replacement. 9. Sleep apnea: Continue CPAP 10. Chronic left bundle branch block pattern. 11. History of ventricular tachycardia. With no recurrence. 12. Morbid obesity. Medications reviewed. Medications adjusted. Medical decision making is of high complexity in view in view of the need for adjustment of medication and multiple comorbid conditions. Discussed the case with the attending physician on the case. 60 minutes spent as patient with more than 50% of time spent direct patient care. Will follow
--- NOTE | 2019-09-14 17:11 | PDOC PROGRESS REPORT ---
Subjective Progress Note for:: 09/14/19 Subjective:: Patient feels better. Still having abdominal pain in LLQ. Does admit to prior knowledge of liver lesions. Reason For Visit: PAROXYSMAL ATRIAL FIBRILLATION WIT RAPID VENTRICUL Physical Exam Vital Signs: Temp Pulse Resp BP Pulse Ox 99.0 F 133 H 20 97/77 L 96 09/14/19 03:35 09/14/19 08:00 09/14/19 03:35 09/14/19 12:00 09/14/19 03:35 Intake & Output 09/13/19 09/14/19 09/15/19 06:59 06:59 06:59 Intake Total 509 791 Output Total 0 600 Balance 509 191 Weight 135.9 kg General appearance: PRESENT: no acute distress, cooperative Neck exam: ABSENT: JVD Respiratory exam: PRESENT: clear to auscultation reynold, unlabored. ABSENT: tachypnea, wheezes Cardiovascular exam: PRESENT: irregular rhythm, +S1, +S2, tachycardia GI/Abdominal exam: PRESENT: normal bowel sounds, soft, tenderness - Left lower quadrant. ABSENT: rebound, rigid Neurological exam: PRESENT: alert, awake, oriented to person, oriented to place, oriented to time Results Laboratory Results: 09/14/19 07:30 09/14/19 07:30 09/14/19 09/14/19 09/14/19 07:30 07:30 07:30 WBC 8.3 RBC 3.29 L Hgb 9.5 L Hct 28.1 L MCV 85 MCH 28.8 MCHC 33.7 RDW 14.1 H Plt Count 331 Sodium 132.0 L Potassium 4.6 Chloride 100 Carbon Dioxide 25 Anion Gap 7 BUN 23 H Creatinine 0.93 Est GFR ( Amer) > 60 Glucose 189 H Calcium 8.2 L Magnesium 2.0 Triglycerides 88 Cholesterol 123.19 LDL Cholesterol Direct 82 VLDL Cholesterol 18.0 HDL Cholesterol 25 L TSH 1.45 Urine Color Urine Appearance Urine pH Ur Specific Echo Urine Protein Urine Glucose (UA) Urine Ketones Urine Blood Urine RBC (Auto) 09/14/19 07:45 WBC RBC Hgb Hct MCV MCH MCHC RDW Plt Count Sodium Potassium Chloride Carbon Dioxide Anion Gap BUN Creatinine Est GFR ( Amer) Glucose Calcium Magnesium Triglycerides Cholesterol LDL Cholesterol Direct VLDL Cholesterol HDL Cholesterol TSH Urine Color YELLOW Urine Appearance CLEAR Urine pH 6.0 Ur Specific Echo 1.054 Urine Protein 30 H Urine Glucose (UA) NEGATIVE Urine Ketones 20 H Urine Blood SMALL H Urine RBC (Auto) 1 09/13/19 09/13/19 09/13/19 13:54 20:21 20:21 Creatine Kinase 116 CK-MB (CK-2) 0.97 Troponin I 0.019 0.016 09/14/19 09/14/19 09/14/19 01:37 01:37 07:30 Creatine Kinase 83 97 CK-MB (CK-2) 0.85 Troponin I 0.018 09/14/19 07:30 Creatine Kinase CK-MB (CK-2) 0.71 Troponin I 0.017 Impressions: Abdomen/Pelvis CT 09/13/19 00:00 IMPRESSION: 1. Large 12 cm hepatic mass, new since 2017. Multiple smaller hepatic lesions. Differential diagnosis includes primary hepatocellular carcinoma versus metastatic disease. 2. Colonic diverticulosis but no CT evidence for acute diverticulitis. Assessment and Plan - Diagnosis (1) Atrial fibrillation with RVR Is this a current diagnosis for this admission?: Yes Plan: On diltiazem drip. We will wean off diltiazem drip given reduced EF of 35% noted on echo 02/2019. Increase Toprol-XL from 100 mg daily to 75 mg every 12 hours. Did receive some IV digoxin today. Dr. Samuel consulted Continue to monitor on telemetry (2) Diverticulitis Is this a current diagnosis for this admission?: Yes Plan: Evaluated by surgery who feels patient has mild diverticulitis. Patient will continue on Levaquin and Flagyl to complete 7 to 10-day course. Outpatient colonoscopy in about 2 months. (3) Liver mass Is this a current diagnosis for this admission?: Yes Plan: Being followed by his PCP. However patient states that he did not realize his liver mass was 12 cm. I have placed a consult for oncology determining the best way to approach tissue sampling. Patient denies any history of liver disease/cirrhosis. Will ultimately need a liver biopsy Alpha-fetoprotein (4) Diabetes mellitus type 2 in obese Is this a current diagnosis for this admission?: Yes Plan: Daily Lantus. Sliding scale insulin. Carb restriction (5) CHF (congestive heart failure) Qualifiers: Heart failure type: combined systolic and diastolic Heart failure chroni city: chronic Qualified Code(s): I50.42 - Chronic combined systolic (congestive) and diastolic (congestive) heart failure Is this a current diagnosis for this admission?: Yes Plan: Stable - Time Time Spent with patient: 15-24 minutes
[2019-09-14] MEDS: ATORVASTATIN CALCIUM 40 MG TABLET PO SCH (21:12)
--- NOTE | 2019-09-14 21:56 | EKG REPORT ---
SEVERITY:- ABNORMAL ECG - ATRIAL FIBRILLATION, V-RATE [id number] LEFT BUNDLE BRANCH BLOCK : Confirmed by: Mirela Dave MD 14-Sep-2019 21:55:38
[2019-09-15 05:18] LABS: HEMATOCRIT 29.5 % (37.9-51.0); MEAN CORPUSCULAR HEMOGLOBIN 28.8 pg (27.0-33.4); MEAN CORPUSCULAR HGB CONC 33.8 g/dL (32.0-36.0); MEAN CORPUSCULAR VOLUME 85 fl (80-97); PLATELET COUNT 333 10^3/uL (150-450); RED BLOOD COUNT 3.46 10^6/uL (4.35-5.55); RED CELL DISTRIBUTION WIDTH 14.6 % (11.5-14.0); WHITE BLOOD COUNT 7.8 10^3/uL (4.0-10.5)
[2019-09-15] MEDS: LEVOTHYROXINE SODIUM 0.025 MG TABLET PO SCH (05:18)
[2019-09-15] MEDS: GABAPENTIN 300 MG CAPSULE PO SCH ×3 (05:18→22:04)
[2019-09-15] MEDS: METRONIDAZOLE 500 MG/NS RTU 500 MG/100 ML RTUPB IV SCH (05:18)
[2019-09-15 05:44] LABS: ALKALINE PHOSPHATASE 259 U/L (38-126); ANION GAP 7 (5-19); ASPARTATE AMINO TRANSFERASE 77 U/L (17-59); BILIRUBIN,DIRECT 0.2 mg/dL (0.0-0.4); BILIRUBIN,TOTAL 0.8 mg/dL (0.2-1.3); BLOOD UREA NITROGEN 20 mg/dL (7-20); CALCIUM 8.4 mg/dL (8.4-10.2); CARBON DIOXIDE 24 mmol/L (22-30); CHLORIDE 101 mmol/L (98-107); GLUCOSE 146 mg/dL (75-110); POTASSIUM 4.5 mmol/L (3.6-5.0); TOTAL PROTEIN 7.1 g/dL (6.3-8.2)
[2019-09-15] MEDS: INSULIN REG, HUMAN 100 UNIT/ML 3 ML VIAL (PYX) SUBCUT SCH ×4 (07:39→22:07)
[2019-09-15] MEDS: METOCLOPRAMIDE HCL 10 MG TABLET PO SCH ×4 (07:39→22:05)
--- NOTE | 2019-09-15 08:20 | Progress Note ---
Provider Note Provider Note: Hematology/Oncology consult was received for liver mass, thought to be cancer. Due to COVID-19 restrictions, I have not examined patient. However, chart has been reviewed including labs, medications, patient history, and CT scans. I also discussed the patient with Dr. Glasgow. AFP has been ordered and is pending. If this is markedly elevated, then biopsy of the liver lesion should not be needed. Patient may be discharged soon and I am happy to see him after discharge to discuss further diagnosis and treatment recommendations. Mild anemia appears stable. Please call me with any further questions or concerns. Thank you for this consult.
[2019-09-15] MEDS: ISOSORBIDE MONONITRATE 30 MG TAB.ER.24H PO SCH (09:22)
[2019-09-15] MEDS: LACTOBACILLUS ACIDOPHILUS 250 MG TAB PO SCH ×2 (09:22→17:15)
[2019-09-15] MEDS: LISINOPRIL 5 MG TABLET PO SCH (09:22)
[2019-09-15] MEDS: FINASTERIDE 5 MG TABLET PO SCH (09:23)
[2019-09-15] MEDS: FAMOTIDINE 20 MG TABLET PO SCH ×2 (09:23→22:04)
[2019-09-15] MEDS: ASPIRIN 81 MG TABLET, ENT COATED PO SCH (09:23)
[2019-09-15] MEDS: INSULIN GLARGINE,HUM.REC.ANLOG 1,000 UNIT/10 ML VIAL SUBCUT SCH (09:23)
[2019-09-15] MEDS: APIXABAN 5 MG TABLET PO SCH ×2 (09:23→17:15)
[2019-09-15] MEDS: LEVOFLOXACIN 750 MG TABLET PO SCH (09:23)
[2019-09-15] MEDS: METOPROLOL SUCCINATE 50 MG TAB.SR.24H PO SCH ×2 (09:23→22:04)
[2019-09-15] MEDS: DOCUSATE SODIUM 100 MG CAPSULE PO SCH ×2 (09:23→17:15)
--- NOTE | 2019-09-15 10:07 | EKG REPORT ---
SEVERITY:- ABNORMAL ECG - ATRIAL FIBRILLATION LEFT BUNDLE BRANCH BLOCK : Confirmed by: Mirela Dave MD 15-Sep-2019 10:06:20
--- NOTE | 2019-09-15 11:46 | Progress Note ---
Provider Note Provider Note: CARDIOLOGY PROGRESS NOTE by Dr. Mirela Johnston on 09/15/2019 SUBJECTIVE: The patient continues to be in atrial fibrillation but with a heart rate slightly elevated. He denies any chest pain or discomfort. There is no shortness of breath there is no PND orthopnea. He is able to lie down flat. There is no ventricular arrhythmia seen on the monitor. Of note he says he has no abdominal pain but has some occasional abdominal discomfort. And he says he is feels that that there is a lot of gas in his intestines. He has no diarrhea. There is no evidence of GI bleed. He is worried about his liver mass which is 12 cm. They have sent out a AFP and if this comes elevated then the oncology opinion is that he may not need a liver biopsy. But this is to be done as an outpatient. PHYSICAL EXAMINATION: The patient is morbidly obese. At present in no acute distress. Selected Entries 09/15/19 07:09 Temperature 98.0 F Temperature Oral Source Pulse Rate 119 H Respiratory 18 Rate Blood Pressure 92/66 L Blood Pressure 74 Mean BP Location Left Arm BP Position Supine O2 Sat by Pulse 95 Oximetry Oxygen Delivery Room Air Method HEAD: Is atraumatic normocephalic. EYES: Pupils are equal round regular reactive to light light and accommodation. Extraocular movements are normal. There is no conjunctival pallor. There is no scleral icterus. EARS: Tympanic membranes are intact. External auditory canals are clear. NOSE: There is no deviated nasal septum. There is no inflammation of the nasal mucous membrane. MOUTH: Mucous membranes of mouth are moist. Tongue is moist. There is no ulcers. There is no bleeding from the gums. THROAT: There is no redness of the oropharynx. There is no exudates. SKIN: There is no skin rashes. There is no petechia or ecchymosis. There is no skin lesions. NECK: Is supple. There is no JVD. Carotids are equal there is no bruit there is no lymphadenopathy. There is no goiter. There is no accessory muscle respiration use. Trachea central. LUNGS: Show slightly diminished air entry prolonged expiration without any rhonchi rales or wheezing. HEART: S1-S2 is heard. S1 is of variable intensity. There is no S3 gallop. There is no S4 gallop. There is systolic murmur left sternal border and the apex there is no rub. ABDOMEN: Is obese. There is mild discomfort in the lower quadrant. There is no rebound guarding or rigidity. There is no hepatosplenomegaly. Bowel sounds are well heard. EXTREMITIES: Femorals are deep. There is no femoral bruits. Leg pulses are diminished. THERE IS TRACE PEDAL EDEMA BILATERALLY. THERE IS NO DVT OR CELLULITIS.. There is no calf tenderness. 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 PSYCHIATRIC:. Patient judgment insight intact his affect is normal. Labs- All tests 24 hr 09/15/19 09/15/19 09/15/19 04:21 04:21 07:04 WBC 7.8 RBC 3.46 L Hgb 10.0 L Hct 29.5 L MCV 85 MCH 28.8 MCHC 33.8 RDW 14.6 H Plt Count 333 Sodium 132.3 L Potassium 4.5 Chloride 101 Carbon Dioxide 24 Anion Gap 7 BUN 20 Creatinine 0.95 Est GFR ( Amer) > 60 Est GFR (MDRD) Non-Af > 60 Glucose 146 H POC Glucose 170 H Calcium 8.4 Magnesium 2.1 Total Bilirubin 0.8 Direct Bilirubin 0.2 Neonat Total Bilirubin Not Reportable Neonat Direct Bilirubin Not Reportable Neonat Indirect Bili Not Reportable AST 77 H ALT 27 Alkaline Phosphatase 259 H Total Protein 7.1 Albumin 3.0 L 09/15/19 09/15/19 09/15/19 13:26 17:09 21:02 WBC RBC Hgb Hct MCV MCH MCHC RDW Plt Count Sodium Potassium Chloride Carbon Dioxide Anion Gap BUN Creatinine Est GFR ( Amer) Est GFR (MDRD) Non-Af Glucose POC Glucose 251 H 185 H 194 H Calcium Magnesium Total Bilirubin Direct Bilirubin Neonat Total Bilirubin Neonat Direct Bilirubin Neonat Indirect Bili AST ALT Alkaline Phosphatase Total Protein Albumin Abdomen/Pelvis CT 09/13/19 00:00 IMPRESSION: 1. Large 12 cm hepatic mass, new since 2017. Multiple smaller hepatic lesions. Differential diagnosis includes primary hepatocellular carcinoma versus metastatic disease. 2. Colonic diverticulosis but no CT evidence for acute diverticulitis. MPRESSION/RECOMMENDATION: 1. Atrial fibrillation with rapid response: Continue patient on beta-sam increase as tolerated. The patient's Cardizem drip has been discontinued. Will continue the patient beta-sam. The patient was given a dose of digoxin which did not help her and hence will increase the digoxin dose to 0.25 mg IV push daily. Continue Eliquis. 2. Abdominal pain most likely secondary to diverticulitis: Patient being managed conservatively. 3. Hepatic mass: Differential diagnosis includes primary hepatocellular carcinoma versus metastatic disease. 4. Coronary artery disease: History of [place] and history of stable angina. 5. Cardiomyopathy with moderately reduced ejection fraction. Continue beta- sam in the form of Toprol-XL extended release Medications reviewed medications added and adjusted. Medical decision making is of high complexity. 40 minutes spent as patient more than 50% of time spent in direct patient care. Discussed with the attending physician. Medical regimen and management plan were discussed with the attending physician. Will follow.
[2019-09-15] MEDS ORDERED: DIGOXIN INJ 0.5 MG/2 ML AMPULE IV SCH (12:00)
[2019-09-15] MEDS: METRONIDAZOLE 500 MG TABLET PO SCH ×2 (13:27→22:04)
--- NOTE | 2019-09-15 17:18 | PDOC PROGRESS REPORT ---
Subjective Progress Note for:: 09/15/19 Subjective:: Patient is a 73-year-old male with an extensive past medical history including proximal A. fib, CHF, CAD, stable angina, [place], hypertension, hyperlipidemia, COPD, sleep apnea, hard of hearing, migraines, diabetic neuropathy, DM 2, hypothyroidism, obesity, BPH, GERD, diverticulitis, arthritis, depression, tobacco dependency who was admitted 09/13/2019 with atrial fibrillation with RVR. Patient was seen on afternoon rounds. He is found resting in bed, comfortably, on room air while lying supine. Patient endorses continued intermittent abdominal discomfort, although admits that this is significantly improved as compared to when he was admitted. He denies associated nausea, vomiting, diarrhea. He further denies chest pain, palpitations, dyspnea, and orthopnea. He has several questions regarding the follow-up of his liver mass otherwise has no new questions or concerns at this time. No concerns per nursing. Reason For Visit: PAROXYSMAL ATRIAL FIBRILLATION WIT RAPID VENTRICUL Physical Exam Vital Signs: Temp Pulse Resp BP Pulse Ox 98.0 F 99 16 92/66 L 98 09/15/19 07:09 09/15/19 13:55 09/15/19 09:16 09/15/19 07:09 09/15/19 09:16 Intake & Output 09/14/19 09/15/19 09/16/19 06:59 06:59 06:59 Intake Total 509 1491 240 Output Total 0 1350 Balance 509 141 240 Weight 135.9 kg 134.1 kg General appearance: PRESENT: no acute distress, cooperative, hard of hearing, morbidly obese, well-developed, well-nourished Head exam: PRESENT: atraumatic, normocephalic Eye exam: PRESENT: conjunctiva pink, EOMI, PERRLA. ABSENT: scleral icterus Mouth exam: PRESENT: moist, tongue midline Respiratory exam: PRESENT: clear to auscultation reynold, symmetrical, unlabored. ABSENT: rales, rhonchi, wheezes Cardiovascular exam: PRESENT: irregular rhythm, +S1, +S2, tachycardia - HR 100- 117. ABSENT: diastolic murmur, rubs, systolic murmur Pulses: PRESENT: normal dorsalis pedis pul Vascular exam: PRESENT: normal capillary refill GI/Abdominal exam: PRESENT: normal bowel sounds, soft, tenderness - LLQ; worsens after meals. ABSENT: distended, guarding, mass, organolmegaly, rebound Rectal exam: PRESENT: deferred Extremities exam: PRESENT: full ROM. ABSENT: calf tenderness, clubbing, pedal edema Neurological exam: PRESENT: alert, awake, oriented to person, oriented to place, oriented to time, oriented to situation, CN II-XII grossly intact. ABSENT: motor sensory deficit Psychiatric exam: PRESENT: appropriate affect, normal mood. ABSENT: homicidal ideation, suicidal ideation Skin exam: PRESENT: dry, intact, warm. ABSENT: cyanosis, rash Results Laboratory Results: 09/15/19 04:21 09/15/19 04:21 09/15/19 09/15/19 04:21 04:21 WBC 7.8 RBC 3.46 L Hgb 10.0 L Hct 29.5 L MCV 85 MCH 28.8 MCHC 33.8 RDW 14.6 H Plt Count 333 Sodium 132.3 L Potassium 4.5 Chloride 101 Carbon Dioxide 24 Anion Gap 7 BUN 20 Creatinine 0.95 Est GFR ( Amer) > 60 Glucose 146 H Calcium 8.4 Magnesium 2.1 Total Bilirubin 0.8 AST 77 H Alkaline Phosphatase 259 H Total Protein 7.1 Albumin 3.0 L 09/13/19 09/13/19 09/13/19 13:54 20:21 20:21 Creatine Kinase 116 CK-MB (CK-2) 0.97 Troponin I 0.019 0.016 09/14/19 09/14/19 09/14/19 01:37 01:37 07:30 Creatine Kinase 83 97 CK-MB (CK-2) 0.85 Troponin I 0.018 09/14/19 07:30 Creatine Kinase CK-MB (CK-2) 0.71 Troponin I 0.017 Impressions: Abdomen/Pelvis CT 09/13/19 00:00 IMPRESSION: 1. Large 12 cm hepatic mass, new since 2017. Multiple smaller hepatic lesions. Differential diagnosis includes primary hepatocellular carcinoma versus metastatic disease. 2. Colonic diverticulosis but no CT evidence for acute diverticulitis. Assessment and Plan - Diagnosis (1) Atrial fibrillation with RVR Is this a current diagnosis for this admission?: Yes Plan: Patient is admitted to [facility] on continuous cardiac telemetry. Patient was initially placed on diltiazem drip. Patient has been weaned off. Cardiology has been consulted; have reviewed Dr. Samuel's recommendations. Patient is currently on Toprol 75 mg twice daily digoxin 0.125 mg IV daily Eliquis twice daily. Cardiac diet. (2) Diverticulitis Is this a current diagnosis for this admission?: Yes Plan: Evaluated by surgery who feels patient has mild diverticulitis. Initially placed on IV Levaquin and Flagyl. Patient is now tolerating meals; will transition to PO to complete 7 to 10-day course. Outpatient colonoscopy in about 2 months. Analgesics and antiemetics as needed. Avoid narcotics. (3) CHF (congestive heart failure) Qualifiers: Heart failure type: combined systolic and diastolic Heart failure chronicity: chronic Qualified Code(s): I50.42 - Chronic combined systolic (congestive) and diastolic (congestive) heart failure Is this a current diagnosis for this admission?: Yes Plan: Stable and without exacerbation at this time. Reduced EF of 35% noted on echo 02/2019. Cardiology is consulted with medication adjustments as above. In addition, continue daily lisinopril, isosorbide, and atorvastatin. Cardiac diet. Daily weights, strict I&O's. (4) Diabetes mellitus type 2 in obese Is this a current diagnosis for this admission?: Yes Plan: Holding oral medications while admitted. A1c 7.0% Patient is placed on a cardiac/consistent carb diet. Accu-Cheks before meals and at bedtime with Humalog for sliding scale coverage. Continue Lantus 12 units daily Hypoglycemia protocol in place. Registered dietitian and health educator are consulted. (5) Liver mass Is this a current diagnosis for this admission?: Yes Plan: Being followed by his PCP. However patient states that he did not realize his liver mass was 12 cm. Alpha-fetoprotein pending. Oncology was consulted. Spoke with Dr. Peterson today. If AFP is positive, patient may not necessarily require liver biopsy. Regardless, he can follow-up with her as an outpatient for further evaluation a nd treatment planning. - Time Time Spent with patient: 35 or more minutes Medications reviewed and adjusted accordingly: Yes Anticipated discharge: Home Within: within 24 hours
[2019-09-15] MEDS: ATORVASTATIN CALCIUM 40 MG TABLET PO SCH (22:04)
[2019-09-15] MEDS: ACETAMINOPHEN 325 MG TABLET PO PRN (22:14)
[2019-09-16 05:57] LABS: HEMATOCRIT 29.4 % (37.9-51.0); HEMOGLOBIN 9.9 g/dL (13.5-17.0); MEAN CORPUSCULAR HEMOGLOBIN 28.8 pg (27.0-33.4); MEAN CORPUSCULAR HGB CONC 33.7 g/dL (32.0-36.0); MEAN CORPUSCULAR VOLUME 85 fl (80-97); PLATELET COUNT 335 10^3/uL (150-450); RED BLOOD COUNT 3.44 10^6/uL (4.35-5.55); RED CELL DISTRIBUTION WIDTH 14.3 % (11.5-14.0); WHITE BLOOD COUNT 8.5 10^3/uL (4.0-10.5)
[2019-09-16] MEDS: GABAPENTIN 300 MG CAPSULE PO SCH ×3 (06:00→22:09)
[2019-09-16] MEDS: METRONIDAZOLE 500 MG TABLET PO SCH ×3 (06:00→22:10)
[2019-09-16] MEDS: LEVOTHYROXINE SODIUM 0.025 MG TABLET PO SCH (06:00)
[2019-09-16] MEDS: INSULIN REG, HUMAN 100 UNIT/ML 3 ML VIAL (PYX) SUBCUT SCH ×4 (09:00→22:10)
[2019-09-16] MEDS: DIGOXIN INJ 0.5 MG/2 ML AMPULE IV SCH (09:36)
[2019-09-16] MEDS: INSULIN GLARGINE,HUM.REC.ANLOG 1,000 UNIT/10 ML VIAL SUBCUT SCH (09:37)
[2019-09-16] MEDS: LACTOBACILLUS ACIDOPHILUS 250 MG TAB PO SCH ×2 (09:38→18:40)
[2019-09-16] MEDS: LISINOPRIL 5 MG TABLET PO SCH (09:40)
[2019-09-16] MEDS: METOCLOPRAMIDE HCL 10 MG TABLET PO SCH ×4 (09:40→22:10)
[2019-09-16] MEDS: ISOSORBIDE MONONITRATE 30 MG TAB.ER.24H PO SCH (09:40)
[2019-09-16] MEDS: LEVOFLOXACIN 750 MG TABLET PO SCH (09:41)
[2019-09-16] MEDS: METOPROLOL SUCCINATE 50 MG TAB.SR.24H PO SCH ×2 (09:41→22:09)
[2019-09-16] MEDS: APIXABAN 5 MG TABLET PO SCH ×2 (09:41→18:40)
[2019-09-16] MEDS: ASPIRIN 81 MG TABLET, ENT COATED PO SCH (09:42)
[2019-09-16] MEDS: FINASTERIDE 5 MG TABLET PO SCH (09:42)
[2019-09-16] MEDS: DOCUSATE SODIUM 100 MG CAPSULE PO SCH ×2 (09:42→18:40)
[2019-09-16] MEDS: FAMOTIDINE 20 MG TABLET PO SCH ×2 (09:45→22:10)
--- NOTE | 2019-09-16 10:03 | Progress Note ---
Provider Note Provider Note: CARDIOLOGY PROGRESS NOTE by Dr. Mirela Dave on 09/16/2019. OBJECTIVE: The patient's heart rate is much improved with the increase in beta- sam and the patient being on digoxin. His cardiomyopathy is well controlled and compensated without any evidence of heart failure. He is on a beta-sam and CURT inhibitor. We will continue these. For his chronic atrial fibrillation he is also on Eliquis. He denies any chest pain or discomfort there is no PND orthopnea or and there is only trace leg edema. There is no ventricle arrhythmia seen on the monitor. 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 PHYSICAL EXAMINATION: The patient is morbidly obese. In no acute distress. Selected Entries 09/16/19 12:27 Temperature 97.7 F Temperature Oral Source Pulse Rate 65 Respiratory 19 Rate Blood Pressure 100/62 Blood Pressure 74 Mean BP Location Left Arm BP Position Supine O2 Sat by Pulse 99 Oximetry Oxygen Delivery Room Air Method HEAD: Is atraumatic normocephalic. EYES: Pupils are equal round regular reactive to light light and accommodation. Extraocular movements are normal. There is no conjunctival pallor. There is no scleral icterus. EARS: Tympanic membranes are intact. External auditory canals are clear. NOSE: There is no deviated nasal septum. There is no inflammation of the nasal mucous membrane. MOUTH: Mucous membranes of mouth are moist. Tongue is moist. There is no ulcers. There is no bleeding from the gums. THROAT: There is no redness of the oropharynx. There is no exudates. SKIN: There is no skin rashes. There is no petechia or ecchymosis. There is no skin lesions. NECK: Is supple. There is no JVD. Carotids are equal there is no bruit there is no lymphadenopathy. There is no goiter. There is no accessory muscle respiration use. Trachea central. LUNGS: Show slightly diminished air entry prolonged expiration without any rhonchi rales or wheezing. HEART: S1-S2 is heard. S1 is of variable intensity. There is no S3 gallop. There is no S4 gallop. There is systolic murmur left sternal border and the apex there is no rub. ABDOMEN: Is obese. There is mild discomfort in the lower quadrant. There is no rebound guarding or rigidity. There is no hepatosplenomegaly. Bowel sounds are well heard. EXTREMITIES: Femorals are deep. There is no femoral bruits. Leg pulses are diminished. THERE IS TRACE PEDAL EDEMA BILATERALLY. THERE IS NO DVT OR CELLULITIS.. There is no calf tenderness. 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 PSYCHIATRIC:. Patient judgment insight intact his affect is normal. Labs- All tests 24 hr 09/15/19 09/16/19 09/16/19 04:21 04:54 04:54 WBC 8.5 RBC 3.44 L Hgb 9.9 L Hct 29.4 L MCV 85 MCH 28.8 MCHC 33.7 RDW 14.3 H Plt Count 335 POC Glucose Magnesium 2.0 Tumor Marker AFP 5437.0 H 09/16/19 09/16/19 09/16/19 07:43 12:26 15:54 WBC RBC Hgb Hct MCV MCH MCHC RDW Plt Count POC Glucose 171 H 239 H 185 H Magnesium Tumor Marker AFP 09/16/19 09/16/19 21:06 21:31 WBC RBC Hgb Hct MCV MCH MCHC RDW Plt Count POC Glucose 204 H 208 H Magnesium Tumor Marker AFP Abdomen/Pelvis CT 09/13/19 00:00 IMPRESSION: 1. Large 12 cm hepatic mass, new since 2017. Multiple smaller hepatic lesions. Differential diagnosis includes primary hepatocellular carcinoma versus metastatic disease. 2. Colonic diverticulosis but no CT evidence for acute diverticulitis. IMPRESSION/RECOMMENDATION: 1. Atrial fibrillation with rapid response:. At present the heart rate is well controlled with the patient's beta-sam dosage being increased and the patient being on digoxin 0.25 mg p.o. daily.. Continue Eliquis. 2. Abdominal pain most likely secondary to diverticulitis: Patient being managed conservatively. This is resolved. Most likely secondary to mild diverticulitis. This is now resolved. 3. Hepatic mass: The alpha-fetoprotein level is very high and hence it is deemed to be a primary hepatocellular carcinoma. This is oncology's opinion. 4. Coronary artery disease: History of [place] and history of stable angina. 5. Cardiomyopathy with moderately reduced ejection fraction. Continue beta- sam in the form of Toprol-XL extended release, and CURT inhibitor. Will increase these doses as tolerated. The patient blood pressure is only 100 systolic. Medications reviewed medications added and adjusted. Medical decision making is of moderate complexity. 40 minutes spent as patient more than 50% of time spent in direct patient care. Discussed with the attending physician. Medical regimen and management plan were discussed with the attending physician. The patient's cardiac and overall status is stable. Patient is being discharged. Will follow. Patient is outpatient and will deal with the issue of the patient needing an AICD. Later once a repeat echo was done which will be arranged in my and by my office. Will sign off.
--- NOTE | 2019-09-16 13:54 | Progress Note ---
Provider Note Provider Note: I spoke with Stacey Olivier as well as Du in radiology. 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 Current treatment guidelines are to consider ablation first. However, I believe since he is >5 cm he may not be a candidate for ablation or primary surgery. I am awaiting a call from interventional radiology on Friday. If not, then consider referal to [facility] transplant team for recommendations. He will see me in the office after discharge to discuss further.
--- NOTE | 2019-09-16 15:12 | PDOC TRANSFER SUMMARY ---
Impression - Admit/DC Date/PCP Admission Date/Primary Care Provider: 09/13/19 19:58 KAISER HARRISON MD Discharge Date: 09/16/19 - Discharge Diagnosis (1) Atrial fibrillation with RVR Is this a current diagnosis for this admission?: Yes (2) Diverticulitis Is this a current diagnosis for this admission?: Yes (3) CHF (congestive heart failure) Is this a current diagnosis for this admission?: Yes (4) Diabetes mellitus type 2 in obese Is this a current diagnosis for this admission?: Yes (5) Liver mass Is this a current diagnosis for this admission?: Yes - Additional Information Resuscitation Status: Full Code Discharge Diet: Cardiac, Diabetic Discharge Activity: Activity As Tolerated, Balance Activity w/Rest, Slowly Increase Activity, Weigh Daily Referrals: GEN PETERSON MD [ACTIVE STAFF] - 09/28/19 12:30 pm (* Bring insurance cards and ID to appointment* *Call from parking lot when you arrive to appointment*) KLAUS BUSTILLO MD [ACTIVE STAFF] - 10/04/19 11:30 am (Follow up within 2-3 weeks.) KAISER HARRISON MD [Primary Care Provider] - Follow up as needed (Mr. Gruber will be making his own follow-up appointment.) Prescriptions: Metronidazole [Flagyl 500 mg Tablet] 500 mg PO Q8 #20 tablet Digoxin [Lanoxin 0.25 mg Tablet] 0.25 mg PO DAILY #30 tablet Levofloxacin [Levaquin 750 mg Tablet] 750 mg PO DAILY #5 tablet Famotidine [Pepcid 20 mg Tablet] 20 mg PO Q12 #60 tablet Lisinopril [Prinivil 5 mg Tablet] 5 mg PO DAILY #30 tablet Metoclopramide HCl [Reglan 10 mg Tablet] 10 mg PO ACHS #120 tablet Metoprolol Succinate [Toprol Xl 50 mg Tab.sr] 75 mg PO Q12 #90 tab.sr.24h Home Medications: Gabapentin [Neurontin] 600 mg PO TID 07/28/17 L.acidoph/L.bulg/B.bif/S.therm [Bacid Caplet] 1 each PO BID 07/28/17 Multivitamin [Multiple Vitamins] 1 each PO DAILY 07/28/17 Alendronate Sodium 70 mg PO MO@1000 02/19/19 Aspirin [Ecotrin 81 mg EC Tablet] 81 mg PO DAILY 02/19/19 Atorvastatin Calcium [Lipitor 40 mg Tablet] 20 mg PO QHS 02/19/19 Cholecalciferol (Vitamin D3) [Vitamin D3 400 Unit Tablet] 800 unit PO DAILY 02/19/19 Citalopram Hydrobromide [Celexa 40 mg Tablet] 20 mg PO DAILY 02/19/19 Finasteride [Proscar 5 mg Tablet] 5 mg PO DAILY 02/19/19 Levothyroxine Sodium [Synthroid 0.025 mg Tablet] 25 mcg PO DAILY 02/19/19 Metformin HCl [Metformin HCl ER] 1,000 mg PO BID 02/19/19 Apixaban [Eliquis 5 mg Tablet] 5 mg PO BID tablet 02/24/19 Isosorbide Mononitrate [Imdur 30 mg Tablet.er] 30 mg PO DAILY tab.er.24h 02/24/19 Dexlansoprazole [Dexilant 60 mg Capsule] 60 mg PO BID 07/08/19 Furosemide [Lasix 40 mg Tablet] 60 mg PO QAM 07/08/19 Insulin Aspart [Novolog] 3 unit SQ QAM 07/08/19 Acetaminophen [Tylenol 325 mg Tablet] 650 mg PO Q4HP PRN 09/13/19 Calcium Carbonate [Calcium] 600 mg PO BID 09/13/19 Insulin Aspart [Novolog Insulin (Aspart) 100 unit/mL] 5 units SQ MEALS 09/13/19 Lidocaine HCl/Menthol [Aflexeryl-Lc 4%-1% Patch] 1 applic TP QAM 09/13/19 Acetaminophen [Tylenol 325 mg Tablet] 650 mg PO Q4HP PRN tablet 09/16/19 Digoxin [Lanoxin 0.25 mg Tablet] 0.25 mg PO DAILY #30 tablet 09/16/19 Docusate Sodium [Colace 100 mg Capsule] 100 mg PO BID capsule 09/16/19 Famotidine [Pepcid 20 mg Tablet] 20 mg PO Q12 #60 tablet 09/16/19 Levofloxacin [Levaquin 750 mg Tablet] 750 mg PO DAILY #5 tablet 09/16/19 Lisinopril [Prinivil 5 mg Tablet] 5 mg PO DAILY #30 tablet 09/16/19 Melatonin [Melatonin 5 mg Tablet] 5 mg PO HSP PRN #0 tablet 09/16/19 Metoclopramide HCl [Reglan 10 mg Tablet] 10 mg PO ACHS #120 tablet 09/16/19 Metoprolol Succinate [Toprol Xl 50 mg Tab.sr] 75 mg PO Q12 #90 tab.sr.24h 09/16/19 Metronidazole [Flagyl 500 mg Tablet] 500 mg PO Q8 #20 tablet 09/16/19 History of Present Illiness History of Present Illness: Per H&P by Dr. Kingston: CATALINO GRUBER JR is a 73 year old male who presented to the emergency room with a 5-day history of left lower quadrant abdominal pain. He admitted to constant waxing and waning pain in his left lower abdomen beginning 5 days ago. The pain is a cramping pressure without radiation and ranges from mild to severe as it waxes and wanes. He admits the associated symptoms of anorexia, nausea without vomiting and he had 1 loose stool 3 days ago. He is being evaluated for a hepatic mass by his primary care provider. He denies other associated or accompanying signs and symptoms. He admits prior similar episodes with diverticulitis. He has not identified any aggravating or ameliorating factors for his abdominal pain. In the emergency room he was found to have an unremarkable abdominal evaluation however he was noted to be in atrial fibrillation with a rapid ventricular response and was subsequently treated with a diltiazem infusion and admitted to the hospital for further evaluation and treatment. Hospital Course Hospital Course: (1) Atrial fibrillation with RVR Patient was admitted to [facility] on continuous cardiac telemetry. Patient was initially placed on diltiazem drip; has been weaned off. Cardiology was consulted. Per Dr. Samuel's recommendations, the patient is now rate controlled on Toprol 75 mg and daily digoxin 0.25 mg. Continues Eliquis twice daily. Cardiac diet. (2) Diverticulitis Evaluated by surgery who felt patient has mild diverticulitis. Initially placed on IV Levaquin and Flagyl. His diet was gradually advanced; now tolerating regular diet. Antibiotics have been transitioned to p.o. to complete a 7-day course of therapy. Recommend outpatient colonoscopy in about 2 months. (3) CHF (congestive heart failure) Stable and without exacerbation at this time. Reduced EF of 35% noted on echo 02/2019. Cardiology is consulted with medication adjustments as above. In addition patient continued on his home dose lisinopril, isosorbide, and atorvastatin. Cardiac diet. Daily weights, strict I&O's. (4) Diabetes mellitus type 2 in obese A1c 7.0% Blood sugars remain well controlled. To resume his home medication regiment upon discharge. (5) Liver mass CT abdomen pelvis revealed large 12 cm hepatic mass, new since 2017, with multiple smaller hepatic lesions. Alpha-fetoprotein 5437 Oncology was consulted. Spoke with Dr. Peterson today. Patient will follow-up with her next week. She is going to discuss with interventional radiology in the meantime whether or not the patient would be eligible for direct guided therapy. Physical Exam Vital Signs: Temp Pulse Resp BP Pulse Ox 97.7 F 65 19 100/62 99 09/16/19 12:27 09/16/19 12:27 09/16/19 12:27 09/16/19 12:27 09/16/19 12:27 Intake & Output 09/15/19 09/16/19 09/17/19 06:59 06:59 06:59 Intake Total 1491 1007 697 Output Total 1350 1225 Balance 141 -218 697 Weight 134.1 kg 137.5 kg General appearance: PRESENT: no acute distress, cooperative, hard of hearing, morbidly obese, well-developed, well-nourished Head exam: PRESENT: atraumatic, normocephalic Eye exam: PRESENT: conjunctiva pink, EOMI, PERRLA. ABSENT: scleral icterus Mouth exam: PRESENT: moist, tongue midline Respiratory exam: PRESENT: clear to auscultation reynold, symmetrical, unlabored. ABSENT: rales, rhonchi, wheezes Cardiovascular exam: PRESENT: irregular rhythm, +S1, +S2. ABSENT: diastolic murmur, rubs, systolic murmur Pulses: PRESENT: normal dorsalis pedis pul Vascular exam: PRESENT: normal capillary refill GI/Abdominal exam: PRESENT: normal bowel sounds, soft. ABSENT: distended, guarding, mass, organolmegaly, rebound, tenderness Rectal exam: PRESENT: deferred Extremities exam: PRESENT: full ROM. ABSENT: calf tenderness, clubbing, pedal edema Neurological exam: PRESENT: alert, awake, oriented to person, oriented to place, oriented to time, oriented to situation, CN II-XII grossly intact. ABSENT: motor sensory deficit Psychiatric exam: PRESENT: appropriate affect, normal mood. ABSENT: homicidal ideation, suicidal ideation Skin exam: PRESENT: dry, intact, warm. ABSENT: cyanosis, rash Results Laboratory Results: WBC 8.5 10^3/uL (4.0-10.5) 09/16/19 04:54 RBC 3.44 10^6/uL (4.35-5.55) L 09/16/19 04:54 Hgb 9.9 g/dL (13.5-17.0) L 09/16/19 04:54 Hct 29.4 % (37.9-51.0) L 09/16/19 04:54 MCV 85 fl (80-97) 09/16/19 04:54 MCH 28.8 pg (27.0-33.4) 09/16/19 04:54 MCHC 33.7 g/dL (32.0-36.0) 09/16/19 04:54 RDW 14.3 % (11.5-14.0) H 09/16/19 04:54 Plt Count 335 10^3/uL (150-450) 09/16/19 04:54 Lymph % (Auto) 7.8 % (13-45) L 09/13/19 13:54 Sullivan % (Auto) 13.2 % (3-13) H 09/13/19 13:54 Eos % (Auto) 0.3 % (0-6) 09/13/19 13:54 Baso % (Auto) 0.8 % (0-2) 09/13/19 13:54 Absolute Neuts (auto) 8.5 10^3/uL (1.7-8.2) H 09/13/19 13:54 Absolute Lymphs (auto) 0.9 10^3/uL (0.5-4.7) 09/13/19 13:54 Absolute Monos (auto) 1.4 10^3/uL (0.1-1.4) 09/13/19 13:54 Absolute Eos (auto) 0.0 10^3/uL (0.0-0.6) 09/13/19 13:54 Absolute Basos (auto) 0.1 10^3/uL (0.0-0.2) 09/13/19 13:54 Seg Neutrophils % 77.9 % (42-78) 09/13/19 13:54 Sodium 132.3 mmol/L (137-145) L 09/15/19 04:21 Potassium 4.5 mmol/L (3.6-5.0) 09/15/19 04:21 Chloride 101 mmol/L (98-107) 09/15/19 04:21 Carbon Dioxide 24 mmol/L (22-30) 09/15/19 04:21 Anion Gap 7 (5-19) 09/15/19 04:21 BUN 20 mg/dL (7-20) 09/15/19 04:21 Creatinine 0.95 mg/dL (0.52-1.25) 09/15/19 04:21 Est GFR ( Amer) > 60 (>60) 09/15/19 04:21 Est GFR (MDRD) Non-Af > 60 (>60) 09/15/19 04:21 Glucose 146 mg/dL (75-110) H 09/15/19 04:21 POC Glucose 239 mg/dL (70-110) H 09/16/19 12:26 Hemoglobin A1c % 7.0 % (4.7-6.0) H 09/14/19 07:30 Calcium 8.4 mg/dL (8.4-10.2) 09/15/19 04:21 Magnesium 2.0 mg/dL (1.6-2.3) 09/16/19 04:54 Total Bilirubin 0.8 mg/dL (0.2-1.3) 09/15/19 04:21 Direct Bilirubin 0.2 mg/dL (0.0-0.4) 09/15/19 04:21 Neonat Total Bilirubin Not Reportable 09/15/19 04:21 Neonat Direct Bilirubin Not Reportable 09/15/19 04:21 Neonat Indirect Bili Not Reportable 09/15/19 04:21 AST 77 U/L (17-59) H 09/15/19 04:21 ALT 27 U/L (<50) 09/15/19 04:21 Alkaline Phosphatase 259 U/L (38-126) H 09/15/19 04:21 Creatine Kinase 97 U/L (55-170) 09/14/19 07:30 CK-MB (CK-2) 0.71 ng/mL (<4.55) 09/14/19 07:30 Troponin I 0.017 ng/mL 09/14/19 07:30 Total Protein 7.1 g/dL (6.3-8.2) 09/15/19 04:21 Albumin 3.0 g/dL (3.5-5.0) L 09/15/19 04:21 Triglycerides 88 mg/dL (<150) 09/14/19 07:30 Cholesterol 123.19 mg/dL (0-200) 09/14/19 07:30 LDL Cholesterol Direct 82 mg/dL (<100) 09/14/19 07:30 VLDL Cholesterol 18.0 mg/dL (10-31) 09/14/19 07:30 HDL Cholesterol 25 mg/dL (>40) L 09/14/19 07:30 Lipase 27.6 U/L (23-300) 09/13/19 13:54 Tumor Marker AFP 5437.0 ng/mL (0.0-8.3) H 09/15/19 04:21 TSH 1.45 uIU/mL (0.47-4.68) 09/14/19 07:30 Urine Color YELLOW 09/14/19 07:45 Urine Appearance CLEAR 09/14/19 07:45 Urine pH 6.0 (5.0-9.0) 09/14/19 07:45 Ur Specific [place] 1.054 09/14/19 07:45 Urine Protein 30 mg/dL (NEGATIVE) H 09/14/19 07:45 Urine Glucose (UA) NEGATIVE mg/dL (NEGATIVE) 09/14/19 07:45 Urine Ketones 20 mg/dL (NEGATIVE) H 09/14/19 07:45 Urine Blood SMALL (NEGATIVE) H 09/14/19 07:45 Urine Nitrite (Reflex) NEGATIVE (NEGATIVE) 09/14/19 07:45 Urine Bilirubin NEGATIVE (NEGATIVE) 09/14/19 07:45 Urine Urobilinogen NEGATIVE mg/dL (<2.0) 09/14/19 07:45 Leukocyte Esterase Rfl NEGATIVE (NEGATIVE) 09/14/19 07:45 Urine RBC (Auto) 1 /HPF 09/14/19 07:45 Urine WBC (Reflex) 2 /HPF 09/14/19 07:45 Urine Mucus (Auto) OCC /LPF 09/14/19 07:45 Urine Ascorbic Acid NEGATIVE (NEGATIVE) 09/14/19 07:45 09/13/19 09/13/19 09/14/19 13:54 20:21 01:37 CK-MB (CK-2) 0.97 0.85 Troponin I 0.019 0.016 0.018 09/14/19 07:30 CK-MB (CK-2) 0.71 Troponin I 0.017 Impressions: Abdomen/Pelvis CT 09/13/19 00:00 IMPRESSION: 1. Large 12 cm hepatic mass, new since 2017. Multiple smaller hepatic lesions. Differential diagnosis includes primary hepatocellular carcinoma versus metastatic disease. 2. Colonic diverticulosis but no CT evidence for acute diverticulitis. Plan Plan of Treatment: Patient is discharged to [facility] for long-term care. Advised to follow-up with his primary care provider within 1 week. Follow-up with Dr. Samuel within 2 to 3 weeks. Follow up with Dr. Peterson next week. Complete full course of antibiotics for treatment of diverticulitis. Recommend follow-up colonoscopy in 2 to 3 months. Take your medications as prescribed. Eat a heart healthy diet. Weigh her self daily and report any weight gain of greater than 2 pounds overnight to provider. Return to emergency department as needed for concerning symptoms. Time Spent: Greater than 30 Minutes Stroke Is this a Stroke Patient?: No Acute Heart Failure - Is this a Heart Failure Patient?: Yes Documentation of LVEF assessment?: Yes LVEF < 40%?: Yes-if yes answer questions a through e a) Discharged on ACEI?: Yes b) Discharges on ARB?: No-document contraindications c) Discharged on ARNI?: No-Document Contraindications Reason(s) not discharged on ARNI: Other - medications per cardiology d) Discharged on evidence-based Beta sam(carvedilol, sustained release metoprolol succinate, or bisoprolol)?: Yes e) For LVEF <35%, discharged on Aldosterone antagonist?: Yes Reason(s) not discharged on Aldosterone antagonist for LVEF < 35%: Other 3. Anticoagulant therapy for permanect/persistent/paraoxysmal Afib or Aflutter: Yes
[2019-09-16] MEDS: ATORVASTATIN CALCIUM 40 MG TABLET PO SCH (22:10)
[2019-09-17] MEDS: METRONIDAZOLE 500 MG TABLET PO SCH ×3 (05:31→21:27)
[2019-09-17] MEDS: GABAPENTIN 300 MG CAPSULE PO SCH ×3 (05:31→21:26)
[2019-09-17] MEDS: LEVOTHYROXINE SODIUM 0.025 MG TABLET PO SCH (05:31)
[2019-09-17] MEDS: INSULIN REG, HUMAN 100 UNIT/ML 3 ML VIAL (PYX) SUBCUT SCH ×4 (07:31→21:27)
[2019-09-17] MEDS: METOCLOPRAMIDE HCL 10 MG TABLET PO SCH ×4 (07:51→21:26)
[2019-09-17] MEDS: APIXABAN 5 MG TABLET PO SCH ×2 (10:25→17:17)
[2019-09-17] MEDS: METOPROLOL SUCCINATE 50 MG TAB.SR.24H PO SCH ×2 (10:25→21:26)
[2019-09-17] MEDS: DIGOXIN INJ 0.5 MG/2 ML AMPULE IV SCH (10:25)
[2019-09-17] MEDS: ISOSORBIDE MONONITRATE 30 MG TAB.ER.24H PO SCH (10:27)
[2019-09-17] MEDS: DOCUSATE SODIUM 100 MG CAPSULE PO SCH ×2 (10:28→17:16)
[2019-09-17] MEDS: FINASTERIDE 5 MG TABLET PO SCH (10:28)
[2019-09-17] MEDS: LEVOFLOXACIN 750 MG TABLET PO SCH (10:28)
[2019-09-17] MEDS: LISINOPRIL 5 MG TABLET PO SCH (10:28)
[2019-09-17] MEDS: FAMOTIDINE 20 MG TABLET PO SCH ×2 (10:28→21:26)
[2019-09-17] MEDS: LACTOBACILLUS ACIDOPHILUS 250 MG TAB PO SCH ×2 (10:28→17:17)
[2019-09-17] MEDS: INSULIN GLARGINE,HUM.REC.ANLOG 1,000 UNIT/10 ML VIAL SUBCUT SCH (10:28)
[2019-09-17] MEDS: ASPIRIN 81 MG TABLET, ENT COATED PO SCH (10:28)
[2019-09-17] MEDS: ACETAMINOPHEN 325 MG TABLET PO PRN (12:15)
--- NOTE | 2019-09-17 16:47 | PDOC PROGRESS REPORT ---
Subjective Progress Note for:: 09/17/19 Subjective:: Patient is a 73-year-old male with an extensive past medical history including proximal A. fib, CHF, CAD, stable angina, IA, hypertension, hyperlipidemia, COPD, sleep apnea, hard of hearing, migraines, diabetic neuropathy, DM 2, hypothyroidism, obesity, BPH, GERD, diverticulitis, arthritis, depression, tobacco dependency who was admitted 09/13/2019 with atrial fibrillation with RVR. Patient was seen on afternoon rounds. He is found sleeping in bed, comfortably, on room air while lying in prone position. He wakes easily when I say his name, but admits to being sleepy and wanting to return to his nap. He again reports anxiety and confusion regarding the plan to further work up his HCC (patient is quite forgetful; this is been reviewed multiple times with the patient). Again discussed that he will follow-up with Dr. Peterson as an outpatient. Otherwise he states he is feeling well and has no new questions or cocnerns. He denies chest pain, palpitations, dyspnea, orthopnea, abd pain, nausea, and vomiting. He has several questions regarding the follow-up of his liver mass otherwise has no new questions or concerns at this time. No concerns per nursing. Reason For Visit: PAROXYSMAL ATRIAL FIBRILLATION WIT RAPID VENTRICUL Physical Exam Vital Signs: Temp Pulse Resp BP Pulse Ox 97.9 F 74 18 96/60 L 98 09/17/19 15:17 09/17/19 15:17 09/17/19 15:17 09/17/19 15:17 09/17/19 15:17 Intake & Output 09/16/19 09/17/19 09/18/19 06:59 06:59 06:59 Intake Total 1007 1374 558 Output Total 1225 925 Balance -218 449 558 Weight 137.5 kg 137.7 kg General appearance: PRESENT: no acute distress, cooperative, hard of hearing, morbidly obese, well-developed, well-nourished Head exam: PRESENT: atraumatic, normocephalic Eye exam: PRESENT: conjunctiva pink, EOMI, PERRLA. ABSENT: scleral icterus Mouth exam: PRESENT: moist, tongue midline Respiratory exam: PRESENT: clear to auscultation reynold, symmetrical, unlabored. ABSENT: rales, rhonchi, wheezes Cardiovascular exam: PRESENT: irregular rhythm, +S1, +S2. ABSENT: diastolic murmur, rubs, systolic murmur Pulses: PRESENT: normal dorsalis pedis pul Vascular exam: PRESENT: normal capillary refill Extremities exam: PRESENT: full ROM. ABSENT: calf tenderness, clubbing, pedal edema Neurological exam: PRESENT: alert, awake, oriented to person, oriented to place, oriented to time, oriented to situation, CN II-XII grossly intact, other - Forgetful, repetitive. ABSENT: motor sensory deficit Psychiatric exam: PRESENT: appropriate affect, normal mood. ABSENT: homicidal ideation, suicidal ideation Skin exam: PRESENT: dry, intact, warm. ABSENT: cyanosis, rash Results Laboratory Results: 09/16/19 04:54 09/15/19 04:21 09/13/19 09/13/19 09/13/19 13:54 20:21 20:21 Creatine Kinase 116 CK-MB (CK-2) 0.97 Troponin I 0.019 0.016 09/14/19 09/14/19 09/14/19 01:37 01:37 07:30 Creatine Kinase 83 97 CK-MB (CK-2) 0.85 Troponin I 0.018 09/14/19 07:30 Creatine Kinase CK-MB (CK-2) 0.71 Troponin I 0.017 Impressions: Abdomen/Pelvis CT 09/13/19 00:00 IMPRESSION: 1. Large 12 cm hepatic mass, new since 2017. Multiple smaller hepatic lesions. Differential diagnosis includes primary hepatocellular carcinoma versus metastatic disease. 2. Colonic diverticulosis but no CT evidence for acute diverticulitis. Assessment and Plan - Diagnosis (1) Atrial fibrillation with RVR Is this a current diagnosis for this admission?: Yes Plan: Patient is admitted to [facility] on continuous cardiac telemetry. Patient was initially placed on diltiazem drip. Patient has been weaned off. Cardiology has been consulted; have reviewed Dr. Samuel's recommendations. Per cardiology, patient is now stable for discharge. Patient is currently on Toprol 75 mg twice daily and digoxin 0.25 mg p.o. daily. Eliquis twice daily. Cardiac diet. (2) Diverticulitis Is this a current diagnosis for this admission?: Yes Plan: Evaluated by surgery who feels patient has mild diverticulitis. Initially placed on IV Levaquin and Flagyl. Have transitioned to p.o. Flagyl and Levaquin to complete course of therapy. Continues to tolerate medications and meals well. Recommend outpatient colonoscopy in about 2 months. (3) CHF (congestive heart failure) Qualifiers: Heart failure type: combined systolic and diastolic Heart failure chronicity: chronic Qualified Code(s): I50.42 - Chronic combined systolic (congestive) and diastolic (congestive) heart failure Is this a current diagnosis for this admission?: Yes Plan: Stable and without exacerbation at this time. Reduced EF of 35% noted on echo 02/2019. Cardiology is consulted with medication adjustments as above. In addition, continue daily lisinopril, isosorbide, and atorvastatin. Cardiac diet. Daily weights, strict I&O's. (4) Diabetes mellitus type 2 in obese Is this a current diagnosis for this admission?: Yes Plan: Holding oral medications while admitted. A1c 7.0% Patient is placed on a cardiac/consistent carb diet. Accu-Cheks before meals and at bedtime with Humalog for sliding scale coverage. Continue Lantus 12 units daily Hypoglycemia protocol in place. Registered dietitian and hospital educator are consulted. (5) Liver mass Is this a current diagnosis for this admission?: Yes Plan: CT abdomen pelvis revealed large 12 cm hepatic mass, new since 2017, with multiple smaller hepatic lesions. Alpha-fetoprotein 5437; confirms HCC Oncology was consulted. Spoke with Dr. Peterson yesterday. Patient will follow-up with her next week. She is going to discuss with interventional radiology in the meantime whether or not the patient would be eligible for direct guided therapy. (6) HCC (hepatocellular carcinoma) Is this a current diagnosis for this admission?: Yes Plan: Evaluation management as above. - Time Time Spent with patient: 15-24 minutes Medications reviewed and adjusted accordingly: Yes Anticipated discharge: SNF Within: when bed available - SNF requiring negative COVID-19 testing prior to acceptance back to his long-term care arrangement; test pending.
[2019-09-17] MEDS: ATORVASTATIN CALCIUM 40 MG TABLET PO SCH (21:27)
[2019-09-18] MEDS: ACETAMINOPHEN 325 MG TABLET PO PRN (05:29)
[2019-09-18] MEDS: METRONIDAZOLE 500 MG TABLET PO SCH ×3 (05:30→21:31)
[2019-09-18] MEDS: LEVOTHYROXINE SODIUM 0.025 MG TABLET PO SCH (05:30)
[2019-09-18] MEDS: GABAPENTIN 300 MG CAPSULE PO SCH ×3 (05:30→21:32)
[2019-09-18] MEDS: INSULIN REG, HUMAN 100 UNIT/ML 3 ML VIAL (PYX) SUBCUT SCH ×4 (08:50→21:38)
[2019-09-18] MEDS: LISINOPRIL 5 MG TABLET PO SCH (09:26)
[2019-09-18] MEDS: DIGOXIN INJ 0.5 MG/2 ML AMPULE IV SCH (09:34)
[2019-09-18] MEDS: ISOSORBIDE MONONITRATE 30 MG TAB.ER.24H PO SCH (09:34)
[2019-09-18] MEDS: METOCLOPRAMIDE HCL 10 MG TABLET PO SCH ×4 (09:35→21:32)
[2019-09-18] MEDS: DOCUSATE SODIUM 100 MG CAPSULE PO SCH ×2 (09:35→18:03)
[2019-09-18] MEDS: LACTOBACILLUS ACIDOPHILUS 250 MG TAB PO SCH ×2 (09:35→18:03)
[2019-09-18] MEDS: METOPROLOL SUCCINATE 50 MG TAB.SR.24H PO SCH ×2 (09:35→21:32)
[2019-09-18] MEDS: MIDODRINE HCL 5 MG TABLET PO SCH ×3 (09:35→18:03)
[2019-09-18] MEDS: FAMOTIDINE 20 MG TABLET PO SCH ×2 (09:35→21:31)
[2019-09-18] MEDS: LEVOFLOXACIN 750 MG TABLET PO SCH (09:35)
[2019-09-18] MEDS: ASPIRIN 81 MG TABLET, ENT COATED PO SCH (09:35)
[2019-09-18] MEDS: FINASTERIDE 5 MG TABLET PO SCH (09:35)
[2019-09-18] MEDS: APIXABAN 5 MG TABLET PO SCH ×2 (09:35→18:03)
[2019-09-18] MEDS: INSULIN GLARGINE,HUM.REC.ANLOG 1,000 UNIT/10 ML VIAL SUBCUT SCH (09:39)
--- NOTE | 2019-09-18 18:39 | PDOC PROGRESS REPORT ---
Subjective Progress Note for:: 09/18/19 Subjective:: Patient is a 73-year-old male with an extensive past medical history including proximal A. fib, CHF, CAD, stable angina, [place], hypertension, hyperlipidemia, COPD, sleep apnea, hard of hearing, migraines, diabetic neuropathy, DM 2, hypothyroidism, obesity, BPH, GERD, diverticulitis, arthritis, depression, tobacco dependency who was admitted 09/13/2019 with atrial fibrillation with RVR. Patient was seen on afternoon rounds. He is found resting in bed, comfortably, on room air. He tells me that he is tired and would like to take a nap. He does tell me that his left hip is bothering; arthritic pain, and requests something for his discomfort. Otherwise, he has no new questions or concerns and request to be left alone so that he can return to sleeping. He denies chest pain, palpitations, dyspnea, orthopnea, abd pain, nausea, and vomiting. No concerns per nursing. Reason For Visit: PAROXYSMAL ATRIAL FIBRILLATION WIT RAPID VENTRICUL Physical Exam Vital Signs: Temp Pulse Resp BP Pulse Ox 97.9 F 97 17 105/46 L 97 09/18/19 15:12 09/18/19 15:12 09/18/19 15:12 09/18/19 15:12 09/18/19 15:12 Intake & Output 09/17/19 09/18/19 09/19/19 06:59 06:59 06:59 Intake Total 1374 1356 720 Output Total 925 875 775 Balance 449 481 -55 Weight 137.7 kg 137.5 kg General appearance: PRESENT: no acute distress, cooperative, morbidly obese, well-developed, well-nourished Head exam: PRESENT: atraumatic, normocephalic Eye exam: PRESENT: conjunctiva pink, EOMI, PERRLA. ABSENT: scleral icterus Mouth exam: PRESENT: moist, tongue midline Respiratory exam: PRESENT: clear to auscultation reynold, symmetrical, unlabored. A BSENT: rales, rhonchi, wheezes Cardiovascular exam: PRESENT: irregular rhythm. ABSENT: diastolic murmur, rubs, systolic murmur Vascular exam: PRESENT: normal capillary refill Extremities exam: PRESENT: full ROM. ABSENT: calf tenderness, clubbing, pedal edema Musculoskeletal exam: PRESENT: ambulatory Neurological exam: PRESENT: alert, awake, oriented to person, oriented to place, oriented to time, oriented to situation, CN II-XII grossly intact. ABSENT: motor sensory deficit Psychiatric exam: PRESENT: appropriate affect, normal mood. ABSENT: homicidal ideation, suicidal ideation Skin exam: PRESENT: dry, intact, warm. ABSENT: cyanosis, rash Results Laboratory Results: 09/16/19 04:54 09/15/19 04:21 09/13/19 09/13/19 09/13/19 13:54 20:21 20:21 Creatine Kinase 116 CK-MB (CK-2) 0.97 Troponin I 0.019 0.016 09/14/19 09/14/19 09/14/19 01:37 01:37 07:30 Creatine Kinase 83 97 CK-MB (CK-2) 0.85 Troponin I 0.018 09/14/19 07:30 Creatine Kinase CK-MB (CK-2) 0.71 Troponin I 0.017 Impressions: Abdomen/Pelvis CT 09/13/19 00:00 IMPRESSION: 1. Large 12 cm hepatic mass, new since 2017. Multiple smaller hepatic lesions. Differential diagnosis includes primary hepatocellular carcinoma versus metastatic disease. 2. Colonic diverticulosis but no CT evidence for acute diverticulitis. Assessment and Plan - Diagnosis (1) Atrial fibrillation with RVR Is this a current diagnosis for this admission?: Yes Plan: Patient is admitted to [facility] on continuous cardiac telemetry. Patient was initially placed on diltiazem drip. Patient has been weaned off. Cardiology has been consulted; have reviewed Dr. Samuel's recommendations. Per cardiology, patient is now stable for discharge. Patient is currently on Toprol 75 mg twice daily and digoxin 0.25 mg p.o. daily. On Midodrine for blood pressure support. Eliquis twice daily. Cardiac diet. (2) Diverticulitis Is this a current diagnosis for this admission?: Yes Plan: Evaluated by surgery who feels patient has mild diverticulitis. Initially placed on IV Levaquin and Flagyl. Have transitioned to p.o. Flagyl and Levaquin to complete course of therapy. Continues to tolerate medications and meals well. Recommend outpatient colonoscopy in about 2 months. (3) CHF (congestive heart failure) Qualifiers: Heart failure type: combined systolic and diastolic Heart failure chronicity: chronic Qualified Code(s): I50.42 - Chronic combined systolic (congestive) and diastolic (congestive) heart failure Is this a current diagnosis for this admission?: Yes Plan: Stable and without exacerbation at this time. Reduced EF of 35% noted on echo 02/2019. Cardiology is consulted with medication adjustments as above. In addition, continue daily lisinopril, isosorbide, and atorvastatin. Now on Midodrine for blood pressure support. Cardiac diet. Daily weights, strict I&O's. (4) Diabetes mellitus type 2 in obese Is this a current diagnosis for this admission?: Yes Plan: Holding oral medications while admitted. A1c 7.0% Patient is placed on a cardiac/consistent carb diet. Accu-Cheks before meals and at bedtime with Humalog for sliding scale coverage. Continue Lantus 12 units daily Hypoglycemia protocol in place. Registered dietitian and parent educator are consulted. (5) Liver mass Is this a current diagnosis for this admission?: Yes Plan: CT abdomen pelvis revealed large 12 cm hepatic mass, new since 2017, with multiple smaller hepatic lesions. Alpha-fetoprotein 5437; confirms HCC Oncology was consulted. Spoke with Dr. Peterson yesterday. Patient will follow-up with her next week. She is going to discuss with interventional radiology in the meantime whether or not the patient would be eligible for direct guided therapy. (6) HCC (hepatocellular carcinoma) Is this a current diagnosis for this admission?: Yes Plan: Evaluation management as above. - Plan Summary Summary: COVID19 testing NEGATIVE - Time Time Spent with patient: 15-24 minutes Medications reviewed and adjusted accordingly: Yes Anticipated discharge: SNF Within: when bed available
[2019-09-18] MEDS: ATORVASTATIN CALCIUM 40 MG TABLET PO SCH (21:31)
[2019-09-19] MEDS: GABAPENTIN 300 MG CAPSULE PO SCH ×3 (06:12→22:09)
[2019-09-19] MEDS: LEVOTHYROXINE SODIUM 0.025 MG TABLET PO SCH (06:12)
[2019-09-19] MEDS: METRONIDAZOLE 500 MG TABLET PO SCH ×3 (06:12→22:09)
[2019-09-19] MEDS: INSULIN REG, HUMAN 100 UNIT/ML 3 ML VIAL (PYX) SUBCUT SCH ×4 (09:01→22:10)
[2019-09-19] MEDS: ISOSORBIDE MONONITRATE 30 MG TAB.ER.24H PO SCH (09:41)
[2019-09-19] MEDS: MIDODRINE HCL 5 MG TABLET PO SCH ×3 (09:41→18:55)
[2019-09-19] MEDS: LEVOFLOXACIN 750 MG TABLET PO SCH (09:41)
[2019-09-19] MEDS: APIXABAN 5 MG TABLET PO SCH ×2 (09:41→18:55)
[2019-09-19] MEDS: METOPROLOL SUCCINATE 50 MG TAB.SR.24H PO SCH ×2 (09:41→22:11)
[2019-09-19] MEDS: FAMOTIDINE 20 MG TABLET PO SCH ×2 (09:42→22:09)
[2019-09-19] MEDS: ASPIRIN 81 MG TABLET, ENT COATED PO SCH (09:42)
[2019-09-19] MEDS: LACTOBACILLUS ACIDOPHILUS 250 MG TAB PO SCH ×2 (09:42→18:55)
[2019-09-19] MEDS: METOCLOPRAMIDE HCL 10 MG TABLET PO SCH ×4 (09:42→22:09)
[2019-09-19] MEDS: DOCUSATE SODIUM 100 MG CAPSULE PO SCH ×2 (09:42→18:55)
[2019-09-19] MEDS: DIGOXIN INJ 0.5 MG/2 ML AMPULE IV SCH (09:42)
[2019-09-19] MEDS: INSULIN GLARGINE,HUM.REC.ANLOG 1,000 UNIT/10 ML VIAL SUBCUT SCH (09:42)
[2019-09-19] MEDS: FINASTERIDE 5 MG TABLET PO SCH (09:42)
[2019-09-19] MEDS: LISINOPRIL 5 MG TABLET PO SCH (09:42)
--- NOTE | 2019-09-19 11:26 | PDOC PROGRESS REPORT ---
Subjective Progress Note for:: 09/19/19 Subjective:: Patient is a 73-year-old male with an extensive past medical history including proximal A. fib, CHF, CAD, stable angina, [place], hypertension, hyperlipidemia, COPD, sleep apnea, hard of hearing, migraines, diabetic neuropathy, DM 2, hypothyroidism, obesity, BPH, GERD, diverticulitis, arthritis, depression, tobacco dependency who was admitted 09/13/2019 with atrial fibrillation with RVR. Patient was seen on afternoon rounds. He is found resting in bed, comfortably, on room air. He states he is feeling well and has no new complaints. Slight epigastric discomfort this morning that is now resolved. Otherwise, he has no new questions or concerns and request to be left alone so that he can return to sleeping. He denies chest pain, palpitations, dyspnea, orthopnea, abd pain, nausea, and vomiting. No concerns per nursing. Reason For Visit: PAROXYSMAL ATRIAL FIBRILLATION WIT RAPID VENTRICUL Physical Exam Vital Signs: Temp Pulse Resp BP Pulse Ox 98.7 F 76 18 129/73 H 96 09/19/19 07:24 09/19/19 07:24 09/19/19 07:24 09/19/19 09:40 09/19/19 07:24 Intake & Output 09/18/19 09/19/19 09/20/19 06:59 06:59 06:59 Intake Total 1356 940 Output Total 875 1100 Balance 481 -160 Weight 137.5 kg 136.2 kg General appearance: PRESENT: no acute distress, cooperative, morbidly obese, well-developed, well-nourished Head exam: PRESENT: atraumatic, normocephalic Eye exam: PRESENT: conjunctiva pink, EOMI, PERRLA. ABSENT: scleral icterus Mouth exam: PRESENT: moist, tongue midline Respiratory exam: PRESENT: clear to auscultation reynold, symmetrical, unlabored. ABSENT: rales, rhonchi, wheezes Cardiovascular exam: PRESENT: irregular rhythm. ABSENT: diastolic murmur, rubs, systolic murmur Pulses: PRESENT: normal dorsalis pedis pul Vascular exam: PRESENT: normal capillary refill Extremities exam: PRESENT: full ROM. ABSENT: calf tenderness, clubbing, pedal edema Neurological exam: PRESENT: alert, awake, oriented to person, oriented to place, oriented to time, oriented to situation, CN II-XII grossly intact. ABSENT: motor sensory deficit Psychiatric exam: PRESENT: appropriate affect, normal mood. ABSENT: homicidal ideation, suicidal ideation Skin exam: PRESENT: dry, intact, warm. ABSENT: cyanosis, rash Results Laboratory Results: 09/16/19 04:54 09/15/19 04:21 09/13/19 09/13/19 09/13/19 13:54 20:21 20:21 Creatine Kinase 116 CK-MB (CK-2) 0.97 Troponin I 0.019 0.016 09/14/19 09/14/19 09/14/19 01:37 01:37 07:30 Creatine Kinase 83 97 CK-MB (CK-2) 0.85 Troponin I 0.018 09/14/19 07:30 Creatine Kinase CK-MB (CK-2) 0.71 Troponin I 0.017 Impressions: Abdomen/Pelvis CT 09/13/19 00:00 IMPRESSION: 1. Large 12 cm hepatic mass, new since 2017. Multiple smaller hepatic lesions. Differential diagnosis includes primary hepatocellular carcinoma versus metastatic disease. 2. Colonic diverticulosis but no CT evidence for acute diverticulitis. Assessment and Plan - Diagnosis (1) Atrial fibrillation with RVR Is this a current diagnosis for this admission?: Yes Plan: Patient is admitted to [facility] on continuous cardiac telemetry. Patient was initially placed on diltiazem drip. Patient has been weaned off. Cardiology has been consulted; have reviewed Dr. Samuel's recommendations. Per cardiology, patient is now stable for discharge. Patient is currently on Toprol 75 mg twice daily and digoxin 0.25 mg p.o. daily. On Midodrine for blood pressure support. Eliquis twice daily. Cardiac diet. 09/19/2019: No changes; patient remained stable on the above plan. (2) Diverticulitis Is this a current diagnosis for this admission?: Yes Plan: Evaluated by surgery who feels patient has mild diverticulitis. Initially placed on IV Levaquin and Flagyl. Have transitioned to p.o. Flagyl and Levaquin to complete course of therapy. Continues to tolerate medications and meals well. Recommend outpatient colonoscopy in about 2 months. 09/19/2019: No changes. Flagyl day #3 of 10. Levaquin day #3 of 5. (3) CHF (congestive heart failure) Qualifiers: Heart failure type: combined systolic and diastolic Heart failure chronicity: chronic Qualified Code(s): I50.42 - Chronic combined systolic (congestive) and diastolic (congestive) heart failure Is this a current diagnosis for this admission?: Yes Plan: Stable and without exacerbation at this time. Reduced EF of 35% noted on echo 02/2019. Cardiology is consulted with medication adjustments as above. In addition, continue daily lisinopril, isosorbide, and atorvastatin. Now on Midodrine for blood pressure support. Cardiac diet. Daily weights, strict I&O's. 09/19/2019: Stable; no changes to the above plan. (4) Diabetes mellitus type 2 in obese Is this a current diagnosis for this admission?: Yes Plan: Holding oral medications while admitted. A1c 7.0% Patient is placed on a cardiac/consistent carb diet. Accu-Cheks before meals and at bedtime with Humalog for sliding scale coverage. Continue Lantus 12 units daily Hypoglycemia protocol in place. Registered dietitian and breastfeeding educator are consulted. 09/19/2019: Doing well on current management. Resume home medication regiment upon discharge. (5) Liver mass Is this a current diagnosis for this admission?: Yes Plan: CT abdomen pelvis revealed large 12 cm hepatic mass, new since 2017, with multiple smaller hepatic lesions. Alpha-fetoprotein 5437; confirms HCC Oncology was consulted. Spoke with Dr. Peterson yesterday. Patient will follow-up with her next week. She is going to discuss with interventional radiology in the meantime whether or not the patient would be eligible for direct guided therapy. 09/19/2019: No changes. (6) HCC (hepatocellular carcinoma) Is this a current diagnosis for this admission?: Yes Plan: Evaluation management as above. - Plan Summary Summary: COVID19 testing NEGATIVE - Time Time Spent with patient: Less than 15 minutes Anticipated discharge: SNF Within: when bed available
[2019-09-19] MEDS: ACETAMINOPHEN 325 MG TABLET PO PRN (11:57)
[2019-09-19] MEDS: ATORVASTATIN CALCIUM 40 MG TABLET PO SCH (22:09)
[2019-09-20] MEDS: GABAPENTIN 300 MG CAPSULE PO SCH ×3 (05:52→22:13)
[2019-09-20] MEDS: METRONIDAZOLE 500 MG TABLET PO SCH ×3 (05:52→22:13)
[2019-09-20] MEDS: LEVOTHYROXINE SODIUM 0.025 MG TABLET PO SCH (05:52)
[2019-09-20] MEDS: INSULIN REG, HUMAN 100 UNIT/ML 3 ML VIAL (PYX) SUBCUT SCH ×4 (08:07→22:13)
[2019-09-20] MEDS: METOCLOPRAMIDE HCL 10 MG TABLET PO SCH ×4 (09:51→22:13)
[2019-09-20] MEDS: DOCUSATE SODIUM 100 MG CAPSULE PO SCH ×2 (10:43→18:38)
[2019-09-20] MEDS: LACTOBACILLUS ACIDOPHILUS 250 MG TAB PO SCH ×2 (10:43→18:38)
[2019-09-20] MEDS: APIXABAN 5 MG TABLET PO SCH ×2 (10:44→18:38)
[2019-09-20] MEDS: LEVOFLOXACIN 750 MG TABLET PO SCH (10:44)
[2019-09-20] MEDS: ASPIRIN 81 MG TABLET, ENT COATED PO SCH (10:44)
[2019-09-20] MEDS: MIDODRINE HCL 5 MG TABLET PO SCH ×3 (10:44→18:38)
[2019-09-20] MEDS: FAMOTIDINE 20 MG TABLET PO SCH ×2 (10:44→22:13)
[2019-09-20] MEDS: METOPROLOL SUCCINATE 50 MG TAB.SR.24H PO SCH ×2 (10:44→22:12)
[2019-09-20] MEDS: DIGOXIN INJ 0.5 MG/2 ML AMPULE IV SCH (10:44)
[2019-09-20] MEDS: FINASTERIDE 5 MG TABLET PO SCH (10:44)
[2019-09-20] MEDS: LISINOPRIL 5 MG TABLET PO SCH (10:44)
[2019-09-20] MEDS: ISOSORBIDE MONONITRATE 30 MG TAB.ER.24H PO SCH (10:44)
[2019-09-20] MEDS: INSULIN GLARGINE,HUM.REC.ANLOG 1,000 UNIT/10 ML VIAL SUBCUT SCH (10:49)
--- NOTE | 2019-09-20 12:17 | PDOC PROGRESS REPORT ---
Subjective Progress Note for:: 09/20/19 Subjective:: Patient is a 73-year-old male with an extensive past medical history including proximal A. fib, CHF, CAD, stable angina, [place], hypertension, hyperlipidemia, COPD, sleep apnea, hard of hearing, migraines, diabetic neuropathy, DM 2, hypothyroidism, obesity, BPH, GERD, diverticulitis, arthritis, depression, tobacco dependency who was admitted 09/13/2019 with atrial fibrillation with RVR. Patient was seen on morning rounds. He is found resting in bed, comfortably, on room air. He was sleeping but woke easily when I said his name. He states he is feeling well and has no new questions or concerns. He has not yet had breakfast today states that he wants to go back to sleep. He denies chest pain, palpitations, dyspnea, orthopnea, abd pain, nausea, and vomiting. Patient has no questions or concerns at this time No concerns per nursing. Reason For Visit: PAROXYSMAL ATRIAL FIBRILLATION WIT RAPID VENTRICUL Physical Exam Vital Signs: Temp Pulse Resp BP Pulse Ox 98.2 F 63 20 128/80 H 96 09/20/19 07:48 09/20/19 07:48 09/20/19 07:48 09/20/19 07:48 09/20/19 07:48 Intake & Output 09/19/19 09/20/19 09/21/19 06:59 06:59 06:59 Intake Total 940 1306 Output Total 1100 950 Balance -160 356 Weight 136.2 kg 137.1 kg General appearance: PRESENT: no acute distress, cooperative, morbidly obese, well-developed, well-nourished Head exam: PRESENT: atraumatic, normocephalic Eye exam: PRESENT: conjunctiva pink, EOMI, PERRLA. ABSENT: scleral icterus Mouth exam: PRESENT: moist, tongue midline Respiratory exam: PRESENT: clear to auscultation reynold. ABSENT: rales, rhonchi, wheezes Cardiovascular exam: PRESENT: RRR. ABSENT: diastolic murmur, rubs, systolic murmur Pulses: PRESENT: normal dorsalis pedis pul Vascular exam: PRESENT: normal capillary refill Rectal exam: PRESENT: deferred Extremities exam: PRESENT: full ROM. ABSENT: calf tenderness, clubbing, pedal edema Neurological exam: PRESENT: alert, awake, oriented to person, oriented to place, oriented to time, oriented to situation, CN II-XII grossly intact, other - Intermittently confused and forgetful; often repetitive conversations.. ABSENT: motor sensory deficit Psychiatric exam: PRESENT: appropriate affect, normal mood. ABSENT: homicidal ideation, suicidal ideation Skin exam: PRESENT: dry, intact, warm. ABSENT: cyanosis, rash Results Laboratory Results: 09/16/19 04:54 09/15/19 04:21 09/13/19 09/13/19 09/13/19 13:54 20:21 20:21 Creatine Kinase 116 CK-MB (CK-2) 0.97 Troponin I 0.019 0.016 09/14/19 09/14/19 09/14/19 01:37 01:37 07:30 Creatine Kinase 83 97 CK-MB (CK-2) 0.85 Troponin I 0.018 09/14/19 07:30 Creatine Kinase CK-MB (CK-2) 0.71 Troponin I 0.017 Impressions: Abdomen/Pelvis CT 09/13/19 00:00 IMPRESSION: 1. Large 12 cm hepatic mass, new since 2017. Multiple smaller hepatic lesions. Differential diagnosis includes primary hepatocellular carcinoma versus metastatic disease. 2. Colonic diverticulosis but no CT evidence for acute diverticulitis. Assessment and Plan - Diagnosis (1) Atrial fibrillation with RVR Is this a current diagnosis for this admission?: Yes Plan: Patient is admitted to [facility] on continuous cardiac telemetry. Patient was initially placed on diltiazem drip. Patient has been weaned off. Cardiology has been consulted; have reviewed Dr. Samuel's recommendations. Per cardiology, patient is now stable for discharge. Patient is currently on Toprol 75 mg twice daily and digoxin 0.25 mg p.o. daily. On Midodrine for blood pressure support. Eliquis twice daily. Cardiac diet. 09/19/2019: No changes; patient remained stable on the above plan. 09/20/2019: We will downgrade from [facility] to [facility] today; patient remained stable on the above plan. (2) Diverticulitis Is this a current diagnosis for this admission?: Yes Plan: Evaluated by surgery who feels patient has mild diverticulitis. Initially placed on IV Levaquin and Flagyl. Have transitioned to p.o. Flagyl and Levaquin to complete course of therapy. Continues to tolerate medications and meals well. Recommend outpatient colonoscopy in about 2 months. 09/19/2019: No changes. Flagyl day #3 of 10. Levaquin day #3 of 5. 09/20/2019: No changes. Flagyl day #4 of 10. Levaquin day #4 of 5. (3) CHF (congestive heart failure) Qualifiers: Heart failure type: combined systolic and diastolic Heart failure chronicity: chronic Qualified Code(s): I50.42 - Chronic combined systolic (congestive) and diastolic (congestive) heart failure Is this a current diagnosis for this admission?: Yes Plan: Stable and without exacerbation at this time. Reduced EF of 35% noted on echo 02/2019. Cardiology is consulted with medication adjustments as above. In addition, continue daily lisinopril, isosorbide, and atorvastatin. Now on Midodrine for blood pressure support. Cardiac diet. Daily weights, strict I&O's. 09/19/2019: Stable; no changes to the above plan. 09/20/2019: Stable; no changes to the above plan. (4) Diabetes mellitus type 2 in obese Is this a current diagnosis for this admission?: Yes Plan: Holding oral medications while admitted. A1c 7.0% Patient is placed on a cardiac/consistent carb diet. Accu-Cheks before meals and at bedtime with Humalog for sliding scale coverage. Continue Lantus 12 units daily Hypoglycemia protocol in place. Registered dietitian and plastic worker are consulted. 09/19/2019: Doing well on current management. Resume home medication regiment upon discharge. 09/20/19: Unchanged (5) Liver mass Is this a current diagnosis for this admission?: Yes Plan: CT abdomen pelvis revealed large 12 cm hepatic mass, new since 2017, with multiple smaller hepatic lesions. Alpha-fetoprotein 5437; confirms HCC Oncology was consulted. Spoke with Dr. Peterson yesterday. Patient will follow-up with her next week. She is going to discuss with interventional radiology in the meantime whether or not the patient would be eligible for direct guided therapy. 09/19/2019: No changes. 09/20/2019: No changes. (6) HCC (hepatocellular carcinoma) Is this a current diagnosis for this admission?: Yes Plan: Evaluation management as above. - Plan Summary Summary: COVID19 testing NEGATIVE - Time Time Spent with patient: Less than 15 minutes Anticipated discharge: SNF Within: when bed available
[2019-09-20] MEDS: ATORVASTATIN CALCIUM 40 MG TABLET PO SCH (22:13)
[2019-09-21] MEDS: GABAPENTIN 300 MG CAPSULE PO SCH ×3 (05:32→21:59)
[2019-09-21] MEDS: METRONIDAZOLE 500 MG TABLET PO SCH ×3 (05:32→21:58)
[2019-09-21] MEDS: LEVOTHYROXINE SODIUM 0.025 MG TABLET PO SCH (05:32)
[2019-09-21 05:38] LABS: ANION GAP 5 (5-19); BLOOD UREA NITROGEN 15 mg/dL (7-20); CALCIUM 7.7 mg/dL (8.4-10.2); CARBON DIOXIDE 23 mmol/L (22-30); CHLORIDE 103 mmol/L (98-107); DIGOXIN 1.52 ng/mL (0.8-2.0); GLUCOSE 133 mg/dL (75-110); POTASSIUM 4.7 mmol/L (3.6-5.0)
[2019-09-21] MEDS: INSULIN REG, HUMAN 100 UNIT/ML 3 ML VIAL (PYX) SUBCUT SCH ×4 (08:53→21:59)
[2019-09-21] MEDS: LISINOPRIL 5 MG TABLET PO SCH (09:51)
[2019-09-21] MEDS: ISOSORBIDE MONONITRATE 30 MG TAB.ER.24H PO SCH (10:00)
[2019-09-21] MEDS: LACTOBACILLUS ACIDOPHILUS 250 MG TAB PO SCH ×2 (10:00→17:13)
[2019-09-21] MEDS: FINASTERIDE 5 MG TABLET PO SCH (10:01)
[2019-09-21] MEDS: INSULIN GLARGINE,HUM.REC.ANLOG 1,000 UNIT/10 ML VIAL SUBCUT SCH (10:01)
[2019-09-21] MEDS: METOPROLOL SUCCINATE 50 MG TAB.SR.24H PO SCH ×2 (10:01→21:58)
[2019-09-21] MEDS: LEVOFLOXACIN 750 MG TABLET PO SCH (10:01)
[2019-09-21] MEDS: ASPIRIN 81 MG TABLET, ENT COATED PO SCH (10:01)
[2019-09-21] MEDS: MIDODRINE HCL 5 MG TABLET PO SCH ×3 (10:01→17:13)
[2019-09-21] MEDS: DIGOXIN INJ 0.5 MG/2 ML AMPULE IV SCH (10:01)
[2019-09-21] MEDS: METOCLOPRAMIDE HCL 10 MG TABLET PO SCH ×4 (10:01→21:58)
[2019-09-21] MEDS: FAMOTIDINE 20 MG TABLET PO SCH ×2 (10:01→21:59)
[2019-09-21] MEDS: APIXABAN 5 MG TABLET PO SCH ×2 (10:01→17:13)
[2019-09-21] MEDS: DOCUSATE SODIUM 100 MG CAPSULE PO SCH ×2 (10:02→17:14)
--- NOTE | 2019-09-21 14:24 | PDOC TRANSFER SUMMARY ---
Impression - Admit/DC Date/PCP Admission Date/Primary Care Provider: 09/13/19 19:58 KAISER HARRISON MD Discharge Date: 09/21/19 - Assessment Summary: COVID19 testing NEGATIVE Patient was admitted to the hospital 09/13/19 with a complaint of abdominal pain for 5 days. Patient states that it would come and go and that it was crampy in nature. Also complained of some nausea but no vomiting. Patient has a prior history of diverticulitis. In the emergency room patient was found to be in atrial fib with RVR and treated with IV diltiazem. Patient was seen by consultation general surgery and they evaluated a CT scan of the abdomen and pelvis that showed multiple hepatic lesions and mild pericolonic stranding around the sigmoid colon. And also had a suspicious lesion of the liver which was being currently worked up by the [facility] system for possible malignancy. General surgery's recommendation was clear liquids and bowel rest also stool softeners, high-fiber diet IV Flagyl and Levaquin, x48 hours and switch to p.o. antibiotics. Will also need follow-up colonoscopy as an outpatient. And also seen by cardiology while in the hospital. He recommended continuing the patient on the beta-sam, 1 dose of digoxin and wean off the Cardizem drip. Also continue the Eliquis. Patient was also seen by hematology oncology for a liver mass thought to be cancer. Also recommended was AFP, which was greatly elevated at 5437, which wo uld indicate liver cancer and no need for liver biopsy. Patient can be seen as an outpatient for further diagnosis and treatment recommendations, by Dr. Peterson. Patient also had discharge summary dictated on the please see that dictation. Since then the patient has remained medically stable and is currently on p.o. Flagyl and Levaquin. Patient will need 6 more days of Flagyl and 1 more day of Levaquin to complete the course, diverticulitis Patient is on Toprol 75 mg twice daily digoxin 0.25 mg daily Eliquis 5 mg twice daily. Midrin 5 mg 3 times daily Lantus 12 units subcu daily Reglan 10 mg before meals and at bedtime, lisinopril 5 mg daily Pepcid 20 mg twice daily Patient will need to be seen by cardiology and oncology within the next 7 to 10 days - Additional Information Resuscitation Status: Full Code Discharge Diet: Cardiac, Diabetic Discharge Activity: Activity As Tolerated, Balance Activity w/Rest, Slowly Increase Activity, Weigh Daily Referrals: GEN PETERSON MD [ACTIVE STAFF] - 09/28/19 12:30 pm (* Bring insurance cards and ID to appointment* *Call from parking lot when you arrive to appointment*) KLAUS BUSTILLO MD [ACTIVE STAFF] - 10/04/19 11:30 am (Follow up within 2-3 weeks.) Prescriptions: Metronidazole [Flagyl 500 mg Tablet] 500 mg PO Q8 #20 tablet Digoxin [Lanoxin 0.25 mg Tablet] 0.25 mg PO DAILY #30 tablet Levofloxacin [Levaquin 750 mg Tablet] 750 mg PO DAILY #5 tablet Famotidine [Pepcid 20 mg Tablet] 20 mg PO Q12 #60 tablet Lisinopril [Prinivil 5 mg Tablet] 5 mg PO DAILY #30 tablet Metoclopramide HCl [Reglan 10 mg Tablet] 10 mg PO ACHS #120 tablet Metoprolol Succinate [Toprol Xl 50 mg Tab.sr] 75 mg PO Q12 #90 tab.sr.24h Home Medications: Gabapentin [Neurontin] 600 mg PO TID 07/28/17 L.acidoph/L.bulg/B.bif/S.therm [Bacid Caplet] 1 each PO BID 07/28/17 Multivitamin [Multiple Vitamins] 1 each PO DAILY 07/28/17 Alendronate Sodium 70 mg PO MO@1000 02/19/19 Aspirin [Ecotrin 81 mg EC Tablet] 81 mg PO DAILY 02/19/19 Atorvastatin Calcium [Lipitor 40 mg Tablet] 20 mg PO QHS 02/19/19 Cholecalciferol (Vitamin D3) [Vitamin D3 400 Unit Tablet] 800 unit PO DAILY 02/19/19 Citalopram Hydrobromide [Celexa 40 mg Tablet] 20 mg PO DAILY 02/19/19 Finasteride [Proscar 5 mg Tablet] 5 mg PO DAILY 02/19/19 Levothyroxine Sodium [Synthroid 0.025 mg Tablet] 25 mcg PO DAILY 02/19/19 Metformin HCl [Metformin HCl ER] 1,000 mg PO BID 02/19/19 Apixaban [Eliquis 5 mg Tablet] 5 mg PO BID tablet 02/24/19 Isosorbide Mononitrate [Imdur 30 mg Tablet.er] 30 mg PO DAILY tab.er.24h 02/24/19 Dexlansoprazole [Dexilant 60 mg Capsule] 60 mg PO BID 07/08/19 Furosemide [Lasix 40 mg Tablet] 60 mg PO QAM 07/08/19 Insulin Aspart [Novolog] 3 unit SQ QAM 07/08/19 Acetaminophen [Tylenol 325 mg Tablet] 650 mg PO Q4HP PRN 09/13/19 Calcium Carbonate [Calcium] 600 mg PO BID 09/13/19 Insulin Aspart [Novolog Insulin (Aspart) 100 unit/mL] 5 units SQ MEALS 09/13/19 Lidocaine HCl/Menthol [Aflexeryl-Lc 4%-1% Patch] 1 applic TP QAM 09/13/19 Acetaminophen [Tylenol 325 mg Tablet] 650 mg PO Q4HP PRN tablet 09/16/19 Digoxin [Lanoxin 0.25 mg Tablet] 0.25 mg PO DAILY #30 tablet 09/16/19 Docusate Sodium [Colace 100 mg Capsule] 100 mg PO BID capsule 09/16/19 Famotidine [Pepcid 20 mg Tablet] 20 mg PO Q12 #60 tablet 09/16/19 Levofloxacin [Levaquin 750 mg Tablet] 750 mg PO DAILY #5 tablet 09/16/19 Lisinopril [Prinivil 5 mg Tablet] 5 mg PO DAILY #30 tablet 09/16/19 Melatonin [Melatonin 5 mg Tablet] 5 mg PO HSP PRN #0 tablet 09/16/19 Metoclopramide HCl [Reglan 10 mg Tablet] 10 mg PO ACHS #120 tablet 09/16/19 Metoprolol Succinate [Toprol Xl 50 mg Tab.sr] 75 mg PO Q12 #90 tab.sr.24h 09/16/19 Metronidazole [Flagyl 500 mg Tablet] 500 mg PO Q8 #20 tablet 09/16/19 History of Present Illiness History of Present Illness: CATALINO MARTINEZ JR is a 73 year old male Hospital Course Hospital Course: (1) Atrial fibrillation with RVR Patient was admitted to [facility] on continuous cardiac telemetry. Patient was initially placed on diltiazem drip; has been weaned off. Cardiology was consulted. Per Dr. Samuel's recommendations, the patient is now rate controlled on Toprol 75 mg and daily digoxin 0.25 mg. Continues Eliquis twice daily. Cardiac diet. (2) Diverticulitis Evaluated by surgery who felt patient has mild diverticulitis. Initially placed on IV Levaquin and Flagyl. His diet was gradually advanced; now tolerating regular diet. Antibiotics have been transitioned to p.o. to complete a 7-day course of therapy. Recommend outpatient colonoscopy in about 2 months. (3) CHF (congestive heart failure) Stable and without exacerbation at this time. Reduced EF of 35% noted on echo 02/2019. Cardiology is consulted with medication adjustments as above. In addition patient continued on his home dose lisinopril, isosorbide, and atorvastatin. Cardiac diet. Daily weights, strict I&O's. (4) Diabetes mellitus type 2 in obese A1c 7.0% Blood sugars remain well controlled. To resume his home medication regiment upon discharge. (5) Liver mass CT abdomen pelvis revealed large 12 cm hepatic mass, new since 2016, with multiple smaller hepatic lesions. Alpha-fetoprotein 5437 Oncology was consulted. Spoke with Dr. Peterson today. Patient will follow-up with her next week. She is going to discuss with interventional radiology in the meantime whether or not the patient would be eligible for direct guided therapy. Physical Exam Vital Signs: Temp Pulse Resp BP Pulse Ox 98.1 F 68 22 H 102/58 L 94 09/21/19 11:21 09/21/19 11:21 09/21/19 11:21 09/21/19 11:21 09/21/19 11:21 Intake & Output 09/20/19 09/21/19 09/22/19 06:59 06:59 06:59 Intake Total 1306 871 360 Output Total 950 950 500 Balance 356 -79 -140 Weight 137.1 kg 135.1 kg Results Laboratory Results: WBC 8.5 10^3/uL (4.0-10.5) 09/16/19 04:54 RBC 3.44 10^6/uL (4.35-5.55) L 09/16/19 04:54 Hgb 9.9 g/dL (13.5-17.0) L 09/16/19 04:54 Hct 29.4 % (37.9-51.0) L 09/16/19 04:54 MCV 85 fl (80-97) 09/16/19 04:54 MCH 28.8 pg (27.0-33.4) 09/16/19 04:54 MCHC 33.7 g/dL (32.0-36.0) 09/16/19 04:54 RDW 14.3 % (11.5-14.0) H 09/16/19 04:54 Plt Count 335 10^3/uL (150-450) 09/16/19 04:54 Lymph % (Auto) 7.8 % (13-45) L 09/13/19 13:54 [place] % (Auto) 13.2 % (3-13) H 09/13/19 13:54 Eos % (Auto) 0.3 % (0-6) 09/13/19 13:54 Baso % (Auto) 0.8 % (0-2) 09/13/19 13:54 Absolute Neuts (auto) 8.5 10^3/uL (1.7-8.2) H 09/13/19 13:54 Absolute Lymphs (auto) 0.9 10^3/uL (0.5-4.7) 09/13/19 13:54 Absolute Monos (auto) 1.4 10^3/uL (0.1-1.4) 09/13/19 13:54 Absolute Eos (auto) 0.0 10^3/uL (0.0-0.6) 09/13/19 13:54 Absolute Basos (auto) 0.1 10^3/uL (0.0-0.2) 09/13/19 13:54 Seg Neutrophils % 77.9 % (42-78) 09/13/19 13:54 Sodium 130.7 mmol/L (137-145) L 09/21/19 04:34 Potassium 4.7 mmol/L (3.6-5.0) 09/21/19 04:34 Chloride 103 mmol/L (98-107) 09/21/19 04:34 Carbon Dioxide 23 mmol/L (22-30) 09/21/19 04:34 Anion Gap 5 (5-19) 09/21/19 04:34 BUN 15 mg/dL (7-20) 09/21/19 04:34 Creatinine 0.73 mg/dL (0.52-1.25) 09/21/19 04:34 Est GFR ( Amer) > 60 (>60) 09/21/19 04:34 Est GFR (MDRD) Non-Af > 60 (>60) 09/21/19 04:34 Glucose 133 mg/dL (75-110) H 09/21/19 04:34 POC Glucose 252 mg/dL (70-110) H 09/21/19 11:22 Hemoglobin A1c % 7.0 % (4.7-6.0) H 09/14/19 07:30 Calcium 7.7 mg/dL (8.4-10.2) L 09/21/19 04:34 Magnesium 2.0 mg/dL (1.6-2.3) 09/16/19 04:54 Total Bilirubin 0.8 mg/dL (0.2-1.3) 09/15/19 04:21 Direct Bilirubin 0.2 mg/dL (0.0-0.4) 09/15/19 04:21 Neonat Total Bilirubin Not Reportable 09/15/19 04:21 Neonat Direct Bilirubin Not Reportable 09/15/19 04:21 Neonat Indirect Bili Not Reportable 09/15/19 04:21 AST 77 U/L (17-59) H 09/15/19 04:21 ALT 27 U/L (<50) 09/15/19 04:21 Alkaline Phosphatase 259 U/L (38-126) H 09/15/19 04:21 Creatine Kinase 97 U/L (55-170) 09/14/19 07:30 CK-MB (CK-2) 0.71 ng/mL (<4.55) 09/14/19 07:30 Troponin I 0.017 ng/mL 09/14/19 07:30 Total Protein 7.1 g/dL (6.3-8.2) 09/15/19 04:21 Albumin 3.0 g/dL (3.5-5.0) L 09/15/19 04:21 Triglycerides 88 mg/dL (<150) 09/14/19 07:30 Cholesterol 123.19 mg/dL (0-200) 09/14/19 07:30 LDL Cholesterol Direct 82 mg/dL (<100) 09/14/19 07:30 VLDL Cholesterol 18.0 mg/dL (10-31) 09/14/19 07:30 HDL Cholesterol 25 mg/dL (>40) L 09/14/19 07:30 Lipase 27.6 U/L (23-300) 09/13/19 13:54 Tumor Marker AFP 5437.0 ng/mL (0.0-8.3) H 09/15/19 04:21 TSH 1.45 uIU/mL (0.47-4.68) 09/14/19 07:30 Urine Color YELLOW 09/14/19 07:45 Urine Appearance CLEAR 09/14/19 07:45 Urine pH 6.0 (5.0-9.0) 09/14/19 07:45 Ur Specific [place] 1.054 09/14/19 07:45 Urine Protein 30 mg/dL (NEGATIVE) H 09/14/19 07:45 Urine Glucose (UA) NEGATIVE mg/dL (NEGATIVE) 09/14/19 07:45 Urine Ketones 20 mg/dL (NEGATIVE) H 09/14/19 07:45 Urine Blood SMALL (NEGATIVE) H 09/14/19 07:45 Urine Nitrite (Reflex) NEGATIVE (NEGATIVE) 09/14/19 07:45 Urine Bilirubin NEGATIVE (NEGATIVE) 09/14/19 07:45 Urine Urobilinogen NEGATIVE mg/dL (<2.0) 09/14/19 07:45 Leukocyte Esterase Rfl NEGATIVE (NEGATIVE) 09/14/19 07:45 Urine RBC (Auto) 1 /HPF 09/14/19 07:45 Urine WBC (Reflex) 2 /HPF 09/14/19 07:45 Urine Mucus (Auto) OCC /LPF 09/14/19 07:45 Urine Ascorbic Acid NEGATIVE (NEGATIVE) 09/14/19 07:45 Digoxin 1.52 ng/mL (0.8-2.0) 09/21/19 04:34 COVID-19 Source NASOPHARYNGEAL 09/16/19 22:45 COVID-19 (ZURI) NOT DETECTED 09/16/19 22:45 09/13/19 09/13/19 09/14/19 13:54 20:21 01:37 CK-MB (CK-2) 0.97 0.85 Troponin I 0.019 0.016 0.018 09/14/19 07:30 CK-MB (CK-2) 0.71 Troponin I 0.017 Impressions: Abdomen/Pelvis CT 09/13/19 00:00 IMPRESSION: 1. Large 12 cm hepatic mass, new since 2017. Multiple smaller hepatic lesions. Differential diagnosis includes primary hepatocellular carcinoma versus metastatic disease. 2. Colonic diverticulosis but no CT evidence for acute diverticulitis. Plan Plan of Treatment: Patient is discharged to [facility] for long-term care. Advised to follow-up with his primary care provider within 1 week. Follow-up with Dr. Samuel within 2 to 3 weeks. Follow up with Dr. Peterson next week. Complete full course of antibiotics for treatment of diverticulitis. Recommend follow-up colonoscopy in 2 to 3 months. Take your medications as prescribed. Eat a heart healthy diet. Weigh her self daily and report any weight gain of greater than 2 pounds overnight to provider. Return to emergency department as needed for concerning symptoms. Stroke Is this a Stroke Patient?: No Acute Heart Failure - Is this a Heart Failure Patient?: No
[2019-09-21] MEDS: ATORVASTATIN CALCIUM 40 MG TABLET PO SCH (21:59)
[2019-09-22] MEDS: GABAPENTIN 300 MG CAPSULE PO SCH ×2 (06:07→13:26)
[2019-09-22] MEDS: LEVOTHYROXINE SODIUM 0.025 MG TABLET PO SCH (06:07)
[2019-09-22] MEDS: METRONIDAZOLE 500 MG TABLET PO SCH (06:07)
[2019-09-22] MEDS: INSULIN REG, HUMAN 100 UNIT/ML 3 ML VIAL (PYX) SUBCUT SCH ×2 (08:46→13:21)
[2019-09-22] MEDS: LACTOBACILLUS ACIDOPHILUS 250 MG TAB PO SCH (09:25)
[2019-09-22] MEDS: INSULIN GLARGINE,HUM.REC.ANLOG 1,000 UNIT/10 ML VIAL SUBCUT SCH (09:25)
[2019-09-22] MEDS: METOCLOPRAMIDE HCL 10 MG TABLET PO SCH ×2 (09:25→13:21)
[2019-09-22] MEDS: ISOSORBIDE MONONITRATE 30 MG TAB.ER.24H PO SCH (09:25)
[2019-09-22] MEDS: FINASTERIDE 5 MG TABLET PO SCH (09:25)
[2019-09-22] MEDS: APIXABAN 5 MG TABLET PO SCH (09:25)
[2019-09-22] MEDS: LISINOPRIL 5 MG TABLET PO SCH (09:26)
[2019-09-22] MEDS: DIGOXIN INJ 0.5 MG/2 ML AMPULE IV SCH (09:26)
[2019-09-22] MEDS: DOCUSATE SODIUM 100 MG CAPSULE PO SCH (09:26)
[2019-09-22] MEDS: MIDODRINE HCL 5 MG TABLET PO SCH ×2 (09:26→13:27)
[2019-09-22] MEDS: METOPROLOL SUCCINATE 50 MG TAB.SR.24H PO SCH (09:26)
[2019-09-22] MEDS: FAMOTIDINE 20 MG TABLET PO SCH (09:26)
[2019-09-22] MEDS: ASPIRIN 81 MG TABLET, ENT COATED PO SCH (09:26)
[2019-09-22 12:55] VITALS: BP 114/60
== END 2019-09-22 15:40 | DRG 309 ==
LOC: ER 13:42 → EH 19:58 → 3W 21:20
PROVIDERS: ADMIT Emergency Medicine; ATTEND Physician Assistant
DX: I48.0 Paroxysmal atrial fibrillation (principal); K57.92 Diverticulitis of intestine, part unspecified, without perforation or abscess without bleeding; I50.42 Chronic combined systolic (congestive) and diastolic (congestive) heart failure; C22.0 Liver cell carcinoma; Z68.41 Body mass index [BMI] 40.0-44.9, adult; I42.9 Cardiomyopathy, unspecified; I27.20 Pulmonary hypertension, unspecified; E11.42 Type 2 diabetes mellitus with diabetic polyneuropathy; I11.0 Hypertensive heart disease with heart failure; D64.9 Anemia, unspecified; E03.9 Hypothyroidism, unspecified; E86.0 Dehydration; K76.9 Liver disease, unspecified; Z79.4 Long term (current) use of insulin; Z79.899 Other long term (current) drug therapy; E11.9 Type 2 diabetes mellitus without complications; I25.10 Atherosclerotic heart disease of native coronary artery without angina pectoris; I44.7 Left bundle-branch block, unspecified; G47.30 Sleep apnea, unspecified; G43.909 Migraine, unspecified, not intractable, without status migrainosus; N40.0 Benign prostatic hyperplasia without lower urinary tract symptoms; K21.9 Gastro-esophageal reflux disease without esophagitis; M19.90 Unspecified osteoarthritis, unspecified site; M81.0 Age-related osteoporosis without current pathological fracture; F32.9 Major depressive disorder, single episode, unspecified; E66.01 Morbid (severe) obesity due to excess calories; H26.9 Unspecified cataract; L29.9 Pruritus, unspecified; J44.9 Chronic obstructive pulmonary disease, unspecified; H91.90 Unspecified hearing loss, unspecified ear; Z79.01 Long term (current) use of anticoagulants; Z79.82 Long term (current) use of aspirin; I25.2 Old myocardial infarction; Z87.891 Personal history of nicotine dependence; Z03.818 Encounter for observation for suspected exposure to other biological agents ruled out; Z83.3 Family history of diabetes mellitus
CPT/HCPCS: 36415; 74177; 80048; 80053; 80061; 80162; 81001; 82105; 82550; 82553; 82962; 83036; 83690; 83735; 84443; 84484; 85025; 85027; 87635; 93005; 93010; 94660; 96365; 96375; 96376; 99285; J1160; J1815; J1956; J2270; J3490; J7040